=== PATIENT | female | born 1935 | race Caucasian/White ===

== ENCOUNTER 2017-04-26 08:03 | Inpatient (IN) | payer MEDICARE, SELFPAY ==
[2017-04-26] VITALS (16 sets, daily range): BP systolic 158–205; BP diastolic 65–107; PULSE 56–72; RESP 16–20; TEMP 36.3–37.1; O2SAT 92–97; BMI 31.1; BMI 30.7
--- NOTE | 2017-04-26 08:06 | NURSING ---
NO OLD EKGS
--- NOTE | 2017-04-26 08:18 | EKG12_ITS ---
Test Reason : NEURO Blood Pressure : / mmHG Vent. Rate : 061 BPM Atrial Rate : 061 BPM P-R Int : 238 ms QRS Dur : 092 ms QT Int : 466 ms P-R-T Axes : 043 070 057 degrees QTc Int : 469 ms Sinus rhythm with 1st degree A-V block Low voltage QRS (LIMB LEADS) Confirmed by LYDIA ODEN, RAYNE ([id number]), newspaper copy editor MORENITA BARNES ([id number]) on 04/30/2017 3:07:24 PM Referred By: ERIKA Confirmed By:RAYNE FREEMAN MD
--- NOTE | 2017-04-26 08:18 | RAD_ITS ---
STUDY: X-RAY CHEST REASON FOR EXAM: Female, 81 years old. Hypertension. TECHNIQUE: Single AP portable view of the chest. COMPARISON: None. FINDINGS: EKG electrodes are seen. There is elevation of the left hemidiaphragm. The right lung is clear. Blunting of the left costophrenic angle. Normal size heart. Normal mediastinum and celine. Normal visualized pulmonary arteries. Normal visualized aortic arch and descending thoracic aorta. There are diffuse degenerative changes of the visualized thoracic spine. Minimal levoscoliosis of the thoracic spine. Prior fusion in the lower cervical spine. There is no demonstrated abnormality of the visualized soft tissue structures of the upper abdomen. RAD/Chest 1 View IMPRESSION: Elevation of the left hemidiaphragm. No acute abnormality is seen. Electronically Signed: Setve Heart MD at 9:00 EST Tel [phone], Service support ,
--- NOTE | 2017-04-26 08:18 | CT_ITS ---
STUDY: CT BRAIN WITHOUT CONTRAST REASON FOR EXAM: Female, 81 years old. Slurred speech. RADIATION DOSAGE (If Supplied By Facility): CTDIvol = ( 44.99 ) mGy, DLP = ( 762.36 ) mGycm TECHNIQUE: Transaxial CT imaging of the brain was performed without administration of intravenous contrast material. Individualized dose optimization techniques were used for this CT. COMPARISON: None. FINDINGS: Normal soft tissue structures. Normal calvarium. There is mild cerebral atrophy with widening of the extra-axial spaces and ventricular dilatation. There are areas of decreased attenuation within the white matter tracts of the supratentorial brain, consistent with microvascular disease changes. Normal basal ganglia and thalami. Normal brainstem. There is mild cerebellar atrophy. There is no intracranial hemorrhage. There are no findings of an acute ischemic infarction. Atherosclerotic calcification of the vertebral arteries and cavernous portions of the internal carotid arteries bilaterally. Normal visualized paranasal sinuses. CT/Brain/Head without Contrast IMPRESSION: Chronic involutional changes of the brain. Electronically Signed: Steve Heart MD at 8:59 EST Tel [phone], Service support ,
[2017-04-26 08:31] LABS: Bedside Glucose 79 mg/dL (70-110)
[2017-04-26 08:42] LABS: Absolute Lymphocyte Count 1.98 X10^3/ul (0.83-4.51); Absolute Neutrophil Count 5.5 X10^3/uL (2.0-7.7); Basophil# 0.02 X10^3/uL; Basophil% 0.2 % (0-1); Eosinophil# 0.31 X10^3/uL; Eosinophils% 3.6 % (0-5); Hematocrit 41.2 % (37-47); Hemoglobin 13.8 g/dl (12.0-15.0); Lymphocyte # 1.98 X10^3/ul (4.0); Lymphocyte % 23.1 % (19-41); Mean Corp Hgb Conc 33.5 g/gl (32-36); Mean Corpuscular Hgb 30.8 pg (27.0-32.0); Mean Platelet Vol. 9.3 fl (6.2-12.0); Monocyte# 0.78 X10^3/uL; Monocyte% 9.1 % (0-10); Neutrophil # 5.47 X10^3/uL (2.7-7.7); Neutrophil % 63.9 % (47-70); Platelet Count 241 K/mm3 (150-450); RBC Distribution Width CV 13.2 % (11.6-14.6); Red Blood Count 4.48 M/mm3 (4.2-5.4); White Blood Count 8.6 K/mm3 (4.4-11.0)
[2017-04-26 08:44] LABS: POSITIVE COUNT NO; POSITIVE DIFFERENTIAL NO; POSITIVE MORPHOLOGY NO
[2017-04-26] MEDS: Labetalol 100 MG/20 ML Vial 10 MG IV (08:47)
[2017-04-26 08:50] LABS: International Normalized Ratio 1.1; Prothrombin Time (Protime)PT. 13.4 SECONDS (11.7-14.9)
[2017-04-26 08:51] LABS: Partial Thromboplast Time 28.8 Seconds (24.1-36.2)
[2017-04-26 08:57] LABS: Anion Gap 6 (5-15); BUN 19 mg/dL (7-18); BUN/Creat Ratio 32.8 RATIO (10-20); Calcium,Total 9.1 mg/dL (8.5-10.1); Chloride 107 mmol/L (98-107); Creatinine, Serum 0.58 mg/dL (0.55-1.02); EST Glomerular Filtration Rate 107 mL/min (>60); Est Glom Filt Rate - Afr Amer 129 mL/min (>60); Estimated Creatinine Clearance 36.08 ml/min; Glucose 83 mg/dL (70-110); Potassium 3.9 mmol/L (3.5-5.1); Sodium Level 141 mmol/L (136-145)
--- NOTE | 2017-04-26 09:14 | ED.DCSUM_ITS ---
- ER Visit Summary Date of Service: 04/26/17 Chief Complaint: [Difficulty speaking] History of Present Illness: The patient is a 81 F [presents to the emergency department with slurred speech that her daughter noticed this morning when she called to speak with her. Patient states that she felt like her speech was off yesterday afternoon when she had family over. Patient states that she just does not feel like her extremities are working like normal. She denies a headache. She has never had symptoms like this before. She denies any falls or head injuries. She denies recent illness.] Physical Examination: [HEENT-PERRLA, EOMI. Cranial nerves II through XII grossly intact. TMs clear. Mucous membranes moist. No adenopathy. Cardiovascular-regular rate and rhythm without murmur or ectopy Lungs-clear to auscultation, chest wall stable without crepitus or subcu emphysema Abdomen-normoactive bowel sounds, soft, nontender, no rebound or rigidity, no peritoneal signs. Neuro exam-NIH stroke scale was a 1 for dysarthria. Patient has no focal weakness on exam. Finger to nose and heel blair testing within normal limits, negative Romberg, negative pronator drift, Babinski is downgoing bilaterally. Extremities-intact ?4, normal range of motion, normal pulses, atraumatic] Test Results: [CT scan of the brain without contrast showed chronic involutional changes. CBC with it was normal. Chemistries were normal. INR was 1.1. Troponin was 0.03. EKG shows sinus rhythm with a ventricular rate of 61 bpm with a first-degree AV block. Chest x-ray showed nothing acute.] Emergency Department Course and Treatment: [Given symptom onset beginning yesterday patient is not a thrombolytic candidate. Patient also has an NIH of 1 which does not qualify her for thrombolysis.] Treatment Plan: [Patient will be admitted for further workup and evaluation of suspected stroke] Disposition: [Admit] Impression: [Cerebrovascular accident/dysarthria] This note was generated with [employer] dictation software. It may contain incorrect words, spelling, and punctuation that were not noted in review of the chart prior to signing ED Disposition - Plan for ED Patient: Chief Complaint: Neuro S/Sx Referrals: Luis M Lemons DO [Primary Care Provider] -
--- NOTE | 2017-04-26 09:26 | NURSING ---
DR MARIA DEL ROSARIO SCHWARTZ
--- NOTE | 2017-04-26 09:38 | HP.PCM_ITS ---
Problem List (1) Dysarthria Status: Acute (2) Elevated BP without diagnosis of hypertension Status: Acute (3) Osteoarthritis Status: Chronic (4) Ischemic cerebrovascular accident (CVA) Status: Suspected History of Present Illness Date of Admission: 04/26/17 Chief Complaint: slurred speech The patient is a 81 year old F with a history of osteoarthritis and former smoking history who presented to [facility] emergency room on complaining of slurred speech. She awoke with slurred speech that morning and the time of onset could not be determined. TPA was not indicated. 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 she has had surgery on the neck. This weakness is unchanged. Denies STROUD, drooling, difficulty swallowing. She was incontinent of stool today and that is very unusual. She denies chest pain, shortness of breath, cephalgia, palpitations or lightheadedness. She has not had a syncopal episode. Her only medications at home are ASA and Motrin. Vital signs at presentation to the emergency room are temperature 97.3, pulse rate 56, blood pressure 205/107, respiratory rate 17 and she is 94% saturated on room air. CT brain showed involutional changes only. EKG showed a first-degree AV block but was otherwise unremarkable. Significant lab included an increased BUN at 19 with a creatinine of 0.58. TSH is normal. She was admitted to the progressive care unit with a diagnosis of suspected ischemic CVA. Past Medical History Past Medical History (Chronic Problems): Chronic Problems Osteoarthritis (Chronic) Allergies meperidine [From Demerol] Adverse Reaction (Verified 04/26/17 08:04) Upset Stomach Home Medications: Ambulatory Orders Medication Instructions Recorded Aspirin [Aspirin, Baby] 81 mg PO DAILY@0800 04/26/17 Multivitamin [Daily Multiple 1 each PO DAILY 04/26/17 Vitamin] Surgical History: - - Decompressive surgery on her neck for radiculopathy/ myelopathy on her left side. Oophorectomy secondary to assist. Left total hip replacement. 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 Denies: Chills, Fever, Weight Change Eyes: Denies: Blurred vision, Double vision, Vision Change HEENT: Denies: Difficulty Hearing, Difficulty Swallowing, Head Aches, Sinus Congestion, Sinus Drainage, Sore Throat Cardiovascular: Denies: Chest Pain, Edema, Light Headedness, Orthopnea, Palpitations, Paroxysmal Noc. Dyspnea, Syncope Respiratory: Denies: Cough, Shortness of Breath, Sputum production Gastrointestinal: Reports: - - she had 1 episode of fecal incontinence today. Denies: Abdominal Pain, Diarrhea, Nausea, Vomiting Genitourinary: Denies: Dysuria Gynecological: Denies: Breast symptoms, Vaginal discharge Musculoskeletal: Reports: Joint Tenderness - has OA and takes Motrin. Denies: Joint Pain Skin: Denies: Jaundice, Rash, Wounds Neurological: Reports: Change in Speech, Slurred speech. Denies: Confusion, Difficulty swallowing, Focal weakness, Numbness, Tingling, Seizures Psychiatric: Denies: Anxiety, Depression, Homicidal Ideations, Suicidal Ideations Endocrine: Denies: Hx of Thyroiditis Hematologic/ Lymphatic: Denies: Hx of blood clot VTE Information - Inpt Only VTE Present on Admission: No VTE Mechan Device Prophylaxis: SCD's, Knee High PERLA Hose VTE Pharm Prophylaxis ordered?: Yes Patient Problems: Active and Suspected Problems Dysarthria (Acute) Elevated BP without diagnosis of hypertension (Acute) Ischemic cerebrovascular accident (CVA) (Suspected) - Physical Exam General: Alert, Oriented x3, Cooperative, No apparent distress, Well developed, Well nourished, - - having dysarthria.....no aphasia HEENT: Atraumatic, PERRLA, EOMI, Normocephalic Oral: Dry Mucosa Neck: Supple, No JVD, Negative Carotid Bruits, No Nuchal Rigidity, - - Carotids have brisk upstroke and good pulse volume Lungs: Clear to auscultation, No rhonchi, No wheeze, No rales Cardiovascular: Regular rate, Regular Rhythm, Normal S1, Normal S2, No murmurs, No Ectopic Activity, No rub noted, No Gallop Abdomen: Bowel Sounds Present, Soft, Non Tender, Non-Distended, No Hepato- splenomegaly, Obese Extremities: No clubbing, No cyanosis, No edema, Peripheral Pulses Normal Skin: No rashes, No breakdown Musculoskeletal: No Muscle Wasting Neurological: Facial Droop, Slurred Speech, Sensory exam intact to light touch and pain, Coordination normal, - - slurred speech. LUE and the LLE are 4/5 and this is chronic with no acute change. %/% in the RUE and the RLE. Intact sensation. Psych/Mental Status: Normal Affect, Appropriate Vital Signs Temp Pulse Resp BP Pulse Ox 97.3 F L 57 L 20 H 170/78 H 93 04/26/17 08:20 04/26/17 09:27 04/26/17 09:27 04/26/17 09:27 04/26/17 09:27 Oxygen Delivery Method Room Air Weight: 170 lb 10.205 oz Body Mass Index (BMI) 31.1 Finger Stick Blood Glucose 79 Laboratory Tests Past 24 Hrs 04/26/17 04/26/17 04/26/17 08:27 08:27 08:27 WBC 8.6 RBC 4.48 Hgb 13.8 Hct 41.2 MCV 92.0 MCH 30.8 MCHC 33.5 RDW 13.2 RDW Differential 44.0 H Plt Count 241 MPV 9.3 Immature Gran % (Auto) 0.100 Neut % (Auto) 63.9 Lymph % (Auto) 23.1 Baxter % (Auto) 9.1 Eos % (Auto) 3.6 Baso % (Auto) 0.2 Absolute Neuts (auto) 5.5 Absolute Lymphs (auto) 1.98 Total Counted Not Reportable PT 13.4 INR 1.1 APTT 28.8 Sodium 141 Potassium 3.9 Chloride 107 Carbon Dioxide 28.0 Anion Gap 6 BUN 19 H Creatinine 0.58 Estim Creat Clear Calc 36.08 Est GFR (MDRD) Af Amer 129 Est GFR (MDRD) Non-Af 107 BUN/Creatinine Ratio 32.8 H Glucose 83 Calcium 9.1 Troponin I 0.03 POC Glucose 04/26/17 08:19 POC Glucose 79 Assessment/Plan Active and Suspected Problems Dysarthria (Acute) Elevated BP without diagnosis of hypertension (Acute) Ischemic cerebrovascular accident (CVA) (Suspected) Impressions 1. Acute onset dysarthria sometime during the night. No TPA....unclear when the onset was. Has been taking ASA 81 mg daily 2. elevated BP with no hx of HTN 3. suspected ischemic CVA 4. Obesity 5. Former smoker-quit in 1999 Admitted to PCU Stroke protocol initiated. Add Plavix to the ASA ECHO MRI of the brain and CTA of the head and the neck. Lipid panel in the AM Consult Dr. Luo Code Visit Inpatient E&M: 54133 Init Hosp L3
--- NOTE | 2017-04-26 09:39 | NURSING ---
PCU DYSARTHRIA, SUSPECTED CVA SEMENTI
--- NOTE | 2017-04-26 10:24 | ECHOD_ITS ---
Reason For Study: TIA/CVA Procedure This was a 2D Doppler, Color Flow transthoracic echocardiogram. The exam was of fair technical quality due to diminished acoustic windows. The study was technically difficult. Exam performed portable in patient room. Left Ventricle Normal LV size. Left ventricular systolic function is normal. The estimated ejection fraction is 55 %. No regional wall motion abnormalities noted. Right Ventricle Normal RV size. Normal systolic function. Atria The left atrium is mildly enlarged. Normal right atrium. No doppler evidence for ASD. Bubble contrast study negative for right to left interatrial shunt. Mitral Valve There is moderate to severe mitral annular calcification. Extension of the mitral annular calcification onto the posterior mitral valve leaflet. Mild mitral valve stenosis. Trivial mitral valve insufficiency. Tricuspid Valve Normal tricuspid valve. Trivial tricuspid valve insufficiency. Right ventricular systolic pressure estimated to be 28 mmHg. Aortic Valve Trisinus/trileaflet aortic valve. Moderate focal aortic valve calcification. Pulmonic Valve The pulmonic valve is not well visualized. Great Vessels Normal sized aortic root. Pericardium/Pleural No pericardial effusion. Medication Performed a rapid injection of agitated mix of 9 cc saline and 1cc air to assess for atrial septal defect. MMode/2D Measurements & Calculations LVIDd: 3.4 cm IVSd: 1.2 cm Ao root diam: 2.6 cm LVIDs: 1.9 cm LVPWd: 0.84 cm RVDd: 4.0 cm FS: 46.0 % LAV(MOD-bp): 44.3 ml LA A4 area: 15.6 cm2 RA A4 area: 10.3 cm2 LAV(MOD-bp) Indexed: 25.5 ml/m2 LAV(MOD-sp2): 49.6 ml LAV(MOD-sp4): 38.0 ml Time Measurements MV dec time: 0.14 sec Doppler Measurements & Calculations MV E max dilip: 79.6 cm/sec Lat Peak E' Dilip: 4.4 cm/sec Med Peak E' Dilip: 3.7 cm/sec MV A max dilip: 132.9 cm/sec E/E' lat: 18.1 E/E' med: 21.3 MV E/A: 0.60 MV V2 max: 136.5 cm/sec MV P1/2t max dilip: 82.2 cm/sec Ao V2 max: 134.8 cm/sec MV max P.5 mmHg MV P1/2t: 122.5 msec Ao max P.3 mmHg MV V2 mean: 69.1 cm/sec MV dec slope: 196.4 cm/sec2 Ao V2 mean: 98.9 cm/sec MV mean P.2 mmHg MVA(P1/2t): 1.8 cm2 Ao mean P.2 mmHg MV V2 VTI: 41.3 cm Ao V2 VTI: 33.7 cm LV V1 max: 108.3 cm/sec PA V2 max: 82.3 cm/sec TR max dilip: 247.9 cm/sec LV V1 max P.7 mmHg TR max P.6 mmHg Interpretation Summary The study was technically difficult. Left ventricular systolic function is normal. The estimated ejection fraction is 55 %. The left atrium is mildly enlarged. There is moderate to severe mitral annular calcification. Extension of the mitral annular calcification onto the posterior mitral valve leaflet. Mild mitral valve stenosis. Trivial mitral valve insufficiency. Trivial tricuspid valve insufficiency. Moderate focal aortic valve calcification. Right ventricular systolic pressure estimated to be 28 mmHg. Bubble contrast study negative for right to left interatrial shunt. Ordering Physician: Poonam June Referring Physician: Luis M Lemons Performed By: Lisa Chapman RDCS, RVT
--- NOTE | 2017-04-26 10:24 | CT_ITS ---
STUDY: CTA NECK WITH CONTRAST REASON FOR EXAM: Female, 81 years old. Slurred speech. Lower extremity weakness. RADIATION DOSAGE (If Supplied By Facility): CTDIvol = ( 18.97 ) mGy, DLP = ( 624.21 ) mGycm TECHNIQUE: CT angiography with multi-detector data acquisition was performed from the aortic arch to the skull base following intravenous administration of 100CC ml of Isovue 370 contrast. MIP images were reconstructed from the axial data set. Post-processing of the angiographic images was performed, with multiplanar reformation and 3D reconstruction. Individualized dose optimization techniques were used for this CT. COMPARISON: None. FINDINGS: Prior anterior cervical fusion. AORTIC ARCH: There is atherosclerotic calcific plaque formation of the aortic arch and great vessels arising from the aortic arch, without a hemodynamically significant stenosis. There is a normal origin of the brachiocephalic, left common carotid, and left subclavian arteries. RIGHT CAROTID ARTERIES: Normal right common carotid artery (CCA). Normal right common carotid bulb. There is mild atherosclerotic plaque formation of the origin of the right internal carotid artery with less than 50% cross sectional diameter stenosis. Normal visualized cervical portion of the right internal carotid artery. Normal origin of the right external carotid artery (ECA). LEFT CAROTID ARTERIES: Normal left common carotid artery (CCA). Normal left common carotid bulb. There is mild atherosclerotic plaque formation of the origin of the left internal carotid artery with less than 50% cross sectional diameter stenosis. Normal visualized cervical portion of the left internal carotid artery. Normal origin of the left external carotid artery (ECA). VERTEBRAL ARTERIES: Normal bilateral vertebral arteries. CT/CTA Neck W/WO Contrast IMPRESSION: Calcific plaque at the origins of the right and left internal carotid arteries causing less than 50% luminal stenosis. Electronically Signed: Steve Heart MD at 11:25 EST Tel [phone], Service support ,
--- NOTE | 2017-04-26 10:24 | MRI_ITS ---
STUDY: MRI BRAIN WITHOUT CONTRAST REASON FOR EXAM: Female, 81 years old. CVA/dysarthria. TECHNIQUE: Standardized multiplanar fat and water weighted pulse sequences were obtained. COMPARISON: None. FINDINGS: Small restricted diffusion in the left periventricular white matter extending down to the left posterior putamen are consistent with acute ischemic infarcts. Normal size of the ventricles and extra-axial spaces for the patient's age. Periventricular white matter and scattered subcortical white matter T2 FLAIR hyperintensity foci are chronic white matter ischemic changes. Normal remaining basal ganglia. Normal thalami. There is no extra-axial fluid accumulation. Normal flow voids within the major intracranial circulation suggesting patency by spin echo criteria. Normal sella turcica, pituitary gland, infundibular stalk, optic chiasm and hypothalamus. Normal tectal plate and pineal gland. Normal midbrain, gabrielle and medulla. Normal cerebellum. Normal basal cisterns. Normal bilateral temporal bones. Normal bilateral internal auditory canals. No demonstrated orbital abnormality, within the constraints of a routine brain study. Normal visualized paranasal sinuses. Normal calvarium and skull base. Normal visualized soft tissue structures. 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 MRI/Brain without Contrast IMPRESSION: 1. Acute ischemic infarcts in the left periventricular white matter and left posterior putamen. 2. Multiple chronic white matter ischemic changes in both cerebral hemispheres. 3. 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 N.B. : The above information has been verbally conveyed by Enrique Quezada MD to Melvina Gleason, RN, Hospital- In-Patient RN, on 04/26/2017 16:24:19 (ET). Electronically Signed: Enrique Quezada MD at 16:18 EST , Service support , N.B. : The above information has been verbally conveyed by Enrique Quezada MD to Melvina Gleason, RN, Hospital- In-Patient RN, on 04/26/2017 16:24:19 (ET).
--- NOTE | 2017-04-26 10:24 | CT_ITS ---
STUDY: CTA OF THE BRAIN REASON FOR EXAM: Female, 81 years old. Slurred speech. Lower extremity weakness. RADIATION DOSAGE (If Supplied By Facility): CTDIvol = ( 18.97 ) mGy, DLP = ( 624.21 ) mGycm TECHNIQUE: CT angiography was performed with a multi-detector CT scanner. Data acquisition was obtained from the skull base through the vertex following intravenous administration of 100 ml of Isovue-370. MIP images were reconstructed from the axial data set. Post-processing of the angiographic images was performed, with multiplanar reformation and 3D reconstruction. Individualized dose optimization techniques were used for this CT. COMPARISON: None. FINDINGS: Normal bilateral petrous carotid arteries. There is calcified plaque formation of the right cavernous carotid artery, without a cross-sectional luminal stenosis. There is calcified plaque formation of the left cavernous carotid artery, without a cross-sectional luminal stenosis. Normal right A1 segments of the anterior cerebral artery. Normal left A1 segments of the anterior cerebral artery. Normal intact anterior communicating artery (ACOM). Normal bilateral A2 segments of the anterior cerebral arteries. Normal right M1 and M2 segments of the middle cerebral arteries, with a normal M1 bifurcation. Normal left M1 and M2 segments of the middle cerebral arteries, with a normal M1 bifurcation. There is a persistent origin of the right posterior cerebral artery with absence of the posterior communicating artery (PCOM). There is a persistent origin of the left posterior cerebral artery with absence of the posterior communicating artery (PCOM). Normal bilateral vertebral arteries. Normal basilar artery with a normal basilar bifurcation. The visualized bilateral superior cerebellar (SCA) arteries are normal. Normal bilateral P1, P2 and visualized P3 segments of the posterior cerebral arteries. There is no demonstrated aneurysm of the [place]. There is no demonstrated abnormality of the visualized brain. CT/CTA Head W/WO Contrast IMPRESSION: Normal [place] without a demonstrated aneurysm or hemodynamically significant stenosis. Electronically Signed: Steve Heart MD at 11:23 EST Tel [phone], Service support ,
[2017-04-26] MEDS: Aspirin 81 MG TAB.CHEW PO (11:01)
[2017-04-26] MEDS: Clopidogrel Bisulfate 75 MG Tablet PO (11:01)
[2017-04-26] MEDS: Enoxaparin 40 MG/0.4 ML Syringe SC (11:01)
[2017-04-26] MEDS: Multivitamins,Therapeutic Tablet 1 TABLET PO (11:01)
[2017-04-26] MEDS: 0.9% Normal Saline 1,000 ML 100 ML IV ×2 (11:02→21:34)
[2017-04-26 11:12] LABS: AST(SGOT) 18 U/L (15-37); Alanine Aminotransfer ALT/SGPT 20 U/L (12-78); Albumin, Serum 3.6 g/dL (3.4-5.0); Alkaline Phosphatase 80 U/L (45-117); Bilirubin, Direct 0.09 mg/dL (0.00-0.30); Globulin 3.9 g/dL (2.2-4.2); Protein, Total 7.5 g/dL (6.4-8.2); Thyroid Stim Hormone (TSH) 2.21 uIU/mL (0.358-3.74)
--- NOTE | 2017-04-26 14:31 | PCM.CONS.GEN ---
Problem List (1) Stroke Status: Acute Qualifiers: CVA mechanism: embolism Precerebral and cerebral artery: middle cerebral artery Laterality of affected vessel: left Qualified Code(s): I63.412 - Cerebral infarction due to embolism of left middle cerebral artery Reason for Consult Date of Consultation: 04/26/17 Reason for Consultation: stroke History of Present Illness: The patient is a 81 year old CF with PMH of cervical surgery with residual left UE proximal weakness admitted with slurred speech. Per daughter she called her up this morning (04/26/17) and she was not speaking correct on the phone, so she went to her house and drove her to the ED for possible stroke evaluation, denies any weakness of extremities, sensory loss, STROUD or visual disturbances. Per patient she lives alone, does drive, denies any frequent falls, does not need any assistance with ADLs. MRI brain on my review shows acute left MCA stroke (left schmid radiata and CHASSIS INSPECTOR), report awaited, CTA head/neck did not show any occlusion or hemodynamically significant stenosis. [] Past Medical History Past Medical History (Chronic Problems): Chronic Problems Osteoarthritis (Chronic) Allergies meperidine [From Demerol] Adverse Reaction (Verified 04/26/17 08:04) Upset Stomach Home Medications: Ambulatory Orders Medication Instructions Recorded Aspirin [Aspirin, Baby] 81 mg PO DAILY@0800 04/26/17 Multivitamin [Daily Multiple 1 each PO DAILY 04/26/17 Vitamin] Surgical History: - - Decompressive surgery on her neck for radiculopathy/myelopathy on her left side. Oophorectomy secondary to assist. Left total hip replacement. Psychiatric History: No pertinent psych hx DIRECTOR OF STUDENT AFFAIRS History: No pertinent DIRECTOR OF STUDENT AFFAIRS history Lives: Alone Smoking Status: Former smoker Tobacco Use: Non-smoker Alcohol: Rare Drugs: None - *Family History Sibling History Items: Heart Disease Review of Systems Constitutional: Reports: - - complete ROS negative except as documented in HPI Patient Problems: Active and Suspected Problems Dysarthria (Acute) Elevated BP without diagnosis of hypertension (Acute) Ischemic cerebrovascular accident (CVA) (Suspected) Stroke (Acute) - Physical Exam General: Alert, Oriented x3, Cooperative HEENT: Atraumatic, PERRLA, EOMI, Normocephalic Neck: Supple, No JVD, Negative Carotid Bruits Lungs: Clear to auscultation, Normal air movement Cardiovascular: Regular rate, No murmurs Abdomen: Bowel Sounds Present, Soft, Non Tender Extremities: No edema, Capillary Refill Less than 3 Seconds Skin: No rashes, No breakdown Musculoskeletal: No Tenderness to Palpation of Joints or Extremities Neurological: - - consious, alert, AoA x3, CN- ? mild right UMN facial palsy, rest normal, Power 5/5 right UE/LE, 4/5 left proximal UE (old), -5/5 left LE (old), no sensory loss, no cerebellar signs, dysarthric speech, no aphasia, Reflexes + B/L B/S/T/K/A, gait deferred, NIHSS 2 at present. Psych/Mental Status: Normal Affect, Appropriate Vital Signs Temp Pulse Resp BP Pulse Ox 98.0 F 72 16 204/79 H 96 04/26/17 14:15 04/26/17 14:15 04/26/17 14:15 04/26/17 14:15 04/26/17 14:15 Oxygen Delivery Method Room Air Weight: 76.2 kg Body Mass Index (BMI) 31.1 Laboratory Tests Past 24 Hrs 04/26/17 12:45 Troponin I 0.04 Assessment/Plan Active and Suspected Problems Dysarthria (Acute) Elevated BP without diagnosis of hypertension (Acute) Ischemic cerebrovascular accident (CVA) (Suspected) Stroke (Acute) The patient is a 81 year old CF with PMH of cervical surgery with residual left UE proximal weakness admitted with slurred speech. Per daughter she called her up this morning (04/26/17) and she was not speaking correct on the phone, per patient she probably woke up with the symptoms. Daughter went to her house and drove her to the ED for possible stroke evaluation, denies any weakness of extremities, sensory loss, STROUD or visual disturbances. Per patient she lives alone, does drive, denies any frequent falls, does not need any assistance with ADLs. MRI brain on my review shows acute left MCA stroke (left schmid radiata and CHASSIS INSPECTOR), report awaited, CTA head/neck did not show any occlusion or hemodynamically significant stenosis. Patient was on ASA at home. was not given Ivtpa since NIHSS was low on admission and was a wake up stroke. Impression Acute Left MCA stroke- possibly embolic Plan -Recommend dual AP with ASA and Plavix for 1 month, then switch to single AP -Recommend Lipitor 40 mg PO q hs -MRI brain and CTA head/neck images reviewed- acute left MCA stroke, B/L ICA < 50% stenosis -Recommend TTE, LDL, Hba1c -Permissive HTN for atleast first 24 hrs -Fall precautions -Recommend PT/OT and ST -GI/DVT prophylaxis -Follow up with Neurology as outpatient in 2-3 weeks -Please call with questions if any -Thank you for allowing us to participate in patient's care and management I spent 60 minutes taking history, doing physical examination, reviewing medical records, coordinating care and counseling the patient. Code Visit Inpatient E&M: 79932 Init Hosp L3
--- NOTE | 2017-04-26 14:42 | CON.PCM_ITS ---
Problem List (1) Stroke Status: Acute Qualifiers: CVA mechanism: embolism Precerebral and cerebral artery: middle cerebral artery Laterality of affected vessel: left Qualified Code(s): I63.412 - Cerebral infarction due to embolism of left middle cerebral artery Reason for Consult Date of Consultation: 04/26/17 Reason for Consultation: stroke History of Present Illness: The patient is a 81 year old CF with PMH of cervical surgery with residual left UE proximal weakness admitted with slurred speech. Per daughter she called her up this morning (04/26/17) and she was not speaking correct on the phone, so she went to her house and drove her to the ED for possible stroke evaluation, denies any weakness of extremities, sensory loss, STROUD or visual disturbances. Per patient she lives alone, does drive, denies any frequent falls, does not need any assistance with ADLs. MRI brain on my review shows acute left MCA stroke (left schmid radiata and CHANNELER), report awaited, CTA head/neck did not show any occlusion or hemodynamically significant stenosis. [] Past Medical History Past Medical History (Chronic Problems): Chronic Problems Osteoarthritis (Chronic) Allergies meperidine [From Demerol] Adverse Reaction (Verified 04/26/17 08:04) Upset Stomach Home Medications: Ambulatory Orders Medication Instructions Recorded Aspirin [Aspirin, Baby] 81 mg PO DAILY@0800 04/26/17 Multivitamin [Daily Multiple 1 each PO DAILY 04/26/17 Vitamin] Surgical History: - - Decompressive surgery on her neck for radiculopathy/ myelopathy on her left side. Oophorectomy secondary to assist. Left total hip replacement. Psychiatric History: No pertinent psych hx HEAD OF BIOLOGY History: No pertinent HEAD OF BIOLOGY history Lives: Alone Smoking Status: Former smoker Tobacco Use: Non-smoker Alcohol: Rare Drugs: None - *Family History Sibling History Items: Heart Disease Review of Systems Constitutional: Reports: - - complete ROS negative except as documented in HPI Patient Problems: Active and Suspected Problems Dysarthria (Acute) Elevated BP without diagnosis of hypertension (Acute) Ischemic cerebrovascular accident (CVA) (Suspected) Stroke (Acute) - Physical Exam General: Alert, Oriented x3, Cooperative HEENT: Atraumatic, PERRLA, EOMI, Normocephalic Neck: Supple, No JVD, Negative Carotid Bruits Lungs: Clear to auscultation, Normal air movement Cardiovascular: Regular rate, No murmurs Abdomen: Bowel Sounds Present, Soft, Non Tender Extremities: No edema, Capillary Refill Less than 3 Seconds Skin: No rashes, No breakdown Musculoskeletal: No Tenderness to Palpation of Joints or Extremities Neurological: - - consious, alert, AoA x3, CN- ? mild right UMN facial palsy, rest normal, Power 5/5 right UE/LE, 4/5 left proximal UE (old), -5/5 left LE ( old), no sensory loss, no cerebellar signs, dysarthric speech, no aphasia, Reflexes + B/L B/S/T/K/A, gait deferred, NIHSS 2 at present. Psych/Mental Status: Normal Affect, Appropriate Vital Signs Temp Pulse Resp BP Pulse Ox 98.0 F 72 16 204/79 H 96 04/26/17 14:15 04/26/17 14:15 04/26/17 14:15 04/26/17 14:15 04/26/17 14:15 Oxygen Delivery Method Room Air Weight: 76.2 kg Body Mass Index (BMI) 31.1 Laboratory Tests Past 24 Hrs 04/26/17 12:45 Troponin I 0.04 Assessment/Plan Active and Suspected Problems Dysarthria (Acute) Elevated BP without diagnosis of hypertension (Acute) Ischemic cerebrovascular accident (CVA) (Suspected) Stroke (Acute) The patient is a 81 year old CF with PMH of cervical surgery with residual left UE proximal weakness admitted with slurred speech. Per daughter she called her up this morning (04/26/17) and she was not speaking correct on the phone, per patient she probably woke up with the symptoms. Daughter went to her house and drove her to the ED for possible stroke evaluation, denies any weakness of extremities, sensory loss, STROUD or visual disturbances. Per patient she lives alone, does drive, denies any frequent falls, does not need any assistance with ADLs. MRI brain on my review shows acute left MCA stroke (left schmid radiata and CHANNELER), report awaited, CTA head/neck did not show any occlusion or hemodynamically significant stenosis. Patient was on ASA at home. was not given Ivtpa since NIHSS was low on admission and was a wake up stroke. Impression Acute Left MCA stroke- possibly embolic Plan -Recommend dual AP with ASA and Plavix for 1 month, then switch to single AP -Recommend Lipitor 40 mg PO q hs -MRI brain and CTA head/neck images reviewed- acute left MCA stroke, B/L ICA < 50% stenosis -Recommend TTE, LDL, Hba1c -Permissive HTN for atleast first 24 hrs -Fall precautions -Recommend PT/OT and ST -GI/DVT prophylaxis -Follow up with Neurology as outpatient in 2-3 weeks -Please call with questions if any -Thank you for allowing us to participate in patient's care and management I spent 60 minutes taking history, doing physical examination, reviewing medical records, coordinating care and counseling the patient. Code Visit Inpatient E&M: [id number] Init Hosp L3
[2017-04-26] MEDS: Atorvastatin Calcium 40 MG Tablet PO (21:34)
[2017-04-27] VITALS (8 sets, daily range): BP systolic 158–166; BP diastolic 72–94; PULSE 57–72; RESP 14–16; TEMP 36.4–36.7; O2SAT 93–97; BMI 31.1
[2017-04-27 05:39] LABS: Hematocrit 40.8 % (37-47); Hemoglobin 13.7 g/dl (12.0-15.0); Mean Corp Hgb Conc 33.6 g/gl (32-36); Mean Corpuscular Hgb 30.3 pg (27.0-32.0); Mean Corpuscular Volume 90.3 fL (81-99); Mean Platelet Vol. 9.3 fl (6.2-12.0); Platelet Count 270 K/mm3 (150-450); RBC Distribution Width SD 42.2 fl (35.1-43.9); Red Blood Count 4.52 M/mm3 (4.2-5.4); Scan Indicated on CBC? Y/N NO
[2017-04-27] MEDS: Enoxaparin 40 MG/0.4 ML Syringe SC (05:47)
[2017-04-27 05:58] LABS: BUN 10 mg/dL (7-18); Estimated Creatinine Clearance 36.08 ml/min; Glucose 89 mg/dL (70-110)
[2017-04-27 05:59] LABS: ALB/GLOB Ratio 0.8 RATIO (0.9-2.4); AST(SGOT) 19 U/L (15-37); Alanine Aminotransfer ALT/SGPT 20 U/L (12-78); Albumin, Serum 3.2 g/dL (3.4-5.0); Alkaline Phosphatase 71 U/L (45-117); Anion Gap 8 (5-15); BUN/Creat Ratio 19.8 RATIO (10-20); Calcium,Total 8.5 mg/dL (8.5-10.1); Chloride 104 mmol/L (98-107); Cholesterol 259 mg/dL (200); EST Glomerular Filtration Rate 125 mL/min (>60); Est Glom Filt Rate - Afr Amer 152 mL/min (>60); Globulin 3.8 g/dL (2.2-4.2); High Density Lipoprotein 44 mg/dL; Magnesium 1.7 mg/dL (1.6-2.6); Phosphorus 2.9 mg/dL (2.5-4.9); Potassium 3.7 mmol/L (3.5-5.1); Sodium Level 139 mmol/L (136-145); Triglycerides 146 mg/dL; Very Low Density Lipoprotein 29 mg/dL (5-40)
[2017-04-27] MEDS: 0.9% Normal Saline 1,000 ML 100 ML IV (06:49)
[2017-04-27] MEDS: Aspirin 81 MG TAB.CHEW PO (07:54)
[2017-04-27] MEDS: Multivitamins,Therapeutic Tablet 1 TABLET PO (07:54)
[2017-04-27] MEDS: Clopidogrel Bisulfate 75 MG Tablet PO (07:55)
--- NOTE | 2017-04-27 11:56 | CASEMGMT ---
Face to Face with patient for initial transition planning/care coordination assessment. TEGAN SANTIAGO introduced self and role at [facility], pt voices understanding and consents to assessment at this time. Pt sitting up in chair in no distress at this time. Pt A/O x4 at this time and answers all questions appropriately but with slurred speech and facial droop. Care providers, pharmacy, and demographics verified. See attached link. Pt voices no further concerns/needs at this time. Advised pt to ask for CM if any further questions/concerns/needs arise, voices understanding. This RN JACK to f/u with Dr. June regarding outpt speech therapy set up. Pt states would like to go to [facility]. PLAN: [place] TEGAN SANTIAGO
--- NOTE | 2017-04-27 15:06 | CASEMGMT ---
Per Dr. June, pt to be set up with outpt speech therapy. Order signed by Dr. June at this time and faxed to [facility]. Original to pt and copy to chart. Call to [facility] to verify fax received but per Aisha they have a 50pg fax coming through and she has not received it yet. Pt's daughter, Naye, aware to call [facility] if they do not call her, voices understanding. SStclaudia RN CM
--- NOTE | 2017-04-27 17:13 | PCM.DC ---
- Discharge Diagnoses Current Active Problems: Current Active and Chronic Problems Dysarthria (Acute) Elevated BP without diagnosis of hypertension (Acute) Osteoarthritis (Chronic) Stroke (Acute) You will use the following diet at home:: Cardiac - low fat, low salt Your food should be the consistency of: Regular Your liquids should be the consistency of: Regular/Thin Discharge Activity: Return to Normal Activity Call your doctor if you observe: Fever of 101 or Higher, Using more than one pad per hour, Dizziness, Fainting spells, Chest pain, - - unilateral numbness or weakness, trouble swallowing, sudden loss of vision or hearing, not being able to say what you mean...gibberish, any stomach pain nor nausea/vomiting Instructions: Low-Fat Cooking Tips, Reading?Food Labels, Eating Heart-Healthy Foods Additional Instructions: 1. your cholesterol is too high. The LFL, or bad cholesterol, is 186 and in people with strokes or heart attacks it should be < 70. You have been started on a medication called Atorvastin, also called Lipitor, to help bring the cholesterol down. You should have the cholesterol and a liver profile rechecked in 4-6 weeks. Lipitor can cause muscle pain in some people so if you are having a lot of muscle pain call your PCP. 2. Your BP is high and I have started you on a medication called Zestril, also called Lisinopril, and you will take this once a day. The biggest side effect is a dry cough. If you get a cough do not stop the medication until you have talked with Dr. Lemons. 3. You will need to get a heart monitor to see what the rhythm of the heart is when you are home doing your normal activities. 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 Pending Tests on Discharge: ECHO report Allergies/Adverse Reactions: Allergies meperidine [From Demerol] Adverse Reaction (Verified 04/26/17 08:04) Upset Stomach Medications to take at Discharge Aspirin [Aspirin, Baby] 81 mg PO DAILY@0800 04/26/17 Multivitamin [Daily Multiple Vitamin] 1 each PO DAILY 04/26/17 Atorvastatin Calcium [Lipitor] 40 mg PO QHS #30 tab 04/27/17 Clopidogrel Bisulfate [Plavix] 75 mg PO DAILY #30 tab 04/27/17 Lisinopril [Zestril] 5 mg PO DAILY #30 tab 04/27/17 The following prescriptions were given: Atorvastatin Calcium [Lipitor] 40 mg PO QHS #30 tab Clopidogrel Bisulfate [Plavix] 75 mg PO DAILY #30 tab Lisinopril [Zestril] 5 mg PO DAILY #30 tab Primary Care Physician: Luis M Lemons DO [Primary Care Provider] - Please follow up with your Primary Care Physician in: 1 week Please Follow Up With: Joaquín Luo MD When: 2-3 weeks Proposed Discharge Date: 04/27/17
--- NOTE | 2017-04-27 17:25 | PCM.DC.SUM ---
Discharge Date and Diagnosis - Problem List Patient Problems: Active and Suspected Problems Dysarthria (Acute) Elevated BP without diagnosis of hypertension (Acute) Ischemic cerebrovascular accident (CVA) (Acute) Date of Admission: 04/26/17 Date of Discharge: 04/27/17 - Primary Discharge Diagnosis Active and Suspected Problems Dysarthria (Acute) Ischemic cerebrovascular accident (CVA) (Acute) HTN - Secondary Discharge Diagnosis Chronic Problems Osteoarthritis (Chronic) HTN HLD obesity Hospital Course and Treatment Imaging Results: Clinical Impression(s) from Imaging Studies Brain CT 04/26/17 08:18 IMPRESSION: Chronic involutional changes of the brain. Electronically Signed: Steve Heart MD at 8:59 EST Tel [phone], Service support , Chest X-Ray 04/26/17 08:18 IMPRESSION: Elevation of the left hemidiaphragm. No acute abnormality is seen. Electronically Signed: Steve Heart MD at 9:00 EST Tel [phone], Service support , Brain MRI 04/26/17 10:24 IMPRESSION: 1. Acute ischemic infarcts in the left periventricular white matter and left posterior putamen. 2. Multiple chronic white matter ischemic changes in both cerebral hemispheres. 3. 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 N.B. : The above information has been verbally conveyed by Enrique Quezada MD to Melvina Gleason RN, Hospital- In-Patient RN, on 04/26/2017 16:24:19 (ET). Electronically Signed: Enrique Quezada MD at 16:18 EST , Service support , N.B. : The above information has been verbally conveyed by Enrique Quezada MD to Melvina Gleason RN, Hospital- In-Patient RN, on 04/26/2017 16:24:19 (ET). Head CTA 04/26/17 10:24 IMPRESSION: Normal [place] without a demonstrated aneurysm or hemodynamically significant stenosis. Electronically Signed: Steve Heart MD at 11:23 EST Tel [phone], Service support , Neck CTA 04/26/17 10:24 IMPRESSION: Calcific plaque at the origins of the right and left internal carotid arteries causing less than 50% luminal stenosis. Electronically Signed: Steve Heart MD at 11:25 EST Tel [phone], Service support , Laboratory Results - last 24 hr 04/26/17 04/27/17 04/27/17 22:32 05:00 05:00 WBC 9.0 RBC 4.52 Hgb 13.7 Hct 40.8 MCV 90.3 MCH 30.3 MCHC 33.6 RDW 13.0 RDW Differential 42.2 Plt Count 270 MPV 9.3 Sodium 139 Potassium 3.7 Chloride 104 Carbon Dioxide 27.0 Anion Gap 8 BUN 10 Creatinine 0.50 L Estim Creat Clear Calc 36.08 Est GFR (MDRD) Af Amer 152 Est GFR (MDRD) Non-Af 125 BUN/Creatinine Ratio 19.8 Glucose 89 Calcium 8.5 Phosphorus 2.9 Magnesium 1.7 Total Bilirubin 0.50 AST 19 ALT 20 Alkaline Phosphatase 71 Troponin I 0.05 Total Protein 7.0 Albumin 3.2 L Globulin 3.8 Albumin/Globulin Ratio 0.8 L Triglycerides 146 Cholesterol 259 H LDL Cholesterol 186 H VLDL Cholesterol [address] Luo - Neurology Operations: None Procedures: 2-D Echocardiogram - results not available at the time of DC Summary of Care Provided: The patient is a 81 year old F with a history of osteoarthritis and former smoking history who presented to [facility] emergency room on 04/26/2017 complaining of slurred speech. She awoke with slurred speech that morning and the time of onset could not be determined. TPA was not indicated. 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 She has had surgery on the neck. This weakness is unchanged. Denied STROUD, drooling, difficulty swallowing. She was incontinent of stool on the day of admission and that is very unusual. She denied chest pain, shortness of breath, cephalgia, palpitations or lightheadedness. She had not had a syncopal episode. Her only medications at home were ASA and Motrin. Vital signs at presentation to the emergency room were temperature 97.3, pulse rate 56, blood pressure 205/107, respiratory rate 17 and she was 94% saturated on room air. CT brain showed involutional changes only. EKG showed a first-degree AV block but was otherwise unremarkable. Significant lab included an increased BUN at 19 with a creatinine of 0.58. TSH was normal. She was admitted to the progressive care unit with a diagnosis of suspected ischemic CVA. Plavix was added to her drug regimen and she was hydrated. MRI of the brain showed acute ischemic infarcts in the left periventricular white matter and left posterior putamen. There were multiple chronic white matter ischemic changes in both cerebral hemispheres. CTA of the head showed no significant areas of stenosis. CTA of the neck showed calcific plaque at the origins of both internal carotid arteries but stenosis was less than 50% on each side. Serial cardiac enzymes were negative. Lipid panel showed a total cholesterol of 259, triglycerides of 146, LDL of 186 and an HDL of 44. TSH was within normal limits. She was started on Atorvastatin. ECHO was done but not resulted at the time of DC. Telemetry showed normal sinus rhythm with no significant ectopy and specifically no atrial fibrillation. She was seen in consult by Dr. Luo who recommended dual antiplatelet agents for the next month and then converting to a single antiplatelet drug. I would recommend Plavix since she was on aspirin at the time of admission and had a stroke. Her LDL should be 70 or less. He recommended a heart monitor after discharge. He also recommended follow-up with neurology in 2-3 weeks post discharge. On 04/27 she was stable and walking without assist. she passed her swallowing eval and ST recommended OP therapy at [facility] for . 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 At the time of DC she continued to have dysarthria but it was improved. She has 4/5 strength on the left side and 5/5 strength on the right side. The decrease in strength is chronic and secondary to old myelopathy requiring surgery on the C spine. She will follow up with Dr. Lemons in the office in 1 week for a BP check and with Dr. Luo in 2-3 weeks. She should have a lipid panel and a liver panel in 4-6 weeks and also a CPK if she is having any muscle pain. She was discharged on ASA, Plavix, Atorvastatin and Lisinopril. This note was generated with [employer] dictation software. It may contain incorrect words, spelling, and punctuation that were not noted in checking the note before signing. Discharge Activity: Return to Normal Activity Call your doctor if you observe: Fever of 101 or Higher, Using more than one pad per hour, Dizziness, Fainting spells, Chest pain, - - unilateral numbness or weakness, trouble swallowing, sudden loss of vision or hearing, not being able to say what you mean...gibberish, any stomach pain nor nausea/vomiting Home Medications: Medications to take at Discharge Aspirin [Aspirin, Baby] 81 mg PO DAILY@0800 04/26/17 Multivitamin [Daily Multiple Vitamin] 1 each PO DAILY 04/26/17 Atorvastatin Calcium [Lipitor] 40 mg PO QHS #30 tab 04/27/17 Clopidogrel Bisulfate [Plavix] 75 mg PO DAILY #30 tab 04/27/17 Lisinopril [Zestril] 5 mg PO DAILY #30 tab 04/27/17 Following Prescrptions Were Given to Patient: Atorvastatin Calcium [Lipitor] 40 mg PO QHS #30 tab Clopidogrel Bisulfate [Plavix] 75 mg PO DAILY #30 tab Lisinopril [Zestril] 5 mg PO DAILY #30 tab Primary Care Physician: Luis M Lemons DO [Primary Care Provider] - Please follow up with your Primary Care Physician in: 1 week Please Follow Up With: Joaquín Luo MD When: 2-3 weeks Patient Instructions: Low-Fat Cooking Tips, Reading?Food Labels, Eating Heart-Healthy Foods Disposition: Home Minutes spent on discharge:: 38 Patient Condition:: Good Meaningful Use Info Meaningful Use Diagnoses (Choose all that apply): Ischemic CVA - CVA Therapy Assessed for PT,OT and/or ST?: Yes - Ischemic Stroke Antithrombotic order at d/c?: Yes Dx of Atrial fib/flutter?: No Anticoagulant at discharge?: No Reason anticoagulant not ordered: Treatment not Indicated Statins at discharge?: Yes Primary Dx Acute Ischemic CVA?: Yes IV tPA ordered during stay?: No Reason IV t-PA not ordered: Treatment not Indicated
--- NOTE | 2017-04-27 17:44 | DS.PCM_ITS ---
Discharge Date and Diagnosis - Problem List Patient Problems: Active and Suspected Problems Dysarthria (Acute) Elevated BP without diagnosis of hypertension (Acute) Ischemic cerebrovascular accident (CVA) (Acute) Date of Admission: 04/26/17 Date of Discharge: 04/27/17 - Primary Discharge Diagnosis Active and Suspected Problems Dysarthria (Acute) Ischemic cerebrovascular accident (CVA) (Acute) HTN - Secondary Discharge Diagnosis Chronic Problems Osteoarthritis (Chronic) HTN HLD obesity Hospital Course and Treatment Imaging Results: Clinical Impression(s) from Imaging Studies Brain CT 04/26/17 08:18 IMPRESSION: Chronic involutional changes of the brain. Electronically Signed: Steve Heart MD at 8:59 EST Tel [phone], Service support , Chest X-Ray 04/26/17 08:18 IMPRESSION: Elevation of the left hemidiaphragm. No acute abnormality is seen. Electronically Signed: Steve Heart MD at 9:00 EST Tel [phone], Service support , Brain MRI 04/26/17 10:24 IMPRESSION: 1. Acute ischemic infarcts in the left periventricular white matter and left posterior putamen. 2. Multiple chronic white matter ischemic changes in both cerebral hemispheres. 3. 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 N.B. : The above information has been verbally conveyed by Enrique Quezada MD to Melvina Gleason RN, Hospital- In-Patient RN, on 04/26/2017 16:24:19 (ET). Electronically Signed: Enrique Quezada MD at 16:18 EST , Service support , N.B. : The above information has been verbally conveyed by Enrique Quezada MD to Melvina Gleason RN, Hospital- In-Patient RN, on 04/26/2017 16:24:19 (ET). Head CTA 04/26/17 10:24 IMPRESSION: Normal [place] without a demonstrated aneurysm or hemodynamically significant stenosis. Electronically Signed: Steve Heart MD at 11:23 EST Tel [phone], Service support , Neck CTA 04/26/17 10:24 IMPRESSION: Calcific plaque at the origins of the right and left internal carotid arteries causing less than 50% luminal stenosis. Electronically Signed: Steve Heart MD at 11:25 EST Tel [phone], Service support , Laboratory Results - last 24 hr 04/26/17 04/27/17 04/27/17 22:32 05:00 05:00 WBC 9.0 RBC 4.52 Hgb 13.7 Hct 40.8 MCV 90.3 MCH 30.3 MCHC 33.6 RDW 13.0 RDW Differential 42.2 Plt Count 270 MPV 9.3 Sodium 139 Potassium 3.7 Chloride 104 Carbon Dioxide 27.0 Anion Gap 8 BUN 10 Creatinine 0.50 L Estim Creat Clear Calc 36.08 Est GFR (MDRD) Af Amer 152 Est GFR (MDRD) Non-Af 125 BUN/Creatinine Ratio 19.8 Glucose 89 Calcium 8.5 Phosphorus 2.9 Magnesium 1.7 Total Bilirubin 0.50 AST 19 ALT 20 Alkaline Phosphatase 71 Troponin I 0.05 Total Protein 7.0 Albumin 3.2 L Globulin 3.8 Albumin/Globulin Ratio 0.8 L Triglycerides 146 Cholesterol 259 H LDL Cholesterol 186 H VLDL Cholesterol [address] Luo - Neurology Operations: None Procedures: 2-D Echocardiogram - results not available at the time of DC Summary of Care Provided: The patient is a 81 year old F with a history of osteoarthritis and former smoking history who presented to [facility] emergency room on complaining of slurred speech. She awoke with slurred speech that morning and the time of onset could not be determined. TPA was not indicated. 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 She has had surgery on the neck. This weakness is unchanged. Denied STROUD, drooling, difficulty swallowing. She was incontinent of stool on the day of admission and that is very unusual. She denied chest pain, shortness of breath, cephalgia, palpitations or lightheadedness. She had not had a syncopal episode. Her only medications at home were ASA and Motrin. Vital signs at presentation to the emergency room were temperature 97.3, pulse rate 56, blood pressure 205/107, respiratory rate 17 and she was 94% saturated on room air. CT brain showed involutional changes only. EKG showed a first-degree AV block but was otherwise unremarkable. Significant lab included an increased BUN at 19 with a creatinine of 0.58. TSH was normal. She was admitted to the progressive care unit with a diagnosis of suspected ischemic CVA. Plavix was added to her drug regimen and she was hydrated. MRI of the brain showed acute ischemic infarcts in the left periventricular white matter and left posterior putamen. There were multiple chronic white matter ischemic changes in both cerebral hemispheres. CTA of the head showed no significant areas of stenosis. CTA of the neck showed calcific plaque at the origins of both internal carotid arteries but stenosis was less than 50% on each side. Serial cardiac enzymes were negative. Lipid panel showed a total cholesterol of 259, triglycerides of 146, LDL of 186 and an HDL of 44. TSH was within normal limits. She was started on Atorvastatin. ECHO was done but not resulted at the time of DC. Telemetry showed normal sinus rhythm with no significant ectopy and specifically no atrial fibrillation. She was seen in consult by Dr. Luo who recommended dual antiplatelet agents for the next month and then converting to a single antiplatelet drug. I would recommend Plavix since she was on aspirin at the time of admission and had a stroke. Her LDL should be 70 or less. He recommended a heart monitor after discharge. He also recommended follow-up with neurology in 2-3 weeks post discharge. On 04/27 she was stable and walking without assist. she passed her swallowing eval and ST recommended OP therapy at [facility] for . She will call Sunday to arrange a time to pick up worker the heart monitor. At the time of DC she continued to have dysarthria but it was improved. She has 4/5 strength on the left side and 5/5 strength on the right side. The decrease in strength is chronic and secondary to old myelopathy requiring surgery on the C spine. She will follow up with Dr. Lemons in the office in 1 week for a BP check and with Dr. Luo in 2-3 weeks. She should have a lipid panel and a liver panel in 4-6 weeks and also a CPK if she is having any muscle pain. She was discharged on ASA, Plavix, Atorvastatin and Lisinopril. This note was generated with [employer] dictation software. It may contain incorrect words, spelling, and punctuation that were not noted in checking the note before signing. Discharge Activity: Return to Normal Activity Call your doctor if you observe: Fever of 101 or Higher, Using more than one pad per hour, Dizziness, Fainting spells, Chest pain, - - unilateral numbness or weakness, trouble swallowing, sudden loss of vision or hearing, not being able to say what you mean...gibberish, any stomach pain nor nausea/vomiting Home Medications: Medications to take at Discharge Aspirin [Aspirin, Baby] 81 mg PO DAILY@0800 04/26/17 Multivitamin [Daily Multiple Vitamin] 1 each PO DAILY 04/26/17 Atorvastatin Calcium [Lipitor] 40 mg PO QHS #30 tab 04/27/17 Clopidogrel Bisulfate [Plavix] 75 mg PO DAILY #30 tab 04/27/17 Lisinopril [Zestril] 5 mg PO DAILY #30 tab 04/27/17 Following Prescrptions Were Given to Patient: Atorvastatin Calcium [Lipitor] 40 mg PO QHS #30 tab Clopidogrel Bisulfate [Plavix] 75 mg PO DAILY #30 tab Lisinopril [Zestril] 5 mg PO DAILY #30 tab Primary Care Physician: Luis M Lemons DO [Primary Care Provider] - Please follow up with your Primary Care Physician in: 1 week Please Follow Up With: Joaquín Luo MD When: 2-3 weeks Patient Instructions: Low-Fat Cooking Tips, Reading?Food Labels, Eating Heart- Healthy Foods Disposition: Home Minutes spent on discharge:: 38 Patient Condition:: Good Meaningful Use Info Meaningful Use Diagnoses (Choose all that apply): Ischemic CVA - CVA Therapy Assessed for PT,OT and/or ST?: Yes - Ischemic Stroke Antithrombotic order at d/c?: Yes Dx of Atrial fib/flutter?: No Anticoagulant at discharge?: No Reason anticoagulant not ordered: Treatment not Indicated Statins at discharge?: Yes Primary Dx Acute Ischemic CVA?: Yes IV tPA ordered during stay?: No Reason IV t-PA not ordered: Treatment not Indicated
== END 2017-04-27 18:04 | disposition home or self-care (01) | DRG 66 ==
LOC: ED 09:25 → PCU 09:50
PROVIDERS: Psychiatry & Neurology Neurology; Admitting Provider Internal Medicine; Emergency Provider Emergency Medicine; Family Provider Student in an Organized Health Care Education/Training Program; PCP Student in an Organized Health Care Education/Training Program; Visit Provider Internal Medicine
DX: I63.9 Cerebral infarction, unspecified (principal); E66.9 Obesity, unspecified; I10 Essential (primary) hypertension; M19.90 Unspecified osteoarthritis, unspecified site; Z68.31 Body mass index [BMI] 31.0-31.9, adult; E78.5 Hyperlipidemia, unspecified; R47.1 Dysarthria and anarthria; R29.701 NIHSS score 1; Z87.891 Personal history of nicotine dependence; R53.1 Weakness
CPT/HCPCS: 36415; 70450; 70496; 70498; 70551; 71045; 80048; 80053; 80061; 80076; 82962; 83036; 83735; 84100; 84443; 84484; 85025; 85027; 85610; 85730; 92522; 93005; 93306; 97165; 99283; J7030; Q9967; A4216

== ENCOUNTER 2017-09-15 09:49 | Inpatient (IN) | payer MEDICARE, SELFPAY ==
--- NOTE | 2017-09-15 10:05 | RAD_ITS ---
STUDY: X-RAY CHEST REASON FOR EXAM: Female, 81 years old. Substernal chest pain TECHNIQUE: Single AP portable view of the chest. COMPARISON: None. FINDINGS: EKG leads overlie the chest. There is likely chronic elevation of the left hemidiaphragm. Surgical hardware in the lower cervical spine intact and free of complication. There are interstitial fibrotic changes of the lungs. There is no demonstrated pleural abnormality. Normal size heart. Normal mediastinum and celine. Normal visualized pulmonary arteries. Normal visualized aortic arch and descending thoracic aorta. There are diffuse degenerative changes of the visualized thoracic spine. Normal visualized ribs, clavicles, and shoulders. There is no demonstrated abnormality of the visualized soft tissue structures of the upper abdomen. RAD/Chest 1 View (Portable) IMPRESSION: Degenerative changes, as described above. No demonstrated acute cardiopulmonary process. Electronically Signed: Christopher Shah MD at 10:22 EDT , Service support ,
--- NOTE | 2017-09-15 11:38 | DT_ITS ---
This patient was seen during an EMR downtime September 10, 2017 - September 17, 2017. This patient may have a combination of paper and electronic documentation or all paper documentation. All documentation is viewable within the e-chart portion of [employer] for each patient visit.
--- NOTE | 2017-09-15 13:13 | EKG12_ITS ---
Test Reason : AM EKG Blood Pressure : / mmHG Vent. Rate : 033 BPM Atrial Rate : 067 BPM P-R Int : 266 ms QRS Dur : 094 ms QT Int : 578 ms P-R-T Axes : 018 064 050 degrees QTc Int : 427 ms Sinus rhythm with 2nd degree A-V block with Fusion complexes Abnormal ECG When compared with ECG of 26-APR-2017 08:27, Fusion complexes are now Present Sinus rhythm is now with 2nd degree A-V block Vent. rate has decreased BY 28 BPM Nonspecific T wave abnormality now evident in Anterior leads Confirmed by HARIS ODEN, SAMIR ([id number]), graphics editor MORENITA BARNES ([id number]) on 09/27/2017 9:38:22 AM Referred By: NASRIN Confirmed By:SAMIR CARBALLO MD
[2017-09-17] VITALS (13 sets, daily range): BP systolic 118–155; BP diastolic 65–96; PULSE 35–80; RESP 18–20; TEMP 36.4–36.9; O2SAT 91–98
[2017-09-17] MEDS: 0.9% Normal Saline 1,000 ML 75 ML IV ×2 (06:00→16:54)
[2017-09-17 06:50] LABS: AST(SGOT) 17 U/L (15-37); Alanine Aminotransfer ALT/SGPT 20 U/L (13-56); Albumin, Serum 3.3 g/dL (3.2-5.0); Alkaline Phosphatase 74 U/L (45-117); Anion Gap 9 (5-15); BUN 10 mg/dL (7-18); BUN/Creat Ratio 16.3 RATIO (10-20); Calcium,Total 8.8 mg/dL (8.5-10.1); Chloride 107 mmol/L (98-107); Creatinine, Serum 0.61 mg/dL (0.55-1.02); EST Glomerular Filtration Rate 100 mL/min (>60); Est Glom Filt Rate - Afr Amer 121 mL/min (>60); Globulin 3.4 g/dL (2.2-4.2); Glucose 91 mg/dL (74-106); Potassium 3.7 mmol/L (3.5-5.1); Protein, Total 6.7 g/dL (6.4-8.2); Sodium Level 142 mmol/L (136-145)
--- NOTE | 2017-09-17 07:46 | ECHOD_ITS ---
Reason For Study: AV disassociation Procedure This was a 2D Doppler, Color Flow transthoracic echocardiogram. Exam performed portable in patient room. Left Ventricle Normal LV size. Mild concentric left ventricular hypertrophy. Left ventricular systolic function is normal. The estimated ejection fraction is 63 %. Transmitral diastolic flow velocities suggest mild (stage 1) diastolic dysfunction (reversed pattern). No regional wall motion abnormalities noted. Right Ventricle Normal RV size. Normal systolic function. Atria The left atrium is mildly enlarged. Normal right atrium. Mitral Valve There is moderate to severe mitral annular calcification. Trivial eccentric mitral valve insufficiency. Tricuspid Valve Normal tricuspid valve. Unable to estimate RV systolic pressure due to inadequate jet, pulmonary artery pressure probably normal. Aortic Valve Normal aortic valve. Trisinus/trileaflet aortic valve. Pulmonic Valve Normal pulmonic valve. Great Vessels Normal aortic root. The pulmonary artery is normal size. Normal inferior vena cava. Pericardium/Pleural No pericardial effusion. MMode/2D Measurements & Calculations LVIDd: 4.4 cm IVSd: 1.2 cm Ao root diam: 2.9 cm LVIDs: 2.5 cm LVPWd: 1.3 cm LA dimension: 3.1 cm RVDd: 4.0 cm FS: 43.6 % LAV(MOD-bp): 95.7 ml LA A4 area: 25.0 cm2 RA A4 area: 18.2 cm2 LAV(MOD-bp) Indexed: 54.4 ml/m2 LAV(MOD-sp2): 99.5 ml LAV(MOD-sp4): 80.8 ml Doppler Measurements & Calculations MV E max dilip: 100.5 cm/sec Lat Peak E' Dilip: 4.8 cm/sec Med Peak E' Dilip: 4.0 cm/sec MV A max dilip: 140.6 cm/sec E/E' lat: 21.0 E/E' med: 25.1 MV E/A: 0.71 Ao V2 max: 175.0 cm/sec LV V1 max: 133.6 cm/sec PA V2 max: 102.1 cm/sec Ao max P.2 mmHg LV V1 max P.1 mmHg PI end-d dilip: 92.3 cm/sec Interpretation Summary Normal LV size. Mild concentric left ventricular hypertrophy. Left ventricular systolic function is normal. The estimated ejection fraction is 63 %. There is moderate to severe mitral annular calcification. Ordering Physician: Freedom Chou MD Referring Physician: Joaquín Luo Performed By: Roxanne Powell, KEV, RVT
[2017-09-17] MEDS: Lisinopril 20 MG Tablet PO (10:41)
--- NOTE | 2017-09-17 11:08 | CASEMGMT ---
Face to Face with patient for initial transition planning/care coordination assessment. TEGAN SANTIAGO introduced self and role at [facility], pt voices understanding and consents to assessment at this time. Pt is sitting up in bed in no distress at this time. Pt is A/O x4 at this time and answers all questions appropriately at this time. Care providers, pharmacy, and demographics verified. See attached link. Pt voices no further concerns/needs at this time. Advised pt to ask for CM if any further questions/concerns/needs arise, voice understanding. PLAN: [place] TEGAN SANTIAGO
--- NOTE | 2017-09-17 16:25 | CL.IE_ITS ---
Patient: SHANTANU CONDE Study Date: 09/17/2017 Performing: Freedom Chou MD : [id number] Age: 81 Gender: female PROCEDURES PERFORMED [id number] PACER INSERT+DUAL LEADS INDICATIONS complete heart block PROCEDURE DETAILS The patient was brought to the Catheterization Lab in the postabsorptive nonsedated state. Informed consent was obtained prior to the procedure. Local anesthetic was given subcutaneously to the left up per chest area with Lidocaine 2%. Access was achieved and a guidewire was advanced into the left subc lavian vein. Incision was made to the left upper chest. PPM ventricular lead was inserted / positione d to right ventricule. PPM ventricular lead testing performed. PPM ventricular lead testing performed . The Ventricular PM lead sutured in place with 3-0 Silk. PPM atrial lead was inserted / positioned t o the right atrium. PPM atrial lead testing performed. The Atrial lead sutured in place with 3-0 Silk . Device pocket was irrigated with antibiotic, ancef solution. PPM generator was attached to the lead (s) and inserted into the pocket. Skin closure was completed with 4-0 Vicryl. Instrument, sponge, and needle counts were noted to be normal. The patient tolerated the procedure well. Estimated Blood Loss: < 10 mls IMPLANTED / EX-PLANTED DEVICES IMPLANTED DEVICE(S): PPM Ventricular lead - Loss Prevention Supervisor: [employer], Model # Tendril [id number] , Serial # [id number] PPM Atrial lead - Loss Prevention Supervisor: [employer], Model # Tendril [id number] , Serial # [id number] PPM Generator - Loss Prevention Supervisor: [employer], Model # [id number] Assurity MRI , Serial # [id number] DEVICE PARAMETERS ATRIAL LEAD PARAMETERS: P wave- 2.1 (mV) Current- 1.1 (mA) threshold- 0.7 (V) impedence- 824 (OHMS) 10V test, no diaphragmatic capture VENTRICULAR LEAD PARAMETERS: R wave- 22 (mV) Current- 1.1 (mA) threshold- 0.7 (V) impedence- 762 (OHMS) 10V test, no diaphragmatic capture DEVICE PARAMETERS: Mode- DDD Lower rate- 60 Upper rate- 120 CONCLUSIONS / RECOMMENDATIONS Device Conclusions: Successful implantation of a dual chamber pacemaker Device Recommendations: Follow up with Primary Care Physician PROCEDURE MEDICATIONS Versed 0.5 mg IV Versed 0.5 mg IV Fentanyl 25 mcg IV Oxygen: 2 L/min via nasal cannula Oxygen: 4 L/min via nasal cannula Antibiotic given in appropriate timeframe. Ancef 2 Gm IV @ 09/17/2017 14:17:58 IV Fluids: .9 NaCl increased to WO ml/hr 09/17/2017 15:24:53 Signed By Freedom Chou MD On 09/17/2017 16:25:17 Freedom Chou MD
[2017-09-17] MEDS: Atorvastatin Calcium 40 MG Tablet PO (21:18)
[2017-09-18 01:00] VITALS: BP 126/75; PULSE 70; RESP 18; TEMP 36.9; O2SAT 92
[2017-09-18 03:00] VITALS: PULSE 66
[2017-09-18] MEDS: 0.9% Normal Saline 1,000 ML 75 ML IV (04:57)
[2017-09-18 04:58] VITALS: BP 145/77; PULSE 69; RESP 18; TEMP 36.9; O2SAT 94
--- NOTE | 2017-09-18 05:55 | RAD_ITS ---
STUDY: X-RAY CHEST REASON FOR EXAM: Female, 81 years old. Pacer placement. TECHNIQUE: PA and lateral chest. COMPARISON: April 26, 2017. FINDINGS: Heart is mildly enlarged unchanged. Moderately elevated left hemidiaphragm which has remained stable. Linear density adjacent to apex left hemidiaphragm suggestive of subsegmental atelectasis. Left-sided pacemaker in its expected location with leads overlying the right atrium and right ventricle. No pneumothorax. Postoperative changes of lower cervical fusion. There is no demonstrated abnormality of the visualized soft tissue structures of the upper abdomen. RAD/Chest 1 View IMPRESSION: Cardiac pacemaker in its expected location. No pneumothorax. Stable cardiomegaly. Left lower lobe subsegmental atelectasis. Electronically Signed: Jeffy Iraheta MD at 7:51 EDT , Service support ,
[2017-09-18 07:00] VITALS: PULSE 78
--- NOTE | 2017-09-18 07:09 | RAD_ITS ---
STUDY: X-RAY CHEST REASON FOR EXAM: Female, 81 years old. Pacer placement. TECHNIQUE: PA and lateral chest. COMPARISON: April 26, 2017. FINDINGS: Heart is mildly enlarged unchanged. Moderately elevated left hemidiaphragm which has remained stable. Linear density adjacent to apex left hemidiaphragm suggestive of subsegmental atelectasis. Left-sided pacemaker in its expected location with leads overlying the right atrium and right ventricle. No pneumothorax. Postoperative changes of lower cervical fusion. There is no demonstrated abnormality of the visualized soft tissue structures of the upper abdomen. RAD/Chest PA and Lateral IMPRESSION: Cardiac pacemaker in its expected location. No pneumothorax. Stable cardiomegaly. Left lower lobe subsegmental atelectasis. Electronically Signed: Jeffy Iraheta MD at 7:51 EDT , Service support ,
[2017-09-18 08:45] VITALS: BP 143/77; PULSE 75; RESP 12; TEMP 36.7; O2SAT 92
[2017-09-18] MEDS: Lisinopril 20 MG Tablet PO (08:45)
[2017-09-18 09:42] LABS: BUN 13 mg/dL (7-18); BUN/Creat Ratio 14.6 RATIO (10-20); Calcium,Total 9.1 mg/dL (8.5-10.1); Creatinine, Serum 0.89 mg/dL (0.55-1.02); EST Glomerular Filtration Rate 65 mL/min (>60); Est Glom Filt Rate - Afr Amer 79 mL/min (>60); Glucose 108 mg/dL (74-106)
[2017-09-18 09:43] LABS: Anion Gap 9 (5-15); Chloride 104 mmol/L (98-107); Potassium 3.9 mmol/L (3.5-5.1); Sodium Level 142 mmol/L (136-145)
--- NOTE | 2017-09-18 09:43 | DCINST_ITS ---
Discharge Diet: No Restrictions Discharge Activity: Return to Normal Activity - as you feel able. No excessive stretching. No lifting your arm over your head (keep elbow below shoulder level ) until seen for your pacemaker check. Do not lift your elbow away from your side until you are seen for your first visit. Keep the arm sling on if it helps remind you not to lift your arm. Additional Activity Instructions:: May shower or bathe on []. Do not scrub the incision or soak in the tub. Just wash with soap and let the water run over the incision. Gently pat dry with towel. Medications: Take your pain medication as directed. Refer to your discharge instruction sheet for a list of medications you are to take. Call your doctor if your incision/area has: Continuous Slow Oozing, Sudden Increased Bleeding, Increased Pain/ Swelling, Increased Redness, Foul Smelling Discharge, Swelling at the incision site Call your doctor if you observe: Fever of 101 or Higher, Shortness of breath, Dizziness, Fainting spells, Swelling in the ankles, Chest pain, Prolonged hiccoughing, Increased palpitations (irregular heartbeat) Additional Dressing/Incision Instructions:: When dressing is removed, wash and dry incision. Keep covered with a light bandage if it is rubbing against your clothing. Do not cover the incision with an airtight bandage. Change the bandage daily. Do not remove steri strips. The strips will fall off on their own. Additional Instructions: Signs and Symptoms to Report to Your Doctor at Once - call your doctor's office or Doctor's Registry ([phone]) Call 911 or go to the nearest Emergency Department if you feel you need urgent care. *Infection (fever, increased redness or swelling at the incision site, drainage from the incision increased pain at the pacemaker site) *Shortness of breath *Dizziness *Fainting spells *Swelling in the ankles *Chest pain *Prolonged hiccoughing *Increased palpitaitons (irregular heartbeat) Medications: Take your pain medication as directed. Refer to your discharge instruction sheet for a list of medications you are to take. Allergies/Adverse Reactions: Allergies meperidine [From Demerol] Adverse Reaction (Verified 04/26/17 08:04) Upset Stomach Medications to take at Discharge Aspirin [Aspirin, Baby] 81 mg PO DAILY@0800 04/26/17 Multivitamin [Daily Multiple Vitamin] 1 each PO DAILY 04/26/17 Atorvastatin Calcium [Lipitor] 40 mg PO QHS #30 tab 04/27/17 Lisinopril [Zestril] 5 mg PO DAILY #30 tab 04/27/17 Primary Care Physician: Luis M Lemons DO [Primary Care Provider] - Please Follow Up With: pacer clinic will call you
--- NOTE | 2017-09-18 09:43 | PCM.PN.CARD ---
Subjectve: Patient seen and evaluated. Appears to be doing well. Objective: Vital Signs Temp Pulse Resp BP Pulse Ox 98.0 F 75 12 143/77 H 92 09/18/17 08:45 09/18/17 08:45 09/18/17 08:45 09/18/17 08:45 09/18/17 08:45 Oxygen Delivery Method Room Air Intake and Output for Last 24 Hours 09/16/17 09/17/17 09/18/17 23:59 23:59 23:59 Intake Total 1410 / 1410 488 / 488 Balance 1410 / 1410 488 / 488 General: Awake, Alert, Oriented x 3 HEENT: PERRL, EOMI, Sclera Non Icteric Neck: Supple, Good ROM, No Lymph Node Enlargement Lungs: Clear to auscultation Cardiovascular: Regular Rhythm, Normal S1, Normal S2, No Murmurs, No Rubs, No Gallops Vascular: No Carotid Bruits, Normal Femoral Pulses, Normal Radial Pulses, Normal Dorsalis Pedal Pulse, Normal Posterior Tibial Pulses Abdomen: Bowel Sounds Present, Soft, Non Tender, No HSM, No Organomegaly Extremities: No Cyanosis, No Clubbing, No edema Neurological: No Focal Motor or Sensory Deficit 09/15/17 13:10: Troponin I 0.017 Rhythm: EKG: ECHO: Stress Test: Cardiac Cath: PCI: CT Surgery: Holter monitor: EPS: PPM: CXR: Chest CT Scan: Medical Necessity - Tobacco Use Smoking Status: Former smoker Assessment/Plan 1. Status post pacemaker placement for complete heart block. Dual-chamber pacemaker placed yesterday. Chest x-ray today does not demonstrate any evidence of pneumothorax and to the pacer check this morning demonstrated adequate atrial threshold and ventricular threshold. Patient is V paced 99% of the time. She will be discharged to be followed up as an outpatient.
[2017-09-18 11:00] VITALS: PULSE 72
--- NOTE | 2017-09-18 11:49 | DS.PCM_ITS ---
Discharge Date and Diagnosis Date of Admission: 04/26/17 Date of Discharge: 09/18/17 - Secondary Discharge Diagnosis Chronic Problems Osteoarthritis (Chronic) Hospital Course and Treatment Imaging Results: 09/18/17 05:55 Chest 1 View [RAD] Urgent 09/18/17 07:09 Chest PA and Lateral [RAD] AM (NON MEDS) Operations: None Summary of Care Provided: The patient is a 81 year old F past medical history of osteoarthritis , old CVA and former smoking who presented with symptomatic bradycardia and found to have complete heart block and cardiology was consulted. She underwent a dual- chamber pacemaker placement on 09/17/2017. No complications noted following this procedure. X-rays done today does not show any evidence of pneumothorax and the pacer check this morning demonstrated adequate function. The patient was discharged in a stable condition. She is recommended to follow-up with Dr. Chou as an outpatient. Physical exam at the time of discharge; vital signs were stable. He was alert and oriented to time place and person. He did not appear to be any form of distress. S1 and S2 heard no murmur or gallop Lung exam was clear to auscultation with no adventitious sounds. Abdomen was soft nontender with normal bowel sounds. extremity exam did not reveal any edema, palpable pulses bilaterally. Neurologic exam was grossly intact. MS: Pacemaker noted at the left upper chest wall. Discharge Diet: No Restrictions Discharge Activity: Return to Normal Activity - as you feel able. No excessive stretching. No lifting your arm over your head (keep elbow below shoulder level ) until seen for your pacemaker check. Do not lift your elbow away from your side until you are seen for your first visit. Keep the arm sling on if it helps remind you not to lift your arm. Additional Activity Instructions:: May shower or bathe on []. Do not scrub the incision or soak in the tub. Just wash with soap and let the water run over the incision. Gently pat dry with towel. Medications: Take your pain medication as directed. Refer to your discharge instruction sheet for a list of medications you are to take. Call your doctor if your incision/area has: Continuous Slow Oozing, Sudden Increased Bleeding, Increased Pain/ Swelling, Increased Redness, Foul Smelling Discharge, Swelling at the incision site Call your doctor if you observe: Fever of 101 or Higher, Shortness of breath, Dizziness, Fainting spells, Swelling in the ankles, Chest pain, Prolonged hiccoughing, Increased palpitations (irregular heartbeat) Additional Dressing/Incision Instructions:: When dressing is removed, wash and dry incision. Keep covered with a light bandage if it is rubbing against your clothing. Do not cover the incision with an airtight bandage. Change the bandage daily. Do not remove steri strips. The strips will fall off on their own. Home Medications: Medications to take at Discharge Aspirin [Aspirin, Baby] 81 mg PO DAILY@0800 04/26/17 Multivitamin [Daily Multiple Vitamin] 1 each PO DAILY 04/26/17 Atorvastatin Calcium [Lipitor] 40 mg PO QHS #30 tab 04/27/17 Lisinopril [Zestril] 5 mg PO DAILY #30 tab 04/27/17 Primary Care Physician: Luis M Lemons DO [Primary Care Provider] - Please Follow Up With: pacer clinic will call you Additional Instructions: Signs and Symptoms to Report to Your Doctor at Once - call your doctor's office or Doctor's Registry ([phone]) Call 911 or go to the nearest Emergency Department if you feel you need urgent care. *Infection (fever, increased redness or swelling at the incision site, drainage from the incision increased pain at the pacemaker site) *Shortness of breath *Dizziness *Fainting spells *Swelling in the ankles *Chest pain *Prolonged hiccoughing *Increased palpitaitons (irregular heartbeat) Medications: Take your pain medication as directed. Refer to your discharge instruction sheet for a list of medications you are to take. Medical Necessity - Tobacco Use Smoking Status: Former smoker Meaningful Use Info Meaningful Use Diagnoses (Choose all that apply): None applicable Code Visit Inpatient E&M: 04420 Disch Hosp
[2017-09-18 11:56] LABS: Mucous, Urine 0 SEEN /hpf (<or=2+); Red Blood Cells-Urine 0 SEEN /hpf (0-5)
[2017-09-18 12:32] LABS: Bacteria RARE /hpf (None Seen); Color, Urine Yellow (Yellow); Glucose, Dipstick NEGATIVE (Normal); Ketone-Dipstick Negative (Negative); Leukocyte Esterase-Dipstick 25 /ul (Negative); Nitrite-Dipstick Negative (Negative); Occult Blood-Urine Negative /ul (Negative); Protein-Dipstick Negative (Negative); Squamous Epithelial Cells - UA 0-5 SEEN /hpf (5-10); Urine Bilirubin Dipstick Negative (Negative); Urine Clarity Sl Cldy (Clear); Urine Urobilinogen Normal (Normal); White Blood Cells 0-5 SEEN /hpf (0-5)
--- NOTE | 2017-09-18 16:20 | PCM.PACRNU ---
Pacer Nurse Hospital Visit Notes: Dual Chamber Pacemaker Evaluation: 1st day post implant check completed at bedside PCU #[id number]. Interrogation shows no MS or VT/VF episodes since implant. Left pectoral pocket/incision DSD intact w/o drainage or hematoma noted. Presenting rhythm shows P synchronous paced @ 67 ppm. No alerts noted. VALIDATION ANALYST=>99%. Battery longevity approx 5.7 to 6.9 yrs. Lead impedances, atrial sensing and A/V pace/sense thresholds stable. No parameter changes made. Counters cleared. Left arm restrictions and wound care instructions cover with patient. Pt scheduled for wound check appt on Sunday10/02/17 @ [address] Chou notified of above. - Pacer Check Procedure Procedures: [id number] PM Eval Dual
[2017-09-18 21:28] LABS: Hemoglobin 15.2 g/dl (12.0-15.0); Mean Corp Hgb Conc 33.8 g/gl (32-36); Mean Corpuscular Hgb 31.9 pg (27.0-32.0); Mean Corpuscular Volume 94.3 fL (81-99); Red Blood Count 4.77 M/mm3 (4.2-5.4); White Blood Count 9.4 K/mm3 (4.4-11.0)
[2017-09-18 21:29] LABS: Absolute Lymphocyte Count 2.25 X10^3/ul (0.83-4.51); Basophil# 0.03 X10^3/uL; Basophil% 0.3 % (0-1); Eosinophil# 0.36 X10^3/uL; Eosinophils% 3.8 % (0-5); Lymphocyte # 2.25 X10^3/ul (4.0); Lymphocyte % 23.8 % (19-41); Mean Platelet Vol. 9.6 fl (6.2-12.0); Monocyte# 0.78 X10^3/uL; Monocyte% 8.3 % (0-10); Neutrophil # 6.01 X10^3/uL (2.7-7.7); Neutrophil % 63.7 % (47-70); POSITIVE COUNT NO; POSITIVE DIFFERENTIAL NO; POSITIVE MORPHOLOGY NO; Platelet Count 274 K/mm3 (150-450); RBC Distribution Width SD 43.7 fl (35.1-43.9)
[2017-09-18 21:30] LABS: International Normalized Ratio 1.1; Prothrombin Time (Protime)PT. 13.8 SECONDS (11.7-14.9)
== END 2017-09-18 12:05 | disposition home or self-care (01) | DRG 244 ==
LOC: ED 11:56 → PCU 09-16 07:08
PROVIDERS: Internal Medicine Cardiovascular Disease; Admitting Provider Internal Medicine; Emergency Provider Emergency Medicine; Family Provider Student in an Organized Health Care Education/Training Program; PCP Student in an Organized Health Care Education/Training Program; Visit Provider Internal Medicine
DX: I44.2 Atrioventricular block, complete (principal); R00.1 Bradycardia, unspecified; I10 Essential (primary) hypertension; E78.5 Hyperlipidemia, unspecified; Z86.73 Personal history of transient ischemic attack (TIA), and cerebral infarction without residual deficits; Z87.891 Personal history of nicotine dependence; Z79.899 Other long term (current) drug therapy
CPT/HCPCS: 33208; 36415; 71045; 71046; 80048; 80053; 81001; 84484; 85025; 85610; 93005; 93306; 99152; 99153; 99284; J7030; J7050; Q9967; A4216; C1894

== ENCOUNTER 2018-06-27 04:58 | Observation (INO) | payer MEDICARE, SELFPAY ==
[2018-06-27] VITALS (14 sets, daily range): BP systolic 156–190; BP diastolic 59–91; PULSE 60–80; RESP 14–18; TEMP 36.1–37.1; O2SAT 95–98; BMI 31.6; BMI 30.5; BMI 30.6
--- NOTE | 2018-06-27 05:18 | CT_ITS ---
HISTORY: LEFT ARM WEAKNESS SINCE SUNDAY, HX CVA, HTN, PACER, APPY TECHNIQUE: Multiple axial images were obtained of the brain without intravenous contrast. A radiation dose optimization technique was used for this scan. IV Contrast dosage and agent: None. COMPARISON: MR and CT brain 04/26/2017 FINDINGS: With comparison to previous MR exam, no significant change. Normal ventricles. Mild cerebral cortical atrophy and mild cerebellar atrophy. Left periventricular remote lacunar type infarct accompanied by a low density tract extending to the left basal ganglia as seen with chronic Wallerian degeneration. Bilateral white matter chronic ischemic changes. No intracranial mass, hemorrhage, or acute parenchymal abnormality. No suspicious extra-axial fluid collection. As visualized, and the mastoids appear clear. CT/Brain/Head without Contrast IMPRESSION: 1. No hemorrhage or acute disease identified. 2. Left periventricular remote lacunar infarct and white matter chronic ischemic changes. 3. Generalized atrophy. 4. If symptoms warrant, further correlation with MR exam may be of benefit Individualized dose optimization techniques were used for this CT. at 0618 Reported and signed by: All Perkins MD Electronically Signed: All Perkins, at 6:17 EDT Tel , Service support ,
--- NOTE | 2018-06-27 05:18 | EKG12_ITS ---
Test Reason : NUMBNESS/TINGLING Blood Pressure : / mmHG Vent. Rate : 062 BPM Atrial Rate : 062 BPM P-R Int : 204 ms QRS Dur : 142 ms QT Int : 468 ms P-R-T Axes : 041 -62 079 degrees QTc Int : 475 ms Atrial-sensed ventricular-paced rhythm Abnormal ECG Confirmed by HARIS ODEN, SAMIR ([id number]), book or script editor JUVENTINO ARDON ([id number]) on 07/01/2018 11:37:33 AM Referred By: MARTIN Confirmed By:SAMIR CARBALLO MD
--- NOTE | 2018-06-27 05:20 | ED.VIS.GEN ---
History of Present Illness Chief Complaint: Numb/Ting Informant: Patient Narrative: Patient stated that over the last couple days she has had some weakness in her left arm that she is noted. She has chronic weakness in her left arm secondary to her previous shoulder fracture and also a remote accident that left her with an neck fracture. She required surgery to repair her fracture and was initially paralyzed but slowly regained her motor strength. She does however have chronic weakness in her left arm. She stated over the last couple days her weakness is slightly increased. She went to bed last night at 10 PM. She woke up at 1 AM to use the restroom and had further increased weakness in her left arm. She also noticed some tingling in her left fingers diffusely. She states when she touches her arm however she feels normal sensation. She has had a remote stroke last year was evaluated and her MRI did show she had a stroke. She is on Plavix and baby aspirin. She did not have symptoms like this last year when she had her stroke. She denies any other neurologic symptoms. No new injury. Current severity is moderate. Her last known relatively normal time was before bed at 10 PM approximately 7 hours and 22 minutes ago. Did say however she was having some weakness over the last 2 days. She woke up with worsening symptoms at 1 AM approximately 4 hours and 22 minutes ago. Past Medical History - Allergies and Home Meds Allergies/Adverse Reactions: Allergies meperidine [From Demerol] Adverse Reaction (Verified 05/14/18 10:28) Upset Stomach Primary Care Physician: Luis M Lemons DO [Primary Care Provider] - Prior records reviewed: Yes Past Medical History: - - , Stroke, arthritis, neck fracture, bradycardia, hyperlipidemia, hypertension Surgical History: - - Decompressive surgery on her neck for radiculopathy/myelopathy on her left side. Oophorectomy secondary to assist. Left total hip replacement. Smoking Status: Never smoker - Family History Sibling Family History: Family History (Last Reviewed 05/14/18 @ 10:29 by Cecily Womack) Unknown No problems noted. Family History: Reports: Heart Disease Review of Systems General: Denies: Chills, Fever, Sweats Eyes: Denies: Visual changes - bilaterally, Diplopia ENT: Denies: Rhinorrhea, Sore throat Cardiovascular: Denies: Chest pain, Palpitations Respiratory: Denies: Dyspnea, Cough, Dyspnea on exertion Gastrointestinal: Denies: Abdominal pain, Nausea, Vomiting, Diarrhea, Melena, Hematochezia Genitourinary: Denies: Dysuria, Hematuria, Frequency Musculoskeletal: Denies: Neck pain, Back pain, Extremity Pain Skin: Denies: Rash, Wounds Neurological: Reports: Weakness, Parasthesia. Denies: Headache, Numbness Physical Exam Vital Signs/Narrative: Vital Signs Temp Pulse Resp BP Pulse Ox 06/27/18 04:58 96.9 F L 80 18 180/89 H 95 General: Well nourished, Well developed, No Acute Distress Head: Normocephalic, Atraumatic Eyes: Perrl, EOMI ENT: Moist mucous membranes, No rhinorrhea Neck: Supple, Nontender Cardiovascular: Regular rate, Regular rhythm, No murmurs Respiratory: No distress, CTA bilaterally, Chest nontender Abdomen: Soft, Nontender, Nondistended, Normal bowel sounds Back: Nontender, Normal Inspection Extremities: Nontender, No edema Skin: Normal color, No rash Neurological: Alert, Oriented x3, Cranial nerves II-XII grossly intact, Normal Sensation, Weakness - NIH stroke scale is a 2 secondary to weakness in her left upper extremity. Normal sensation.. Negative for: Confused, Disoriented, Lethargic, Stupor, Coma, Parasthesia Psychological: Normal affect, Normal Mood Diagnostic/Tx/Re-eval - EKG Initial EKG Interpretation: - - Atrial sensed and ventricular paced. No acute STEMI - Medical Decision Making At this time patient underwent a stroke workup. IV was established. Lab work and CT head obtained. Blood work came back with a indeterminate troponin at 0.08. CBC and electrolytes otherwise unremarkable. Patient is on Plavix and baby aspirin. I have concerns that she may be having a stroke causing her symptoms on this left side. Denies any chest pain or shortness of breath. CT head shows old lacunar infarct without acute abnormality. Patient remains with her symptoms. Repeat NIH remains 2. Not a candidate for acute TPA. Will be discussed with the hospitalist and admitted for stroke rule out. I think her indeterminate troponin is not secondary to an acute coronary syndrome PE or dissection. This will be further monitored as an inpatient ED Disposition - Plan for ED Patient: Diagnosis: Left arm weakness, Arm paresthesia, left Referrals: Luis M Lemons DO [Primary Care Provider] -
[2018-06-27 05:31] LABS: Bedside Glucose 89 mg/dL (70-110)
[2018-06-27 05:43] LABS: Absolute Lymphocyte Count 2.31 X10^3/ul (0.83-4.51); Basophil# 0.04 X10^3/uL; Basophil% 0.4 % (0-1); Eosinophil# 0.63 X10^3/uL; Eosinophils% 6.4 % (0-5); Hematocrit 42.2 % (37-47); Lymphocyte # 2.31 X10^3/ul (4.0); Lymphocyte % 23.5 % (19-41); Mean Corp Hgb Conc 33.2 g/gl (32-36); Mean Corpuscular Hgb 31.7 pg (27.0-32.0); Mean Corpuscular Volume 95.5 fL (81-99); Monocyte# 0.85 X10^3/uL; Monocyte% 8.7 % (0-10); Neutrophil # 5.98 X10^3/uL (2.7-7.7); Neutrophil % 60.9 % (47-70); Platelet Count 282 K/mm3 (150-450); RBC Distribution Width CV 13.1 % (11.6-14.6); RBC Distribution Width SD 44.1 fl (35.1-43.9); Red Blood Count 4.42 M/mm3 (4.2-5.4); White Blood Count 9.8 K/mm3 (4.4-11.0)
[2018-06-27 05:45] LABS: POSITIVE COUNT NO; POSITIVE DIFFERENTIAL NO; POSITIVE MORPHOLOGY NO
[2018-06-27 05:50] LABS: International Normalized Ratio 1.1; Prothrombin Time (Protime)PT. 13.5 SECONDS (11.7-14.9)
[2018-06-27 05:51] LABS: Partial Thromboplast Time 29.5 Seconds (24.1-36.2)
[2018-06-27 05:57] LABS: Anion Gap 7 (5-15); BUN 19 mg/dL (7-18); BUN/Creat Ratio 25.6 RATIO (10-20); Calcium,Total 9.4 mg/dL (8.5-10.1); Chloride 107 mmol/L (98-107); Creatinine, Serum 0.74 mg/dL (0.55-1.02); EST Glomerular Filtration Rate 80 mL/min (>60); Est Glom Filt Rate - Afr Amer 97 mL/min (>60); Estimated Creatinine Clearance 35.49 ml/min; Glucose 102 mg/dL (74-106); Potassium 3.9 mmol/L (3.5-5.1); Sodium Level 143 mmol/L (136-145)
--- NOTE | 2018-06-27 07:52 | PCM.HP.STD ---
Problem List (1) Left arm weakness Status: Acute History of Present Illness Date of Admission: 06/27/18 Chief Complaint: left arm weakness The patient is a 82 year old F presents with worsening left arm weakness. 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 Patient does have function in her left arm but this morning when she awoke around 430 noted is much weaker than normal. She denied any left leg weakness, left facial weakness. Presented to the emergency room and underwent a CAT scan that was unremarkable. Part of the emergency room order set has automatic labs were troponins and her troponin was slightly elevated 0.0 81. Patient was not having any chest pain. 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 Chou 09/17/17@ [facility]: Generator [employer] model# PM [id number] [employer] MRI, serial [id number] Bradycardia, severe sinus (Chronic) History of neck surgery (Chronic) Bone spurs removed 2006 History of total left hip replacement (Chronic) 2000 Hyperlipidemia (Chronic) Hypertension (Chronic) Osteoarthritis (Chronic) Ischemic cerebrovascular accident (CVA) (Chronic 04/2017) Medical History: Medical History (Last Reviewed 06/27/18 @ 07:54 by Alexandro Longoria DO) Bradycardia, severe sinus (Chronic) R00.1 Hyperlipidemia (Chronic) E78.5 Hypertension (Chronic) I10 Dysarthria (Acute) R47.1 Osteoarthritis (Chronic) M19.90 Ischemic cerebrovascular accident (CVA) (Chronic) Onset Date: 04/2017 I63.9 Allergies meperidine [From Demerol] Adverse Reaction (Verified 05/14/18 10:28) Upset Stomach Home Medications: Ambulatory Orders Medication Instructions Recorded multivitamin tablet 1 tab PO QDAY 10/02/17 atorvastatin 40 mg tablet 40 mg PO QHS #90 tab 05/14/18 clopidogrel 75 mg tablet 75 mg PO QDAY #90 tab 05/14/18 lisinopril 20 mg tablet 20 mg PO QDAY #90 tab 05/14/18 Aspirin [Aspirin, Baby] 81 mg PO DAILY@0800 06/27/18 Surgical History: Surgical History (Last Reviewed 06/27/18 @ 07:54 by Alexandro Longoria DO) Cardiac pacemaker in situ (Chronic) Onset Date: 09/[address] Chou 09/17/17@ [facility]: Generator [employer] model# PM 2272 [employer] MRI, serial [id number] History of neck surgery (Chronic) Z98.890 Bone spurs removed 2006 History of total left hip replacement (Chronic) Z96.642 2000 Surgical History: - - Decompressive surgery on her neck for radiculopathy/myelopathy on her left side. Oophorectomy secondary to assist. Left total hip replacement. Psychiatric History: No pertinent psych hx Smoking Status: Never smoker Tobacco Use: Non-smoker Alcohol: None - *Family History Sibling Family History: Family History (Last Updated 06/27/18 @ 07:55 by Alexandro Longoria DO) Unknown No problems noted. Other CVA (cerebral vascular accident) History Items: Heart Disease Maternal Family History: Family History (Last Updated 06/27/18 @ 07:55 by Alexandro Longoria DO) Unknown No problems noted. Other CVA (cerebral vascular accident) Review of Systems Constitutional: Denies: Anorexia, Chills, Fever Eyes: Denies: Blurred vision, Double vision HEENT: Denies: Head Aches, Sinus Congestion, Sinus Drainage Cardiovascular: Denies: Chest Pain, Palpitations Respiratory: Denies: Cough, Shortness of breath at rest, Sputum production Gastrointestinal: Denies: Abdominal Pain, Nausea, Vomiting Genitourinary: Denies: Dysuria, Incontinence Musculoskeletal: Denies: Joint Pain, Joint Tenderness Skin: Denies: Rash, Wounds Neurological: Reports: Focal weakness - Chronic in the left arm but acutely worse this morning., Tingling - Some increased paresthesias in her left lower extremity. Denies: Numbness Psychiatric: Denies: Anxiety, Depression Endocrine: Denies: Change in Body Habitus, Heat/ Cold Intolerance Hematologic/ Lymphatic: Denies: Easy Bruising, Easy Bleeding, Hx of blood clot Comment: A 10 point review of systems were negative except as mentioned in the history of present illness and the other review of systems. VTE Information - Inpt Only VTE Present on Admission: No VTE Pharm Prophylaxis ordered?: Yes Patient Problems: Active and Suspected Problems (Last Reviewed 10/02/17 @ 09:55 by Freedom Chou MD) Left arm weakness (Acute) Arm paresthesia, left (Acute) Left arm weakness (Acute) - Physical Exam General: Alert, No apparent distress HEENT: Atraumatic, PERRLA, EOMI, Normocephalic Oral: Moist Mucosa, No Gingival or Mucosal Lesions/ Ulcerations Neck: No Nodes, Thyroid Normal Size and Texture Lungs: Clear to auscultation, Normal air movement, No rhonchi, No wheeze Cardiovascular: Regular rate, Regular Rhythm, Normal S1, Normal S2 Abdomen: Bowel Sounds Present, Soft, Non Tender, Non-Distended, No Hepato-splenomegaly Extremities: No edema, No Calf Tenderness Skin: No rashes, No breakdown Musculoskeletal: No Tenderness to Palpation of Joints or Extremities, No Muscle Wasting Neurological: Cranial nerves II-XII grossly intact, Deep Tendon Reflexes 2+/4 and Symmetrical, Motor Exam 5/5 strength throughout - Septic left upper extremity was 3 out of 5. Psych/Mental Status: Normal Affect, Appropriate Vital Signs Temp Pulse Resp BP Pulse Ox 36.1 C L 61 14 163/86 H 96 06/27/18 04:58 06/27/18 06:30 06/27/18 06:30 06/27/18 06:30 06/27/18 06:30 Oxygen Delivery Method Room Air Weight: 78.5 kg Body Mass Index (BMI) 31.6 Finger Stick Blood Glucose 89 Laboratory Tests Past 24 Hrs 06/27/18 06/27/18 06/27/18 05:28 05:28 05:28 WBC 9.8 RBC 4.42 Hgb 14.0 Hct 42.2 MCV 95.5 MCH 31.7 MCHC 33.2 RDW 13.1 RDW Differential 44.1 H Plt Count 282 MPV 9.0 Immature Gran % (Auto) 0.100 Neut % (Auto) 60.9 Lymph % (Auto) 23.5 Arroyo % (Auto) 8.7 Eos % (Auto) 6.4 H Baso % (Auto) 0.4 Absolute Neuts (auto) 6.0 Absolute Lymphs (auto) 2.31 Total Counted Not Reportable PT 13.5 INR 1.1 APTT 29.5 Sodium 143 Potassium 3.9 Chloride 107 Carbon Dioxide 29.0 Anion Gap 7 BUN 19 H Creatinine 0.74 Estim Creat Clear Calc 35.49 Est GFR (MDRD) Af Amer 97 Est GFR (MDRD) Non-Af 80 BUN/Creatinine Ratio 25.6 H Glucose 102 Calcium 9.4 Troponin I 0.081 H POC Glucose 06/27/18 05:24 POC Glucose 89 Clinical Impression(s) from Imaging Studies Brain CT 06/27/18 05:18 IMPRESSION: 1. No hemorrhage or acute disease identified. 2. Left periventricular remote lacunar infarct and white matter chronic ischemic changes. 3. Generalized atrophy. 4. If symptoms warrant, further correlation with MR exam may be of benefit Individualized dose optimization techniques were used for this CT. at 0618 Reported and signed by: All Perkins MD Electronically Signed: All Perkins, at 6:17 EDT Tel , Service support , EKG reviewed and showed atrial paced rhythm without any changes. Assessment/Plan All Active Problems (Last Reviewed 10/02/17 @ 09:55 by Freedom Chou MD) Left arm weakness (Acute) Arm paresthesia, left (Acute) Left arm weakness (Acute) Dysarthria (Acute) 1. Left upper extremity weakness: Concern is for stroke versus peripheral Patient will undergo an MRI of the brain, MRA of the head and neck, echocardiogram, physical and occupational therapy, neurology consultation in line with the acute stroke workup For peripheral evaluation: Patient will have an MR of her cervical spine. Patient does have an MRI compatible pacemaker: It is a [employer], model number [id number]. MRI is aware I may not build to be performed until the because of the right foot having to come in to do the test. 2. Elevated troponin This is a pre-check labs from the ER order sets for stroke. Patient was not having any chest pain whatsoever. Not concerned about any acute myocardial ischemia but we will cycle troponins as it has been ordered already. Echocardiogram will be ordered because of the stroke evaluation. Did discuss with the patient's systems technician, Dr. Chou. We will hold off on consultation unless signs of evident, which they are not at this time. 3. Atrial flutter, paroxysmal: Noted on her recent pacer check from May. Hold off on anticoagulation at this time pending stroke workup. Stroke workup comes back negative or at a later point, patient can be started on Eliquis. 4. History of stroke: Continue with aspirin Plavix 5. DVT prophylaxis: Patient will be on Lovenox Code Visit Inpatient E&M: 83242 Init Hosp L3
--- NOTE | 2018-06-27 07:54 | ECHOD_ITS ---
Reason For Study: TIA/CVA Procedure This was a 2D Doppler, Color Flow transthoracic echocardiogram. Technically difficult parasternal window. Exam performed portable in patient room. Left Ventricle Normal LV size. Mild concentric left ventricular hypertrophy. Left ventricular systolic function is normal. The estimated ejection fraction is 65 %. Stage 1 diastolic dysfunction. No regional wall motion abnormalities noted. Right Ventricle Normal RV size. ICD or pacer leads identified within the right ventricle. Normal systolic function. Atria Normal left atrium. Normal right atrium. Mitral Valve There is moderate mitral annular calcification. Mild-Moderate (1-2+) mitral valve insufficiency. Tricuspid Valve Normal tricuspid valve. Mild (1+) tricuspid valve insufficiency. Pulmonary artery systolic pressure is 40 mmHg. Aortic Valve Trisinus/trileaflet aortic valve. Mild focal aortic valve calcification. Pulmonic Valve The pulmonic valve is not well visualized. Great Vessels Normal aortic root. The pulmonary artery is normal size. Normal inferior vena cava. Pericardium/Pleural No pericardial effusion. Medication Previously negative bubble study. MMode/2D Measurements & Calculations LVIDd: 3.6 cm IVSd: 1.2 cm Ao root diam: 2.9 cm LVIDs: 2.0 cm LVPWd: 1.4 cm RVDd: 3.8 cm FS: 44.2 % LAV(MOD-bp): 47.4 ml LA A4 area: 17.0 cm2 RA A4 area: 15.4 cm2 LAV(MOD-bp) Indexed: 26.7 ml/m2 LAV(MOD-sp2): 45.9 ml LAV(MOD-sp4): 44.5 ml Time Measurements MV dec time: 0.43 sec Doppler Measurements & Calculations MV E max dilip: 83.1 cm/sec Lat Peak E' Dilip: 3.7 cm/sec Med Peak E' Dilip: 5.4 cm/sec MV A max dilip: 147.9 cm/sec E/E' lat: 22.6 E/E' med: 15.3 MV E/A: 0.56 MV V2 max: 140.5 cm/sec Ao V2 max: 148.5 cm/sec LV V1 max: 135.4 cm/sec MV max P.9 mmHg Ao max P.8 mmHg LV V1 max P.3 mmHg MV V2 mean: 75.9 cm/sec Ao V2 mean: 112.8 cm/sec LV V1 mean P.5 mmHg MV mean P.7 mmHg Ao mean P.5 mmHg LV V1 mean: 103.1 cm/sec MV V2 VTI: 32.8 cm Ao V2 VTI: 35.3 cm LV V1 VTI: 29.6 cm TR max dilip: 296.1 cm/sec MV P1/2t-pr_phl: 85.1 msec TR max P.2 mmHg Interpretation Summary Normal LV size. Mild concentric left ventricular hypertrophy. Left ventricular systolic function is normal. The estimated ejection fraction is 65 %. Stage 1 diastolic dysfunction. Pulmonary artery systolic pressure is 40 mmHg. ICD or pacer leads identified within the right ventricle. Ordering Physician: Alexandro Longoria Referring Physician: DIANE HERBERT Performed By: Kam, Shante, RDCS, RVT
--- NOTE | 2018-06-27 07:54 | MRI_ITS ---
STUDY: MRA NECK WITH AND WITHOUT CONTRAST REASON FOR EXAM: Female, 82 years old. TECHNIQUE: 3-D [id number] (TOF) imaging was performed in an 1.5 T MRI scanner. Gadavist 15 IV was administered for the contrast enhanced images. COMPARISON: None. FINDINGS: RIGHT CAROTID ARTERIES: Antegrade flow within the right common carotid artery (CCA). There is mild atherosclerotic plaque formation with minimal narrowing of the right carotid bulb. There is mild atherosclerotic plaque formation of the origin of the right internal carotid artery with less than 50% cross sectional diameter stenosis. Antegrade flow within the visualized cervical portion of the right internal carotid artery. LEFT CAROTID ARTERIES: Antegrade flow within the left common carotid artery (CCA). There is moderate atherosclerotic plaque formation with moderate narrowing of the carotid bulb. There is moderate atherosclerotic plaque formation of the origin of the left internal carotid artery with an estimated stenosis of 50-69% stenosis. Antegrade flow within the visualized cervical portion of the left internal carotid artery. VERTEBRAL ARTERIES: There is antegrade flow within the bilateral vertebral arteries with a small right vertebral artery, and a dominant left vertebral artery. MRI/MRA Neck WITH and W/O Contrast IMPRESSION: 50-69% stenosis of the left ICA. Further evaluation with CT can be obtained Electronically Signed: Darling Moss MD at 15:58 EDT Tel , Service support ,
--- NOTE | 2018-06-27 07:54 | MRI_ITS ---
STUDY: MRA OF THE HEAD WITHOUT CONTRAST REASON FOR EXAM: Female, 82 years old. LEFT ARM WEAKNESS. TECHNIQUE: 3-D lsab-bz-bqojlc (TOF) imaging was performed with MIPs. The study was performed unenhanced. COMPARISON: None. FINDINGS: There is atheromatous plaque formation of the right cavernous carotid artery, with a mild stenosis (less than 50%). There is atheromatous plaque formation of the left cavernous carotid artery, with a mild stenosis (less than 50%). Normal right A1 segments of the anterior cerebral artery. Normal left A1 segments of the anterior cerebral artery. Normal intact anterior communicating artery (ACOM). Normal bilateral A2 segments of the anterior cerebral arteries. Normal right M1 and M2 segments of the middle cerebral arteries, with a normal M1 bifurcation. Normal left M1 and M2 segments of the middle cerebral arteries, with a normal M1 bifurcation. There is non-visualization of the right posterior communicating artery (PCOM). 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 There is moderate narrowing of the mid basilar artery. Normal bilateral posterior cerebral arteries. MRI/MRA Head ONLY without Contrast IMPRESSION: Moderate stenosis of the basilar artery. Further evaluation with CTA can be obtained. Electronically Signed: Darling Moss MD at 15:56 EDT Tel , Service support ,
--- NOTE | 2018-06-27 07:54 | MRI_ITS ---
STUDY: MRI CERVICAL SPINE WITH AND WITHOUT CONTRAST REASON FOR EXAM: Female, 82 years old. Left arm weakness TECHNIQUE: Standardized fat and water weighted pulse sequences were obtained in the sagittal and axial following administration of Dotarem 15 IV. COMPARISON: None FINDINGS: There is anterior discectomy and cervical fusion involving C4, C5 and C6. The procedure is secured by a plate and screws. There is overall normal alignment and curvature of the spine with no acute fractures. C2-3: Normal endplates. Normal disc height, signal and morphology. Normal central canal and intervertebral neural foramina. C3-4: Normal endplates. Normal disc height, signal and morphology. Normal central canal and intervertebral neural foramina. C4-5: There is a 1.2 x 0.4 cm spondylotic bar effacing the CSF anterior to the cord. There is a 4.4 x 2.4 mm focal area of myelomalacia in the left hemicord. A smaller 2.7 x 1.2 mm similar area of myelomalacia is seen in the right hemicord C5-6: A large 1.4 x 0.3 cm spondylitic bar effacing the CSF anterior to the cord. No changes within the cord substance. There C6-7: Minimal degenerative changes of the disc space. C7-T1: Minimal degenerative change of the disc space.. MRI/Spine Cervical W/WO Contrast IMPRESSION: Anterior discectomy and cervical fusion involving C4, C5 and C6 vertebral bodies. A 4.4 x 2.4 mm area of myelomalacia involving the left hemicord at the C4-C5 level. A smaller 2.7 x 1.2 mm area of myelomalacia involving the right hemicord Electronically Signed: Grzegorz Chun MD at 0:54 EDT Tel , Service support ,
--- NOTE | 2018-06-27 07:54 | MRI_ITS ---
STUDY: MRI BRAIN WITH AND WITHOUT CONTRAST REASON FOR EXAM: Female, 82 years old. LEFT ARM WEAKNESS. TECHNIQUE: Standardized multiplanar fat and water weighted pulse sequences were obtained. Dotarem 15 IV was administered for the contrast portion of the examination. COMPARISON: 06/27/2018 CT of the head FINDINGS: There is mild cerebral atrophy with widening of the extra-axial spaces and ventricular dilatation. There are multiple white matter hyperintensities, distributed throughout the deep white matter tracts of the cerebral hemispheres, consistent with moderate chronic white matter ischemic changes. Normal bilateral basal ganglia. Normal thalami. There is no extra-axial fluid accumulation. Normal flow voids within the major intracranial circulation suggesting patency by spin echo criteria. Normal venous enhancement. There is no enhancing intra-axial or extra-axial abnormality. Normal sella turcica, pituitary gland, infundibular stalk, optic chiasm and hypothalamus. Normal tectal plate and pineal gland. Normal midbrain, gabrielle and medulla. Normal cerebellum. MRI/Brain W/WO Contrast IMPRESSION: No acute intracranial abnormality. Electronically Signed: Darling Moss MD at 15:22 EDT Tel , Service support ,
--- NOTE | 2018-06-27 07:56 | HP.PCM_ITS ---
Problem List (1) Left arm weakness Status: Acute History of Present Illness Date of Admission: 06/27/18 Chief Complaint: left arm weakness The patient is a 82 year old F presents with worsening left arm weakness. 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 Patient does have function in her left arm but this morning when she awoke around 430 noted is much weaker than normal. She denied any left leg weakness, left facial weakness. Presented to the emergency room and underwent a CAT scan that was unremarkable. Part of the emergency room order set has automatic labs were troponins and her troponin was slightly elevated 0.0 81. Patient was not having any chest pain. 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 model# PM [id number] [employer] MRI, serial [id number] Bradycardia, severe sinus (Chronic) History of neck surgery (Chronic) Bone spurs removed 2006 History of total left hip replacement (Chronic) 2000 Hyperlipidemia (Chronic) Hypertension (Chronic) Osteoarthritis (Chronic) Ischemic cerebrovascular accident (CVA) (Chronic 04/2017) Medical History: Medical History (Last Reviewed 06/27/18 @ 07:54 by Alexandro Longoria DO) Bradycardia, severe sinus (Chronic) R00.1 Hyperlipidemia (Chronic) E78.5 Hypertension (Chronic) I10 Dysarthria (Acute) R47.1 Osteoarthritis (Chronic) M19.90 Ischemic cerebrovascular accident (CVA) (Chronic) Onset Date: 04/2017 I63.9 Allergies meperidine [From Demerol] Adverse Reaction (Verified 05/14/18 10:28) Upset Stomach Home Medications: Ambulatory Orders Medication Instructions Recorded multivitamin tablet 1 tab PO QDAY 10/02/17 atorvastatin 40 mg tablet 40 mg PO QHS #90 tab 05/14/18 clopidogrel 75 mg tablet 75 mg PO QDAY #90 tab 05/14/18 lisinopril 20 mg tablet 20 mg PO QDAY #90 tab 05/14/18 Aspirin [Aspirin, Baby] 81 mg PO DAILY@0800 06/27/18 Surgical History: Surgical History (Last Reviewed 06/27/18 @ 07:54 by Alexandro Longoria DO) Cardiac pacemaker in situ (Chronic) Onset Date: 09/[address] 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 model# PM 2272 [employer] MRI, serial [id number] History of neck surgery (Chronic) Z98.890 Bone spurs removed 2006 History of total left hip replacement (Chronic) Z96.642 2000 Surgical History: - - Decompressive surgery on her neck for radiculopathy/myelopathy on her left side. Oophorectomy secondary to assist. Left total hip replacement. Psychiatric History: No pertinent psych hx Smoking Status: Never smoker Tobacco Use: Non-smoker Alcohol: None - *Family History Sibling Family History: Family History (Last Updated 06/27/18 @ 07:55 by Alexandro Longoria DO) Unknown No problems noted. Other CVA (cerebral vascular accident) History Items: Heart Disease Maternal Family History: Family History (Last Updated 06/27/18 @ 07:55 by Alexandro Longoria DO) Unknown No problems noted. Other CVA (cerebral vascular accident) Review of Systems Constitutional: Denies: Anorexia, Chills, Fever Eyes: Denies: Blurred vision, Double vision HEENT: Denies: Head Aches, Sinus Congestion, Sinus Drainage Cardiovascular: Denies: Chest Pain, Palpitations Respiratory: Denies: Cough, Shortness of breath at rest, Sputum production Gastrointestinal: Denies: Abdominal Pain, Nausea, Vomiting Genitourinary: Denies: Dysuria, Incontinence Musculoskeletal: Denies: Joint Pain, Joint Tenderness Skin: Denies: Rash, Wounds Neurological: Reports: Focal weakness - Chronic in the left arm but acutely worse this morning., Tingling - Some increased paresthesias in her left lower extremity. Denies: Numbness Psychiatric: Denies: Anxiety, Depression Endocrine: Denies: Change in Body Habitus, Heat/ Cold Intolerance Hematologic/ Lymphatic: Denies: Easy Bruising, Easy Bleeding, Hx of blood clot Comment: A 10 point review of systems were negative except as mentioned in the history of present illness and the other review of systems. VTE Information - Inpt Only VTE Present on Admission: No VTE Pharm Prophylaxis ordered?: Yes Patient Problems: Active and Suspected Problems (Last Reviewed 10/02/17 @ 09:55 by Freedom Chou MD) Left arm weakness (Acute) Arm paresthesia, left (Acute) Left arm weakness (Acute) - Physical Exam General: Alert, No apparent distress HEENT: Atraumatic, PERRLA, EOMI, Normocephalic Oral: Moist Mucosa, No Gingival or Mucosal Lesions/ Ulcerations Neck: No Nodes, Thyroid Normal Size and Texture Lungs: Clear to auscultation, Normal air movement, No rhonchi, No wheeze Cardiovascular: Regular rate, Regular Rhythm, Normal S1, Normal S2 Abdomen: Bowel Sounds Present, Soft, Non Tender, Non-Distended, No Hepato- splenomegaly Extremities: No edema, No Calf Tenderness Skin: No rashes, No breakdown Musculoskeletal: No Tenderness to Palpation of Joints or Extremities, No Muscle Wasting Neurological: Cranial nerves II-XII grossly intact, Deep Tendon Reflexes 2+/4 and Symmetrical, Motor Exam 5/5 strength throughout - Septic left upper extremity was 3 out of 5. Psych/Mental Status: Normal Affect, Appropriate Vital Signs Temp Pulse Resp BP Pulse Ox 36.1 C L 61 14 163/86 H 96 06/27/18 04:58 06/27/18 06:30 06/27/18 06:30 06/27/18 06:30 06/27/18 06:30 Oxygen Delivery Method Room Air Weight: 78.5 kg Body Mass Index (BMI) 31.6 Finger Stick Blood Glucose 89 Laboratory Tests Past 24 Hrs 06/27/18 06/27/18 06/27/18 05:28 05:28 05:28 WBC 9.8 RBC 4.42 Hgb 14.0 Hct 42.2 MCV 95.5 MCH 31.7 MCHC 33.2 RDW 13.1 RDW Differential 44.1 H Plt Count 282 MPV 9.0 Immature Gran % (Auto) 0.100 Neut % (Auto) 60.9 Lymph % (Auto) 23.5 [place] % (Auto) 8.7 Eos % (Auto) 6.4 H Baso % (Auto) 0.4 Absolute Neuts (auto) 6.0 Absolute Lymphs (auto) 2.31 Total Counted Not Reportable PT 13.5 INR 1.1 APTT 29.5 Sodium 143 Potassium 3.9 Chloride 107 Carbon Dioxide 29.0 Anion Gap 7 BUN 19 H Creatinine 0.74 Estim Creat Clear Calc 35.49 Est GFR (MDRD) Af Amer 97 Est GFR (MDRD) Non-Af 80 BUN/Creatinine Ratio 25.6 H Glucose 102 Calcium 9.4 Troponin I 0.081 H POC Glucose 06/27/18 05:24 POC Glucose 89 Clinical Impression(s) from Imaging Studies Brain CT 06/27/18 05:18 IMPRESSION: 1. No hemorrhage or acute disease identified. 2. Left periventricular remote lacunar infarct and white matter chronic ischemic changes. 3. Generalized atrophy. 4. If symptoms warrant, further correlation with MR exam may be of benefit Individualized dose optimization techniques were used for this CT. at 0618 Reported and signed by: All Perkins MD Electronically Signed: All Perkins, at 6:17 EDT Tel , Service support , EKG reviewed and showed atrial paced rhythm without any changes. Assessment/Plan All Active Problems (Last Reviewed 10/02/17 @ 09:55 by Freedom Chou MD) Left arm weakness (Acute) Arm paresthesia, left (Acute) Left arm weakness (Acute) Dysarthria (Acute) 1. Left upper extremity weakness: * Concern is for stroke versus peripheral * Patient will undergo an MRI of the brain, MRA of the head and neck, echocardiogram, physical and occupational therapy, neurology consultation in line with the acute stroke workup * For peripheral evaluation: Patient will have an MR of her cervical spine. * Patient does have an MRI compatible pacemaker: It is a [employer], model number [id number]. MRI is aware I may not build to be performed until the because of the right foot having to come in to do the test. 2. Elevated troponin * This is a pre-check labs from the ER order sets for stroke. Patient was not having any chest pain whatsoever. Not concerned about any acute myocardial ischemia but we will cycle troponins as it has been ordered already. Echocardiogram will be ordered because of the stroke evaluation. 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 Chou. We will hold off on consultation unless signs of evident, which they are not at this time. 3. Atrial flutter, paroxysmal: * Noted on her recent pacer check from May. * Hold off on anticoagulation at this time pending stroke workup. Stroke workup comes back negative or at a later point, patient can be started on Eliquis. 4. History of stroke: Continue with aspirin Plavix 5. DVT prophylaxis: Patient will be on Lovenox Code Visit Inpatient E&M: 27323 Init Hosp L3
[2018-06-27] MEDS: Clopidogrel Bisulfate 75 MG Tablet PO (09:56)
[2018-06-27] MEDS: Lisinopril 20 MG Tablet PO (09:56)
[2018-06-27] MEDS: Aspirin 81 MG TAB.CHEW PO (09:56)
[2018-06-27] MEDS: Enoxaparin 40 MG/0.4 ML Syringe SC (09:57)
--- NOTE | 2018-06-27 11:50 | PCM.CONS.GEN ---
Reason for Consult Date of Consultation: 06/27/18 Reason for Consultation: left arm weakness History of Present Illness: The patient is a 82 year old F presents with left arm weakness since yesterday afternoon. initially she reported this upon awakening however she now tells me the arm was more weak than usual begining yesterday afternoon. also stress lately but no other recent illness or med changes. reports mild stroke last year but not aware of any deficits. has preexisting left arm weakness since neck surgery 10 yrs ago. denies other focal weakness. 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 was on neither prior to cva. remote tobacco use. per admit note:The patient is a 82 year old F presents with worsening left arm weakness. 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 Patient does have function in her left arm but this morning when she awoke around 430 noted is much weaker than normal. She denied any left leg weakness, left facial weakness. Presented to the emergency room and underwent a CAT scan that was unremarkable. Part of the emergency room order set has automatic labs were troponins and her troponin was slightly elevated 0.0 81. Patient was not having any chest pain. 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 Chou 09/17/17@ [facility]: Generator [employer] model# PM 2272 [employer] MRI, serial [id number] Bradycardia, severe sinus (Chronic) History of neck surgery (Chronic) Bone spurs removed 2006 History of total left hip replacement (Chronic) 2000 Hyperlipidemia (Chronic) Hypertension (Chronic) Osteoarthritis (Chronic) Ischemic cerebrovascular accident (CVA) (Chronic 04/2017) Medical History: Medical History (Last Reviewed 06/27/18 @ 11:54 by Bi Joy MD) Bradycardia, severe sinus (Chronic) R00.1 Hyperlipidemia (Chronic) E78.5 Hypertension (Chronic) I10 Dysarthria (Acute) R47.1 Osteoarthritis (Chronic) M19.90 Ischemic cerebrovascular accident (CVA) (Chronic) Onset Date: 04/2017 I63.9 Allergies meperidine [From Demerol] Adverse Reaction (Verified 05/14/18 10:28) Upset Stomach Home Medications: Ambulatory Orders Medication Instructions Recorded multivitamin tablet 1 tab PO QDAY 10/02/17 atorvastatin 40 mg tablet 40 mg PO QHS #90 tab 05/14/18 Aspirin [Aspirin, Baby] 81 mg PO DAILY@0800 06/27/18 Clopidogrel Bisulfate [Clopidogrel] 75 mg PO DAILY 06/27/18 Lisinopril 20 mg PO DAILY 06/27/18 Surgical History: Surgical History (Last Reviewed 06/27/18 @ 11:54 by Bi Joy MD) Cardiac pacemaker in situ (Chronic) Onset Date: 09/[address] Chou 09/17/17@ [facility]: Generator [employer] model# PM 2272 [employer] MRI, serial [id number] History of neck surgery (Chronic) Z98.890 Bone spurs removed 2006 History of total left hip replacement (Chronic) Z96.642 2000 Surgical History: - - Decompressive surgery on her neck for radiculopathy/myelopathy on her left side. Oophorectomy secondary to assist. Left total hip replacement. Psychiatric History: No pertinent psych hx Smoking Status: Never smoker Tobacco Use: Non-smoker Alcohol: None - *Family History Sibling Family History: Family History (Last Reviewed 06/27/18 @ 11:54 by Bi Joy MD) Unknown No problems noted. Other CVA (cerebral vascular accident) History Items: Heart Disease Maternal Family History: Family History (Last Reviewed 06/27/18 @ 11:54 by Bi Joy MD) Unknown No problems noted. Other CVA (cerebral vascular accident) Review of Systems Constitutional: Denies: Chills, Fever, Weight Change HEENT: Denies: Head Aches, Sinus Congestion, Sinus Drainage Cardiovascular: Denies: Chest Pain, Palpitations Respiratory: Denies: Cough, Shortness of breath at rest, Sputum production Gastrointestinal: Denies: Abdominal Pain, Nausea, Vomiting Genitourinary: Denies: Dysuria Musculoskeletal: Denies: Joint Pain, Joint Tenderness Skin: Denies: Rash, Wounds Neurological: Reports: Focal weakness. Denies: Numbness, Tingling Psychiatric: Denies: Anxiety, Depression, Homicidal Ideations, Suicidal Ideations Hematologic/ Lymphatic: Denies: Easy Bruising, Easy Bleeding Patient Problems: Active and Suspected Problems (Last Reviewed 06/27/18 @ 11:54 by Bi Joy MD) Left arm weakness (Acute) Arm paresthesia, left (Acute) Left arm weakness (Acute) - Physical Exam General: Alert, Oriented x3, Cooperative, No apparent distress HEENT: Atraumatic, PERRLA, EOMI Neurological: Cranial nerves II-XII grossly intact, - - left biceps, deltoid, and serratus anterior 1/5. 5/5 elsewhere Psych/Mental Status: Normal Affect, Alert and oriented to time, place, person, mood and affect Vital Signs Temp Pulse Resp BP Pulse Ox 36.6 C 70 16 156/74 H 98 06/27/18 08:02 06/27/18 11:05 06/27/18 08:02 06/27/18 08:02 06/27/18 08:02 Oxygen Delivery Method Room Air Weight: 77 kg Body Mass Index (BMI) 30.5 Finger Stick Blood Glucose 89 Laboratory Tests Past 24 Hrs 06/27/18 06/27/18 06/27/18 05:28 05:28 05:28 WBC 9.8 RBC 4.42 Hgb 14.0 Hct 42.2 MCV 95.5 MCH 31.7 MCHC 33.2 RDW 13.1 RDW Differential 44.1 H Plt Count 282 MPV 9.0 Immature Gran % (Auto) 0.100 Neut % (Auto) 60.9 Lymph % (Auto) 23.5 [place] % (Auto) 8.7 Eos % (Auto) 6.4 H Baso % (Auto) 0.4 Absolute Neuts (auto) 6.0 Absolute Lymphs (auto) 2.31 Total Counted Not Reportable PT 13.5 INR 1.1 APTT 29.5 Sodium 143 Potassium 3.9 Chloride 107 Carbon Dioxide 29.0 Anion Gap 7 BUN 19 H Creatinine 0.74 Estim Creat Clear Calc 35.49 Est GFR (MDRD) Af Amer 97 Est GFR (MDRD) Non-Af 80 BUN/Creatinine Ratio 25.6 H Glucose 102 Calcium 9.4 Troponin I 0.081 H 06/27/18 08:16 WBC RBC Hgb Hct MCV MCH MCHC RDW RDW Differential Plt Count MPV Immature Gran % (Auto) Neut % (Auto) Lymph % (Auto) [place] % (Auto) Eos % (Auto) Baso % (Auto) Absolute Neuts (auto) Absolute Lymphs (auto) Total Counted PT INR APTT Sodium Potassium Chloride Carbon Dioxide Anion Gap BUN Creatinine Estim Creat Clear Calc Est GFR (MDRD) Af Amer Est GFR (MDRD) Non-Af BUN/Creatinine Ratio Glucose Calcium Troponin I 0.078 H POC Glucose 06/27/18 05:24 POC Glucose 89 Assessment/Plan All Active Problems (Last Reviewed 06/27/18 @ 11:54 by Bi Joy MD) Left arm weakness (Acute) Arm paresthesia, left (Acute) Left arm weakness (Acute) Dysarthria (Acute) new left arm weakness, c5-6 distribution. denies new pain await mri: brain and c-spine asa only pt/ot may need neurosurgical evaluation. previous surgery [place] 10 yrs ago
--- NOTE | 2018-06-27 11:55 | CON.PCM_ITS ---
Reason for Consult Date of Consultation: 06/27/18 Reason for Consultation: left arm weakness History of Present Illness: The patient is a 82 year old F presents with left arm weakness since yesterday afternoon. initially she reported this upon awakening however she now tells me the arm was more weak than usual begining yesterday afternoon. also stress lately but no other recent illness or med changes. reports mild stroke last year but not aware of any deficits. has preexisting left arm weakness since neck surgery 10 yrs ago. denies other focal weakness. 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 was on neither prior to cva. remote tobacco use. per admit note:The patient is a 82 year old F presents with worsening left arm weakness. 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 Patient does have function in her left arm but this morning when she awoke around 430 noted is much weaker than normal. She denied any left leg weakness, left facial weakness. Presented to the emergency room and underwent a CAT scan that was unremarkable. Part of the emergency room order set has automatic labs were troponins and her troponin was slightly elevated 0.0 81. Patient was not having any chest pain. 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 Chou 09/17/17@ [facility]: Generator [employer] model# PM [id number] [employer]urity MRI, serial [id number] Bradycardia, severe sinus (Chronic) History of neck surgery (Chronic) Bone spurs removed 2006 History of total left hip replacement (Chronic) 2000 Hyperlipidemia (Chronic) Hypertension (Chronic) Osteoarthritis (Chronic) Ischemic cerebrovascular accident (CVA) (Chronic 04/2017) Medical History: Medical History (Last Reviewed 06/27/18 @ 11:54 by Bi Joy MD) Bradycardia, severe sinus (Chronic) R00.1 Hyperlipidemia (Chronic) E78.5 Hypertension (Chronic) I10 Dysarthria (Acute) R47.1 Osteoarthritis (Chronic) M19.90 Ischemic cerebrovascular accident (CVA) (Chronic) Onset Date: 04/2017 I63.9 Allergies meperidine [From Demerol] Adverse Reaction (Verified 05/14/18 10:28) Upset Stomach Home Medications: Ambulatory Orders Medication Instructions Recorded multivitamin tablet 1 tab PO QDAY 10/02/17 atorvastatin 40 mg tablet 40 mg PO QHS #90 tab 05/14/18 Aspirin [Aspirin, Baby] 81 mg PO DAILY@0800 06/27/18 Clopidogrel Bisulfate [Clopidogrel] 75 mg PO DAILY 06/27/18 Lisinopril 20 mg PO DAILY 06/27/18 Surgical History: Surgical History (Last Reviewed 06/27/18 @ 11:54 by Bi Joy MD) Cardiac pacemaker in situ (Chronic) Onset Date: 09/[address] Chou 09/17/17@ [facility]: Generator [employer] model# PM [id number] [employer]urity MRI, serial [id number] History of neck surgery (Chronic) Z98.890 Bone spurs removed 2006 History of total left hip replacement (Chronic) Z96.642 2000 Surgical History: - - Decompressive surgery on her neck for radiculopathy/myelopathy on her left side. Oophorectomy secondary to assist. Left total hip replacement. Psychiatric History: No pertinent psych hx Smoking Status: Never smoker Tobacco Use: Non-smoker Alcohol: None - *Family History Sibling Family History: Family History (Last Reviewed 06/27/18 @ 11:54 by Bi oJy MD) Unknown No problems noted. Other CVA (cerebral vascular accident) History Items: Heart Disease Maternal Family History: Family History (Last Reviewed 06/27/18 @ 11:54 by Bi Joy MD) Unknown No problems noted. Other CVA (cerebral vascular accident) Review of Systems Constitutional: Denies: Chills, Fever, Weight Change HEENT: Denies: Head Aches, Sinus Congestion, Sinus Drainage Cardiovascular: Denies: Chest Pain, Palpitations Respiratory: Denies: Cough, Shortness of breath at rest, Sputum production Gastrointestinal: Denies: Abdominal Pain, Nausea, Vomiting Genitourinary: Denies: Dysuria Musculoskeletal: Denies: Joint Pain, Joint Tenderness Skin: Denies: Rash, Wounds Neurological: Reports: Focal weakness. Denies: Numbness, Tingling Psychiatric: Denies: Anxiety, Depression, Homicidal Ideations, Suicidal Ideations Hematologic/ Lymphatic: Denies: Easy Bruising, Easy Bleeding Patient Problems: Active and Suspected Problems (Last Reviewed 06/27/18 @ 11:54 by Bi Joy MD) Left arm weakness (Acute) Arm paresthesia, left (Acute) Left arm weakness (Acute) - Physical Exam General: Alert, Oriented x3, Cooperative, No apparent distress HEENT: Atraumatic, PERRLA, EOMI Neurological: Cranial nerves II-XII grossly intact, - - left biceps, deltoid, and serratus anterior 1/5. 5/5 elsewhere Psych/Mental Status: Normal Affect, Alert and oriented to time, place, person, mood and affect Vital Signs Temp Pulse Resp BP Pulse Ox 36.6 C 70 16 156/74 H 98 06/27/18 08:02 06/27/18 11:05 06/27/18 08:02 06/27/18 08:02 06/27/18 08:02 Oxygen Delivery Method Room Air Weight: 77 kg Body Mass Index (BMI) 30.5 Finger Stick Blood Glucose 89 Laboratory Tests Past 24 Hrs 06/27/18 06/27/18 06/27/18 05:28 05:28 05:28 WBC 9.8 RBC 4.42 Hgb 14.0 Hct 42.2 MCV 95.5 MCH 31.7 MCHC 33.2 RDW 13.1 RDW Differential 44.1 H Plt Count 282 MPV 9.0 Immature Gran % (Auto) 0.100 Neut % (Auto) 60.9 Lymph % (Auto) 23.5 Grimes % (Auto) 8.7 Eos % (Auto) 6.4 H Baso % (Auto) 0.4 Absolute Neuts (auto) 6.0 Absolute Lymphs (auto) 2.31 Total Counted Not Reportable PT 13.5 INR 1.1 APTT 29.5 Sodium 143 Potassium 3.9 Chloride 107 Carbon Dioxide 29.0 Anion Gap 7 BUN 19 H Creatinine 0.74 Estim Creat Clear Calc 35.49 Est GFR (MDRD) Af Amer 97 Est GFR (MDRD) Non-Af 80 BUN/Creatinine Ratio 25.6 H Glucose 102 Calcium 9.4 Troponin I 0.081 H 06/27/18 08:16 WBC RBC Hgb Hct MCV MCH MCHC RDW RDW Differential Plt Count MPV Immature Gran % (Auto) Neut % (Auto) Lymph % (Auto) Grimes % (Auto) Eos % (Auto) Baso % (Auto) Absolute Neuts (auto) Absolute Lymphs (auto) Total Counted PT INR APTT Sodium Potassium Chloride Carbon Dioxide Anion Gap BUN Creatinine Estim Creat Clear Calc Est GFR (MDRD) Af Amer Est GFR (MDRD) Non-Af BUN/Creatinine Ratio Glucose Calcium Troponin I 0.078 H POC Glucose 06/27/18 05:24 POC Glucose 89 Assessment/Plan All Active Problems (Last Reviewed 06/27/18 @ 11:54 by Bi Joy MD) Left arm weakness (Acute) Arm paresthesia, left (Acute) Left arm weakness (Acute) Dysarthria (Acute) new left arm weakness, c5-6 distribution. denies new pain await mri: brain and c-spine asa only pt/ot may need neurosurgical evaluation. previous surgery [place] 10 yrs ago
--- NOTE | 2018-06-27 13:14 | CASEMGMT ---
According to the [facility], the following are in-network tertiary facilities: [facility], Jose Alberto, [facility], [place], [facility], [facility], [place], [facility], and . Chris JAVED CM
[2018-06-27] MEDS: Acetaminophen 325 MG Tablet 650 MG PO (18:33)
[2018-06-27] MEDS: Atorvastatin Calcium 40 MG Tablet PO (21:48)
[2018-06-28 03:03] VITALS: PULSE 60
[2018-06-28 03:56] VITALS: BP 157/60; PULSE 65; RESP 19; TEMP 36.9; O2SAT 95
[2018-06-28 07:23] LABS: Cholesterol 154 mg/dL (200); High Density Lipoprotein 49 mg/dL; Triglycerides 118 mg/dL; Very Low Density Lipoprotein 24 mg/dL (5-40)
[2018-06-28 07:28] VITALS: PULSE 67
[2018-06-28] MEDS: Aspirin 81 MG TAB.CHEW PO (08:31)
--- NOTE | 2018-06-28 09:34 | CASEMGMT ---
TEGAN SANTIAGO assessment: Face to Face with patient for initial transition planning/care coordination assessment. TEGAN SANTIAGO introduced self and role at [facility], pt voices understanding and consents to assessment at this time. Pt is sitting up in chair in no distress at this time. Pt is A/Ox4 at this time and answers all questions appropriately at this time. Care providers, pharmacy, and demographics verified at this time. PCP: [facility] Specialists: brittany Chou Pharmacy: [facility] Insurance: [facility] Living Will/HPOA: Pt states does not have LW/HPOA and declines info at this time. Pt states that she is 'working on it with her daughter.' LNOK: Naye Reeder, daughter Living Arrangements: Pt states lives alone in 1 story apt with no stairs and states no concerns at home at this time. Pt states is independent with ADL's. Transportation: Pt states drives self but states does not currently have car but plans on getting a new one soon. Pt states that daughter helps with transportation but is interested in [facility] transport info. DME/HHC: Pt states has the following DME: grab bars, shower chair, raised toilet seat, walker and w/c. Pt states does not use the walker or w/c but has them, if needed. Pt states no hx of HHC or SNF. Pt states is interested in OP therapy but is concerned about transportation getting there and advised pt that [facility] van could be set up, voices understanding. OP therapy script to be sent for PT/OT to [facility]. Pt provided with original and [facility] van info. Advised pt to notify [facility] when they call her that she needs transportation, voices understanding. Pt voices no concerns with going home at time of discharge. Pt is retired. Pt states does not smoke or drink ETOH. Pt states no further concerns/needs at this time. CM to follow for any further discharge planning/needs. Advised pt to ask for CM if any further questions/concerns/needs arise, voices understanding. Plan: Home w/ OP therapy. [place] TEGAN SANTIAGO
[2018-06-28 09:41] VITALS: BP 152/77; PULSE 84; RESP 14; TEMP 36.6; O2SAT 94
[2018-06-28] MEDS: Enoxaparin 40 MG/0.4 ML Syringe SC (09:45)
[2018-06-28] MEDS: Lisinopril 20 MG Tablet PO (09:45)
[2018-06-28] MEDS: Clopidogrel Bisulfate 75 MG Tablet PO (09:45)
--- NOTE | 2018-06-28 11:37 | DCINST_ITS ---
- Discharge Diagnoses Current Active Problems: Current Active and Chronic Problems (Last Reviewed 06/27/18 @ 11:54 by Bi Joy MD) Left arm weakness (Acute) Arm paresthesia, left (Acute) Left arm weakness (Acute) You will use the following diet at home:: Cardiac Your food should be the consistency of: Regular Your liquids should be the consistency of: Regular/Thin Discharge Activity: Return to Normal Activity Additional Instructions: Wear soft collar while driving. Allergies/Adverse Reactions: Allergies meperidine [From Demerol] Adverse Reaction (Verified 05/14/18 10:28) Upset Stomach Medications to take at Discharge multivitamin tablet 1 tab PO QDAY 10/02/17 atorvastatin 40 mg tablet 40 mg PO QHS #90 tab 05/14/18 Aspirin [Aspirin, Baby] 81 mg PO DAILY@0800 06/27/18 Clopidogrel Bisulfate [Clopidogrel] 75 mg PO DAILY 06/27/18 Lisinopril 20 mg PO DAILY 06/27/18 Primary Care Physician: Luis M Lemons DO [Primary Care Provider] - Please follow up with your Primary Care Physician in: 1-2 weeks Test Results: Test results from this visit will be discussed in further detail at your follow- up appointment, if applicable. Proposed Discharge Date: 06/28/18
[2018-06-28 12:11] VITALS: BMI 30.5
--- NOTE | 2018-06-28 12:16 | PN.NEURO_ITS ---
Patient Problems: Active and Suspected Problems (Last Reviewed 06/27/18 @ 11:54 by Bi Joy MD) Left arm weakness (Acute) Arm paresthesia, left (Acute) Left arm weakness (Acute) Subjective: No new complaints. Reports that her left upper extremity is still weak not back to normal but somewhat improved. She now states that she may have slept on it wrong and this has occurred to her in the past although to a lesser extent. - Physical Exam General: Alert, Oriented x3, Cooperative, No apparent distress HEENT: SHI, EOMI Neurological: Cranial nerves II-XII grossly intact, - - Right biceps deltoid and serratus strength still 1/5 unchanged. Sensation intact. Vital Signs Temp Pulse Resp BP Pulse Ox 36.6 C 84 14 152/77 H 94 06/28/18 09:41 06/28/18 09:41 06/28/18 09:41 06/28/18 09:41 06/28/18 09:41 Oxygen Delivery Method Room Air Weight: 77 kg Body Mass Index (BMI) 30.5 Finger Stick Blood Glucose 89 Intake and Output for Last 24 Hours 06/26/18 06/27/18 06/28/18 23:59 23:59 23:59 Intake Total 1480 / 1480 0 / 0 Balance 1480 / 1480 0 / 0 Laboratory Tests Past 24 Hrs 06/28/18 06:15 Triglycerides 118 Cholesterol 154 LDL Cholesterol 81 VLDL Cholesterol 24 HDL Cholesterol 49 MRI of the brain reviewed, no acute. MRI of the C-spine reviewed, she does have significant malacia at C5/C6 as well as chronic changes in her spine and postsurgical changes. These do not look acute Medical Necessity - Tobacco Use Smoking Status: Never smoker Tobacco Use: Non-smoker Assessment/Plan All Active Problems (Last Reviewed 06/27/18 @ 11:54 by Bi Joy MD) Left arm weakness (Acute) Arm paresthesia, left (Acute) Left arm weakness (Acute) Dysarthria (Acute) new left arm weakness, c5-6 distribution. denies new pain. We discussed treatment options. She does not want to see a neurosurgeon or spine surgeon at this point. She wants to pursue physical therapy only and she is aware of the risks and benefits of this. I think it is okay to discharge her to home. I r ecommended a soft collar while she is in a car and may be at bedtime. She can follow-up as an outpatient on an as-needed basis.
--- NOTE | 2018-06-28 13:25 | PCM.DC.SUM ---
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 Chou 09/17/17@ [facility]: Generator [employer] model# PM 2272 [employer]urity MRI, serial [id number] Bradycardia, severe sinus (Chronic) History of neck surgery (Chronic) Bone spurs removed 2006 History of total left hip replacement (Chronic) 2000 Hyperlipidemia (Chronic) Hypertension (Chronic) Osteoarthritis (Chronic) Ischemic cerebrovascular accident (CVA) (Chronic 04/2017) Hospital Course and Treatment Imaging Results: CT/Brain/Head without Contrast IMPRESSION: 1. No hemorrhage or acute disease identified. 2. Left periventricular remote lacunar infarct and white matter chronic ischemic changes. 3. Generalized atrophy. 4. If symptoms warrant, further correlation with MR exam may be of benefit Individualized dose optimization techniques were used for this CT. MRI/Brain W/WO Contrast IMPRESSION: No acute intracranial abnormality. MRI/Spine Cervical W/WO Contrast IMPRESSION: Anterior discectomy and cervical fusion involving C4, C5 and C6 vertebral bodies. A 4.4 x 2.4 mm area of myelomalacia involving the left hemicord at the C4-C5 level. A smaller 2.7 x 1.2 mm area of myelomalacia involving the right hemicord Echo: Interpretation Summary Normal LV size. Mild concentric left ventricular hypertrophy. Left ventricular systolic function is normal. The estimated ejection fraction is 65 %. Stage 1 diastolic dysfunction. Pulmonary artery systolic pressure is 40 mmHg. ICD or pacer leads identified within the right ventricle. MRI/MRA Head ONLY without Contrast IMPRESSION: Moderate stenosis of the basilar artery. Further evaluation with CTA can be obtained. MRI/MRA Neck WITH and W/O Contrast IMPRESSION: 50-69% stenosis of the left ICA. Further evaluation with CT can be obtained Consultations: Neurology-Rufino Operations: None Procedures: 2-D Echocardiogram Summary of Care Provided: Hospital Course: The patient is a 82 year old F with past medical history as above, significant for prior cervical discectomy and prior CVA who presented to the emergency room with left upper extremity and left shoulder weakness. She had chronic weakness in this arm following surgery in the past however had become significantly worse. She was unable to flex her bicep or tricep, extend or abduct her left arm at her shoulder. She had no paresthesias, she retained good wrist strength and ROM, and good finger strength and ROM. CT of the brain was negative. She was admitted for stroke workup. She underwent an MRI of the brain and C-spine, MRA of the head and neck, and an echocardiogram. Her MRI of the C-spine revealed myelomalacia C4-C5, right hemicord. Neurology was consulted. They felt that there is no stroke, and that she could be discharged home. The patient was not interested in pursuing surgical options. Neurology recommended she use a soft collar while driving and at bedtime if her symptoms worsen while sleeping. She was discharged home in stable condition and will need follow-up with her PCP in 1-2 weeks. This patient was seen by Carson Eduardo PA-C under the supervision of Doctor Longoria. [] - Physical Exam General: Alert, Oriented x3, Cooperative HEENT: Atraumatic, PERRLA, EOMI, Normocephalic Neck: Supple, No JVD, Negative Carotid Bruits Lungs: Clear to auscultation, Normal air movement Cardiovascular: Regular rate, No murmurs Abdomen: Bowel Sounds Present, Soft, Non Tender Extremities: No edema, Capillary Refill Less than 3 Seconds Skin: No rashes, No breakdown Musculoskeletal: - - 1 out of 5 strength in the left shoulder and proximal upper extremity. Strength intact in the distal upper extremity, wrist, hand, fingers. Sensation intact. Warm to the touch, good pulses. Neurological: Cranial nerves II-XII grossly intact Psych/Mental Status: Normal Affect, Appropriate, Alert and oriented to time, place, person, mood and affect Vital Signs Temp Pulse Resp BP Pulse Ox 97.9 F 84 14 152/77 H 94 06/28/18 09:41 06/28/18 09:41 06/28/18 09:41 06/28/18 09:41 06/28/18 09:41 Oxygen Delivery Method Room Air Weight: 169 lb 12.095 oz Body Mass Index (BMI) 30.5 Finger Stick Blood Glucose 89 Intake and Output for Last 24 Hours 06/26/18 06/27/18 06/28/18 23:59 23:59 23:59 Intake Total 1480 / 1480 0 / 0 Balance 1480 / 1480 0 / 0 Laboratory Tests Past 24 Hrs 06/28/18 06:15 Triglycerides 118 Cholesterol 154 LDL Cholesterol 81 VLDL Cholesterol 24 HDL Cholesterol 49 Discharge Diet: Low fat/ Low Cholesterol, 2000 mg Sodium Diet Discharge Activity: Return to Normal Activity Home Medications: Medications to take at Discharge multivitamin tablet 1 tab PO QDAY 10/02/17 atorvastatin 40 mg tablet 40 mg PO QHS #90 tab 05/14/18 Aspirin [Aspirin, Baby] 81 mg PO DAILY@0800 06/27/18 Clopidogrel Bisulfate [Clopidogrel] 75 mg PO DAILY 06/27/18 Lisinopril 20 mg PO DAILY 06/27/18 Primary Care Physician: Luis M Lemons DO [Primary Care Provider] - Please follow up with your Primary Care Physician in: 1-2 weeks Disposition: Home Minutes spent on discharge:: 35 Patient Condition:: Stable Medical Necessity - Tobacco Use Smoking Status: Never smoker Tobacco Use: Non-smoker Meaningful Use Info Meaningful Use Diagnoses (Choose all that apply): None applicable Code Visit Inpatient E&M: 62352 Disch Hosp
--- NOTE | 2018-06-28 13:32 | DS.PCM_ITS ---
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 Chou 09/17/17@ [facility]: Generator [employer] model# PM 2272 [employer]urity MRI, serial [id number] Bradycardia, severe sinus (Chronic) History of neck surgery (Chronic) Bone spurs removed 2006 History of total left hip replacement (Chronic) 2000 Hyperlipidemia (Chronic) Hypertension (Chronic) Osteoarthritis (Chronic) Ischemic cerebrovascular accident (CVA) (Chronic 04/2017) Hospital Course and Treatment Imaging Results: CT/Brain/Head without Contrast IMPRESSION: 1. No hemorrhage or acute disease identified. 2. Left periventricular remote lacunar infarct and white matter chronic ischemic changes. 3. Generalized atrophy. 4. If symptoms warrant, further correlation with MR exam may be of benefit Individualized dose optimization techniques were used for this CT. MRI/Brain W/WO Contrast IMPRESSION: No acute intracranial abnormality. MRI/Spine Cervical W/WO Contrast IMPRESSION: Anterior discectomy and cervical fusion involving C4, C5 and C6 vertebral bodies. A 4.4 x 2.4 mm area of myelomalacia involving the left hemicord at the C4-C5 level. A smaller 2.7 x 1.2 mm area of myelomalacia involving the right hemicord Echo: Interpretation Summary Normal LV size. Mild concentric left ventricular hypertrophy. Left ventricular systolic function is normal. The estimated ejection fraction is 65 %. Stage 1 diastolic dysfunction. Pulmonary artery systolic pressure is 40 mmHg. ICD or pacer leads identified within the right ventricle. MRI/MRA Head ONLY without Contrast IMPRESSION: Moderate stenosis of the basilar artery. Further evaluation with CTA can be obtained. MRI/MRA Neck WITH and W/O Contrast IMPRESSION: 50-69% stenosis of the left ICA. Further evaluation with CT can be obtained Consultations: Neurology-Rufino Operations: None Procedures: 2-D Echocardiogram Summary of Care Provided: Hospital Course: The patient is a 82 year old F with past medical history as above, significant for prior cervical discectomy and prior CVA who presented to the emergency room with left upper extremity and left shoulder weakness. She had chronic weakness in this arm following surgery in the past however had become significantly worse. She was unable to flex her bicep or tricep, extend or abduct her left arm at her shoulder. She had no paresthesias, she retained good wrist strength and ROM, and good finger strength and ROM. CT of the brain was negative. She was admitted for stroke workup. She underwent an MRI of the brain and C-spine, MRA of the head and neck, and an echocardiogram. Her MRI of the C-spine revealed myelomalacia C4-C5, right hemicord. Neurology was consulted. They felt that there is no stroke, and that she could be discharged home. The patient was not interested in pursuing surgical options. Neurology recommended she use a soft collar while driving and at bedtime if her symptoms worsen while sleeping. She was discharged home in stable condition and will need follow-up with her PCP in 1-2 weeks. This patient was seen by Carson Eduardo PA-C under the supervision of Doctor Longoria. [] - Physical Exam General: Alert, Oriented x3, Cooperative HEENT: Atraumatic, PERRLA, EOMI, Normocephalic Neck: Supple, No JVD, Negative Carotid Bruits Lungs: Clear to auscultation, Normal air movement Cardiovascular: Regular rate, No murmurs Abdomen: Bowel Sounds Present, Soft, Non Tender Extremities: No edema, Capillary Refill Less than 3 Seconds Skin: No rashes, No breakdown Musculoskeletal: - - 1 out of 5 strength in the left shoulder and proximal upper extremity. Strength intact in the distal upper extremity, wrist, hand, fingers. Sensation intact. Warm to the touch, good pulses. Neurological: Cranial nerves II-XII grossly intact Psych/Mental Status: Normal Affect, Appropriate, Alert and oriented to time, place, person, mood and affect Vital Signs Temp Pulse Resp BP Pulse Ox 97.9 F 84 14 152/77 H 94 06/28/18 09:41 06/28/18 09:41 06/28/18 09:41 06/28/18 09:41 06/28/18 09:41 Oxygen Delivery Method Room Air Weight: 169 lb 12.095 oz Body Mass Index (BMI) 30.5 Finger Stick Blood Glucose 89 Intake and Output for Last 24 Hours 06/26/18 06/27/18 06/28/18 23:59 23:59 23:59 Intake Total 1480 / 1480 0 / 0 Balance 1480 / 1480 0 / 0 Laboratory Tests Past 24 Hrs 06/28/18 06:15 Triglycerides 118 Cholesterol 154 LDL Cholesterol 81 VLDL Cholesterol 24 HDL Cholesterol 49 Discharge Diet: Low fat/ Low Cholesterol, 2000 mg Sodium Diet Discharge Activity: Return to Normal Activity Home Medications: Medications to take at Discharge multivitamin tablet 1 tab PO QDAY 10/02/17 atorvastatin 40 mg tablet 40 mg PO QHS #90 tab 05/14/18 Aspirin [Aspirin, Baby] 81 mg PO DAILY@0800 06/27/18 Clopidogrel Bisulfate [Clopidogrel] 75 mg PO DAILY 06/27/18 Lisinopril 20 mg PO DAILY 06/27/18 Primary Care Physician: Luis M Lemons DO [Primary Care Provider] - Please follow up with your Primary Care Physician in: 1-2 weeks Disposition: Home Minutes spent on discharge:: 35 Patient Condition:: Stable Medical Necessity - Tobacco Use Smoking Status: Never smoker Tobacco Use: Non-smoker Meaningful Use Info Meaningful Use Diagnoses (Choose all that apply): None applicable Code Visit Inpatient E&M: 30586 Disch Hosp
== END 2018-06-28 11:37 | disposition home or self-care (01) ==
LOC: ED 06:28 → PCU 06-28 06:57
PROVIDERS: Emergency Provider Emergency Medicine; Family Provider Student in an Organized Health Care Education/Training Program; PCP Student in an Organized Health Care Education/Training Program
DX: G58.8 Other specified mononeuropathies (principal); M19.90 Unspecified osteoarthritis, unspecified site; E78.5 Hyperlipidemia, unspecified; I10 Essential (primary) hypertension; Z86.73 Personal history of transient ischemic attack (TIA), and cerebral infarction without residual deficits; Z79.899 Other long term (current) drug therapy; Z79.02 Long term (current) use of antithrombotics/antiplatelets; Z79.82 Long term (current) use of aspirin; I48.92 Unspecified atrial flutter; Z95.0 Presence of cardiac pacemaker; I08.3 Combined rheumatic disorders of mitral, aortic and tricuspid valves; R94.31 Abnormal electrocardiogram [ECG] [EKG]; G95.89 Other specified diseases of spinal cord
CPT/HCPCS: 36415; 70450; 70544; 70549; 70553; 72156; 80048; 80061; 82962; 84484; 85025; 85610; 85730; 93005; 93306; 96372; 97162; 97166; 97530; 99218; 99283; A9575; G0378

== ENCOUNTER 2018-07-11 07:47 | Outpatient (RCR) | payer MEDICARE, SELFPAY ==
--- NOTE | 2018-08-06 17:06 | HP.OTEVAL_ITS ---
Patient's Visit Information SHANTANU CONDE is a 82 year old F, referred to Occupational Therapy by Luis M Lemons DO, with a diagnosis of L arm weakness, paresthesias. Date of Evaluation: 07/11/18 Occupational Therapist: Roseline Davis - Subjective Subjective: Pt seen for initial occupational therapy evaluation for L arm weakness, paresthesias. 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 About 3 wks ago started to have decreased function of L elbow with decreased AROM L elbow flexion. R hand dominent. 11 yrs ago had neck sx. Lives alone, still completing all BADLs/IADLs independently with decreased functional use of L UE and extra time needed to complete tasks. Pt reports no pain. - Objective Objective/Observation: decreased AROM L elbow - ROM ROM Comments: R UE AROM WFL. L UE AROM elbow 0/0 PROM 0/130. L UE shoulder flexion AROM 5 PROM WFL. L wrist/hand AROM WFL. Limited bicep/tricep/shoulder AROM L UE. - Strength Lateral Pinch: R 12, L 8 Tripod Pinch: R 8 L 6 Strength Comments: R hand dominent. R bicep/tricep strength 4+/5. L bicep/tricep strength 1/5 - Edema Other: No edema - Sensation Sensation Comments: No numbness or tingling. - Quick DASH-Disab of Arm,Shoulder& Hand Quick DASH Score: 32.5000 - Goals Goal:: Pt will demo increased L UE generalied strength 4/5 to assist with functional BADL/IADL tasks independently. Goal:: Pt will demo increased AROM L elbow flexion by 90' to assist with UB dressing tasks independently Goal:: Pt will be educated on adaptive techniques and compensatory strategies to assist with BADL/IADL tasks with limited ROM L UE with good understanding and demo 100%x Goal:: Pt will be educated on L UE HEP with good understanding and demo 100%x - Rehabilitation General Assessment: Pt demo decreased functional use of L UE for BADLs/IADLs, decreased AROM L UE. Pt would benefit from direct occupational therapy services to increase AROM L UE and increase strength L UE to assist with increased independence for BADLs/IADLs and return to [facility]. Rehabilitation Potential: Good - Anticipated Interventions Anticipated Interventions: A/AAROM/PROM, Strengthening, Modalities, Orthoses, Joint Protection/Energy Conservation, Neuro Reeducation, ADL Training, Education re assistive Equipment, Education re Diagnosis, Home Program - Visit Plan Frequency: 1-2x /Week Duration: 4-6 Weeks General Plan: increase ROM L UE elbow flexion, increase generalized strength L UE, increase independence and education of adaptive technqiues and compensatory strategies to assist with BADLs/IADLs, educate on L UE HEP. TEXT: Thank you for the opportunity to evaluate your patient. For Medicare and Medicare HMO plans, please review the plan of care and approve it. It will need to be FAXED BACK to us at [phone] for Medicare purposes. Please let me know if there are questions or concerns regarding this plan of care. Physician Signat ure: Date:
== END 2018-07-11 19:00 ==
LOC: PT 07:47
PROVIDERS: Family Provider Student in an Organized Health Care Education/Training Program; PCP Student in an Organized Health Care Education/Training Program; Referring Provider Student in an Organized Health Care Education/Training Program; Visit Provider Student in an Organized Health Care Education/Training Program
DX: R53.1 Weakness (principal); R20.2 Paresthesia of skin
CPT/HCPCS: 97165; 97166

== ENCOUNTER 2019-11-07 08:52 | Emergency (ER) | payer MEDICARE, MEDICAID, SELFPAY ==
[2018-11-28 11:56] VITALS: BMI 30.5
[2019-11-07 08:53] VITALS: BP 146/102; PULSE 60; RESP 18; TEMP 36.6; O2SAT 98; BMI 26.5
[2019-11-07 09:09] VITALS: BP 146/102; PULSE 60; RESP 16; TEMP 36.6; O2SAT 98
--- NOTE | 2019-11-07 09:35 | EKG12_ITS ---
Test Reason : ABNORMAL LABS Blood Pressure : / mmHG Vent. Rate : 060 BPM Atrial Rate : 060 BPM P-R Int : 190 ms QRS Dur : 130 ms QT Int : 478 ms P-R-T Axes : 079 -75 092 degrees QTc Int : 478 ms AV dual-paced rhythm Abnormal ECG Confirmed by HARIS ODEN, SAMIR ([id number]), greeting card editor JUVENTINO ARDON ([id number]) on 11/11/2019 9:27:12 AM Referred By: ALBIN Confirmed By:SAMIR CARBALLO MD
--- NOTE | 2019-11-07 09:36 | ED.VIS.GEN ---
History of Present Illness Chief Complaint: Abn Labs Informant: Patient Narrative: Patient is an 83-year-old female who presents to the emergency department for abnormal outpatient lab testing. She was told that she had decreased kidney function with elevated BUN and creatinine. Patient states that this was just routine lab work. She otherwise has been feeling completely fine. She is been eating drinking well. Has been urinating fine. She has never had kidney issues before in the past. She denies any recent illnesses including any fever/chills. No chest pain/shortness of breath. No abdominal pain. No nausea/vomiting or diarrhea. She denies any back pain. She denies any palpitations. Past Medical History - Allergies and Home Meds Allergies/Adverse Reactions: Allergies meperidine [From Demerol] Adverse Reaction (Verified 11/07/19 08:55) Upset Stomach Primary Care Physician: Luis M Lemons DO [Primary Care Provider] - As soon as possible Past Medical History: - - Diabetes, hypertension, pacemaker placement Surgical History: - - Decompressive surgery on her neck for radiculopathy/myelopathy on her left side. Oophorectomy secondary to assist. Left total hip replacement. Smoking Status: Former smoker Drugs: None - Family History Sibling Family History: Family History (Last Reviewed 11/28/18 @ 12:[address] Freedom Chou MD) Unknown No problems noted. Other CVA (cerebral vascular accident) Family History: Reports: Heart Disease Review of Systems All systems negative except as indicated General: Denies: Chills, Fever, Sweats Eyes: Denies: Visual changes - bilaterally, Diplopia ENT: Denies: Rhinorrhea, Sore throat Cardiovascular: Denies: Chest pain, Palpitations Respiratory: Denies: Dyspnea, Cough, Dyspnea on exertion Gastrointestinal: Denies: Abdominal pain, Nausea, Vomiting, Diarrhea Genitourinary: Denies: Dysuria, Hematuria, Frequency Musculoskeletal: Denies: Back pain, Extremity Pain Skin: Denies: Rash, Wounds Neurological: Denies: Headache, Weakness, Numbness Physical Exam Vital Signs/Narrative: Vital Signs Temp Pulse Resp BP Pulse Ox 11/07/19 09:09 97.9 F 60 16 146/102 H 98 11/07/19 08:53 97.9 F 60 18 146/102 H 98 Inital Vital Signs reviewed: Yes General: Well nourished, Well developed, No Acute Distress Head: Normocephalic, Atraumatic Eyes: Perrl, EOMI ENT: Moist mucous membranes, No rhinorrhea Neck: Supple, Nontender Cardiovascular: Regular rate, Regular rhythm, No murmurs Respiratory: No distress, CTA bilaterally, Chest nontender Abdomen: Soft, Nontender, Nondistended, Normal bowel sounds Back: Nontender, Normal Inspection. Negative for: CVA tenderness Extremities: Nontender, No edema. Negative for: Edema, Calf Tenderness Skin: Normal color, No rash Neurological: Alert, Oriented x3, Cranial nerves II-XII grossly intact, Normal Strength, Normal Sensation Psychological: Normal affect, Normal Mood Diagnostic/Tx/Re-eval - EKG Initial EKG Interpretation: - - Rate of 60 bpm with a AV dual paced rhythm. Wide QRS given the pacer. Otherwise no significant ST elevations or depressions. No T wave abnormalities. - Medical Decision Making Patient presents the [facility] for abnormal outpatient lab testing. She has absolutely no complaints at time of arrival. Vital signs within normal limits. Physical exam is benign. Will repeat lab work here today to recheck. On repeat lab work patient's creatinine and BUN are elevated. She is able to make urine and has absolutely no complaints. Her troponin is minimally elevated which I believe is to the poor renal clearance. I did call and talk to a doctor in her PCPs office as her PCP is currently on vacation. We both discussed that the patient does not really require inpatient evaluation of this as she has no symptoms and this was only found on routine lab work. EKG did not show any signs of ischemia or arrhythmia. No electrolyte disturbances. I did discuss all this with the patient. She was very adamant on not wanting to stay in the hospital and she is grateful that this can be done as an outpatient. She does need to have very close monitoring. And she is to schedule an appointment with her PCP this coming Sunday for further evaluation. She understands and is agreeable this plan. Will discharge home in stable condition. She understands she can return to the [facility] department anytime if she develops any concerning symptoms. Again I do not feel that her elevated troponin was from coronary artery disease as she has not had any chest pain, shortness of breath, fatigue. Urinalysis did not show evidence of urinary tract infection although she is asymptomatic. Will treat with Keflex at this time. ED Disposition - Plan for ED Patient: Disposition: Home or Assisted Living Diagnosis: Acute kidney injury, Urinary tract infection Instructions: Kidney Problems, ED CYSTITIS Female Adult Prescriptions: Cephalexin [Keflex] 500 mg PO Q12 #14 cap Transmission Status: Received by [id number] Referrals: Luis M Lemons DO [Primary Care Provider] - As soon as possible
[2019-11-07 10:12] LABS: Absolute Lymphocyte Count 1.47 X10^3/uL (0.83-4.51); Absolute Neutrophil Count 5.8 X10^3/uL (2.0-7.7); Basophil# 0.04 X10^3/uL; Basophil% 0.5 % (0-1); Eosinophil# 0.52 X10^3/uL; Eosinophils% 6.2 % (0-5); Hematocrit 35.2 % (37-47); Hemoglobin 11.2 g/dL (12.0-15.0); Lymphocyte # 1.47 X10^3/ul (4.0); Lymphocyte % 17.4 % (19-41); Mean Corp Hgb Conc 31.8 g/dL (32-36); Mean Corpuscular Hgb 31.2 pg (27.0-32.0); Mean Corpuscular Volume 98.1 fL (81-99); Mean Platelet Vol. 9.3 fl (6.2-12.0); Monocyte# 0.61 X10^3/uL; Monocyte% 7.2 % (0-10); NRBC Flagged by Analyzer 0 % (0-5); Neutrophil # 5.77 X10^3/uL (2.7-7.7); Neutrophil % 68.5 % (47-70); Platelet Count 268 K/mm3 (150-450); RBC Distribution Width CV 12.7 % (11.6-14.6); RBC Distribution Width SD 46.2 fl (35.1-43.9); Red Blood Count 3.59 M/mm3 (4.2-5.4); White Blood Count 8.4 K/mm3 (4.4-11.0)
[2019-11-07 10:26] LABS: ALB/GLOB Ratio 0.9 RATIO (0.9-2.4); AST(SGOT) 12 U/L (15-37); Alanine Aminotransfer ALT/SGPT 16 U/L (13-56); Albumin, Serum 3.4 g/dL (3.2-5.0); Alkaline Phosphatase 59 U/L (45-117); Anion Gap 5 (5-15); BUN 29 mg/dL (7-18); BUN/Creat Ratio 15.4 RATIO (10-20); Calcium,Total 8.9 mg/dL (8.5-10.1); Chloride 112 mmol/L (98-107); Creatinine, Serum 1.88 mg/dL (0.55-1.02); EST Glomerular Filtration Rate 27 mL/min (>60); Est Glom Filt Rate - Afr Amer 33 mL/min (>60); Estimated Creatinine Clearance 18.56 ml/min; Globulin 3.6 g/dL (2.2-4.2); Glucose 94 mg/dL (74-106); Magnesium 1.9 mg/dL (1.6-2.6); Potassium 3.6 mmol/L (3.5-5.1); Sodium Level 142 mmol/L (136-145)
[2019-11-07 10:34] LABS: Mucous, Urine 0 SEEN /hpf (<or=2+); Red Blood Cells-Urine 0 SEEN /hpf (0-5)
[2019-11-07 10:36] LABS: Color, Urine Yellow (Yellow); Glucose, Dipstick Normal (Normal); Ketone-Dipstick Negative (Negative); Leukocyte Esterase-Dipstick 500 /ul (Negative); Nitrite-Dipstick Positive (Negative); Occult Blood-Urine Negative /ul (Negative); Protein-Dipstick 15 mg/dl (Negative); Urine Bilirubin Dipstick Negative (Negative); Urine Clarity Sl. Cloudy (Clear); Urine Urobilinogen Normal (Normal)
[2019-11-07 10:43] LABS: Squamous Epithelial Cells - UA 0-5 SEEN /hpf (5-10)
[2019-11-07 10:46] LABS: Bacteria 2+ /hpf (None Seen); White Blood Cells 25-50 SEEN /hpf (0-5)
[2019-11-07 11:50] VITALS: BP 134/70; PULSE 59; RESP 16
== END 2019-11-07 11:51 | disposition home or self-care (01) ==
PROVIDERS: Emergency Provider Emergency Medicine; PCP Student in an Organized Health Care Education/Training Program
DX: N17.9 Acute kidney failure, unspecified (principal); N39.0 Urinary tract infection, site not specified; I10 Essential (primary) hypertension; Z87.891 Personal history of nicotine dependence; Z95.0 Presence of cardiac pacemaker; Z79.82 Long term (current) use of aspirin
CPT/HCPCS: 80053; 81001; 83735; 84484; 85025; 93005; 99284; A4216

== ENCOUNTER → 2020-02-09 09:08 | Outpatient (CLI) | payer MEDICARE, MEDICAID, SELFPAY ==
[2019-11-27 09:26] VITALS: BMI 26.2
[2020-02-09 10:09] LABS: Erythrocyte Sedimentation Rate 9 mm/hr (0-30)
[2020-02-09 10:10] LABS: Absolute Lymphocyte Count 2.18 X10^3/uL (0.83-4.51); Absolute Neutrophil Count 8.3 X10^3/uL (2.0-7.7); Basophil# 0.04 X10^3/uL; Basophil% 0.3 % (0-1); Eosinophil# 0.69 X10^3/uL; Eosinophils% 5.6 % (0-5); Hematocrit 38.3 % (37-47); Lymphocyte # 2.18 X10^3/ul (4.0); Lymphocyte % 17.8 % (19-41); Mean Corp Hgb Conc 31.3 g/dL (32-36); Mean Corpuscular Hgb 30.4 pg (27.0-32.0); Mean Platelet Vol. 9.2 fl (6.2-12.0); Monocyte# 1.02 X10^3/uL; Monocyte% 8.3 % (0-10); NRBC Flagged by Analyzer 0 % (0-5); Neutrophil # 8.31 X10^3/uL (2.7-7.7); Neutrophil % 67.7 % (47-70); Platelet Count 304 K/mm3 (150-450); RBC Distribution Width CV 12.7 % (11.6-14.6); RBC Distribution Width SD 45.4 fl (35.1-43.9); Red Blood Count 3.95 M/mm3 (4.2-5.4); White Blood Count 12.3 K/mm3 (4.4-11.0)
[2020-02-09 11:39] LABS: CRP 5.86 mg/L (0.0-3.0)
== END ==
PROVIDERS: PCP Student in an Organized Health Care Education/Training Program; Referring Provider Specialist; Visit Provider Specialist
DX: T84.84XA Pain due to internal orthopedic prosthetic devices, implants and grafts, initial encounter (principal)
CPT/HCPCS: 36415; 85025; 85652; 86140

== ENCOUNTER 2020-04-12 07:54 | Day surgery (SDC) | payer MEDICARE, MEDICAID, SELFPAY ==
[2019-11-27 09:26] VITALS: BMI 26.2
[2020-04-12 08:20] VITALS: BP 145/63; PULSE 70; RESP 16; TEMP 36.2; O2SAT 99; BMI 26.0
[2020-04-12] MEDS: Lactated Ringers 1,000 ML 75 ML IV (08:42)
[2020-04-12] MEDS: MethylPREDNISolone Acetate 40 MG/ML Vial IM (09:17)
[2020-04-12] MEDS: Bupivacaine 0.25% 30 ML Vial (09:18)
[2020-04-12] MEDS: Lidocaine 1% (5 ml sdv) 5 ML Vial (09:18)
[2020-04-12 09:26] VITALS: BP 119/85; BP 145/63; PULSE 68; RESP 16; TEMP 35.9; O2SAT 96
[2020-04-12 09:30] VITALS: BP 123/63; BP 145/63; PULSE 67; RESP 16; O2SAT 94
[2020-04-12 09:36] VITALS: BP 129/59; BP 145/63; PULSE 66; RESP 16; O2SAT 94
[2020-04-12 09:41] VITALS: BP 130/63; BP 145/63; PULSE 63; RESP 16; TEMP 36.1; O2SAT 95
[2020-04-12 09:57] VITALS: BP 145/63
--- NOTE | 2020-04-12 10:50 | OP.PCM_ITS ---
Report of Operation Date of Procedure: 04/12/20 Description of Surgical Findings:: PREOPERATIVE DIAGNOSIS: Iliopsoas bursitis. POSTOPERATIVE DIAGNOSIS: Iliopsoas bursitis. PROCEDURE PERFORMED: Left-sided iliopsoas bursa steroid injection under ultrasound guidance. ANESTHESIA: MAC BLOOD LOSS: Minimal. COMPLICATIONS: None. DESCRIPTION OF PROCEDURE: History and physical of today was reviewed. Risks and benefits of the procedure were explained. The patient understood and agreed to proceed. Informed consent was obtained. IV inserted per routine protocol. The patient was taken to the operating room and placed in the supine position. The left groin area was prepped and draped in a sterile fashion using iodine x3. Under direct visualization with ultrasound guidance, the left iliopsoas tendon and bursa were visualized. The skin and subcutaneous tissue was anesthetized with approximately 3 mL of 1% lidocaine using a 25-gauge regular needle on an in-plane technique. Under direct visualization with ultrasound guidance, using a 22-gauge 2-inch nerve block needle, the needle was passed through the skin. The tip of the needle was maneuvered and directed towards the left iliopsoas bursa under direct visualization with ultrasound. Once the tip of the needle was at the vicinity of the bursa, after negative aspiration for blood and confirmation with ultrasound, a total of 10 mL of preservative-free 0.25% Ma rcaine with 40 mg of Depo-Medrol was injected in and around the left iliopsoas bursa. The needle was then removed intact. The patient experienced no sign or symptoms of intravascular injection. The patient experienced no paresthesia. The procedure was completed without any apparent difficulty or any complications. The patient appeared to tolerate it well. Assessment and plan: This is an 84-year-old female with iliopsoas bursitis status post left-sided iliopsoas bursa steroid injection under ultrasound guidance, patient will continue her current medications, patient will follow in approximately 2 weeks for reevaluation.
== END 2020-04-12 10:07 | disposition home or self-care (01) ==
LOC: SDC 07:58 → AC 07:58
PROVIDERS: PCP Student in an Organized Health Care Education/Training Program; Referring Provider Anesthesiology Pain Medicine; Visit Provider Anesthesiology Pain Medicine
PROC: 3E0U3GC Introduction of Other Therapeutic Substance into Joints, Percutaneous Approach (ICD-10-PCS; CPT 20610; principal; 2020-04-12 09:10)
DX: M70.70 Other bursitis of hip, unspecified hip (principal); M62.459 Contracture of muscle, unspecified thigh; M54.5 Low back pain; I10 Essential (primary) hypertension; M19.90 Unspecified osteoarthritis, unspecified site; E78.00 Pure hypercholesterolemia, unspecified; K21.9 Gastro-esophageal reflux disease without esophagitis; Z95.0 Presence of cardiac pacemaker; Z96.642 Presence of left artificial hip joint; Z79.899 Other long term (current) drug therapy; Z86.73 Personal history of transient ischemic attack (TIA), and cerebral infarction without residual deficits; Z87.891 Personal history of nicotine dependence; Z79.82 Long term (current) use of aspirin; Z79.02 Long term (current) use of antithrombotics/antiplatelets
CPT/HCPCS: 20611; J7120; J2405

== ENCOUNTER → 2021-08-09 | Outpatient (CLI) | payer MEDICARE, MEDICAID, SELFPAY ==
--- NOTE | 2021-08-09 09:48 | ECHOD_ITS ---
Reason For Study: MV INSUFFICIENCY Procedure This was a 2D Doppler, Color Flow transthoracic echocardiogram. Exam performed in department. Left Ventricle Normal LV size. Left ventricular systolic function is normal. The estimated ejection fraction is 60 %. Stage 1 diastolic dysfunction. No regional wall motion abnormalities noted. Right Ventricle Normal RV size. ICD or pacer leads identified within the right ventricle. Normal systolic function. Atria Normal left atrium. Normal right atrium. Mitral Valve Moderate mitral annular calcification extending into the posterior leaflet. There is mild to moderate mitral annular calcification. Mild (1+) eccentric mitral valve insufficiency. Tricuspid Valve Normal tricuspid valve. Mild tricuspid valve insufficiency. Pulmonary artery systolic pressure is 24 mmHg. Aortic Valve Trisinus/trileaflet aortic valve. Pulmonic Valve Normal pulmonic valve. Great Vessels Normal aortic root. The pulmonary artery is normal size. Normal inferior vena cava. Pericardium/Pleural No pericardial effusion. MMode/2D Measurements & Calculations LVIDd: 3.5 cm IVSd: 0.96 cm LAV(MOD-bp): 39.8 ml LVIDs: 1.6 cm LVPWd: 0.96 cm LAV(MOD-bp) Indexed: 24.6 ml/m2 RVDd: 3.5 cm FS: 54.9 % LAV(MOD-sp2): 48.0 ml LAV(MOD-sp4): 31.5 ml SV(MOD-sp4): 41.1 ml LVAd ap4: 21.8 cm2 LVAd ap2: 20.7 cm2 LVLd ap4: 7.1 cm LVLd ap2: 6.8 cm EDV(MOD-sp4): 59.3 ml EDV(MOD-sp2): 54.0 ml EDV(sp4-el): 57.1 ml EDV(sp2-el): 53.3 ml LVAs ap4: 11.5 cm2 LVAs ap2: 10.2 cm2 LVLs ap4: 6.6 cm LVLs ap2: 5.0 cm ESV(MOD-sp4): 18.2 ml ESV(MOD-sp2): 18.6 ml ESV(sp4-el): 16.9 ml ESV(sp2-el): 17.4 ml EF(MOD-sp4): 69.3 % EF(MOD-sp2): 65.6 % EF(sp4-el): 70.4 % SV(MOD-sp2): 35.4 ml SV(sp4-el): 40.2 ml LA A4 area: 13.8 cm2 RA A4 area: 12.8 cm2 Doppler Measurements & Calculations MV E max dilip: 69.7 cm/sec Lat Peak E' Dilip: 3.8 cm/sec Med Peak E' Dilip: 3.9 cm/sec MV A max dilip: 129.0 cm/sec E/E' lat: 18.3 E/E' med: 17.7 MV E/A: 0.54 Ao V2 max: 131.0 cm/sec LV V1 max: 118.8 cm/sec TR max dilip: 231.9 cm/sec Ao max P.9 mmHg LV V1 max P.7 mmHg TR max P.5 mmHg Ao V2 mean: 92.5 cm/sec LV V1 mean P.0 mmHg Ao mean P.8 mmHg LV V1 mean: 83.6 cm/sec Ao V2 VTI: 31.3 cm LV V1 VTI: 28.5 cm ECHO/Echo Complete Interpretation Summary Normal LV size. Left ventricular systolic function is normal. The estimated ejection fraction is 60 %. Stage 1 diastolic dysfunction. Pulmonary artery systolic pressure is 24 mmHg. ICD or pacer leads identified within the right ventricle. Ordering Physician: Ivone Dumont Performed By: Queenie Hart RCS
== END | disposition home or self-care (01) ==
LOC: CVS 09:43
PROVIDERS: PCP Student in an Organized Health Care Education/Training Program; Visit Provider Nurse Practitioner Gerontology
DX: I34.0 Nonrheumatic mitral (valve) insufficiency (principal)
CPT/HCPCS: 93306

== ENCOUNTER → 2022-08-08 | Outpatient (CLI) | payer MEDICARE, MEDICAID, SELFPAY ==
[2022-08-08 11:04] LABS: AST(SGOT) 20 U/L (15-37); Alanine Aminotransfer ALT/SGPT 20 U/L (13-56); Albumin, Serum 3.4 g/dL (3.2-5.0); Alkaline Phosphatase 81 U/L (45-117); Bilirubin, Direct 0.18 mg/dL (0.00-0.30); Cholesterol 148 mg/dL (200); Globulin 3.4 g/dL (2.2-4.2); High Density Lipoprotein 54 mg/dL; Protein, Total 6.8 g/dL (6.4-8.2); Triglycerides 105 mg/dL; Very Low Density Lipoprotein 21 mg/dL (5-40)
== END | disposition home or self-care (01) ==
LOC: LAB 09:19
PROVIDERS: PCP Student in an Organized Health Care Education/Training Program; Referring Provider Internal Medicine Cardiovascular Disease; Visit Provider Internal Medicine Cardiovascular Disease
DX: E78.2 Mixed hyperlipidemia (principal)
CPT/HCPCS: 36415; 80061; 80076

== ENCOUNTER → 2024-09-22 | Outpatient (CLI) | payer MEDICARE, MEDICAID, SELFPAY ==
--- NOTE | 2024-09-22 07:43 | ECHOD_ITS ---
Reason For Study : PHTN, PACER Procedure This was a 2D Doppler, Color Flow transthoracic echocardiogram. The study was technically difficult. Limited views were obtained. Exam performed in department. Left Ventricle Normal LV size. Mild concentric left ventricular hypertrophy. The left ventricular ejection fraction is 60 %. Stage 1 diastolic dysfunction. No regional wall motion abnormalities noted. Right Ventricle Normal RV size. ICD or pacer leads identified within the right ventricle. Normal systolic function. Atria Normal left atrium. Normal right atrium. Mitral Valve There is moderate mitral annular calcification. Mild (1+) eccentric mitral valve insufficiency. Tricuspid Valve Normal tricuspid valve. Mild (1+) tricuspid valve insufficiency. Pulmonary artery systolic pressure is 38 mmHg. Aortic Valve Trisinus/trileaflet aortic valve. Pulmonic Valve Normal pulmonic valve. Great Vessels Normal aortic root. The pulmonary artery is normal size. Inferior vena cava collapse with respiration. Pericardium/Pleural No pericardial effusion. MMode/2D Measurements & Calculations LVIDd: 3.5 cm IVSd: 1.4 cm LVOT diam: 2.0 cm LVIDs: 2.2 cm LVPWd: 1.2 cm LVOT area: 3.1 cm2 RVDd: 4.2 cm FS: 37.7 % asc Aorta Diam: 3.1 cm LAV(MOD-bp): 52.6 ml LVAd ap4: 16.8 cm2 LAV(MOD-bp) Indexed: 33.6 ml/m2 LVLd ap4: 6.6 cm LAV(MOD-sp2): 63.3 ml EDV(MOD-sp4): 35.8 ml LAV(MOD-sp4): 38.9 ml EDV(sp4-el): 36.4 ml LVAs ap4: 8.9 cm2 LVLs ap4: 5.6 cm ESV(MOD-sp4): 11.7 ml ESV(sp4-el): 12.0 ml EF(MOD-sp4): 67.5 % EF(sp4-el): 67.0 % LVAd ap2: 18.0 cm2 SV(MOD-sp4): 24.2 ml SV(MOD-sp2): 23.2 ml LVLd ap2: 7.2 cm SI(MOD-sp4): 15.4 ml/m2 SI(MOD-sp2): 14.8 ml/m2 EDV(MOD-sp2): 36.9 ml EDV(sp2-el): 38.1 ml LVAs ap2: 9.7 cm2 LVLs ap2: 6.0 cm ESV(MOD-sp2): 13.7 ml ESV(sp2-el): 13.4 ml EF(MOD-sp2): 62.9 % SV(sp4-el): 24.4 ml Ao sinus diam: 3.5 cm LA A4 area: 15.6 cm2 RA A4 area: 12.1 cm2 TAPSE: 1.7 cm Time Measurements MV dec time: 0.24 sec Doppler Measurements & Calculations MV E max dilip: 62.3 cm/sec Lat Peak E' Dilip: 5.4 cm/sec Med Peak E' Dilip: 6.5 cm/sec MV A max dilip: 130.4 cm/sec E/E' lat: 11.5 E/E' med: 9.6 MV E/A: 0.48 Ao V2 max: 133.2 cm/sec LV V1 max: 120.9 cm/sec MV dec slope: 256.9 cm/sec2 Ao max P.1 mmHg LV V1 max P.8 mmHg Ao V2 mean: 95.5 cm/sec LV V1 mean P.4 mmHg Ao mean P.1 mmHg LV V1 mean: 87.0 cm/sec Ao V2 VTI: 31.9 cm LV V1 VTI: 28.8 cm AV (velocity ratio): 0.90 NEDA(I,D): 2.8 cm2 NEDA(V,D): 2.8 cm2 SV(LVOT): 89.8 ml PA V2 max: 83.8 cm/sec TR max dilip: 288.3 cm/sec TR max P.2 mmHg ECHO/Echo Complete Interpretation Summary Normal LV size. The left ventricular ejection fraction is 60 %. Stage 1 diastolic dysfunction. Pulmonary artery systolic pressure is 38 mmHg. Mild concentric left ventricular hypertrophy. Ordering Physician: Beau Yepez Referring Physician: Beau Yepez Performed By: Anisha Barriga RDCS
--- OUTSIDE RECORDS SUMMARY | 2024-09-22 08:04 | XMS RPT_ITS | CCD ---
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 Luis M Herbert Primary Care Provider Dr. Luis M Herbert Referring Provider Tim SNYDER, GABRIELA Wiseman Attending Provider Dr. Freedom Chou Attending Provider Luis M Herbert DO Primary Care Provider Luis M Herbert DO Primary Care Provider Dr. Luis M Herbert Primary Care Provider Dr. Luis M Herbert Referring Provider Zahraa Bae Attending Provider Unavailable Dr. Freedom Chou Attending Provider Luis M Herbert DO Primary Care Provider Vipin CAKE PRESS OPERATOR HELPER.Kathy BAIRES Unavailable Bernie CAKE PRESS OPERATOR HELPER.Estefany BAIRES Unavailable LUIS M HERBERT Referring Unavailable LUIS M HERBERT Primary Care Unavailable LUIS M HERBERT Attending Unavailable LUIS M HERBERT Primary Care Unavailable LUIS M HERBERT Attending Unavailable LUIS M HERBERT Primary Care Unavailable LUIS M HERBERT Referring Unavailable LUIS M HERBERT Primary Care Unavailable Freedom Chou Attending Unavailable Luis M Herbert Primary Care Unavailable Freedom Chou Attending Unavailable Freedom Chou Referring Unavailable Luis M Herbert Primary Care Unavailable Beau Yepez Referring Unavailable Luis M Herbert Primary Care Unavailable Beau Yepez Attending Unavailable Freedom Chou Attending Unavailable Luis M Herbert Primary Care Unavailable Freedom Chou Attending Unavailable Freedom Chou Referring Unavailable Luis M Herbert Primary Care Unavailable Beau Yepez Attending Unavailable Luis M Herbert Primary Care Unavailable Luis M Herbert Referring Unavailable Allergies Allergy Classification Reported Allergen(s) Allergy Type Date of Onset Reaction(s) Facility (19 sources) Meperidine; Translations: [MEPERIDINE (PF)] Drug Allergy 07-06-2014 GI Upset [facility] Work Phone: (2 sources) Meperidine Drug Allergy 06-30-2021 Upset Stomach [facility] (1 source) Meperidine Drug Allergy 08-11-2024 [facility] Repository Medications Current Medications Medication Drug Class(es) Dates Sig (Normalized) Sig (Original) acetaminophen 325 mg / HYDROcodone bitartrate 5 mg oral tablet (2 sources) Opioid Agonist Start: 08-13-2024 End: 08-20-2024 take 0.5-1 tablets by mouth every eight hours as needed for pain HYDROcodone-acetami nophen (NORCO) 5-325 mg per tablet Indications: Chronic neck pain , Osteoarthritis of spine with radiculopathy, cervical region , Bilateral shoulder pain, unspecified chronicity Take 0.5-1 tablets by mouth every 8 hours as needed for pain for up to 7 days. 21 tablet 08/13/2024 08/20/2024 Active ascorbic acid 500 mg oral tablet (18 sources) Vitamin C Start: 07-06-2014 take 1 tablet by mouth once daily ascorbic acid (VITAMIN C) 500 mg tablet Take 1 tablet by mouth once daily. 0 07/06/2014 Active Comment on above: Take 1 tablet by trish once daily. aspirin 81 mg chewable tablet (4 sources) Platelet Aggregation Inhibitor, Nonsteroidal Anti-inflammatory Drug Start: 06-27-2018 take 81 mg by mouth once daily Aspirin Active 81 MG PO DAILY@00 June 27, 2018 5:05am Start: 04-26-2017 End: 10-01-2017 take 81 mg by mouth once daily Aspirin Discontinued 81 MG PO DAILY@0800 April 26, 2017 9:08am October 01, 2017 6:49pm atorvastatin 40 mg oral tablet (20 sources) HMG-CoA Reductase Inhibitor Start: 04-27-2017 End: 06-23-2024 take 1 tablet by mouth once daily atorvastatin (LIPITOR) 40 mg tablet Indications: Stroke with cerebral ischemia (HCC) Take 1 tablet by mouth once daily. 90 tablet 3 06/23/2024 Active Comment on above: Take 1 tablet by trish th once daily. TAKE ONE TABLET BY M OUTH EVERY DAY clopidogrel 75 mg oral tablet (20 sources) P2Y12 Platelet Inhibitor Start: 06-27-2018 End: 06-23-2024 take 1 tablet by mouth once daily clopidogrel (PLAVIX) 75 mg tablet Indications: Stroke with cerebral ischemia (HCC) Take 1 tablet by mouth once daily. 90 tablet 2 06/23/2024 Active Start: 10-01-2017 End: 05-14-2018 take 1 tablet by mouth once daily Clopidogrel (Plavix) 75 mg tablet Discontinued 75 MG PO daily October 01, 2017 6:44pm May 14, 2018 12:07pm Start: 04-27-2017 End: 09-18-2017 take 75 mg by mouth once daily Clopidogrel Discontinue d 75 MG PO DAILY April 27, 2017 6:10pm September 18, 2017 9:42am Comment on above: Take 1 tablet by trish th once daily. TAKE ONE TABLET BY M OUTH EVERY DAY dicyclomine hydrochloride 10 mg oral capsule (12 sources) Anticholinergic Start: 02-13-20 take 1 capsule by mouth at bedtime as needed dicyclomine (BENTYL) 10 mg capsule Indications: Irritable bowel syndrome with diarrhea Take 1 capsule by mouth before meals and at bedtime. For irritable bowel symptoms as needed 60 capsule 1 02/12/2023 Active Comment on above: Take 1 capsule by mo uth before meals and at bedtime. For irritable bowel symptoms as needed ibuprofen 800 mg oral tablet (18 sources) Nonsteroidal Anti-inflammatory Drug Start: 12-22-19 take 1 tablet by mouth every eight hours as needed for pain ibuprofen (MOTRIN) 800 mg tablet Indications: Arthritis, multiple joint involvement Take 1 tablet by mouth every 8 hours as needed for Pain (with food.). 90 tablet 3 12/22/2019 Active Comment on above: Take 1 tablet by trish th every 8 hours as needed for Pain (with food.). lisinopril 40 mg oral tablet (20 sources) Angiotensin Converting Enzyme Inhibitor Start: 12-24-19 End: 12-21-19 25 take 1 tablet by mouth once daily lisinopril (ZESTRIL) 40 mg tablet Indications: Stroke with cerebral ischemia (HCC) , Hypertension, essential Take 1 tablet by mouth once daily. 90 tablet 1 06/23/2024 12/20/2024 Active Start: 01-11-2022 End: 12-24-2023 take 2 tablets by mouth once daily lisinopril (ZESTRIL) 20 mg tablet Indications: Stroke with cerebral ischemia (HCC) , Hypertension, essential Take 2 tablets by mouth once daily. 90 tablet 1 07/30/2023 12/24/2023 Discontinued Start: 01-07-2021 End: 01-09-2022 take 40 mg by mouth once daily Lisinopril Active 40 MG PO DAILY January 09, 2022 9:03am Start: 06-27-2018 End: 01-11-2022 take 1 tablet by mouth once daily lisinopril (ZESTRIL, PRINIVIL) 20 mg tablet Indications: Stroke with cerebral ischemia (HCC) , Hypertension, essential Take 1 tablet by mouth once daily. 90 tablet 1 08/12/2020 01/11/2022 Discontinued Start: 10-01-2017 End: 05-14-2018 take 20 mg by mouth once daily Lisinopril Discontinued 20 MG PO daily October 01, 2017 6:44pm May 14, 2018 12:07pm Start: 04-27-2017 End: 10-01-2017 take 5 mg by mouth once daily Lisinopril Discontinued 5 MG PO DAILY April 27, 2017 6:11pm October 01, 2017 6:44pm Comment on above: Take 1 tablet by trish once daily. Take 2 tablets by mo [facility] once daily. Magnesium (18 sources) Magnesium 250 mg tab Take 250 mg by mouth. Active Magnesium 250 mg tab Take 250 mg by mouth. 0 Active Comment on above: Take 250 mg by mouth . Multivitamin preparation (4 sources) Start: 10-02-2017 take 1 tablet by mouth once daily Multivitamin Active 1 TABLET PO daily October 02, 2017 9:41am Start: 10-02-2017 take 1 tablet by trish th once daily Multivitamin Active 1 TABLET PO daily October 02, 2017 12:00am Start: 04-26-2017 End: 10-01-2017 Multivitamin Discontinued 1 EACH PO DAILY April 26, 2017 9:08am October 01, 2017 6:49pm Start: 04-26-2017 End: 10-01-2017 Multivitamin Discontinued 1 EACH PO DAILY April 26, 2017 1:00am October 01, 2017 6:49pm vitamin b12 2.5 mg sublingual tablet (20 sources) Vitamin B12 Start: 01-12-2022 Cyanocobalamin 2,500 mcg subl Indications: Vitamin B12 deficiency Dissolve 1 tablet under the tongue once daily. 90 tablet 3 01/12/2022 Active Start: 04-07-2020 take 1000 ug by mout h once daily Cyanocobalamin (Vitamin B-12) Active 1000 MCG PO DAILY@0800 April 07, 2020 2:45pm Start: 07-06-2014 End: 01-12-2022 cyanocobalamin, vitamin B-12 , (VITAMIN B-12) 5,000 mcg subl Dissolve under the tongue. 0 07/06/2014 01/12/2022 Discontinued Comment on above: Dissolve under the t ongue. Dissolve 1 tablet un ogmez the tongue once daily. Completed/Discontinued Medications Medication Drug Class(es) Dates Sig (Normalized) Sig (Original) apixaban 2.5 mg oral tablet (8 sources) Factor Xa Inhibitor Start: 06-23-2024 End: 09-21-2024 take 1 tablet by mouth once daily apixaban (ELIQUIS) 2.5 mg tab(s) Take 1 tablet by mouth once daily. 90 tablet 06/23/2024 07/08/2024 Discontinued (Erroneous entry) take 1 tablet by mouth twice mame ly apixaban (ELIQUIS) 2.5 mg tab(s) Take 2.5 mg by mouth two times a day. Active calcium carb 333 mg-vit D3 133 unit-mag ox 133 mg-zinc oxide 5 mg tab (2 sources) Vitamin D Start: 10-01-2017 End: 10-02-2017 take 1 tablet by mouth once daily calcium carb 333 mg-vit D3 133 unit-mag ox 133 mg-zinc oxide 5 mg tab Discontinued 1 TABLET PO .q day October 01, 2017 6:49pm October 02, 2017 9:39am Start: 10-01-2017 End: 10-02-2017 take 1 tablet by mouth once daily calcium carb 333 mg-vit D3 133 unit-mag ox 133 mg-zinc oxide 5 mg tab Discontinued 1 TABLET PO .q day October 01, 2017 12:00am October 02, 2017 9:39am cephalexin 500 mg oral capsule (2 sources) Cephalosporin Antibacterial Start: 11-07-2019 End: 11-27-2019 take 500 mg by mouth every twelve hours Cephalexin Discontinued 500 MG PO EVERY 12 HOURS 14 November 07, 2019 11:43am November 27, 2019 9:28am cholecalciferol 0.025 mg oral tablet (20 sources) Vitamin D Start: 10-01-2017 End: 05-14-2018 take 1000 [IU] by mouth once daily Cholecalciferol (Vitamin D3) Discontinued 1000 UNIT PO daily October 01, 2017 6:43pm May 14, 2018 11:31am take 1 capsule by mouth once mame ly Cholecalciferol, Vitamin D3, (VITAMIN D) 1,000 unit cap Take 1,000 Units by mouth once daily. Active Comment on above: Take 1,000 Units by mouth once daily. diclofenac sodium 0.01 mg/mg topical gel (2 sources) Nonsteroidal Anti-inflammatory Drug Start : 10-01 End: 10-02 apply 0.5 g topically four times daily as needed Diclofenac Sodium (Voltaren) 1 % gel Discontinued 0.5 GM TOPICAL .COMPLEX October 01, 2017 6:45pm October 02, 2017 9:40am 0.5 g TOPICAL apply to affected area four times daily as needed hydroCHLOROthiazide 25 mg oral tablet (2 sources) Thiazide Diuretic Start : 11-28 End: 11-30 take 25 mg by mouth once daily Hydrochlorothiazide Discontinued 25 MG PO DAILY 90 November 28, 2018 12:04pm December 01, 2019 2:55pm mecobalamin 5 mg disintegrating oral tablet (2 sources) Start : 10-01 End: 10-02 take 1 tablet by mouth once daily mecobalamin (vitamin B12) 5,000 mcg disintegrating tablet Discontinued 5000 MCG PO .COMPLEX October 01, 2017 6:48pm October 02, 2017 9:40am 5,000 mcg PO sublingual daily ubidecarenone 100 mg oral capsule (2 sources) Start : 10-02 End: 05-14 Coenzyme Q10 (Co Q-10) 100 mg capsule Discontinued 100 MG PO daily October 02, 2017 9:41am May 14, 2018 11:30am vitamin e 180 mg oral capsule (5 sources) Start : 10-01 End: 10-02 take 400 [IU] by mouth once daily Vitamin E (Dl, Acetate) Discontinued 400 UNIT PO daily October 01, 2017 6:47pm October 02, 2017 9:40am Start: 07-06-2014 End: 01-11-2022 take 1 capsule by mouth twice daily alpha tocopheryl acetate (VITAMIN E) 400 unit capsule Take 1 capsule by mouth twice daily. 0 07/06/2014 01/11/2022 Discontinued Start: 07-06-2014 take 1 capsule by mo uth twice daily alpha tocopheryl acetate (VITAMIN E) 400 unit capsule Take 1 capsule by mouth twice daily. 0 07/06/2014 Active Comment on above: Take 1 capsule by mo uth twice daily. Problems Active Problems Problem Classification Problem Date Documented Da te Episodic/Chronic Acute and unspecified renal failure (2 sources) Injury of kidney; Translations: [Acute kidney failure, unspecified] 11-08-2019 Episodic Acute cerebrovascular disease (20 sources) Cerebrovascular accident; Translations: [Cerebral infarction, unspecified] Onset: 8 05-11-2017 Chronic Cardiac dysrhythmias (9 sources) Typical atrial flutter; Translations: [Typical atrial flutter] Onset: 4 02-13-2024 Chronic Chronic kidney disease (15 sources) Chronic kidney disease stage 3B ; Translations: [Chronic kidney disease, stage 3b (HCC)] Onset: 3 02-12-2023 Chronic Chronic kidney disease (1 source) Chronic kidney disease; Translations: [Chronic kidney disease, stage 3b (HCC)] Onset: 3 Conduction disorders (20 sources) Complete atrioventricular block; Translations: [Atrioventricular block, complete] Onset: 8 Chronic Disorders of lipid metabolism (20 sources) Dyslipidemia; Translations: [Hyperlipidemia, unspecified] Onset: 6 Chronic Essential hypertension (20 sources) Essential hypertension; Translations: [Essential (primary) hypertension] Onset: 8 Chronic Heart valve disorders (3 sources) Mitral valve regurgitation; Translations: [Nonrheumatic mitral (valve) insufficiency] Chronic Immunizations and screening for infectious disease (3 sources) Needs influenza immunization; Translations: [Encounter for immunization] Episodic Late effects of cerebrovascular disease (19 sources) Sequela of cerebrovascular accident; Translations: [Unspecified sequelae of cerebral infarction] Onset: 2 Chronic Nutritional deficiencies (20 sources) Vitamin D deficiency; Translations: [Vitamin D deficiency, unspecified] Onset: 1 Chronic Occlusion or stenosis of precerebral arteries (2 sources) Left carotid artery stenosis; Translations: [Occlusion and stenosis of left carotid artery] 11-26-2019 Chronic Osteoarthritis (18 sources) Arthritis; Translations: [Unspecified osteoarthritis, unspecified site] 11-04-2018 Chronic Other ear and sense organ disorders (1 source) Impacted cerumen in right ear; Translations: [Impacted cerumen, right ear] 02-12-2023 Episodic Other gastrointestinal disorders (13 sources) Irritable bowel syndrome with diarrhea; Translations: [Irritable bowel syndrome with diarrhea] Onset: 3 02-12-2023 Chronic Other gastrointestinal disorders (1 source) Diarrhea; Translations: [Diarrhea, unspecified] 08-13-2024 Episodic Other gastrointestinal disorders (1 source) Abdominal bloating; Translations: [Abdominal distension (gaseous)] 08-13-2024 Episodic Other gastrointestinal disorders (1 source) Diarrhea, unspecified; Translations: [Diarrhea, unspecified type] Onset: 5 Episodic Other gastrointestinal disorders (1 source) Abdominal distension (gaseous); Translations: [Abdominal bloating] Onset: 5 Episodic Other nervous system disorders (1 source) Chronic pain syndrome; Translations: [Chronic pain syndrome] 08-13-2024 Chronic Other nervous system disorders (1 source) Other chronic pain; Translations: [Chronic neck pain] Onset: 5 Chronic Other non-traumatic joint disorders (20 sources) Arthropathy of multiple joints; Translations: [Arthropathy, unspecified] Onset: 9 Chronic Other non-traumatic joint disorders (1 source) Pain in right shoulder; Translations: [Pain in joint, shoulder region] 08-13-2024 Episodic Other nutritional; endocrine; and metabolic disorders (18 sources) Obese class I; Translations: [Obesity, unspecified] Onset: 8 05-11-2017 Chronic Paralysis (9 sources) Paralytic syndrome; 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, unspecified] Onset: 4 08-13-2023 Chronic Pulmonary heart disease (18 sources) Pulmonary arterial hypertension; Translations: [Secondary pulmonary arterial hypertension] Onset: 3 11-07-2019 Chronic Spondylosis; intervertebral disc disorders; other back problems (2 sources) Cervical spondylosis; Translations: [Other spondylosis with radiculopathy, cervical region] Onset: 5 08-13-2024 Chronic Spondylosis; intervertebral disc disorders; other back problems (2 sources) Chronic neck pain; Translations: [Cervicalgia] Onset: 5 08-13-2024 Episodic Urinary tract infections (2 sources) Urinary tract infectious disease; Translations: [Urinary tract infection, site not specified] 11-08-2019 Episodic Past or Other Problems Problem Classification Problem Date Documented Date Episodic/Chronic Cardiac dysrhythmias (18 sources) Bradycardia; Translations: [Bradycardia, unspecified] Onset: 09-17-2017 09-17-2017 Episodic Diabetes mellitus without complication (20 sources) Hyperglycemia; Translations: [Hyperglycemia, unspecified] Onset: 01-11-2022 Episodic Malaise and fatigue (18 sources) Left hemiparesis; Translations: [Weakness] Onset: 11-04-2018 11-04-2018 Episodic Nutritional deficiencies (20 sources) Cobalamin deficiency; Translations: [Deficiency of other specified B group vitamins] Onset: 02-15-2021 Episodic Other circulatory disease (9 sources) History of cerebrovascular accident; Translations: [Personal history of transient ischemic attack (TIA), and cerebral infarction without residual deficits] Onset: 05-11-2017 Resolved: 01-09-2022 01-09-2022 Episodic Other nutritional; endocrine; and metabolic disorders (18 sources) Decrease in appetite; Translations: [Anorexia] Onset: 11-15-2020 11-15-2020 Episodic Other nutritional; endocrine; and metabolic disorders (18 sources) Unintentional weight loss; Translations: [Abnormal weight loss] Onset: 11-15-2020 11-15-2020 Episodic Results Test Name Value Interpretation Reference Range Facility [facility] 08-27-2024 [facility] Telephone (FAMPWS) -------- JENNIFER GLEASON ([id number]) 1935 F Date Time Provider Department 08/27/24 LUIS M HERBERT During your visit today, we recorded the following information about you: Luis M Herbert DO 08/27/2024 9:22 PM Signed Please inform patient /daughter that I was waiting on all her testing to be resulted to give a treatment plan Her stool studies show that she has an H pylori infection. Need for her to take medications as prescribed below- 2 separate antibiotics as well as PPI omeprazole twice a day. This treatment lasts 14 days. Need for retesting of stool in about 6-8 weeks after treatment is completed Also found to have stool studies that show she doesn't make the proper amount of pancreatic enzymes. Would recommend starting pancreatic enzymes called Creon as a supplement that she would take prior to eating to help prevent the diarrhea. This would start after she is done with medication for the H pylori Luis M Herbert DO The following approved medication requests have been transmitted electronically. Requested Prescriptions Signed Prescriptions Disp Refills clarithromycin (BIAXIN) 500 mg 28 tablet 0 Sig: Take 1 tablet by mouth two times a day for 14 days. Authorizing Provider: LUIS M HERBERT Amoxicillin 500 mg tablet 28 tablet 0 Sig: Take 1 tablet by mouth two times a day for 14 days. Authorizing Provider: LUIS M HERBERT omeprazole (PRILOSEC) 20 mg capsule 28 capsule 0 Sig: Take 1 capsule by mouth two times a day. Authorizing Provider: LUIS M HERBERT nqtyxh-ujndwiur-muxuzid (CREON) 3,000-9,500- 15,000 unit delayed release capsule 270 capsule 1 Sig: Take 1 capsule by mouth three times a day with meals. Authorizing Provider: LUIS M HERBERT DO Quattrocchi, Beth, LPN 08/28/2024 10:18 AM Signed Phoned patient daughter Naye to return call and ask to speak to a triage nurse for Jennifer results. Shalonda Alberto LPN 08/29/2024 8:54 AM Signed Patient daughter Naye returned call and went over results, notes from Dr Herbert, she put phone on speaker so mother could hear nurse repeat all the information again with understanding. Aware rx's x 4 sent to pharmacy. Allergies As of Date: 08/27/2024 Noted Allergy Reaction DEMEROL (MEPERIDINE (PF)) 07/06/2014 8 - GI Upset Date Reviewed: 08/13/2024 Reviewed by: Aparna Tafoya LPN - Fully Assessed Reason for Visit: Results [95] Primary Visit Diagnosis:H. pylori infection [A04.8] Other Visit Diagnosis:Pancreatic insufficiency (HCC) [K86.89] Order(s):clarithromycin (BIAXIN) 500 mgTake 1 tablet by mouth two times a day for 14 days.Disp: 28 tabletRfl: 0 Amoxicillin 500 mg tabletTake 1 tablet by mouth two times a day for 14 days.Disp: 28 tabletRfl: 0 omeprazole (PRILOSEC) 20 mg capsuleTake 1 capsule by mouth two times a day.Disp: 28 capsuleRfl: 0 amehjn-uygztgai-atiuevq (CREON) 3,000-9,500- 15,000 unit delayed release capsuleTake 1 capsule by mouth three times a day with meals.Disp: 270 capsuleRfl: 1 HELICOBACTER PYLORI ANTIGEN BY EIA, STOOL [SQHPYLAG] Order #: [id number]. #:[id number] Prescriptions as of 08/29/2024 - clarithromycin (BIAXIN) 500 mg Take 1 tablet by mouth two times a day for 14 days. - Amoxicillin 500 mg tablet Take 1 tablet by mouth two times a day for 14 days. - omeprazole (PRILOSEC) 20 mg capsule Take 1 capsule by mouth two times a day. - kcphkr-kjpripzk-dijbtmd (CREON) 3,000-9,500- 15,000 unit delayed release capsule Take 1 capsule by mouth three times a day with meals. - HYDROcodone-acetaminophe n (NORCO) 5-325 mg per tablet Take 0.5-1 tablets by mouth every 8 hours as needed for pain for up to 30 days. - apixaban (ELIQUIS) 2.5 mg tab(s) Take 2.5 mg by mouth two times a day. - lisinopril (ZESTRIL) 40 mg tablet Take 1 tablet by mouth once daily. - atorvastatin (LIPITOR) 40 mg tablet Take 1 tablet by mouth once daily. - clopidogrel (PLAVIX) 75 mg tablet Take 1 tablet by mouth once daily. - dicyclomine (BENTYL) 10 mg capsule Take 1 capsule by mouth before meals and at bedtime. For irritable bowel symptoms as needed - Cyanocobalamin 2,500 mcg subl Dissolve 1 tablet under the tongue once daily. - ibuprofen (MOTRIN) 800 mg tablet Take 1 tablet by mouth every 8 hours as needed for Pain (with food.). - Cholecalciferol, Vitamin D3, (VITAMIN D) 1,000 unit cap Take 1,000 Units by mouth once daily. - Magnesium 250 mg tab Take 250 mg by mouth. - ascorbic acid (VITAMIN C) 500 mg tablet Take 1 tablet by mouth once daily. Meds Comments as of 07/14/2015: Aspirin 81 mg a day Problem List As Of Date 08/27/2024 Noted Resolved Pure hypercholesterolemia [E78.00] 07/19/2015 Obesity, Class I, BMI 30-34.9 [E66.811] 05/11/2017 Hypertension, essential [I10] 05/11/2017 Hyperlipidemia, mixed [E78.2] 05/11/2017 History of str (more content not included)... Normal [facility] Gastrointestinal pathogens i dentified LESLIE+probe Nom (Stl)Ordered By: Romel Ward on 08-14-2024 Campylobacter sp DNA LESLIE+probe Nom (Unsp spec) Not detected Not Detected [facility] Interpretation and review of laboratory results Normal [facility] Salmonella sp DNA LESLIE+probe Ql (Unsp spec) Not detected Not Detected [facility] Shiga toxin stx gene LESLIE+probe Nom (Unsp spec) Not detected Not Detected [facility] Shigella sp DNA LESLIE+probe Ql (Unsp spec) Not detected Not Detected [facility] No Panel Informationon 08-14 Interpretation and review of laboratory results Normal [facility] T4 FREE/FREE THYROXINEon Free T4 [Mass/Vol] 1.2 ng/dL 0.9 - 1.7 ng/dL [facility] THYROID STIMULATING HORMONEo n 08-14-2024 TSH Qn 1.48 m[IU]/L [facility] 25(OH)D3 SerPl-mCncon 2024 25-hydroxyvitamin D3 [Mass/Vol] 70.2 ng/mL Normal 31.0-80.0 [facility] Comment on above: Order Comment: Speci men Type: BLOOD SPECIMEN Ordering Facility: [facility] Address: [address] [place] [address] Result Comment: Clas sification of 25 [place] Vitamin D status: Deficiency/Insufficiency: < or = 30 ng/ml. Sufficiency/Optimal Levels: 31-80 ng/mL Toxicity: > 100 ng/mL. Test performed by chemiluminescent immunoassay. Performed By: #### 1 989-3 #### [facility] CLIA [id number] [address] [place] [address] [place] [employer] [place] IgE Qn (S) <0.35 Normal <0.35 [facility] Comment on above: Order Comment: Speci men Type: BLOOD SPECIMEN Ordering Facility: [facility] Address: [address] [place] [address] Performed By: #### 1 988-5, , 2131-12, 0-3 #### [facility] CLIA [id number] [address] [place] [address] [place] IgE RAST class (S) Class 0 Normal Class 0 [facility] Comment on above: Order Comment: Speci men Type: BLOOD SPECIMEN Ordering Facility: [facility] Address: [address] [place] [address] Performed By: #### 1 988-5, , 2131-12, 0-3 #### [facility] CLIA [id number] [address] [place], [place] [id number] [place] Cow milk IgE Qn (S) <0.35 Normal <0.35 [facility] Comment on above: Order Comment: Speci men Type: BLOOD SPECIMEN [facility] Address: [address] [place] [address] Performed By: #### 1 988-5, , 2131-12, 3040-3 #### [facility] CLIA [id number] [address] [place] [address] [place] Cow milk IgE RAST class (S) Class 0 Normal Class 0 [facility] Comment on above: Order Comment: Speci men Type: BLOOD SPECIMEN Ordering Facility[facility] Address: [address] [place] [address] Performed By: #### 1 988-5, , 2131-12, 3039-3 #### [facility] CLIA [id number] [address] [place] [address] [place] Crab IgE Qn (S) <0.35 Normal <0.35 [facility] Comment on above: Order Comment: Speci men Type: BLOOD SPECIMEN Ordering [facility] Address: [address] [place] [address] Performed By: #### 1 988-5, , 2131-12, 3039-3 #### [facility] CLIA [id number] [address] [place] [address] [place] Crab IgE RAST class (S) Class 0 Normal Class 0 [facility] Comment on above: Order Comment: Speci men Type: BLOOD SPECIMEN [facility]ing [facility] Address: [address] [place] [address] Performed By: #### 1 988-5, , 2131-12, 3039-3 #### [facility] CLIA [id number] [address] [place] [address] [place] Egg white IgE Qn (S) <0.35 Normal <0.35 [facility] Comment on above: Order Comment: Speci men Type: BLOOD SPECIMEN [facility]ing [facility] Address: [address] [place] [address] Performed By: #### 1 988-5, , 2131-12, 0-3 #### [facility] CLIA [id number] [address] [place], [place] [address] [place] Egg white IgE RAST class (S) Class 0 Normal Class 0 [facility] Comment on above: Order Comment: Speci men Type: BLOOD SPECIMEN Ordering [facility] Address: [address] [place] [address] Performed By: #### 1 988-5, 67480-6, 2131-12, 0-3 #### [facility] CLIA [id number] [address] [place], [place] [address] [place] Saratoga IgE Qn (S) <0.35 Normal <0.35 [facility] Comment on above: Order Comment: Speci men Type: BLOOD SPECIMEN [facility]ing [facility] Address: [address] [place] [address] Performed By: #### 1 988-5, , 2131-12, 0-3 #### [facility] CLIA [id number] [address] [place] [address] [place] Sar[place] IgE RAST class (S) Class 0 Normal Class 0 [facility] Comment on above: Order Comment: Speci men Type: BLOOD SPECIMEN Ordering [facility] Address: [address] [place] [address] Performed By: #### 1 988-5, , 2131-12, 0-3 #### [facility] CLIA [id number] [address] [place], [place] [address] [place] Peanut IgE Qn (S) <0.10 Normal <0.10 [facility] Comment on above: Order Comment: Speci men Type: BLOOD SPECIMEN Ordering [facility] Address: [address] [place] [address] Performed By: #### 1 988-5, , 2131-12, 0-3 #### [facility] CLIA [id number] [address] [place], [place] [address] [place] Peanut IgE RAST class (S) Class 0 Normal Class 0 [facility] Comment on above: Order Comment: Speci men Type: BLOOD SPECIMEN Ordering [facility] Address: [address] [place] [address] Performed By: #### 1 988-5, 55529-6, 9, 0-3 #### [facility] CLIA [id number] [address] [place] [address] [place] Shrimp IgE Qn (S) <0.35 Normal <0.35 [facility] Comment on above: Order Comment: Speci men Type: BLOOD SPECIMEN Ordering [facility] Address: [address] [place] [address] Performed By: #### 1 988-5, , 2131-12, 0-3 #### [facility] CLIA [id number] [address] [place] [address] [place] Shrimp IgE RAST class (S) Class 0 Normal Class 0 [facility] Comment on above: Order Comment: Speci men Type: BLOOD SPECIMEN Ordering [facility] Address: [address] [place] [address] Performed By: #### 1 988-5, , 2131-12, 0-3 #### [facility] CLIA [id number] [address] [place] [address] [place] Soybean IgE Qn (S) <0.35 Normal <0.35 [facility] Comment on above: Order Comment: Speci men Type: BLOOD SPECIMEN Ordering [facility] Address: [address] [place] [address] Performed By: #### 1 988-5, 45191-2, 9, 3040-3 #### [facility] CLIA [id number] [address] [place], [place] [address] [place] Soybean IgE RAST class (S) Class 0 Normal Class 0 [facility] Comment on above: Order Comment: Speci men Type: BLOOD SPECIMEN Ordering [facility] Address: [address] [place] [address] Performed By: #### 1 988-5, 80806-9, 9, 3040-3 #### [facility] CLIA [id number] [address] [place] [address] [place] Tuna IgE Qn (S) <0.35 Normal <0.35 [facility] Comment on above: Order Comment: Speci men Type: BLOOD SPECIMEN Ordering [facility] Address: [address] [place] [address] Performed By: #### 1 988-5, 57195-1, 2131-12, 3040-3 #### [facility] CLIA [id number] [address] [place] [address] [place] Tuna IgE RAST class (S) Class 0 Normal Class 0 [facility] Comment on above: Order Comment: Speci men Type: BLOOD SPECIMEN Ordering [facility] Address: [address] [place] [address] Performed By: #### 1 988-5, , 2131-12, 3040-3 #### [facility] CLIA [id number] [address] [place] [address] [place] Wheat IgE Qn (S) <0.35 Normal <0.35 [facility] Comment on above: Order Comment: Speci men Type: BLOOD SPECIMEN Ordering [facility] Address: [address] [place] [address] Performed By: #### 1 988-5, 99289-6, 9, 3040-3 #### [facility] CLIA [id number] [address] [id number] [address] [place] Wheat IgE RAST class (S) Class 0 Normal Class 0 [facility] Comment on above: Order Comment: Speci men Type: BLOOD SPECIMEN Ordering [facility] Address: [address] [place] [address] Performed By: #### 1 988-5, 94594-3, 2131-9, 0-3 #### [facility] CLIA [id number] [address] [place] [address] [place] C diff Tox gens Stl Ql LESLIE+p robeon 08-13-2024 C. difficile toxin genes LESLIE+probe Ql (Stl) Negative Normal Negative for C. difficile toxin by PCR [facility] Comment on above: Order Comment: Speci men Type: BLOOD SPECIMEN Ordering [facility] Address: [address] [place] [address] Performed By: #### 1 988-5, 87142-4, , 3040-3 #### [facility] CLIA [id number] [address] [place] [address] [place] C-REACTIVE PROTEINon 025 CRP [Mass/Vol] mg/dL [facility] - 0.9 mg/dL [facility] C. difficile toxin genes LESLIE +probe Ql (Stl)on 08-13-2024 Interpretation and review of laboratory results Normal [facility] CBC W Auto Differential pane l (Bld)on 08-13-2024 Basophils (Bld) [#/Vol] 0.06 10*3/uL [facility] Basophils/100 WBC (Bld) 0.6 % [facility] Differential cell count method Nom (Bld) Auto [facility] Eosinophils (Bld) [#/Vol] 0.41 10*3/uL [facility] Eosinophils/100 WBC (Bld) 3.9 % [facility] Erythrocyte distribution width (RBC) [Ratio] 13.2 % 11.5 - 15.0 % [facility] Hematocrit (Bld) [Volume fraction] 41.9 % 36.0 - 46.0 % [facility] Hemoglobin (Bld) [Mass/Vol] 13.7 g/dL 11.5 - 15.5 g/dL [facility] Immature granulocytes (Bld) [#/Vol] 0.03 10*3/uL [facility] Immature granulocytes/100 WBC (Bld) 0.3 % [facility] Interpretation and review of laboratory results Abnormal [facility] Lymphocytes (Bld) [#/Vol] 2.23 10*3/uL [facility] Lymphocytes/100 WBC (Bld) 21 % [facility] MCH (RBC) [Entitic mass] 31.9 pg 26.0 - 34.0 pg [facility] MCHC (RBC) [Mass/Vol] 32.7 g/dL 30.5 - 36.0 g/dL [facility] MCV (RBC) [Entitic vol] 97.7 fL 80.0 - 100.0 fL [facility] Monocytes (Bld) [#/Vol] 0.74 10*3/uL [facility] Monocytes/100 WBC (Bld) 7 % [facility] Neutrophils (Bld) [#/Vol] 7.14 10*3/uL [facility] Neutrophils/100 WBC (Bld) 67.2 % [facility] Nucleated RBC (Bld) [#/Vol] [facility] Nucleated RBC/100 WBC (Bld) [Ratio] 0 % /100 WBC [facility] Platelet mean volume (Bld) [Entitic vol] 8.9 fL Low 9.0 - 12.7 fL [facility] Platelets (Bld) [#/Vol] 337 10*3/uL [facility] RBC (Bld) [#/Vol] 4.29 10*6/uL 3.90 - 5.2 0 m/uL [facility] WBC (Bld) [#/Vol] 10.61 10*3/uL [facility] Basophils (Bld) [#/Vol] 0.06 10*3/uL Normal <0.11 [facility] Comment on above: Order Comment: Speci men Type: BLOOD SPECIMEN Ordering [facility] Address: [address] [place] [address] Performed By: #### 1 988-5, 58961-4, 2132-9, 3040-3 #### [facility] CLIA [id number] [address] [place] [address] [place] Basophils/100 WBC (Bld) 0.6 % Normal [facility] Comment on above: Order Comment: Speci men Type: BLOOD SPECIMEN Ordering [facility] Address: [address] [place] [address] Performed By: #### 1 988-5, 96189-6, 2131-12, 0-3 #### [facility] CLIA [id number] [address] [place] [address] [place] Differential cell count method Nom (Bld) Auto Normal [facility] Comment on above: Order Comment: Speci men Type: BLOOD SPECIMEN Ordering [facility] Address: [address] [place] [address] Performed By: #### 1 988-5, , 2131-12, 0-3 #### [facility] CLIA [id number] [address] [place] [address] [place] Eosinophils (Bld) [#/Vol] 0.41 10*3/uL Normal <0.46 [facility] Comment on above: Order Comment: Speci men Type: BLOOD SPECIMEN Ordering [facility] Address: [address] [place] [address] Performed By: #### 1 988-5, , 2131-12, 0-3 #### [facility] CLIA [id number] [address] [place] [address] [place] Eosinophils/100 WBC (Bld) 3.9 % Normal [facility] Comment on above: Order Comment: Speci men Type: BLOOD SPECIMEN Ordering [facility] Address: [address] [place] [address] Performed By: #### 1 988-5, 09743-2, 2131-12, 3040-3 #### [facility] CLIA [id number] [address] [place] [address] [place] Erythrocyte distribution width (RBC) [Ratio] 13.2 % Normal 11.5-15.0 [facility] Comment on above: Order Comment: Speci men Type: BLOOD SPECIMEN Ordering [facility] Address: [address] [place] [address] Performed By: #### 1 988-5, , 2131-12, 0-3 #### [facility] CLIA [id number] [address] [place] [address] [place] Hematocrit (Bld) [Volume fraction] 41.9 % Normal 36.0-46.0 [facility] Comment on above: Order Comment: Speci men Type: BLOOD SPECIMEN Order[facility] Address: [address] [place] [address] Performed By: #### 1 988-5, , 2131-12, 3039-3 #### [facility] CLIA [id number] [address] [place] [address] [place] Hemoglobin (Bld) [Mass/Vol] 13.7 g/dL Normal 11.5-15.5 [facility] Comment on above: Order Comment: Speci men Type: BLOOD SPECIMEN Order[facility] Address: [address] [place] [address] Performed By: #### 1 988-5, , 2131-12, 0-3 #### [facility] CLIA [id number] [address] [place] [address] [place] Immature granulocytes (Bld) [#/Vol] 0.03 10*3/uL Normal <0.10 [facility] Comment on above: Order Comment: Speci men Type: BLOOD SPECIMEN Ordering [facility] Address: [address] [place] [address] Performed By: #### 1 988-5, 19893-8, 2131-12, 0-3 #### [facility] CLIA [id number] [address] [place], [place] [address] [place] Immature granulocytes/100 WBC (Bld) 0.3 % Normal [facility] Comment on above: Order Comment: Speci men Type: BLOOD SPECIMEN Order[facility] Address: [address] [place] [address] Performed By: #### 1 988-5, , 2131-12, 0-3 #### [facility] CLIA [id number] [address] [place] [address] [place] Lymphocytes (Bld) [#/Vol] 2.23 10*3/uL Normal 1.00-4.00 [facility] Comment on above: Order Comment: Speci men Type: BLOOD SPECIMEN [facility] Address: [address] [place] [address] Performed By: #### 1 988-5, , 2131-12, 0-3 #### [facility] CLIA [id number] [address] [place] [address] [place] Lymphocytes/100 WBC (Bld) 21.0 % Normal [facility] Comment on above: Order Comment: Speci men Type: BLOOD SPECIMEN [facility] Address: [address] [place] [address] Performed By: #### 1 988-5, , 2131-12, 0-3 #### [facility] CLIA [id number] [address] [place], [place] [address] [place] MCH (RBC) [Entitic mass] 31.9 pg Normal 26.0-34.0 [facility] Comment on above: Order Comment: Speci men Type: BLOOD SPECIMEN [facility] Address: [address] [place] [address] Performed By: #### 1 988-5, , 2131-12, 0-3 #### [facility] CLIA [id number] [address] [place], [place] [address] [place] MCHC (RBC) [Mass/Vol] 32.7 g/dL Normal 30.5-36.0 [facility] Comment on above: Order Comment: Speci men Type: BLOOD SPECIMEN [facility] Address: [address] [place] [address] Performed By: #### 1 988-5, , 2131-12, 0-3 #### [facility] CLIA [id number] [address] [place], [place] [address] [place] MCV (RBC) [Entitic vol] 97.7 fL Normal 80.0-100.0 [facility] Comment on above: Order Comment: Speci men Type: BLOOD SPECIMEN [facility] Address: [address] [place] [address] Performed By: #### 1 988-5, , 2131-12, 0-3 #### [facility] CLIA [id number] [address] [place] [address] [place] Monocytes (Bld) [#/Vol] 0.74 10*3/uL Normal <0.87 [facility] Comment on above: Order Comment: Speci men Type: BLOOD SPECIMEN [facility] Address: [address] [place] [address] Performed By: #### 1 988-5, , 2131-12, 0-3 #### [facility] CLIA [id number] [address] [place], [place] [address] [place] Monocytes/100 WBC (Bld) 7.0 % Normal [facility] Comment on above: Order Comment: Speci men Type: BLOOD SPECIMEN [facility] Address: [address] [place] [address] Performed By: #### 1 988-5, , 2131-12, 0-3 #### [facility] CLIA [id number] [address] [place] [address] [place] Neutrophils (Bld) [#/Vol] 7.14 10*3/uL Normal 1.45-7.50 [facility] Comment on above: Order Comment: Speci men Type: BLOOD SPECIMEN [facility] Address: [address] [place] [address] Performed By: #### 1 988-5, , 2131-12, 3039-3 #### [facility] CLIA [id number] [address] [place], [place] [address] [place] Neutrophils/100 WBC (Bld) 67.2 % Normal [facility] Comment on above: Order Comment: Speci men Type: BLOOD SPECIMEN [facility] Address: [address] [place] [address] Performed By: #### 1 988-5, , 2131-12, 3039-3 #### [facility] CLIA [id number] [address] [place] [address] [place] Nucleated RBC (Bld) [#/Vol] 10*3/uL Normal <0.01 [facility] Comment on above: Order Comment: Speci men Type: BLOOD SPECIMEN [facility] Address: [address] [place], [place] [address] Performed By: #### 1 988-5, , 2131-12, 0-3 #### [facility] CLIA [id number] [address] [place], [place] [address] [place] Nucleated RBC/100 WBC (Bld) [Ratio] 0.0 /100 WBC Normal [facility] Comment on above: Order Comment: Speci men Type: BLOOD SPECIMEN [facility] Address: [address] [place] [address] Performed By: #### 1 988-5, , 2131-12, 0-3 #### [facility] CLIA [id number] [address] [place], [place] [address] [place] Platelet mean volume (Bld) [Entitic vol] 8.9 fL Low 9.0-12.7 [facility] Comment on above: Order Comment: Speci men Type: BLOOD SPECIMEN [facility] Address: [address] [place] [address] Performed By: #### 1 988-5, , 2131-12, 0-3 #### [facility] CLIA [id number] [address] [place] [address] [place] Platelets (Bld) [#/Vol] 337 10*3/uL Normal 150-400 [facility] Comment on above: Order Comment: Speci men Type: BLOOD SPECIMEN [facility] Address: [address] [place] [address] Performed By: #### 1 988-5, , 2131-12, 0-3 #### [facility] CLIA [id number] [address] [place] [address] [place] RBC (Bld) [#/Vol] 4.29 10*6/uL Normal 3.90-5.20 [facility] Comment on above: Order Comment: Speci men Type: BLOOD SPECIMEN [facility] Address: [address] [place] [address] Performed By: #### 1 988-5, , 2131-12, 0-3 #### [facility] CLIA [id number] [address] [place], [place] [address] [place] WBC (Bld) [#/Vol] 10.61 10*3/uL Normal 3.70-11.00 [facility] Comment on above: Order Comment: Speci men Type: BLOOD SPECIMEN [facility] Address: [address] [place] [address] Performed By: #### 1 988-5, 80845-6, 2132-9, 3040-3 #### [facility] CLIA [id number] [address] [address] [place] CLOSTRIDIUM DIFFICILE TOXIN BY PCRon 08-13-2024 C. difficile toxin genes LESLIE+probe Ql (Stl) Negative Negative for C. difficile toxin by PCR [facility] CNOVon 08-13-2024 CNOV Office Visit (FAMPWS ) -------- JENNIFER GLEASON ([id number]) 1935 F Date Time Provider Department 08/13/24 9:20 [facility] today, we recorded the following information about you: Temperature Pulse Respiration Blood pressure 97.3 degrees 60/minute 20/minute 130/80 Weight 59 kg Luis M Herbert DO 08/13/2024 8:34 PM Signed CC: Jennifer Gleason is a 88 year old female who presents to the office for follow up HPI: She is present with her daughter Naye, whom she lives with motion and time study teacher, in the office today Loose stools, without form, liquid, fecal urgency. States has been present the last few months. No known provoking foods or factors. No recent medication changes. No recent travel. ' Dyslipidemia, taking lipitor as prescribed 40 mg a day, no SE from medication HTN, No CP or dyspnea or dizziness/LH or edema. Has recently seen Steward/Stewardess Night Dr. Chou and her lisinopril was increased to 40 mg a day about 1-2 years ago- this has been working well for her. No longer taking diuretics due to her weight loss. Tolerating well. No SE from medication. She was stopped off her aspirin and started on Eliquis due to episode of atrial flutter for 5 min and 26 sec on the interrogation of the pacemaker Arthritis, b/l knees and shoulders and neck pain, has been taking tylenol and advil regularly but is struggling with the severity of her pain, no longer stable, no recent falls but does feel her pain is limiting her movement and pain control to be able to go to mosque etc. Also causes her impairment of her sleep and ADLS such as showering and cooking. Hx of stroke in 2018, no recent symptoms Appetite is stable. No edema, no chest pain or dyspnea or dizziness/palpitations Elevated serum creatinine, has been present since she had her stroke, has been increasing her water intake and eating healthy diet Hyperglycemia, no hx of diabetes Vitamin D and B12 deficiency, taking supplements PAST MEDICAL HISTORY Diagnosis Date Advance care planning 07/11/2021 DPBENNIE Yancey Varinder., her daughter Arthritis Dyslipidemia Stroke (HCC) 04/2017 PAST SURGICAL HISTORY Procedure Laterality Date ARTHRP ACETBLR/PROX FEM PROSTC AGRFT/ALGRFT 2000 left PACEMAKER 09/17/2017 Dr. Chou PAST SURGICAL HISTORY OF 2006 bone spurs removed in neck Current Outpatient Medications Medication Sig HYDROcodone-acetaminophe n (NORCO) 5-325 mg per tablet Take 0.5-1 tablets by mouth every 8 hours as needed for pain for up to 7 days. apixaban (ELIQUIS) 2.5 mg tab(s) Take 2.5 mg by mouth two times a day. lisinopril (ZESTRIL) 40 mg tablet Take 1 tablet by mouth once daily. atorvastatin (LIPITOR) 40 mg tablet Take 1 tablet by mouth once daily. clopidogrel (PLAVIX) 75 mg tablet Take 1 tablet by mouth once daily. dicyclomine (BENTYL) 10 mg capsule Take 1 capsule by mouth before meals and at bedtime. For irritable bowel symptoms as needed Cyanocobalamin 2,500 mcg subl Dissolve 1 tablet under the tongue once daily. ibuprofen (MOTRIN) 800 mg tablet Take 1 tablet by mouth every 8 hours as needed for Pain (with food.). Cholecalciferol, Vitamin D3, (VITAMIN D) 1,000 unit cap Take 1,000 Units by mouth once daily. Magnesium 250 mg tab Take 250 mg by mouth. ascorbic acid (VITAMIN C) 500 mg tablet Take 1 tablet by mouth once daily. No current facility-administered medications for this visit. ALLERGIES Allergen Reactions Demerol [Meperidine* GI Upset Social History Tobacco Use Smoking status: Former Current packs/day: 0.00 Types: Cigarettes Quit date: 04/23/1999 Years since quittin.3 Smokeless tobacco: Never Substance Use Topics Alcohol use: No Drug use: No ROS: See HPI PE: BP 130/80 Pulse 60 Temp (Src) 97.3 (Right Tympanic) Resp 20 Wt 130 lb (59.0kg) Gen: AANDOX3, NAD, non-toxic appearing HEENT: PERRLA, EOMs intact b/l, nares without drainage, pharynx without erythema, exudate, lesions, or drainage. Uvula midline. MMM Neck: No LAD, no thyromegaly, no meningismus. CV: RRR, 2/6 HSM RUSB murmur, normal s1s2 Lungs: CTA b/l, no wheezing Skin: No rashes, lesions, or wounds on exposed skin. + varicose veins, no edema, normal peripheral pulses Abd: soft, NT, ND, normal BS Arthritis multiple joints- cervical and lumbar spine, b/l hands, b/l feet, b/l shoulders and knees Gait is slowed but stable PDMP website checked and validated. All prescriptions have been APPROPRIATELY filled. No suspicious activity was identified. 08/13/2024 by Luis M Herbert DO ASSESSMENT/PLAN: 1. Diarrhea, unspecified type - ICD9: 787.91, ICD10: R19.7 (primary diagnosis) Labs and stool studies as ordered May need to start on probiotics and have CT abd/pelvis and colonoscopy if symptoms don't improve Unsure the cause of symptoms - COMPLETE BLOOD COUNT AND DIFFERENTIAL - COMPREHENSIVE ME (more content not included)... [facility] Telephone (FAMPWS) -------- JENNIFER GLEASON ([id number]) 1935 F Date Time Provider Department 08/13/24 LUIS M HERBERT During your visit today, we recorded the following information about you: Virgil Mims, RN 08/13/2024 6:11 PM Signed Pt saw Dr. Herbert today in office and she was going to call a prescription pain med in for pt's arthritic pain in neck and shoulder. Pt and her daughter Naye calling in checking on it as [facility] says they have not received the prescription yet. Message to Dr. Herbert's nurse Humaira to follow up with Dr. Herbert. Family hoping to get this evening or first thing in the morning. Virgil Mims, TGEAN 08/14/2024 12:[address] Herbert sent at 828 pm last evening. Allergies As of Date: 08/13/2024 Noted Allergy Reaction DEMEROL (MEPERIDINE (PF)) 07/06/2014 8 - GI Upset Date Reviewed: 08/13/2024 Reviewed by: Aparna Tafoya LPN - Fully Assessed Reason for Visit: Patient Question [7798] Cmt: regarding pain med Prescriptions as of 08/14/2024 - HYDROcodone-acetaminophe n (NORCO) 5-325 mg per tablet Take 0.5-1 tablets by mouth every 8 hours as needed for pain for up to 7 days. - apixaban (ELIQUIS) 2.5 mg tab(s) Take 2.5 mg by mouth two times a day. - lisinopril (ZESTRIL) 40 mg tablet Take 1 tablet by mouth once daily. - atorvastatin (LIPITOR) 40 mg tablet Take 1 tablet by mouth once daily. - clopidogrel (PLAVIX) 75 mg tablet Take 1 tablet by mouth once daily. - dicyclomine (BENTYL) 10 mg capsule Take 1 capsule by mouth before meals and at bedtime. For irritable bowel symptoms as needed - Cyanocobalamin 2,500 mcg subl Dissolve 1 tablet under the tongue once daily. - ibuprofen (MOTRIN) 800 mg tablet Take 1 tablet by mouth every 8 hours as needed for Pain (with food.). - Cholecalciferol, Vitamin D3, (VITAMIN D) 1,000 unit cap Take 1,000 Units by mouth once daily. - Magnesium 250 mg tab Take 250 mg by mouth. - ascorbic acid (VITAMIN C) 500 mg tablet Take 1 tablet by mouth once daily. Meds Comments as of 07/14/2015: Aspirin 81 mg a day Problem List As Of Date 08/13/2024 Noted Resolved Pure hypercholesterolemia [E78.00] 07/19/2015 Obesity, Class I, BMI 30-34.9 [E66.811] 05/11/2017 Hypertension, essential [I10] 05/11/2017 Hyperlipidemia, mixed [E78.2] 05/11/2017 History of stroke [Z86.73] 05/11/2017 01/09/2022 Bradycardia [R00.1] 09/17/2017 Dyslipidemia [E78.5] Stroke with cerebral ischemia (HCC) [I63.9] Arthritis [M19.90] Left-sided weakness [R53.1] 11/04/2018 Arthritis, multiple joint involvement [M12.9] 11/04/2018 Decreased appetite [R63.0] 11/15/2020 Weight loss, unintentional [R63.4] 11/15/2020 Vitamin D deficiency [E55.9] 11/15/2020 Vitamin B12 deficiency [E53.8] 02/15/2021 History of stroke with residual effects [I69.30]07/11/2021 Hyperglycemia [R73.9] 01/11/2022 Pulmonary arterial hypertension (HCC) [I27.21] 02/12/2023 Chronic kidney disease, stage 3b (HCC) [N18.32] 02/12/2023 Irritable bowel syndrome with diarrhea [K58.0] 02/12/2023 Paralytic syndrome, unspecified (HCC) [G83.9] 08/13/2023 Complete atrioventricular block (HCC) [I44.2] 08/13/2023 Cardiac pacemaker [Z95.0] 02/13/2024 Typical atrial flutter (HCC) [I48.3] 02/13/2024 Encounter Status:Closed by VIRGIL MIMS on 08/14/24 Normal [facility] CRP SerPl-mCncon 08-13-2024 CRP [Mass/Vol] mg/L Normal <0.9 [facility] Comment on above: Order Comment: Speci men Type: BLOOD SPECIMEN [facility]ing Facility[facility] Address: [address], [place] [address] Performed By: #### 1 988-5, 82756-9, 2131-12, 3040-3 #### [facility] CLIA [id number] [address] [place] [address] [place] CRP [Mass/Vol]on 08-13-2024 Interpretation and review of laboratory results Normal [facility] Calprotectin (Stl) [Mass/Mas s]on 08-13-2024 CALPROTECTIN, FECAL INTERP Normal Normal Normal [facility] Comment on above: Order Comment: Speci men Type: BLOOD SPECIMEN Ordering Facility: [facility] Address: [address] [place] [address] Result Comment: Inte rpretation: <50.0 ug/g: Normal 50.0 ug/g - 120.0 ug/g: Borderline elevated. Re-evaluation in 4-6 weeks is recommended if clinically indicated. >120.0 ug/g: Elevated Performed By: #### 1 988-5, , 2131-12, 3040-3 #### [facility] CLIA [id number] [address] [place] [address] [place] CALPROTECTIN, FECAL QUANTITATIVE 38.9 ug/g Normal <50 [facility] Comment on above: Order Comment: Speci men Type: BLOOD SPECIMEN Ordering [facility] Address: [address] [place] [address] Performed By: #### 1 988-5, , 2131-12, 3040-3 #### [facility] CLIA [id number] [address] [place] [address] [place] Comprehensive metabolic 2000 panelon 08-13-2024 Albumin [Mass/Vol] 4.1 g/dL Normal 3.9-4.9 [facility] Comment on above: Order Comment: Speci men Type: BLOOD SPECIMEN [facility]ing [facility] Address: [address] [place] [address] Performed By: #### 1 988-5, , 2131-12, 3039-3 #### [facility] CLIA [id number] [address] [place] [address] [place] ALP [Catalytic activity/Vol] 69 U/L Normal 34-123 [facility] Comment on above: Order Comment: Speci men Type: BLOOD SPECIMEN Ordering Facility[facility] Address: [address] [place] [address] Performed By: #### 1 988-5, , 2131-12, 3039-3 #### [facility] CLIA [id number] [address] [place] [address] [place] ALT [Catalytic activity/Vol] 12 U/L Normal 7-38 [facility] Comment on above: Order Comment: Speci men Type: BLOOD SPECIMEN Ordering [facility] Address: [address] [place] [address] Performed By: #### 1 988-5, , 2131-12, 3039-3 #### [facility] CLIA [id number] [address] [place] [address] [place] Anion gap [Moles/Vol] 13 mmol/L Normal 8-15 [facility] Comment on above: Order Comment: Speci men Type: BLOOD SPECIMEN Ordering [facility] Address: [address] [place] [address] Performed By: #### 1 988-5, , 2131-12, 0-3 #### [facility] CLIA [id number] [address] [place] [address] [place] AST [Catalytic activity/Vol] 20 U/L Normal 13-35 [facility] Comment on above: Order Comment: Speci men Type: BLOOD SPECIMEN Ordering [facility] Address: [address] [place] [address] Performed By: #### 1 988-5, , 2131-12, 3040-3 #### [facility] CLIA [id number] [address] [place] [address] [place] Bilirubin [Mass/Vol] 0.5 mg/dL Normal 0.2-1.3 [facility] Comment on above: Order Comment: Speci men Type: BLOOD SPECIMEN Ordering [facility] Address: [address] [place] [address] Performed By: #### 1 988-5, , 2131-12, 0-3 #### [facility] CLIA [id number] [address] [place], [place] [address] [place] Calcium [Mass/Vol] 10.0 mg/dL Normal 8.5-10.2 [facility] Comment on above: Order Comment: Speci men Type: BLOOD SPECIMEN Ordering Facility[facility] Address: [address] [place] [address] Performed By: #### 1 988-5, , 2131-12, 3039-3 #### [facility] CLIA [id number] [address] [place], [place] [address] [place] Chloride [Moles/Vol] 102 mmol/L Normal 98-107 [facility] Comment on above: Order Comment: Speci men Type: BLOOD SPECIMEN Ordering Facility[facility] Address: [address] [place] [address] Performed By: #### 1 988-5, , 2131-12, 0-3 #### [facility] CLIA [id number] [address] [place], [place] [address] [place] CO2 [Moles/Vol] 24 mmol/L Normal 22-30 [facility] Comment on above: Order Comment: Speci men Type: BLOOD SPECIMEN Ordering Facility[facility] Address: [address] [place], [place] [address] Performed By: #### 1 988-5, , 2131-12, 3040-3 #### [facility] CLIA [id number] [address] [place], [place] [address] [place] Creatinine [Mass/Vol] 1.03 mg/dL High 0.58-0.96 [facility] Comment on above: Order Comment: Francois agosto Type: BLOOD SPECIMEN Ordering Facility[facility] Address: [address] [place] [address] Performed By: #### 1 988-5, , 2131-12, 3 #### [facility] CLIA [id number] [address] [place] [address] [place] Creatinine and Glomerular filtration rate.predicted panel (S/P/Bld) 53 mL/min/1.73m??? Low >=60 [facility] Comment on above: Order Comment: Francois agosto Type: BLOOD SPECIMEN Ordering [facility] Address: [address] [place] [address] Result Comment: Beatrice mated Glomerular Filtration Rate (eGFR) is calculated using the 2020 CKD-EPI creatinine equation. This equation utilizes serum creatinine, sex, and age as parameters. The creatinine assay has traceable calibration to isotope dilution-mass spectrometry. Refer to KDIGO guidelines for clinical interpretation. In patients with unstable renal function, e.g. those with acute kidney injury, the eGFR may not accurately reflect actual GFR. Performed By: #### 1 988-5, , 2131-12, 3 #### [facility] CLIA [id number] [address] [place], [place] [address] [place] Glucose [Mass/Vol] 79 mg/dL Normal 74-99 [facility] Comment on above: Order Comment: Francois agosto Type: BLOOD SPECIMEN Ordering [facility] Address: [address] [place] [address] Result Comment: The [place] Diabetes Association (ADA) provides guidance for cutoff values for fasting glucose and random glucose. The ADA defines fasting as no caloric intake for at least 8 hours. Fasting plasma glucose results between 100 to 125 mg/dL indicate increased risk for diabetes (prediabetes). Fasting plasma glucose results greater than or equal to 126 mg/dL meet the criteria for diagnosis of diabetes. In the absence of unequivocal hyperglycemia, results should be confirmed by repeat testing. In a patient with classic symptoms of hyperglycemia or hyperglycemic crisis, random plasma glucose results greater than or equal to 200 mg/dL meet the criteria for diagnosis of diabetes. Reference: Standards of Medical Care in Diabetes 2016, [place] Diabetes Association. Diabetes Care. 2016.39(Suppl 1). Performed By: #### 1 988-5, , 2131-12, 0-3 #### [facility] CLIA [id number] [address] [place] [address] [place] Potassium [Moles/Vol] 4.4 mmol/L Normal 3.7-5.1 [facility] Comment on above: Order Comment: Speci men Type: BLOOD SPECIMEN Ordering [facility] Address: [address] [place] [address] Performed By: #### 1 988-5, , 2131-12, 0-3 #### [facility] CLIA [id number] [address] [place] [address] [place] Protein [Mass/Vol] 6.9 g/dL Normal 6.3-8.0 [facility] Comment on above: Order Comment: Francois agosto Type: BLOOD SPECIMEN Ordering [facility] Address: [address] [place], [place] [address] Performed By: #### 1 988-5, , 2131-12, 0-3 #### [facility] CLIA [id number] [address] [place] [address] [place] Sodium [Moles/Vol] 139 mmol/L Normal 136-144 [facility] Comment on above: Order Comment: Marleni men Type: BLOOD SPECIMEN Ordering [facility] Address: [address] [place], [place] [address] Performed By: #### 1 988-5, , 2131-12, 0-3 #### [facility] CLIA [id number] [address] [place] [address] [place] Urea nitrogen [Mass/Vol] 17 mg/dL Normal 7-21 [facility] Comment on above: Order Comment: Speci men Type: BLOOD SPECIMEN Ordering [facility] Address: [address] [place] [address] Performed By: #### 1 988-5, , 2131-12, 0-3 #### [facility] CLIA [id number] [address] [place] [address] [place] Gastrointestinal pathogens i dentified LESLIE+probe Nom (Stl)on 08-13-2024 Campylobacter sp DNA LESLIE+probe Nom (Unsp spec) Not detected Normal Not Detected [facility] Comment on above: Order Comment: Speci men Type: BLOOD SPECIMEN Ordering [facility] Address: [address] [place] [address] Performed By: #### 1 988-5, , 2131-12, 0-3 #### [facility] CLIA [id number] [address] [place] [address] [place] Salmonella sp DNA LESLIE+probe Ql (Unsp spec) Not detected Normal Not Detected [facility] Comment on above: Order Comment: Speci men Type: BLOOD SPECIMEN Ordering [facility] Address: [address] [place] [address] Performed By: #### 1 988-5, , 2131-12, 0-3 #### [facility] CLIA [id number] [address] [place] [address] [place] Shiga toxin stx gene LESLIE+probe Nom (Unsp spec) Not detected Normal Not Detected [facility] Comment on above: Order Comment: Speci men Type: BLOOD SPECIMEN Ordering [facility] Address: [address] [place] [address] Performed By: #### 1 988-5, , 2131-12, 0-3 #### [facility] CLIA [id number] [address] [place] [address] [place] Shigella sp DNA LESLIE+probe Ql (Unsp spec) Not detected Normal Not Detected [facility] Comment on above: Order Comment: Speci men Type: BLOOD SPECIMEN Ordering [facility] Address: [address] [place] [address] Performed By: #### 1 988-5, , 2131-12, 0-3 #### [facility] CLIA [id number] [address] [place] [address] [place] H pylori Ag Stl Ql IAon 05-0 H. pylori Ag IA Ql (Stl) H.PYLORI EIA RESULT: Positive for Helicobacter pylori antigen by EIA Abnormal [facility] Comment on above: Performed By: #### 1 988-5, , 2131-12, 0-3 #### [facility] CLIA [id number] [address] [place] [address] [place] HbA1c (Bld)on 08-13-2024 Average glucose Estimated from glycated hemoglobin (Bld) [Mass/Vol] 108 mg/dL Normal [facility] Comment on above: Order Comment: Speci men Type: BLOOD SPECIMEN Ordering [facility] Address: [address] [place] [address] Result Comment: eAG: (Estimated average glucose) is a calculated value from HgbA1c and is leasing representative of the average blood glucose level in the last 2-3 month period. Performed By: #### 1 988-5, , 2131-12, 0-3 #### [facility] CLIA [id number] [address] [place] [address] [place] HbA1c (Bld) [Mass fraction] 5.4 % Normal 4.3-5.6 [facility] Comment on above: Order Comment: Francois agosto Type: BLOOD SPECIMEN Ordering [facility] Address: [address] [place] [address] Result Comment: [place] Diabetes Association guidelines indicate that patients with HgbA1c in the range 5.7-6.4% are at increased risk for development of diabetes, and intervention by lifestyle modification may be beneficial. HgbA1c greater or equal to 6.5% is considered diagnostic of diabetes. Performed By: #### 1 988-5, 45637-8, 2131-12, 0-3 #### [facility] CLIA [id number] [address] [place], [place] [address] [place] LIPASEon 08-13-2024 Lipase [Catalytic activity/Vol] 72 U/L High 16 - 61 U/L [facility] Lipase SerPl-cCncon 08-14-19 25 Lipase [Catalytic activity/Vol] 72 U/L High 16-61 [facility] Comment on above: Order Comment: Francois agosot Type: BLOOD SPECIMEN Order[facility] Address: [address] [place] [address] Performed By: #### 1 988-5, , 2131-12, 0-3 #### [facility] CLIA [id number] [address] [place], [place] [address] [place] Lipase [Catalytic activity/V ol]on 08-13-2024 Interpretation and review of laboratory results Abnormal [facility] Lipid 1996 panelon 5 Cholesterol [Mass/Vol] 176 mg/dL Normal <200 [facility] Comment on above: Order Comment: Francois agosto Type: BLOOD SPECIMEN Ordering [facility] Address: [address] [place], [place] [address] Result Comment: <200 mg/dL, Desirable 200-239 mg/dL, Borderline high >239 mg/dL, High Performed By: #### 1 988-5, 35768-1, 2131-12, 0-3 #### [facility] CLIA [id number] [address] [place] Cholesterol in HDL [Mass/Vol] 54 mg/dL Normal >39 [facility] Comment on above: Order Comment: Francois agosto Type: BLOOD SPECIMEN Order[facility] Address: [address] [place] [address] Result Comment: 40-5 9 mg/dL, Acceptable >59 mg/dL, High: Negative risk factor for coronary heart disease <40 mg/dL, Low: Positive risk factor for coronary heart disease Performed By: #### 1 988-5, , 2131-12, 0-3 #### [facility] CLIA [id number] [address] [place] [address] [place] Cholesterol in LDL [Mass/Vol] 101 mg/dL High <100 [facility] Comment on above: Order Comment: Francois agosto Type: BLOOD SPECIMEN Order[facility] Address: [address] [place] [address] Result Comment: <100 mg/dL, Optimal 100-129 mg/dL, Near optimal/above optimal 130-159 mg/dL, Borderline high 160-189 mg/dL, High >189 mg/dL, Very high Secondary prevention optimal LDL Cholesterol levels are recommended to be <70 mg/dL LDL cholesterol is calculated using the Yee-NIH equation. Performed By: #### 1 988-5, , 2131-12, 0-3 #### [facility] CLIA [id number] [address] [place] [address] [place] Cholesterol in LDL/Cholesterol in HDL [Mass ratio] 1.87 {ratio} Normal <2.54 [facility] Comment on above: Order Comment: Francois agosto Type: BLOOD SPECIMEN [facility] Address: [address] [place] [address] Result Comment: Stacey sheridan: 1. National Cholesterol Education Program ATP III Guideline At-A-Glance Quick Desk Reference: National Heart, Lung, and Blood [place]. National Institutes of Health. 2001: NIH Publication No. 01-3305. 2. An International Atherosclerosis Society position paper: global recommendations for the management of dyslipidemia: executive summary, Atherosclerosis. 2014: 232(2):410-413. Performed By: #### 1 988-5, , 2131-12, 0-3 #### [facility] CLIA [id number] [address] [place] [address] [place] Cholesterol in VLDL [Mass/Vol] 19 mg/dL Normal <30 [facility] Comment on above: Order Comment: Speci men Type: BLOOD SPECIMEN [facility] Address: [address] [place] [address] Performed By: #### 1 988-5, , 2131-12, 3039-3 #### [facility] CLIA [id number] [address] [place] [address] [place] Cholesterol non HDL [Mass/Vol] 122 mg/dL Normal <130 [facility] Comment on above: Order Comment: Speci men Type: BLOOD SPECIMEN Ordering [facility] Address: [address] [place] [address] Result Comment: <130 mg/dL, Optimal 130-159 mg/dL, Near optimal/above optimal 160-189 mg/dL, Borderline high 190-219 mg/dL, High >219 mg/dL, Very high Secondary prevention optimal non HDL Cholesterol levels are recommended to be <100 mg/dL Performed By: #### 1 988-5, , 2131-12, 0-3 #### [facility] CLIA [id number] [address] [place], [place] [address] [place] Cholesterol.total/Cho lesterol in HDL [Mass ratio] 3.26 {ratio} Normal <5.10 [facility] Comment on above: Order Comment: Francois men Type: BLOOD SPECIMEN [facility] Address: [address] [place], [place] [address] Performed By: #### 1 988-5, , 2131-12, 0-3 #### [facility] CLIA [id number] [address] [place], [place] [address] [place] FASTING TIME 12 hrs Normal [facility] Comment on above: Order Comment: Speci men Type: BLOOD SPECIMEN [facility] Address: [address] [place] [address] Performed By: #### 1 988-5, 42877-1, 9, 3040-3 #### [facility] CLIA [id number] [address] [place], [place] [address] [place] Triglyceride [Mass/Vol] 117 mg/dL Normal <150 [facility] Comment on above: Order Comment: Speci men Type: BLOOD SPECIMEN [facility] Address: [address] [place] [address] Result Comment: <150 mg/dL, Normal 150-199 mg/dL, Borderline high 200-499 mg/dL, High >499 mg/dL, Very high Performed By: #### 1 988-5, , 9, 3040-3 #### [facility] CLIA [id number] [address] [place], [place] [address] [place] Magnesium SerPl-mCncon 08-13 Magnesium [Mass/Vol] 1.8 mg/dL Normal 1.7-2.3 [facility] Comment on above: Order Comment: Speci men Type: BLOOD SPECIMEN [facility] Address: [address] [place] [address] Performed By: #### 1 988-5, , 9, 0-3 #### [facility] CLIA [id number] [address] [place], [place] [address] [place] No Panel Informationon 08-13 [facility] PANC ELASTASE, FECALon 08-13 ELASTASE INTERPRETATION 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 Retesting on formed stool is recommended. Performed By: #### 1 988-5, , 2131-12, 3039-3 #### [facility] CLIA [id number] [address] [place] [address] [place] ELASTASE-1 CONCENTRATION 103 ug/g Abnormal >=200 [facility] Comment on above: Order Comment: Speci men Type: BLOOD SPECIMEN [facility] Address: [address] [place] [address] Result Comment: Inte rpretation: <100 ug/g: Severe Exocrine Pancreatic Insufficiency 100-199 ug/g: Mild to Moderate Exocrine Pancreatic Insufficiency >=200 ug/g: Normal Performed By: #### 1 988-5, , 2131-12, 3039-3 #### [facility] CLIA [id number] [address] [place] [address] [place] T4 Free SerPl-mCncon 025 Free T4 [Mass/Vol] 1.2 ng/dL Normal 0.9-1.7 [facility] Comment on above: Order Comment: Speci men Type: BLOOD SPECIMEN [facility] Address: [address] [place] [address] Performed By: #### 1 988-5, , 2131-12, 3039-3 #### [facility] CLIA [id number] [address] [place] [address] [place] TSH SerPl-aCncon 08-13-2024 TSH Qn 1.480 m[IU]/L Normal 0.270-4.200 [facility] Comment on above: Order Comment: Speci men Type: BLOOD SPECIMEN [facility] Address: [address] [place] [address] Performed By: #### 1 988-5, , 2131-12, 3040-3 #### [facility] [facility] CLIA [id number] [address] [place] [address] [place] [facility] Cobalamin (Vitamin B12) [Mass/Vol] 1397 pg/mL High 232-1245 [facility] Comment on above: Order Comment: Speci men Type: BLOOD SPECIMEN [facility] Address: [address] [place] [address] Performed By: #### 1 988-5, 36043-2, 2132-9, 3040-3 #### [facility] CLIA [id number] [address] [place], [place] [address] [place] Cardiology Visit Reporton Cardiology Visit Report [facility]. [address] [place] [address] OFFICE VISIT Date of Service: 08/11/24 MR#: [id number] Acct: [id number] Name: JENNIFER GLEASON Rep #: [id number] : 1935 Provider: JORGE Alcantara Age/Sex: 88/F Location[facility] Status: Signed HPI HPI History of Present Illness Details: Jennifer Gleason is an 88-year-old female who presents to office today for follow-up for monitoring of her cardiovascular health. Patient has a history of complete heart block and underwent pacemaker implantation 09/17/2017. Patient has a history of hypertension, hyperlipidemia, and CVA. Since last seen, approximately 1 year ago, patient reports doing fairly well. Patient's main concern today is arthritis pain described as achiness in the R shoulder, neck and lower back. This has been going on for years now; however, patient feels kigh-bnb-nvahrhg medications are no longer effective for her. Patient is following up with PCP in 2 days to discuss this. This pain does not seem to be associated with activity. Patient does not routinely aerobically exercise. Further ROS below. 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: No Is patient in pain?: No Allergies meperidine (From Demerol) Adverse Reaction (Verified 08/11/24 10:10) Upset Stomach Medications ???Medication ???Instructions ???Recorded ???Confirmed ???Type multivitamin 1 tab PO QDAY vitamin 10/02/1708/31 History atorvastatin 40 mg tablet 40 mg PO QHS #90 tabs 05/14/1808/31 Rx clopidogrel 75 mg tablet 75 mg PO DAILY anti platelet 06/2708/11/24 History cyanocobalamin (vitamin B-12) 500 1,000 mcg PO DAILY@0800 04/07/20 08/11/24 History mcg tablet lisinopril 40 mg tablet 40 mg PO DAILY blood pressure #90 01/09/22 08/11/24 Rx tabs apixaban 2.5 mg tablet (Eliquis) 2.5 mg PO BID #60 tabs 07/08/24 Rx Ejection fraction %: 60 Have you fallen in the past year?: No [facility] Medical History (Updated 08/11/24 @ 11:08 by JORGE Alcantara) Myelomalacia of cervical cord Left carotid artery stenosis Secondary pulmonary arterial hypertension Complete heart block Obesity Essential (primary) hypertension Left arm weakness Arm paresthesia, left Bradycardia, severe sinus Hyperlipidemia Ischemic cerebrovascular accident (CVA) (04/2017) Osteoarthritis Dysarthria Surgical History History of permanent cardiac pacemaker placement (09/17/17) History of neck surgery History of total left hip replacement Family History Unknown No problems noted. Other CVA (cerebral vascular accident) Social History Smoking Status: Former smoker how long ago did patient quit smokin years ago alcohol intake: current alcohol intake frequency: holidays/special occasions only substance use type: does not use caffeine: Yes Type: coffee Number of servings: 1 ROS Const Const: Negative for fatigue, weakness, headache(s) or frequent falls Eyes Eyes: Negative for blurry vision ENT ENT: Negative for headache(s), dizziness or Nosebleed/epistaxis Cardio Chest Pain: No Palpitations: No Edema: None Muscle aches with walking: None Resp Respiratory: Negative for SOB with activity, SOB at rest or SOB orthopnea SOB lying down GI GI: Negative nausea, vomiting, heartburn, bright, red blood in stools or black,tarry stools : Negative for hematuria Neuro Neuro: Negative for dizziness, lightheadedness, near syncope, syncope, frequent falls, headache(s), weakness or blurry vision Endo Endo: Negative for fatigue Cardiology Exam Const Appearance: cooperative, comfortable, no acute distress and well developed; Negative diaphoretic or ill appearing Nutritional Appearance: average body habitus Orientation: alert and oriented x3 Ambulating without assistive device Head Head: normal to inspection, normocephalic and atraumatic Ears: hearing grossly normal bilaterally Nose: external nose normal and Negative epistaxis Face and Sinus: face symmetric Eyes General: appearance normal, both eyes and all related structures Eyelids: eyelids normal Conjunctivae: conjunctivae normal; Negative scleral icterus EOM: EOM intact bilaterally Neck Neck: no JVD Carotids: normal carotid upstroke; Negative bruit Neck Mass: Negative Neck mass Chest Chest inspection: normal respiratory e (more content not included)... Normal [facility] Pacemaker Checkon 08-11-2024 Pacemaker Check [facility] [address] [place] [address]. [address] [place], [place] [address] Pacemaker Check Date of Service: 08/11/24 1503 MR#: [id number] Acct: [id number] Name: JENNIFER GLEASON Rep #: [id number] : 1935 From: Zahraa Bae Age/Sex: 88/F Location: [facility] Status: Signed Billing Codes PM Device Codes: 81209 PM Dev Prog Eval, Dual Assessment and Plan Assessment and Plan (1) Atrial flutter: Status: Acute Qualifiers: Atrial flutter type: unspecified Qualified Code(s): I48.92 - Unspecified atrial flutter (2) Complete heart block: Status: Chronic (3) History of permanent cardiac pacemaker placement: Status: Chronic Comment: St. Melecio model# PM 2272 Assurity MRI 08/11/24 1504 Date Zahraa Floyd Signature: Date (if applicable) CC: Normal [facility] 07-08-2024 [facility] -------- JENNIFER GLEASON ([id number]) 1935 F Date Time Provider Department 07/08/24 [facility] During your visit today, we recorded the following information about you: Virgil Mims, RN 07/08/2024 12:30 PM Signed Alejandra pharmacist from [facility] calling in regarding a prescription for pt sent to them on 06/23/24 from Kathy Lew. Script is for Apixaban (Eliquis) 2.5 mg tab. Sig is written for take 1 tablet by mouth once daily. Alejandra states usually Apixaban 2.5 mg is a twice daily med. And Alejandra states previous prescriber Ivone Dumont had ordered it twice daily. In reviewing chart, Apixaban was not ordered by primary care but by Ivone Dumont who works with [facility]. It appears on 06/23 that pt called in requesting 4 meds: Lisinopril 40 mg tablets, Atorvastatin 40 mg tablets, Clopidogrel 75 mg tablets and the Apixaban 2.[address]. [address] Herbert note from 02/13/24, Pt is taking Lipitor as prescribed 40 mg a day and then states pt had recently seen center maker hand Dr. Chou who had increased her Lisinopril to 40 mg a day about a year ago. Note states pt is no longer taking diuretics due to her weight loss and that she was stopped off her aspirin and started on Eliquis. Phone call to [facility] to confirm their med list with ours. Had to leave a msg on nurse Xenia phone line. Do they have patient taking both the Clopidogrel (Plavix) 75 mg once daily and the Apixaban (Eliquis) 2.5 mg once daily or twice daily? Since Ivone Dumont prescribed the Apixaban (Eliquis) 2.5 mg, can the nurse put in a refill request to Ivone Dumont for pt's med since PCP did not prescribe this? Pt uses [facility]. Also who is ordering the Plavix, Atorvastatin and Lisinopril and do we have the same doses? No need to call Alejandra back at [facility] if [facility] is going to prescribe the medication and handle sending in the refill. Can close encounter if [facility] is going to prescribe but will need to correct med list. Patt Joyner LPN 07/08/2024 1:15 PM Signed Spoke to Xenia with [facility]. Xenia reports pt takes Eliquis 2.5 mg bid. Other meds are as documented below. Pt is on both Plavix 75 daily and Eliquis. Xenia reports she will send request to Ivone Dumont who prescribes the meds. Xenia updated pt's pharmacy to [facility] because they had a different pharmacy on file for pt. CARRIE Rosas Tayler, RN 07/08/2024 3:56 PM Signed Addended by: LYDIA DE LA PAZ on: 07/08/2024 03:56 PM Modules accepted: Orders Allergies As of Date: 07/08/2024 Noted Allergy Reaction DEMEROL (MEPERIDINE (PF)) 07/06/2014 8 - GI Upset Date Reviewed: 02/13/2024 Reviewed by: Aparna Tafoya LPN - Fully Assessed Reason for Visit: Medication Question [1478] Prescriptions as of 07/08/2024 - apixaban (ELIQUIS) 2.5 mg tab(s) Take 2.5 mg by mouth two times a day. - lisinopril (ZESTRIL) 40 mg tablet Take 1 tablet by mouth once daily. - atorvastatin (LIPITOR) 40 mg tablet Take 1 tablet by mouth once daily. - clopidogrel (PLAVIX) 75 mg tablet Take 1 tablet by mouth once daily. - dicyclomine (BENTYL) 10 mg capsule Take 1 capsule by mouth before meals and at bedtime. For irritable bowel symptoms as needed - Cyanocobalamin 2,500 mcg subl Dissolve 1 tablet under the tongue once daily. - ibuprofen (MOTRIN) 800 mg tablet Take 1 tablet by mouth every 8 hours as needed for Pain (with food.). - Cholecalciferol, Vitamin D3, (VITAMIN D) 1,000 unit cap Take 1,000 Units by mouth once daily. - Magnesium 250 mg tab Take 250 mg by mouth. - ascorbic acid (VITAMIN C) 500 mg tablet Take 1 tablet by mouth once daily. Meds Comments as of 07/14/2015: Aspirin 81 mg a day Medication notes this encounter APIXABAN 2.5 MG TABLET >> Lydia De La Paz RN 07/08/2024 3:56 PM >> LYDIA DE LA PAZ vivek Jul 08, 2024 3:56 PM Ordered by Ivone Dumont at [facility] Problem List As Of Date 07/08/2024 Noted Resolved Pure hypercholesterolemia [E78.00] 07/19/2015 Obesity, Class I, BMI 30-34.9 [E66.811] 05/11/2017 Hypertension, essential [I10] 05/11/2017 Hyperlipidemia, mixed [E78.2] 05/11/2017 History of stroke [Z86.73] 05/11/2017 01/09/2022 Bradycardia [R00.1] 09/17/2017 Dyslipidemia [E78.5] Stroke with cerebral ischemia (HCC) [I63.9] Arthritis [M19.90] Left-sided weakness [R53.1] 11/04/2018 Arthritis, multiple joint involvement [M12.9] 11/04/2018 Decreased appetite [R63.0] 11/15/2020 Weight loss, unintentional [R63.4] 11/15/2020 Vitamin D deficiency [E55.9] 11/15/2020 Vitamin B12 deficiency [E53.8] 02/15/2021 History of stroke with residual effects [I69.30]07/11/2021 Hyperglycemia [R73.9] 01/11/2022 Pulmonary arterial hypertension (HCC) [I27.21] 02/12/2023 Chronic kidney disease, stage 3b (HCC) [N18.32] 02/12/2023 Irritable bowel syndrome with diarrhea [ (more content not included)... Normal [facility] Pacemaker Checkon 02-14-2024 Pacemaker Check [facility] [address] [place] [address] Pacemaker Check Date of Service: 02/14/24 1026 MR#: [id number] Acct: [id number] Name: JENNIFER GLEASON Rep #: [id number] : 1935 From: Zahraa Bae Age/Sex: 88/F Location: [facility] Status: Signed Billing Codes PM Device Codes: 78034 PM Dev Prog Eval, Dual Assessment and Plan Assessment and Plan (1) Atrial flutter: Status: Acute (2) Complete heart block: Status: Chronic (3) History of permanent cardiac pacemaker placement: Status: Chronic Comment: St. Melecio model# PM 2272 Assurity MRI 02/14/24 1027 Date Zahraa Osheaign Signature: Date (if applicable) CC: Normal [facility] CNOVon 02-13-2024 CNOV Office Visit ([facility] ) -------- JENNIFER GLEASON ([id number]) 1935 F Date Time Provider Department 02/13/24 8:20 AM [facility] During your visit today, we recorded the following information about you: Temperature Pulse Respiration Blood pressure 96.7 degrees 64/minute 16/minute 128/80 Weight 61.6 kg Luis M Herbert, DO 02/13/2024 9:04 AM Signed Vitamin C at least 500 mg a day Vitamin D3 2000 international unit(s) a day Vitamin B12 500-1000 mcg a day Herbert, Luis M Foreman, DO 02/13/2024 9:38 AM Signed CC: Jennifer Gleason is a 88 year old female who presents to the office for follow up HPI: Dyslipidemia, taking lipitor as prescribed 40 mg a day, no SE from medication HTN, No CP or dyspnea or dizziness/LH or edema. Has recently seen Steward/Stewardess Night Dr. Chou and her lisinopril was increased to 40 mg a day about 1 year ago- this has been working well for her. No longer taking diuretics due to her weight loss. Tolerating well. No SE from medication. She was stopped off her aspirin and started on Eliquis due to episode of atrial flutter for 5 min and 26 sec on the interrogation of the pacemaker Arthritis, stable, no concerns, no recent falls or instability Hx of stroke in 2018, no recent symptoms Appetite is stable. Bowel function is normal No edema, no chest pain or dyspnea or dizziness/palpitations Elevated serum creatinine, has been present since she had her stroke, has been increasing her water intake and eating healthy diet Hyperglycemia, no hx of diabetes Vitamin D and B12 deficiency, taking supplements Last labs obtained Jan 2023 and were stable PAST MEDICAL HISTORY Diagnosis Date Advance care planning 07/11/2021 DPBENNIE Naye Reeder., her daughter Arthritis Dyslipidemia Stroke (HCC) 04/2017 PAST SURGICAL HISTORY Procedure Laterality Date ARTHRP ACETBLR/PROX FEM PROSTC AGRFT/ALGRFT 2000 left PACEMAKER 09/17/2017 Dr. Chou PAST SURGICAL HISTORY OF 2007 bone spurs removed in neck Current Outpatient Medications Medication Sig apixaban (ELIQUIS) 2.5 mg tab(s) Take 2.5 mg by mouth once daily. lisinopril (ZESTRIL) 40 mg tablet Take 1 tablet by mouth once daily. clopidogrel (PLAVIX) 75 mg tablet Take 1 tablet by mouth once daily. atorvastatin (LIPITOR) 40 mg tablet Take 1 tablet by mouth once daily. dicyclomine (BENTYL) 10 mg capsule Take 1 capsule by mouth before meals and at bedtime. For irritable bowel symptoms as needed Cyanocobalamin 2,500 mcg subl Dissolve 1 tablet under the tongue once daily. ibuprofen (MOTRIN) 800 mg tablet Take 1 tablet by mouth every 8 hours as needed for Pain (with food.). Cholecalciferol, Vitamin D3, (VITAMIN D) 1,000 unit cap Take 1,000 Units by mouth once daily. Magnesium 250 mg tab Take 250 mg by mouth. ascorbic acid (VITAMIN C) 500 mg tablet Take 1 tablet by mouth once daily. No current facility-administered medications for this visit. ALLERGIES Allergen Reactions Demerol [Meperidine* GI Upset Social History Tobacco Use Smoking status: Former Current packs/day: 0.00 Types: Cigarettes Quit date: 04/23/1999 Years since quittin.8 Smokeless tobacco: Never Substance Use Topics Alcohol use: No Drug use: No ROS: See HPI. PE: BP 128/80 Pulse 64 Temp (Src) 96.7 (Left Tympanic) Resp 16 Wt 135 lb 12.9 oz (61.6kg) Gen: AANDOX3, NAD, non-toxic appearing HEENT: PERRLA, EOMs intact b/l, nares without drainage, pharynx without erythema, exudate, lesions, or drainage. Uvula midline. MMM Neck: No LAD, no thyromegaly, no meningismus. CV: RRR, 2/6 HSM RUSB murmur, normal s1s2 Lungs: CTA b/l, no wheezing Skin: No rashes, lesions, or wounds on exposed skin. + varicose veins, no edema, normal peripheral pulses Abd: soft, NT, ND, normal BS Arthritis multiple joints Gait is slowed but stable ASSESSMENT/PLAN: 1. Hypertension, essential - ICD9: 401.9, ICD10: I10 (primary diagnosis) - Controlled - Continue current medications - Recommend home blood pressure monitoring, to bring results to next visit - Encouraged sodium restriction, DASH or Mediterranean diet - Recommend regular aerobic exercise 2. Need for influenza vaccination - ICD9: V04.81, ICD10: Z23 - INFLUENZA VACCINE, PRSV FREE, AGE 65+ YR, HIGH DOSE, TRIVALENT (FLUZONE HIGH-DOSE) 3. Vitamin B12 deficiency - ICD9: 266.2, ICD10: E53.8 Continue supplement 4. Arthritis, multiple joint involvement - ICD9: 716.99, ICD10: M12.9 Stable, no falls. 5. Chronic kidney disease, stage 3b (HCC) - ICD9: 585.3, ICD10: N18.32 - eGFR: 47 Stable - Counseled on avoiding NSAIDs, adequate hydration - Counseled on low sodium diet 6. Dyslipidemia - ICD9: 272.4, ICD10: E78.5 - Control undetermined, due for labs - Continue current medications - Counseled on healthy diet and regular exercise 7. Vitamin D deficiency - ICD9: 268.9, ICD10: E55.9 Stable, (more content not included)... Normal [facility] 25(OH)D3 [facility] 25-hydroxyvitamin D3 [Mass/Vol] 66.2 ng/mL Normal 31.0-80.0 [facility] Comment on above: Order Comment: Francois agosto Type: BLOOD SPECIMEN [facility] Address: [address] [place] [address] Result Comment: Clas sification of 25 [place] Vitamin D status: Deficiency/Insufficiency: < or = 30 ng/ml. Sufficiency/Optimal Levels: 31-80 ng/mL Toxicity: > 100 ng/mL. Test performed by chemiluminescent immunoassay. Performed By: #### 1 989-3 #### [facility] CLIA [id number] [address] [place] [address] [place] CBC panel Auto (Bld)on 02-05 Erythrocyte distribution width (RBC) [Ratio] 13.2 % Normal 11.5-15.0 [facility] Comment on above: Order Comment: Francois agosto Type: BLOOD SPECIMEN [facility] Address: [address] [place] [address] Performed By: #### 5 8410-2 #### [facility] CLIA [id number] [address] [place] [address] [place] Hematocrit (Bld) [Volume fraction] 39.1 % Normal 36.0-46.0 [facility] Comment on above: Order Comment: Speci men Type: BLOOD SPECIMEN [facility] Address: [address] [place] [address] Performed By: #### 5 8410-2 #### [facility] CLIA [id number] [address] [place] [address] [place] Hemoglobin (Bld) [Mass/Vol] 12.4 g/dL Normal 11.5-15.5 [facility] Comment on above: Order Comment: Speci men Type: BLOOD SPECIMEN [facility] Address: [address] [place] [address] Performed By: #### 5 8410-2 #### [facility] CLIA [id number] [address] [place] [address] [place] MCH (RBC) [Entitic mass] 31.9 pg Normal 26.0-34.0 [facility] Comment on above: Order Comment: Speci men Type: BLOOD SPECIMEN [facility] Address: [address] [place] [address] Performed By: #### 5 8410-2 #### [facility] CLIA [id number] [address] [place] [address] [place] MCHC (RBC) [Mass/Vol] 31.7 g/dL Normal 30.5-36.0 [facility] Comment on above: Order Comment: Speci men Type: BLOOD SPECIMEN [facility] Address: [address] [place] [address] Performed By: #### 5 8410-2 #### [facility] CLIA [id number] [address] [place] [address] [place] MCV (RBC) [Entitic vol] 100.5 fL High 80.0-100.0 [facility] Comment on above: Order Comment: Speci men Type: BLOOD SPECIMEN [facility] Address: [address] [place] [address] Performed By: #### 5 8410-2 #### [facility] CLIA [id number] [address] [place] [address] [place] Nucleated RBC (Bld) [#/Vol] 10*3/uL Normal <0.01 [facility] Comment on above: Order Comment: Speci men Type: BLOOD SPECIMEN [facility] Address: [address] [place] [address] Performed By: #### 5 8410-2 #### [facility] CLIA [id number] [address] [place] [address] [place] Platelet mean volume (Bld) [Entitic vol] 9.6 fL Normal 9.0-12.7 [facility] Comment on above: Order Comment: Speci men Type: BLOOD SPECIMEN [facility] Address: [address] [place] [address] Performed By: #### 5 8410-2 #### [facility] CLIA [id number] [address] [place] [address] [place] Platelets (Bld) [#/Vol] 324 10*3/uL Normal 150-400 [facility] Comment on above: Order Comment: Speci men Type: BLOOD SPECIMEN [facility] Address: [address] [place] [address] Performed By: #### 5 8410-2 #### [facility] CLIA [id number] [address] [place] [address] [place] RBC (Bld) [#/Vol] 3.89 10*6/uL Low 3.90-5.20 [facility] Comment on above: Order Comment: Speci men Type: BLOOD SPECIMEN [facility] Address: [address] [place] [address] Performed By: #### 5 8410-2 #### [facility] CLIA [id number] [address] [place], [place] [id number] [place] WBC (Bld) [#/Vol] 9.53 10*3/uL Normal 3.70-11.00 [facility] Comment on above: Order Comment: Speci men Type: BLOOD SPECIMEN [facility] Address: [address] [place] [address] Performed By: #### 5 8410-2 #### [facility] CLIA [id number] [address] [place], [place] [address] [place] Comprehensive metabolic 2000 panelon 02-06-2024 Albumin [Mass/Vol] 4.0 g/dL Normal 3.9-4.9 [facility] Comment on above: Order Comment: Speci men Type: BLOOD SPECIMEN [facility] Address: [address] [place] [address] Performed By: #### 1 988-5, , 2131-12, 3040-3 #### [facility] CLIA [id number] [address] [place] [address] [place] ALP [Catalytic activity/Vol] 76 U/L Normal 34-123 [facility] Comment on above: Order Comment: Speci men Type: BLOOD SPECIMEN [facility] Address: [address] [place] [address] Performed By: #### 1 988-5, , 2131-12, 3040-3 #### [facility] CLIA [id number] [address] [place] [address] [place] ALT [Catalytic activity/Vol] 11 U/L Normal 7-38 [facility] Comment on above: Order Comment: Speci men Type: BLOOD SPECIMEN [facility] Address: [address] [place] [address] Performed By: #### 1 988-5, , 2131-12, 0-3 #### [facility] CLIA [id number] [address] [place], [place] [address] [place] Anion gap [Moles/Vol] 12 mmol/L Normal 8-15 [facility] Comment on above: Order Comment: Speci men Type: BLOOD SPECIMEN Order[facility] Address: [address] [place] [address] Performed By: #### 1 988-5, , 2131-12, 0-3 #### [facility] CLIA [id number] [address] [place] [address] [place] AST [Catalytic activity/Vol] 18 U/L Normal 13-35 [facility] Comment on above: Order Comment: Speci men Type: BLOOD SPECIMEN [facility] Address: [address] [place] [address] Performed By: #### 1 988-5, , 2131-12, 0-3 #### [facility] CLIA [id number] [address] [place], [place] [address] [place] Bilirubin [Mass/Vol] 0.4 mg/dL Normal 0.2-1.3 [facility] Comment on above: Order Comment: Speci men Type: BLOOD SPECIMEN Ordering [facility] Address: [address] [place], [place] [address] Performed By: #### 1 988-5, , 2131-12, 0-3 #### [facility] CLIA [id number] [address] [place], [place] [address] [place] Calcium [Mass/Vol] 9.6 mg/dL Normal 8.5-10.2 [facility] Comment on above: Order Comment: Speci men Type: BLOOD SPECIMEN Ordering Facility: [facility] Address: [address] [place], [place] [address] Performed By: #### 1 988-5, , 2131-12, 0-3 #### [facility] CLIA [id number] [address] [place] [address] [place] Chloride [Moles/Vol] 104 mmol/L Normal 98-107 [facility] Comment on above: Order Comment: Speci men Type: BLOOD SPECIMEN Ordering Facility: [facility] Address: [address] [place] [address] Performed By: #### 1 988-5, 79649-2, 2131-12, 0-3 #### [facility] CLIA [id number] [address] [place] [address] [place] CO2 [Moles/Vol] 24 mmol/L Normal 22-30 [facility] Comment on above: Order Comment: Speci men Type: BLOOD SPECIMEN Ordering Facility[facility] Address: [address] [place] [address] Performed By: #### 1 988-5, , 2131-12, 0-3 #### [facility] CLIA [id number] [address] [place] [address] [place] Creatinine [Mass/Vol] 1.14 mg/dL High 0.58-0.96 [facility] Comment on above: Order Comment: Speci men Type: BLOOD SPECIMEN Ordering Facility[facility] Address: [address] [place] [address] Performed By: #### 1 988-5, , 2131-12, 3040-3 #### [facility] CLIA [id number] [address] [place] [address] [place] Creatinine and Glomerular filtration rate.predicted panel (S/P/Bld) 47 mL/min/1.73m??? Low >=60 [facility] Comment on above: Order Comment: Speci men Type: BLOOD SPECIMEN Ordering Facility[facility] Address: [address] [place] [address] Result Comment: Beatrice mated Glomerular Filtration Rate (eGFR) is calculated using the 2020 CKD-EPI creatinine equation. This equation utilizes serum creatinine, sex, and age as parameters. The creatinine assay has traceable calibration to isotope dilution-mass spectrometry. Refer to KDIGO guidelines for clinical interpretation. In patients with unstable renal function, e.g. those with acute kidney injury, the eGFR may not accurately reflect actual GFR. Performed By: #### 1 988-5, , 2131-12, 3039-3 #### [facility] CLIA [id number] [address] [place] [address] [place] Glucose [Mass/Vol] 65 mg/dL Low 74-99 [facility] Comment on above: Order Comment: Francois agosto Type: BLOOD SPECIMEN Ordering Facility: [facility] Address: [address] [place] [address] Result Comment: The [place] Diabetes Association (ADA) provides guidance for cutoff values for fasting glucose and random glucose. The ADA defines fasting as no caloric intake for at least 8 hours. Fasting plasma glucose results between 100 to 125 mg/dL indicate increased risk for diabetes (prediabetes). Fasting plasma glucose results greater than or equal to 126 mg/dL meet the criteria for diagnosis of diabetes. In the absence of unequivocal hyperglycemia, results should be confirmed by repeat testing. In a patient with classic symptoms of hyperglycemia or hyperglycemic crisis, random plasma glucose results greater than or equal to 200 mg/dL meet the criteria for diagnosis of diabetes. Reference: Standards of Medical Care in Diabetes 2016, [place] Diabetes Association. Diabetes Care. 2016.39(Suppl 1). Performed By: #### 1 988-5, , 2131-12, 3039-3 #### [facility] CLIA [id number] [address] [place], [place] [address] [place] Potassium [Moles/Vol] 4.1 mmol/L Normal 3.7-5.1 [facility] Comment on above: Order Comment: Francois agosto Type: BLOOD SPECIMEN Ordering Facility[facility] Address: [address] [place] [address] Performed By: #### 1 988-5, 12474-5, 9, 0-3 #### [facility] CLIA [id number] [address] [place], [place] [address] [place] Protein [Mass/Vol] 6.8 g/dL Normal 6.3-8.0 [facility] Comment on above: Order Comment: Speci men Type: BLOOD SPECIMEN Ordering Facility[facility] Address: [address] [place] [address] Performed By: #### 1 988-5, , 2131-12, 3040-3 #### [facility] CLIA [id number] [address] [place], [place] [address] [place] Sodium [Moles/Vol] 140 mmol/L Normal 136-144 [facility] Comment on above: Order Comment: Speci men Type: BLOOD SPECIMEN Ordering Facility[facility] Address: [address] [place] [address] Performed By: #### 1 988-5, , 2131-12, 3040-3 #### [facility] CLIA [id number] [address] [place] [address] [place] Urea nitrogen [Mass/Vol] 16 mg/dL Normal 7-21 [facility] Comment on above: Order Comment: Speci men Type: BLOOD SPECIMEN Ordering Facility: [facility] Address: [address] [place] [address] Performed By: #### 1 988-5, , 2131-12, 3040-3 #### [facility] CLIA [id number] [address] [place] [address] [place] HbA1c (Bld)on 02-06-2024 Average glucose Estimated from glycated hemoglobin (Bld) [Mass/Vol] 111 mg/dL Normal [facility] Comment on above: Order Comment: Speci men Type: BLOOD SPECIMEN Ordering Facility: [facility] Address: [address] [place], [place] [address] Result Comment: eAG: (Estimated average glucose) is a calculated value from HgbA1c and is leasing representative of the average blood glucose level in the last 2-3 month period. Performed By: #### 5 5454-3 #### [facility] CLIA [id number] [address] [place] [address] [place] HbA1c (Bld) [Mass fraction] 5.5 % Normal 4.3-5.6 [facility] Comment on above: Order Comment: Francois agosto Type: BLOOD SPECIMEN Ordering Facility: [facility] Address: [address] [place] [address] Result Comment: [place] Diabetes Association guidelines indicate that patients with HgbA1c in the range 5.7-6.4% are at increased risk for development of diabetes, and intervention by lifestyle modification may be beneficial. HgbA1c greater or equal to 6.5% is considered diagnostic of diabetes. Performed By: #### 5 5454-3 #### [facility] CLIA [id number] [address] [place] [address] [place] Lipid 1996 panelon 4 Cholesterol [Mass/Vol] 151 mg/dL Normal <200 [facility] Comment on above: Order Comment: Francois agosto Type: BLOOD SPECIMEN Ordering Facility: [facility] Address: [address] [place] [address] Result Comment: <200 mg/dL, Desirable 200-239 mg/dL, Borderline high >239 mg/dL, High Performed By: #### 1 988-5, 09421-6, 2132-9, 3040-3 #### [facility] CLIA [id number] [address] [place] [address] [place] Cholesterol in HDL [Mass/Vol] 47 mg/dL Normal >39 [facility] Comment on above: Order Comment: Francois agosto Type: BLOOD SPECIMEN Ordering Facility[facility] Address: [address] [place] [address] Result Comment: 40-5 9 mg/dL, Acceptable >59 mg/dL, High: Negative risk factor for coronary heart disease <40 mg/dL, Low: Positive risk factor for coronary heart disease Performed By: #### 1 988-5, , 2131-12, 3039-3 #### [facility] CLIA [id number] [address] [place], [place] [address] [place] [address] [place] Cholesterol in LDL [Mass/Vol] 84 mg/dL Normal <100 [facility] Comment on above: Order Comment: Speci men Type: BLOOD SPECIMEN Ordering Facility[facility] Address: [address] [place] [address] Result Comment: <100 mg/dL, Optimal 100-129 mg/dL, Near optimal/above optimal 130-159 mg/dL, Borderline high 160-189 mg/dL, High >189 mg/dL, Very high Secondary prevention optimal LDL Cholesterol levels are recommended to be < 70 mg/dL Performed By: #### 1 988-5, , 2131-12, 3 #### [facility] CLIA [id number] [address] [place] [address] [place] Cholesterol in LDL/Cholesterol in HDL [Mass ratio] 1.79 {ratio} Normal <2.54 [facility] Comment on above: Order Comment: Marleni men Type: BLOOD SPECIMEN Ordering Facility[facility] Address: [address] [place] [address] Result Comment: Refe rence: 1. National Cholesterol Education Program ATP III Guideline At-A-Glance Quick Desk Reference: National Heart, Lung, and Blood [place]. National Institutes of Health. 2001: NIH Publication No. 01-3305. 2. An International Atherosclerosis Society position paper: global recommendations for the management of dyslipidemia: executive summary, Atherosclerosis. 2014: 232(2):410-413. Performed By: #### 1 988-5, , 2131-12, 3039-3 #### [facility] CLIA [id number] [address] [place], [place] [address] [place] Cholesterol in VLDL [Mass/Vol] 20 mg/dL Normal <30 [facility] Comment on above: Order Comment: Speci men Type: BLOOD SPECIMEN Ordering Facility: [facility] Address: [address] [place] [address] Performed By: #### 1 988-5, , 2131-12, 0-3 #### [facility] CLIA [id number] [address] [place] [address] [place] Cholesterol non HDL [Mass/Vol] 104 mg/dL Normal <130 [facility] Comment on above: Order Comment: Speci men Type: BLOOD SPECIMEN Ordering Facility[facility] Address: [address] [place] [address] Result Comment: <130 mg/dL, Optimal 130-159 mg/dL, Near optimal/above optimal 160-189 mg/dL, Borderline high 190-219 mg/dL, High >219 mg/dL, Very high Secondary prevention optimal non HDL Cholesterol levels are recommended to be <100 mg/dL Performed By: #### 1 988-5, , 2131-12, 0-3 #### [facility] CLIA [id number] [address] [place] [address] [place] Cholesterol.total/Cho lesterol in HDL [Mass ratio] 3.21 {ratio} Normal <5.10 [facility] Comment on above: Order Comment: Speci men Type: BLOOD SPECIMEN Ordering Facility: [facility] Address: [address] [place] [address] Performed By: #### 1 988-5, , 2131-12, 0-3 #### [facility] CLIA [id number] [address] [place] [address] [place] FASTING TIME 12 hrs Normal [facility] Comment on above: Order Comment: Speci men Type: BLOOD SPECIMEN Ordering Facility[facility] Address: [address] [place], [place] [address] Performed By: #### 1 988-5, , 2131-12, 0-3 #### [facility] CLIA [id number] [address] [place], [place] [address] [place] Triglyceride [Mass/Vol] 99 mg/dL Normal <150 [facility] Comment on above: Order Comment: Speci men Type: BLOOD SPECIMEN Ordering Facility[facility] Address: [address] [place] [address] Result Comment: <150 mg/dL, Normal 150-199 mg/dL, Borderline high 200-499 mg/dL, High >499 mg/dL, Very high Performed By: #### 1 988-5, 44231-7, 9, 0-3 #### [facility] CLIA [id number] [address] [place] [address] [place] TSH SerPl-aCncon 02-06-2024 TSH Qn 2.780 m[IU]/L Normal 0.270-4.200 [facility] Comment on above: Order Comment: Speci men Type: BLOOD SPECIMEN Ordering Facility[facility] Address: [address] [place] [address] Performed By: #### 1 988-5, 89770-9, 2131-12, 0-3 #### [facility] CLIA [id number] [address] [place] [address] [place] Vit B12 SerPl-mCncon 024 Cobalamin (Vitamin B12) [Mass/Vol] 1118 pg/mL Normal 232-1245 [facility] Comment on above: Order Comment: Speci men Type: BLOOD SPECIMEN Ordering Facility[facility] Address: [address] [place] [address] Performed By: #### 1 988-5, , 2131-12, 0-3 #### [facility] CLIA [id number] [address] [place] [address] [place] Basophil percentageOrdered B y: Dr. Chou on 08-08-2022 Bilirubin [Mass/Vol] 0.50 mg/dL 0.20-1.00 [facility] Comment on above: For patients on eltr ombopag therapy, use of Dimension [place] TBIL is not recommended. Cholesterol [Mass/Vol] 148 mg/dL <200 [facility] Comment on above: <200 mg/dL Desirable 200-240 mg/dL Borderline >240 mg/dL High Risk Protein [Mass/Vol] 6.8 g/dL 6.4-8.2 [facility] Triglyceride [Mass/Vol] 105 mg/dL <199 [facility] Comment on above: The drugs N-Acetylcy steine and Metamizole may falsely depress this assay.Serum Triglycerides Reference Interval Normal <150 mg/dL Borderline high 150 - 199 mg/dL High 200 - 499 mg/dL Very High > or = 500 mg/dL Direct bilirubinOrdered By: Dr. Chou on 08-08-2022 Bilirubin.direct [Mass/Vol] 0.18 mg/dL 0.00-0.30 [facility] Laboratory - Chemistry and C hemistry - challengeOrdered By: Dr. Chou on 08-08-2022 ALP [Catalytic activity/Vol] 81 U/L 45-117 [facility] ALT [Catalytic activity/Vol] 20 U/L 13-56 [facility] Globulin (S) [Mass/Vol] 3.4 g/dL 2.2-4.2 [facility] Serum or plasma albumin edna urement (mass/volume)Ordered By: Dr. Chou on 08-08-2022 Albumin [Mass/Vol] 3.4 g/dL 3.2-5.0 [facility] Serum or plasma cholesterol in HDL measurement (mass/volume)Ordered By: Dr. Chou on 08-08-2022 Cholesterol in HDL [Mass/Vol] 54 mg/dL >40 [facility] Comment on above: The drugs N-Acetylcy steine and Metamizole may falsely depress this assay. Reference Range HDL <40 mg/dL Low HDL Cholesterol HDL >or= 60 mg/dL High HDL Cholesterol Serum or plasma cholesterol in VLDL measurement (mass/volume)Ordered By: Dr. Chou on 08-08-2022 Cholesterol in VLDL [Mass/Vol] 21 mg/dL 5-40 [facility] Serum or plasma low density lipoprotein (LDL) cholesterol measurement (mass/volume)Ordered By: Dr. Chou on 08-08-2022 Cholesterol in LDL [Mass/Vol] 73 mg/dL 0-130 [facility] Thin prep Papanicolaou smear with manual screeningOrdered By: Dr. Chou on 08-08-2022 Thin prep Papanicolaou smear with manual screening 20 U/L 15-37 [facility] CBC W Auto Differential pane l (Bld)on 01-11-2022 Abs Immature Gran <0.10 k/uL [facility] Basophils (Bld) [#/Vol] 0.06 10*3/uL <0.11 k/uL [facility] Basophils/100 WBC (Bld) 0.6 % [facility] Differential cell count method Nom (Bld) Auto [facility] Eosinophils (Bld) [#/Vol] 0.67 10*3/uL High <0.46 k/uL [facility] Eosinophils/100 WBC (Bld) 6.7 % [facility] Erythrocyte distribution width (RBC) [Ratio] 12.9 % 11.5 - 15.0 % [facility] Hematocrit (Bld) [Volume fraction] 39.9 % 36.0 - 46.0 % [facility] Hemoglobin (Bld) [Mass/Vol] 12.6 g/dL 11.5 - 15.5 g/dL [facility] Immature Gran % 0.2 % [facility] Lymphocytes (Bld) [#/Vol] 1.82 10*3/uL 1.00 - 4.00 k/uL [facility] Lymphocytes/100 WBC (Bld) 18.1 % [facility] MCH (RBC) [Entitic mass] 31.4 pg 26.0 - 34.0 pg [facility] MCHC (RBC) [Mass/Vol] 31.6 g/dL 30.5 - 36.0 g/dL [facility] MCV (RBC) [Entitic vol] 99.5 fL 80.0 - 100.0 fL [facility] Monocytes (Bld) [#/Vol] 0.74 10*3/uL <0.87 k/uL [facility] Monocytes/100 WBC (Bld) 7.4 % [facility] Neutrophils (Bld) [#/Vol] 6.74 10*3/uL 1.45 - 7.50 k/uL [facility] Neutrophils/100 WBC (Bld) 67.0 % [facility] Nucleated RBC (Bld) [#/Vol] <0.01 k/uL [facility] Nucleated RBC/100 WBC (Bld) [Ratio] 0.0 /100 WBC [facility] Platelet mean volume (Bld) [Entitic vol] 9.3 fL 9.0 - 12.7 fL [facility] Platelets (Bld) [#/Vol] 303 10*3/uL 150 - 400 k/uL [facility] RBC (Bld) [#/Vol] 4.01 10*6/uL 3.90 - 5.2 0 m/uL [facility] WBC (Bld) [#/Vol] 10.05 10*3/uL 3.70 - 11 .00 k/uL [facility] Vital Signs Date Time Vital Sign Value Performing Clinician Facility 08-13-2024 09:34-0400 Body mass index (BMI) [Ratio] 23.4 kg/m2 Luis M Herbert DO Work Phone: [facility] 08-13-2024 09:34-0400 Body temperature 97.3 [degF] Luis M Herbert DO Work Phone: [facility] 08-13-2024 09:34-0400 Body weight 58.97 kg Luis M Herbert DO Work Phone: [facility] 08-13-2024 09:34-0400 Diastolic blood pressure 80 mm[Hg] Luis M Herbert DO Work Phone: [facility] 08-13-2024 09:34-0400 Heart rate 60 /min Luis M Herbert DO Work Phone: [facility] 08-13-2024 09:34-0400 Respiratory rate 20 /min Lusi M Herbert DO Work Phone: [facility] 08-13-2024 09:34-0400 Systolic blood pressure 130 mm[Hg] Luis M Herbert DO Work Phone: [facility] 02-13-2024 07:57-0500 Body mass index (BMI) [Ratio] 24.44 kg/m2 Luis M Herbert DO Work Phone: [facility] 02-13-2024 07:57-0500 Body temperature 96.69 [degF] Luis M Herbert DO Work Phone: [facility] 02-13-2024 07:57-0500 Body weight 61.6 kg Luis M Herbert DO Work Phone: [facility] 02-13-2024 07:57-0500 Diastolic blood pressure 80 mm[Hg] Luis M Herbert DO Work Phone: [facility] 02-13-2024 07:57-0500 Heart rate 64 /min Luis M Herbert DO Work Phone: [facility] 02-13-2024 07:57-0500 Respiratory rate 16 /min Luis M Herbert DO Work Phone: [facility] 02-13-2024 07:57-0500 Systolic blood pressure 128 mm[Hg] Luis M Herbert DO Work Phone: [facility] 08-13-2023 08:02-0400 Body mass index (BMI) [Ratio] 24.48 kg/m2 Luis M Herbert DO Work Phone: [facility] 08-13-2023 08:02-0400 Body temperature 97 [degF] Luis M Herbert DO Work Phone: [facility] 08-13-2023 08:02-0400 Body weight 61.69 kg Luis M Herbert DO Work Phone: [facility] 08-13-2023 08:02-0400 Diastolic blood pressure 70 mm[Hg] Luis M Herbert DO Work Phone: [facility] 08-13-2023 08:02-0400 Heart rate 64 /min Luis M Herbert DO Work Phone: [facility] 08-13-2023 08:02-0400 Respiratory rate 24 /min Luis M Herbert DO Work Phone: [facility] 08-13-2023 08:02-0400 Systolic blood pressure 120 mm[Hg] Luis M Herbert DO Work Phone: [facility] 02-12-2023 08:02-0500 Body temperature 96.4 [degF] Luis M Herbert DO Work Phone: [facility] 02-12-2023 08:02-0500 Body weight 60.78 kg Luis M Enamoradorison DO Work Phone: [facility] 02-12-2023 08:02-0500 Diastolic blood pressure 80 mm[Hg] Luis M Herbert DO Work Phone: [facility] 02-12-2023 08:02-0500 Heart rate 64 /min Luis M Enamoradorison DO Work Phone: [facility] 02-12-2023 08:02-0500 Respiratory rate 16 /min Luis M Herbert DO Work Phone: [facility] 02-12-2023 08:02-0500 Systolic blood pressure 130 mm[Hg] Luis M Herbert DO Work Phone: [facility] 08-08-2022 08:55-0400 Diastolic blood pressure 88 mm[Hg] Dr. Luis M Herbert Work Phone: [facility] 08-08-2022 08:55-0400 Systolic blood pressure 184 mm[Hg] Dr. Luis M Herbert Work Phone: [facility] 08-08-2022 08:42-0400 Body height 157.[address] Luis M Herbert Work Phone: [facility] 08-08-2022 08:42-0400 Body mass index (BMI) [Ratio] 24.8 kg/m2 Dr. Luis M Herbert Work Phone: [facility] 08-08-2022 08:42-0400 Body weight 61.[address] Luis M Herbert Work Phone: [facility] 08-08-2022 08:42-0400 Heart rate 62 /min Dr. Luis M Herbert Work Phone: [facility] 08-08-2022 08:42-0400 Respiratory rate 18 /min Dr. Luis M Herbert Work Phone: [facility] 07-19-2022 08:02-0400 Body temperature 97 [degF] Luis M Herbert DO Work Phone: [facility] 07-19-2022 08:02-0400 Body weight 61.24 kg Luis M Herbert DO Work Phone: [facility] 07-19-2022 08:02-0400 Diastolic blood pressure 60 mm[Hg] Luis M Herbert DO Work Phone: [facility] 07-19-2022 08:02-0400 Heart rate 64 /min Luis M Herbert DO Work Phone: [facility] 07-19-2022 08:02-0400 Respiratory rate 20 /min Luis M Herbert DO Work Phone: [facility] 07-19-2022 08:02-0400 Systolic blood pressure 122 mm[Hg] Luis M Herbert DO Work Phone: [facility] 01-11-2022 07:59-0400 Body temperature 97 [degF] Luis M Herbert DO Work Phone: [facility] 01-11-2022 07:59-0400 Body weight 63.5 kg Luis M Herbert DO Work Phone: [facility] 01-11-2022 07:59-0400 Diastolic blood pressure 60 mm[Hg] Luis M Herbert DO Work Phone: [facility] 01-11-2022 07:59-0400 Heart rate 64 /min Luis M Herbert DO Work Phone: [facility] 01-11-2022 07:59-0400 Respiratory rate 16 /min Luis M Herbert DO Work Phone: [facility] 01-11-2022 07:59-0400 Systolic blood pressure 120 mm[Hg] Luis M Herbert DO Work Phone: [facility] 07-11-2021 09:10-0400 Diastolic blood pressure 72 mm[Hg] Luis M Herbert DO Work Phone: [facility] 07-11-2021 09:10-0400 Systolic blood pressure 124 mm[Hg] Luis M Herbert DO Work Phone: [facility] 07-11-2021 08:47-0400 Body temperature 96.3 [degF] Luis M Mclaughlinon DO Work Phone: [facility] 07-11-2021 08:47-0400 Body weight 63.5 kg Luis M Enamoradorison DO Work Phone: [facility] 07-11-2021 08:47-0400 Heart rate 64 /min Luis M Herbert DO Work Phone: [facility] 07-11-2021 08:47-0400 Respiratory rate 16 /min Luis M Herbert DO Work Phone: [facility] 06-30-2021 08:34-0400 Body height 157.[address] Luis M Herbert Work Phone: [facility] Work Phone: 06-30-2021 08:34-0400 Body mass index (BMI) [Ratio] 25.2 kg/m2 Dr. Luis M Herbert Work Phone: [facility] Work Phone: 06-30-2021 08:34-0400 Body weight 62.[address] Luis M Herbert Work Phone: [facility] Work Phone: 06-30-2021 08:34-0400 Diastolic blood pressure 83 mm[Hg] Dr. Luis M Herbert Work Phone: [facility] Work Phone: 06-30-2021 08:34-0400 Heart rate 70 /min Dr. Luis M Herbert Work Phone: [facility] Work Phone: 06-30-2021 08:34-0400 Respiratory rate 18 /min Dr. Luis M Herbert Work Phone: [facility] Work Phone: 06-30-2021 08:34-0400 SaO2% (BldA) [Mass fraction] 94 % Dr. Luis M Herbert Work Phone: [facility] Work Phone: 06-30-2021 08:34-0400 Systolic blood pressure 129 mm[Hg] Dr. Luis M Herbert Work Phone: [facility] Work Phone: Encounters Encounter Date Encounter Type Care Provider Facility Start: 09-22-2024 ambulatory Beau Yepez Facility :[facility] Start: 08-15-2024 End: 08-15-2024 Follow-up encounter Luis M Herbert DO Work Phone: [facility] [place] Start: 08-13-2024 End: 08-14-2024 Telephone encounter Luis M Herbert DO Work Phone: [facility] Comment on above: Patient Question (re garding pain med) Start: 08-13-2024 End: 08-13-2024 ambulatory LUIS M HERBERT Facility:[facility] Start: 08-13-2024 End: 08-13-2024 Patient encounter procedure Luis M Herbert DO Work Phone: [facility] [place] Comment on above: Diarrhea, unspecifie d type (Primary Dx); Abdominal bloating; Vitamin D deficiency; Vitamin B12 deficiency; Hypertension, essential; Dyslipidemia; Pure hypercholesterolemia; Hyperglycemia; Chronic neck pain; Osteoarthritis of spine with radiculopathy, cervical region; Bilateral shoulder pain, unspecified chronicity; Chronic pain syndrome Start: 08-13-2024 End: 08-13-2024 ambulatory LUIS M HERBERT Facility:[facility] Start: 08-11-2024 End: 08-11-2024 ambulatory Freedom Chou Facility:[facility] Start: 07-08-2024 End: 07-08-2024 Telephone encounter Lius M Herbert DO Work Phone: [facility] Comment on above: Medication Question Start: 06-23-2024 End: 06-23-2024 Refill Luis M Herbert DO Work Phone: [address] [place] [address] Comment on above: Refill Request Start: 02-14-2024 End: 02-14-2024 ambulatory Freedom Chou Facility:[facility] Start: 02-13-2024 End: 02-13-2024 ambulatory LUIS M HERBERT Facility:[facility] Start: 02-13-2024 End: 02-13-2024 Patient encounter procedure Luis M Herbert DO Work Phone: [facility] [place] Comment on above: Hypertension, essent ial (Primary Dx); Need for influenza vaccination; Vitamin B12 deficiency; Arthritis, multiple joint involvement; Chronic kidney disease, stage 3b (HCC); Dyslipidemia; Vitamin D deficiency; Pure hypercholesterolemia; Typical atrial flutter (HCC); Cardiac pacemaker Start: 02-06-2024 End: 02-06-2024 ambulatory LUIS M HERBERT Facility:[facility] Start: 12-24-2023 End: 12-24-2023 Refill Luis M Herbert DO Work Phone: [facility] [place] Comment on above: Refill Request Start: 08-13-2023 End: 08-13-2023 Patient encounter procedure Luis M Herbert DO Work Phone: [facility] [place] Comment on above: Hypertension, essent ial (Primary Dx); Chronic kidney disease, stage 3b (HCC); Dyslipidemia; Vitamin D deficiency; Vitamin B12 deficiency; Hyperglycemia; Paralytic syndrome, unspecified (HCC); Complete atrioventricular block (HCC); Pulmonary arterial hypertension (HCC); Arthritis, multiple joint involvement Start: 07-30-2023 Refill Luis M alba DO Work Phone: [facility] [place] Comment on above: Refill Request Start: 06-25-2023 Refill Luis M alba DO Work Phone: [facility] [place] Comment on above: Refill Request; Refi ll Request Start: 03-26-2023 Refill Luis M alba DO Work Phone: [facility] [place] Comment on above: Refill Request Start: 02-12-2023 End: 02-12-2023 Patient encounter procedure Luis M Herbert DO Work Phone: [facility] [place] Comment on above: Hypertension, essent ial (Primary Dx); Stroke with cerebral ischemia (HCC); Need for influenza vaccination; Irritable bowel syndrome with diarrhea; Impacted cerumen of right ear; Pulmonary arterial hypertension (HCC); Chronic kidney disease, stage 3b (HCC); Dyslipidemia; Vitamin D deficiency; Vitamin B12 deficiency; Arthritis, multiple joint involvement Start: 08-08-2022 End: 08-08-[address] Luis M Herbert Work Phone: [facility] Work Phone: Start: 08-08-2022 End: 08-08-[address] Luis M Herbert Work Phone: [facility] Start: 07-19-2022 End: 07-19-2022 Patient encounter procedure Luis M Herbert DO Work Phone: [facility] Comment on above: Stroke with cerebral ischemia (HCC) (Primary Dx); Vitamin B12 deficiency; Hypertension, essential; Vitamin D deficiency; Dyslipidemia; Hyperglycemia; Arthritis, multiple joint involvement Start: 06-10-2022 Refill Kathy Lew APRN.SPANISH PROFESSOR Work Phone: [facility] Comment on above: Refill Request Start: 01-12-[address] julita GROVESSPANISH PROFESSOR Work Phone: [facility] Comment on above: Results Start: 01-11-2022 End: 01-11-2022 Patient encounter procedure Luis M Herbert DO Work Phone: [facility] Comment on above: Stroke with cerebral ischemia (HCC) (Primary Dx); Hypertension, essential; Need for influenza vaccination; Vitamin D deficiency; Vitamin B12 deficiency; Dyslipidemia; Hyperglycemia; Arthritis, multiple joint involvement Start: 09-09-2021 Refill Luis M alba DO Work Phone: [facility] Comment on above: Refill Request Start: 08-09-2021 Non-patient / Non-visit Dr. Tessie Herbert Work Phone: [facility] Start: 08-09-2021 End: 08-09-[address] Luis M Herbert Work Phone: [facility] Start: 07-11-2021 End: 07-11-2021 Patient encounter procedure Luis M Herbert DO Work Phone: [facility] Comment on above: Hypertension, essent ial (Primary Dx); Arthritis, multiple joint involvement; Vitamin D deficiency; Vitamin B12 deficiency; Dyslipidemia; History of stroke with residual effects Start: 06-30-2021 End: 06-30-[address] Luis M Herbert Work Phone: [facility] Procedures Date Procedure Procedure Detail Performing Clinician Start: 08-13-2024 Inf agent det nuclei c acid clostridium amp probe Luis M Herbert DO Work Phone: Start: 08-13-2024 Nfct agent dna/rna gastrointestinal pathogen Luis M Herbert DO Work Phone: Start: 08-13-2023 Adult depression scr eening assessment Luis M Herbert DO Work Phone: Start: 02-12-2023 INFLUENZA VACCINE, P RSV FREE, AGE 65+ YR, HIGH DOSE, QUADRIVALENT (FLUZONE HIGH-DOSE) Luis M Herbert DO Work Phone: Start: 01-11-2022 INFLUENZA SEASONAL QUADRIVALENT HIGH DOSE AGE 65+ Luis M Herbert DO Work Phone: Plan of Treatment Date Care Activity Detail Author Start: 08-14-2027 Diabetes Screening Diabetes Screenin g [facility] Start: 02-05-2027 Diabetes Screening Diabetes Screenin g [facility] Start: 01-18-2026 Diabetes Screening Diabetes Screenin g [facility] Start: 02-17-2025 End: 02-17-2025 Patient encounter procedure 02/17/2025 10:40 AM EST Office Visit [facility] [address] [place], [place] [id number] Luis M Herbert DO [address] [place], [place] [id number] 3 month follow up Family [facility] Comment on above: 3 month follow up Start: 01-11-2025 DIABETES SCREEN DIABETES SCREEN [facility] Start: 11-12-2024 End: 11-12-2024 Patient encounter procedure 11/12/2024 1:00 PM EDT Office Visit [facility] [address] [place] [address] Luis M Herbert DO [address] [place] [address] 3 month follow up Family [facility] Comment on above: 3 month follow up Start: 08-13-2024 End: 11-12-2024 [employer] [facility] Work Phone: Comment on above: Expected: 08/13/2024 , Expires: 11/12/2024 Start: 08-13-2024 End: 11-12-2024 Hemoglobin A1c in Blood [facility] Comment on above: Expected: 08/13/2024 , Expires: 11/12/2024 Start: 08-13-2024 End: 08-13-2024 Patient encounter procedure 08/13/2024 9:20 AM EDT Office Visit [facility] [address] [place] [address] Luis M Herbert DO [address] [place] [address] 6 month follow up [facility] Comment on above: 6 month follow up Start: 08-12-2024 End: 11-11-2024 25-hydroxyvitamin D3 [Mass/volume] in Serum or Plasma VITAMIN D 25 HYDROXY Lab Routine Vitamin D deficiency Expected: 08/12/2024, Expires: 11/11/2024 [facility] Comment on above: Expected: 08/12/2024 , Expires: 11/11/2024 Start: 08-12-2024 Anxiety Screening Anxiety Screening [facility] Start: 08-12-2024 End: 11-11-2024 CBC panel - Blood by Automated count COMPLETE BLOOD COUNT Lab Routine Dyslipidemia Expected: 08/12/2024, Expires: 11/11/2024 [facility] Comment on above: Expected: 08/12/2024 , Expires: 11/11/2024 Start: 08-12-2024 End: 11-11-2024 Cobalamin (Vitamin B12) [Mass/volume] in Serum or Plasma VITAMIN B12 Lab Routine Vitamin B12 deficiency Expected: 08/12/2024, Expires: 11/11/2024 [facility] Comment on above: Expected: 08/12/2024 , Expires: 11/11/2024 Start: 08-12-2024 End: 11-11-2024 Comprehensive metabolic 2000 panel - Serum or Plasma COMPREHENSIVE METABOLIC PANEL Lab Routine Dyslipidemia Expected: 08/12/2024, Expires: 11/11/2024 [facility] Comment on above: Expected: 08/12/2024 , Expires: 11/11/2024 Start: 08-12-2024 Depression Screening Depression Scre ening [facility] Start: 08-12-2024 End: 11-11-2024 Lipid 1996 panel - Serum or Plasma LIPID PANEL BASIC Lab Routine Dyslipidemia Expected: 08/12/2024, Expires: 11/11/2024 [facility] Work Phone: Comment on above: Expected: 08/12/2024 , Expires: 11/11/2024 Start: 08-12-2024 End: 11-11-2024 Magnesium [Mass/volume] in Serum or Plasma MAGNESIUM Lab Routine Vitamin B12 deficiency Chronic kidney disease, stage 3b (HCC) Dyslipidemia Typical atrial flutter (HCC) Cardiac pacemaker Expected: 08/12/2024, Expires: 11/11/2024 [facility] Comment on above: Expected: 08/12/2024 , Expires: 11/11/2024 Start: 02-13-2024 End: 05-14-2024 25-hydroxyvitamin D3 [Mass/volume] in Serum or Plasma VITAMIN D 25 HYDROXY Lab Routine Vitamin D deficiency Expected: 02/13/2024, Expires: 05/14/2024 [facility] Comment on above: Expected: 02/13/2024 , Expires: 05/14/2024 Start: 02-13-2024 End: 05-14-2024 CBC panel - Blood by Automated count COMPLETE BLOOD COUNT Lab Routine Chronic kidney disease, stage 3b (HCC) Dyslipidemia Expected: 02/13/2024, Expires: 05/14/2024 [facility] Comment on above: Expected: 02/13/2024 , Expires: 05/14/2024 Start: 02-13-2024 End: 05-14-2024 Cobalamin (Vitamin B12) [Mass/volume] in Serum or Plasma VITAMIN B12 Lab Routine Vitamin B12 deficiency Expected: 02/13/2024, Expires: 05/14/2024 [facility] Comment on above: Expected: 02/13/2024 , Expires: 05/14/2024 Start: 02-13-2024 End: 05-14-2024 Comprehensive metabolic 2000 panel - Serum or Plasma COMPREHENSIVE METABOLIC PANEL Lab Routine Chronic kidney disease, stage 3b (HCC) Dyslipidemia Expected: 02/13/2024, Expires: 05/14/2024 [facility] Work Phone: Comment on above: Expected: 02/13/2024 , Expires: 05/14/2024 Start: 02-13-2024 End: 05-14-2024 Hemoglobin A1c in Blood HEMOGLOBIN A1C Lab Routine Hyperglycemia Expected: 02/13/2024, Expires: 05/14/2024 [facility] Comment on above: Expected: 02/13/2024 , Expires: 05/14/2024 Start: 02-13-2024 End: 05-14-2024 Lipid 1996 panel - Serum or Plasma LIPID PANEL BASIC Lab Routine Dyslipidemia Expected: 02/13/2024, Expires: 05/14/2024 [facility] Comment on above: Expected: 02/13/2024 , Expires: 05/14/2024 Start: 02-13-2024 End: 05-14-2024 Thyrotropin [Units/volume] in Serum or Plasma THYROID STIMULATING HORMONE Lab Routine Hypertension, essential Chronic kidney disease, stage 3b (HCC) Expected: 02/13/2024, Expires: 05/14/2024 [facility] Comment on above: Expected: 02/13/2024 , Expires: 05/14/2024 Start: 02-13-2024 End: 02-13-2024 Patient encounter procedure 02/13/2024 8:20 AM EST Office Visit [facility] [address] [place] [address] Luis M Herbert DO [address] [facility] [place] [address] 6 month follow up [facility] Comment on above: 6 month follow up Start: 02-05-2024 DIABETES SCREEN DIABETES SCREEN [facility] Start: 12-09-2023 Covid-19 Vaccine () Covid-19 Vaccine () [facility] Start: 12-09-2023 Covid-19 Vaccine () Covid-19 Vaccine () [facility] Start: 12-09-2023 Influenza vaccination Influenza Vacc ine (#1) [facility] Start: 08-13-2023 End: 08-13-2023 Patient encounter procedure 08/13/2023 8:20 AM EDT Office Visit [facility] [address], [place] [phone] Luis M Herbert DO [address] [place] [address] 6 month follow up [facility] Comment on above: 6 month follow up Start: 04-09-2023 Behavioral Health Screening Behavioral Health Screening [facility] Start: 04-09-2023 Depression Assessment Depression Ass essment [facility] Start: 01-18-2023 End: 03-20-2023 25-hydroxyvitamin D3 [Mass/volume] in Serum or Plasma VITAMIN D 25 HYDROXY Lab Routine Vitamin D deficiency Expected: 01/18/2023, Expires: 03/20/2023 [facility] Work Phone: Comment on above: Expected: 01/18/2023 , Expires: 03/20/2023 Start: 01-18-2023 End: 03-20-2023 CBC panel - Blood by Automated count CBC Lab Routine Stroke with cerebral ischemia (HCC) Expected: 01/18/2023, Expires: 03/20/2023 [facility] Work Phone: Comment on above: Expected: 01/18/2023 , Expires: 03/20/2023 Start: 01-18-2023 End: 03-20-2023 Cobalamin (Vitamin B12) [Mass/volume] in Serum or Plasma VITAMIN B12 BLOOD Lab Routine Vitamin B12 deficiency Expected: 01/18/2023, Expires: 03/20/2023 [facility] Work Phone: Comment on above: Expected: 01/18/2023 , Expires: 03/20/2023 Start: 01-18-2023 End: 03-20-2023 Comprehensive metabolic 2000 panel - Serum or Plasma COMP METABOLIC PANEL Lab Routine Stroke with cerebral ischemia (HCC) Expected: 01/18/2023, Expires: 03/20/2023 [facility] Work Phone: Comment on above: Expected: 01/18/2023 , Expires: 03/20/2023 Start: 01-18-2023 End: 03-20-2023 Hemoglobin A1c in Blood HGB A1C Lab Routine Hyperglycemia Expected: 01/18/2023, Expires: 03/20/2023 [facility] Work Phone: Comment on above: Expected: 01/18/2023 , Expires: 03/20/2023 Start: 01-18-2023 End: 03-20-2023 Lipid 1996 panel - Serum or Plasma LIPID PANEL BASIC Lab Routine Stroke with cerebral ischemia (HCC) Expected: 01/18/2023, Expires: 03/20/2023 [facility] Work Phone: Comment on above: Expected: 01/18/2023 , Expires: 03/20/2023 Start: 01-18-2023 End: 03-20-2023 Thyrotropin [Units/volume] in Serum or Plasma TSH BLD Lab Routine Stroke with cerebral ischemia (HCC) Expected: 01/18/2023, Expires: 03/20/2023 [facility] Work Phone: Comment on above: Expected: 01/18/2023 , Expires: 03/20/2023 Start: 12-08-2022 Covid-19 Vaccine () Covid-19 Vaccine () [facility] Start: 04-09-2022 DEPRESSION ASSESSMENT DEPRESSION ASS ESSMENT [facility] Start: 01-11-2022 End: 03-13-2022 25-hydroxyvitamin D3 [Mass/volume] in Serum or Plasma [facility] Work Phone: Comment on above: Expected: 01/11/2022 , Expires: 03/13/2022 Start: 01-11-2022 End: 03-13-2022 Cobalamin (Vitamin B12) [Mass/volume] in Serum or Plasma [facility] Work Phone: Comment on above: Expected: 01/11/2022 , Expires: 03/13/2022 Start: 01-11-2022 End: 03-13-2022 Comprehensive metabolic 2000 panel - Serum or Plasma [facility] Work Phone: Comment on above: Expected: 01/11/2022 , Expires: 03/13/2022 Start: 01-11-2022 End: 03-13-2022 Hemoglobin A1c in Blood [facility] Work Phone: Comment on above: Expected: 01/11/2022 (Approximate), Expires: 03/13/2022 Start: 01-11-2022 End: 03-13-2022 Lipid 1996 panel - Serum or Plasma [facility] Work Phone: Comment on above: Expected: 01/11/2022 , Expires: 03/13/2022 Start: 01-11-2022 End: 03-13-2022 Thyrotropin [Units/volume] in Serum or Plasma [facility] Work Phone: Comment on above: Expected: 01/11/2022 , Expires: 03/13/2022 Start: 07-11-2021 End: 09-10-2021 CBC W Auto Differential panel - Blood CBC + DIFF Lab Routine Hypertension, essential Expected: 07/11/2021, Expires: 09/10/2021 [facility] Work Phone: Comment on above: Expected: 07/11/2021 , Expires: 09/10/2021 Start: 07-11-2021 End: 09-10-2021 Comprehensive metabolic 2000 panel - Serum or Plasma COMP METABOLIC PANEL Lab Routine Hypertension, essential Expected: 07/11/2021, Expires: 09/10/2021 [facility] Work Phone: Comment on above: Expected: 07/11/2021 , Expires: 09/10/2021 Start: 07-11-2021 End: 09-10-2021 LIPID PANEL BASIC LIPID PANEL BASIC Lab Routine Dyslipidemia Expected: 07/11/2021, Expires: 09/10/2021 [facility] Work Phone: Comment on above: Expected: 07/11/2021 , Expires: 09/10/2021 Start: 07-11-2021 End: 09-10-2021 VITAMIN B12 BLOOD VITAMIN B12 BLOOD Lab Routine Vitamin B12 deficiency Expected: 07/11/2021, Expires: 09/10/2021 [facility] Work Phone: Comment on above: Expected: 07/11/2021 , Expires: 09/10/2021 Start: 07-11-2021 End: 09-10-2021 VITAMIN D 25 HYDROXY VITAMIN D 25 HYDROXY Lab Routine Vitamin D deficiency Expected: 07/11/2021, Expires: 09/10/2021 [facility] Work Phone: Comment on above: Expected: 07/11/2021 , Expires: 09/10/2021 Start: 06-17-2021 COVID-19 VACCINE (4 - Booster for Moderna series) COVID-19 VACCINE (4 - Booster for Moderna series) [facility] Start: 04-14-2021 COVID-19 VACCINE (4 - Booster for Moderna series) COVID-19 VACCINE (4 - Booster for Moderna series) [facility] Start: 2012 RSV Vaccine (1 - 1-d ose 75+ series) RSV Vaccine (1 - 1-dose 75+ series) [facility] Start: 1997 RSV Vaccine (1 - 1-d ose 60+ series) RSV Vaccine (1 - 1-dose 60+ series) [facility] Start: 1956 Urine microalbumin profile [facility] Calprotectin [Mass/m ass] in Stool CALPROTECTIN,FECAL Lab Routine Diarrhea, unspecified type Abdominal bloating 08/13/2024 11:46 AM EDT [facility] EXTRA ECOFIX CONTAIN ER PERFORMABLE EXTRA ECOFIX CONTAINER PERFORMABLE Lab Routine Diarrhea, unspecified type 08/13/2024 [facility] Helicobacter pylori Ag [Presence] in Stool by Immunoassay HELICOBACTER PYLORI ANTIGEN BY EIA, STOOL Microbiology Routine Diarrhea, unspecified type Abdominal bloating 08/13/2024 11:46 AM EDT [facility] LAB EXTRA TUBES LAB EXTRA TUBES Lab Routine Diarrhea, unspecified type 08/13/2024 [facility] PANC ELASTASE, FECAL PANC ELASTA SE, FECAL Lab Routine Diarrhea, unspecified type Abdominal bloating 08/13/2024 11:46 AM EDT [facility] Removal impacted cer umen irrigation/lvg unilat AMBULATORY EAR LAVAGE/IRRIGATION Procedures Routine Impacted cerumen of right ear Ordered: 02/12/2023 [facility] Work Phone: Comment on above: Ordered: 02/12/2023 [facility] Immunizations Immunization Date Immunization Notes Care Provider Michael orellana 02-13-2024 influenza, high dose seasonal, preservative-free Luis M Herbert DO Work Phone: [facility] 02-12-2023 influenza (HD-IIV4) vaccine, age 65+ yr, high dose, quadrivalent, PF (FLUZONE HIGH-DOSE) Luis M Herbert DO Work Phone: [facility] Work Phone: 02-12-2023 influenza virus vacc ine, unspecified formulation Luis M Herbert DO Work Phone: [facility] 01-11-2022 influenza, high-dose , quadrivalent vaccine (FLUZONE HIGH DOSE QUADRIVALENT) Luis M Herbert DO Work Phone: [facility] Work Phone: 02-15-2021 influenza, high-dose , quadrivalent vaccine (FLUZONE HIGH DOSE QUADRIVALENT) Luis M Herbert DO Work Phone: [facility] Work Phone: 02-15-2021 pneumococcal polysaccharide vaccine, 23 valent Luis M Herbert DO Work Phone: [facility] Work Phone: 12-17-2019 influenza, high dose seasonal, preservative-free Luis M Herbert DO Work Phone: [facility] Work Phone: 08-11-2019 zoster vaccine recombinant Luis M Herbert DO Work Phone: [facility] Work Phone: 05-09-2019 zoster vaccine recombinant Luis M Herbert DO Work Phone: [facility] 01-13-2019 influenza, high dose seasonal, preservative-free Luis M Herbert DO Work Phone: [facility] Work Phone: 02-04-2018 influenza, high dose seasonal, preservative-free Luis M Herbert DO Work Phone: [facility] Work Phone: 01-22-[address] Luis M Herbert Work Phone: [facility] 01-22-2018 influenza, seasonal, injectable, preservative free Luis M Herbert DO Work Phone: [facility] 01-21-2018 Seasonal trivalent influenza vaccine, adjuvanted, preservative free Luis M Herbert DO Work Phone: [facility] 02-07-2017 influenza, seasonal, injectable Dr. Luis M Herbert Work Phone: [facility] 02-07-2017 influenza, seasonal, injectable, preservative free Luis M Herbert DO Work Phone: [facility] 01-25-2017 influenza, seasonal, injectable Luis M Herbetr DO Work Phone: [facility] 01-25-2017 Seasonal trivalent influenza vaccine, adjuvanted, preservative free Luis M Herbert DO Work Phone: [facility] 02-21-2016 influenza, high dose seasonal, preservative-free Luis M Herbert DO Work Phone: [facility] Work Phone: 07-14-2015 pneumococcal conjuga te vaccine, 13 valent Luis M Herbert DO Work Phone: [facility] Work Phone: 02-06-2015 influenza, seasonal, injectable, preservative free Luis M Herbert DO Work Phone: [facility] 03-03-2014 influenza, high dose seasonal, preservative-free Luis M Herbert DO Work Phone: [facility] 02-04-2007 influenza virus vacc ine, whole virus Luis M Herbert DO Work Phone: [facility] 07-06-2004 pneumococcal polysaccharide vaccine, 23 valent Luis M Herbert DO Work Phone: [facility] Work Phone: Payers Date Payer Category Payer Self-pay [id number] 2023 [facility] [id number] 2019 Medicaid [id number] 2019 Medicare [id number] 2019 Medicare UHC MEDICARE [facility] MEDICARE [id number] 2019-Present [phone] [address] [place] [address] Medicare [id number] 2019 Medicare (Managed Care) [facility] [id number] 2019 Unknown [id number] Medicare [id number] Unknown [id number] Unknown [id number] Unknown [id number] Unknown [id number] Unknown [id number] Social History Date Type Detail Facility Start: 07-06-2014 End: 02-13-2024 Tobacco smoking status NHIS Ex-smoker [facility] Work Phone: End: 04-23-1999 History of tobacco use Current smoker [facility] Work Phone: End: 04-23-1999 History of tobacco use Cigarette Smoker [facility] Work Phone: Start: 07-11-2021 End: 02-13-2024 Alcohol intake Current non-drinker of alcohol (finding) [facility] Start: 1935 Sex Assigned At Not on file [facility] Start: 07-01-2021 End: 01-11-2022 Exposure to SARS-CoV-2 (event) Not sure [facility] Work Phone: Start: 06-30-2021 End: 08-08-2022 Tobacco smoking status IDIS Unknown if ever smoked [facility] Start: 06-27-2018 None [facility] Start: 04-26-2017 Alone [facility] Start: 04-07-2020 Non-smoker [facility] Start: 1935 Sex Assigned At Female [facility] Start: 07-06-2014 End: 02-13-2024 Tobacco use and exposure Smokeless tobacco non-user [facility] Work Phone: Start: 02-12-2023 End: 08-13-2023 History of Social function [facility] Work Phone: Start: 02-12-2023 End: 08-13-2023 Tobacco use panel [facility] Work Phone: Adult Depression Screening Assessment 0 [facility] Work Phone: Functional Status Date Assessment Result Facility 07-06-2014 Are you deaf, or do you have serious difficulty hearing No 07/06/2014 7:54 AM BECKAT Aparna Tafoya LPN No [facility] 07-06-2014 Are you blind, or do you have serious difficulty seeing, even when wearing glasses No 07/06/2014 7:54 AM Aparna Schreiber LPN No [facility] 07-06-2014 Do you have serious difficulty walking or climbing stairs No 07/06/2014 7:54 AM Aparna Schreiber LPN No [facility] 07-06-2014 Do you have difficul ty dressing or bathing No 07/06/2014 7:54 AM Aparna Schreiber LPN No [facility] 07-06-2014 Because of a physica l, mental, or emotional condition, do you have difficulty doing errands alone such as visiting a physician's office or shopping No 07/06/2014 7:54 AM BECKAT Aparna Tafoya LPN No [facility] Mental Status Date Assessment Result Facility 07-06-2014 Because of a physica l, mental, or emotional condition, do you have serious difficulty concentrating, remembering, or making decisions No 07/06/2014 7:54 AM Aparna Schreiber LPN No [facility] Clinical Notes 05-11-2017 to 08-15-2024 Telephone Encounter - Ria Nesbitt MA - 08/15/2024 1:31 PM EDTTelephone Encounter - Ria Nesbitt MA - 08/15/2024 1:31 PM EDTTelephone Encounter - Virgil Mims RN - 08/13/2024 6:06 PM EDT Note Date & Type Note Facility 08-15-2024 Telephone encounter Note Pt informed [facility] 08-15-2024 Miscellaneous Notes Pt informed Please let her know that overall her labs are stable/normal. Waiting on stool studies to be resulted Luis M Herbert DO documented in this encounter [facility] 08-15-2024 Telephone encounter Note Please let her know that overall her labs are stable/normal. Waiting on stool studies to be resulted LuisM Herbert DO [facility] 08-14-[address] Herbert sent at 828 pm last evening. [facility] 08-14-[address] Herbert sent at 828 pm last evening. Pt saw Dr. Herbert today in office and she was going to call a prescription pain med in for pt's arthritic pain in neck and shoulder. Pt and her daughter Naye calling in checking on it as [facility] says they have not received the prescription yet. Message to Dr. Herbert's nurse Humaira to follow up with Dr. Herbert. Family hoping to get this evening or first thing in the morning. documented in this encounter [facility] 08-13-2024 Telephone encounter Note Pt saw Dr. Herbert today in office and she was going to call a prescription pain med in for pt's arthritic pain in neck and shoulder. Pt and her daughter Naye calling in checking on it as [facility] says they have not received the prescription yet. Message to Dr. Herbert's nurse Humaira to follow up with Dr. Herbert. Family hoping to get this evening or first thing in the morning. [facility] 08-13-2024 Note HNO ID: [id number] Author: LUIS M HERBERT, DO Service: ? Author Type: Physician Type: Progress Notes Filed: 08/13/2024 20:34 Note Text: CC: Jennifer Gleason is a 88 year old female who presents to the office for follow up HPI: She is present with her daughter Naye, whom she lives with motion and time study teacher, in the office today Loose stools, without form, liquid, fecal urgency. States has been present the last few months. No known provoking foods or factors. No recent medication changes. No recent travel. ' Dyslipidemia, taking lipitor as prescribed 40 mg a day, no SE from medication HTN, No CP or dyspnea or dizziness/LH or edema. Has recently seen Steward/Stewardess Night Dr. Chou and her lisinopril was increased to 40 mg a day about 1-2 years ago- this has been working well for her. No longer taking diuretics due to her weight loss. Tolerating well. No SE from medication. She was stopped off her aspirin and started on Eliquis due to episode of atrial flutter for 5 min and 26 sec on the interrogation of the pacemaker Arthritis, b/l knees and shoulders and neck pain, has been taking tylenol and advil regularly but is struggling with the severity of her pain, no longer stable, no recent falls but does feel her pain is limiting her movement and pain control to be able to go to mosque etc. Also causes her impairment of her sleep and ADLS such as showering and cooking. Hx of stroke in 2018, no recent symptoms Appetite is stable. No edema, no chest pain or dyspnea or dizziness/palpitations Elevated serum creatinine, has been present since she had her stroke, has been increasing her water intake and eating healthy diet Hyperglycemia, no hx of diabetes Vitamin D and B12 deficiency, taking supplements PAST MEDICAL HISTORY Diagnosis Date Advance care planning 07/11/2021 KAMALA Reeder., her daughter Arthritis Dyslipidemia Stroke (HCC) 04/2017 PAST SURGICAL HISTORY Procedure Laterality Date ARTHRP ACETBLR/PROX FEM PROSTC AGRFT/ALGRFT 2000 left PACEMAKER 09/17/2017 Dr. Chou PAST SURGICAL HISTORY OF 2006 bone spurs removed in neck Current Outpatient Medications Medication Sig HYDROcodone-acetaminophen (NORCO) 5-325 mg per tablet Take 0.5-1 tablets by mouth every 8 hours as needed for pain for up to 7 days. apixaban (ELIQUIS) 2.5 mg tab(s) Take 2.5 mg by mouth two times a day. lisinopril (ZESTRIL) 40 mg tablet Take 1 tablet by mouth once daily. atorvastatin (LIPITOR) 40 mg tablet Take 1 tablet by mouth once daily. clopidogrel (PLAVIX) 75 mg tablet Take 1 tablet by mouth once daily. dicyclomine (BENTYL) 10 mg capsule Take 1 capsule by mouth before meals and at bedtime. For irritable bowel symptoms as needed Cyanocobalamin 2,500 mcg subl Dissolve 1 tablet under the tongue once daily. ibuprofen (MOTRIN) 800 mg tablet Take 1 tablet by mouth every 8 hours as needed for Pain (with food.). Cholecalciferol, Vitamin D3, (VITAMIN D) 1,000 unit cap Take 1,000 Units by mouth once daily. Magnesium 250 mg tab Take 250 mg by mouth. ascorbic acid (VITAMIN C) 500 mg tablet Take 1 tablet by mouth once daily. No current facility-administered medications for this visit. ALLERGIES Allergen Reactions Demerol [Meperidine* GI Upset Social History Tobacco Use Smoking status: Former Current packs/day: 0.00 Types: Cigarettes Quit date: 04/23/1999 Years since quittin.3 Smokeless tobacco: Never Substance Use Topics Alcohol use: No Drug use: No ROS: See HPI PE: BP 130/80 Pulse 60 Temp (Src) 97.3 (Right Tympanic) Resp 20 Wt 130 lb (59.0kg) Gen: AANDOX3, NAD, non-toxic appearing HEENT: PERRLA, EOMs intact b/l, nares without drainage, pharynx without erythema, exudate, lesions, or drainage. Uvula midline. MMM Neck: No LAD, no thyromegaly, no meningismus. CV: RRR, 2/6 HSM RUSB murmur, normal s1s2 Lungs: CTA b/l, no wheezing Skin: No rashes, lesions, or wounds on exposed skin. + varicose veins, no edema, normal peripheral pulses Abd: soft, NT, ND, normal BS Arthritis multiple joints- cervical and lumbar spine, b/l hands, b/l feet, b/l shoulders and knees Gait is slowed but stable PDMP website checked and validated. All prescriptions have been APPROPRIATELY filled. No suspicious activity was identified. 08/13/2024 by Luis M Herbert DO ASSESSMENT/PLAN: 1. Diarrhea, unspecified type - ICD9: 787.91, ICD10: R19.7 (primary diagnosis) Labs and stool studies as ordered May need to start on probiotics and have CT abd/pelvis and colonoscopy if symptoms don't improve Unsure the cause of symptoms - COMPLETE BLOOD COUNT AND DIFFERENTIAL - COMPREHENSIVE METABOLIC PANEL - [employer] - LIPASE - HELICOBACTER PYLORI ANTIGEN BY EIA, STOOL - ENTERIC BACTERIAL PANEL BY PCR - PANC ELASTASE, FECAL - CLOSTRIDIUM DIFFICILE TOXIN BY PCR - THYROID STIMULATING HORMONE - T4 FREE/FREE THYROXINE - C-REACTIVE PROTEIN - CALPROTECTIN,FECAL - LAB (more content not included)... [facility] 08-13-2024 History of Present illness Narrative CC: Jennifer Gleason is a 88 year old female who presents to the office for follow up HPI: She is present with her daughter Naye, whom she lives with motion and time study teacher, in the office today Loose stools, without form, liquid, fecal urgency. States has been present the last few months. No known provoking foods or factors. No recent medication changes. No recent travel. ' Dyslipidemia, taking lipitor as prescribed 40 mg a day, no SE from medication HTN, No CP or dyspnea or dizziness/LH or edema. Has recently seen Steward/Stewardess Night Dr. Chou and her lisinopril was increased to 40 mg a day about 1-2 years ago- this has been working well for her. No longer taking diuretics due to her weight loss. Tolerating well. No SE from medication. She was stopped off her aspirin and started on Eliquis due to episode of atrial flutter for 5 min and 26 sec on the interrogation of the pacemaker Arthritis, b/l knees and shoulders and neck pain, has been taking tylenol and advil regularly but is struggling with the severity of her pain, no longer stable, no recent falls but does feel her pain is limiting her movement and pain control to be able to go to mosque etc. Also causes her impairment of her sleep and ADLS such as showering and cooking. Hx of stroke in 2018, no recent symptoms Appetite is stable. No edema, no chest pain or dyspnea or dizziness/palpitations Elevated serum creatinine, has been present since she had her stroke, has been increasing her water intake and eating healthy diet Hyperglycemia, no hx of diabetes Vitamin D and B12 deficiency, taking supplements PAST MEDICAL HISTORY Diagnosis Date Advance care planning 07/11/2021 KAMALA Reeder., her daughter Arthritis Dyslipidemia Stroke (HCC) 04/2017 PAST SURGICAL HISTORY Procedure Laterality Date ARTHRP ACETBLR/PROX FEM PROSTC AGRFT/ALGRFT 2000 left PACEMAKER 09/17/2017 Dr. Chou PAST SURGICAL HISTORY OF 2007 bone spurs removed in neck Current Outpatient Medications Medication Sig HYDROcodone-acetaminophen (NORCO) 5-325 mg per tablet Take 0.5-1 tablets by mouth every 8 hours as needed for pain for up to 7 days. apixaban (ELIQUIS) 2.5 mg tab(s) Take 2.5 mg by mouth two times a day. lisinopril (ZESTRIL) 40 mg tablet Take 1 tablet by mouth once daily. atorvastatin (LIPITOR) 40 mg tablet Take 1 tablet by mouth once daily. clopidogrel (PLAVIX) 75 mg tablet Take 1 tablet by mouth once daily. dicyclomine (BENTYL) 10 mg capsule Take 1 capsule by mouth before meals and at bedtime. For irritable bowel symptoms as needed Cyanocobalamin 2,500 mcg subl Dissolve 1 tablet under the tongue once daily. ibuprofen (MOTRIN) 800 mg tablet Take 1 tablet by mouth every 8 hours as needed for Pain (with food.). Cholecalciferol, Vitamin D3, (VITAMIN D) 1,000 unit cap Take 1,000 Units by mouth once daily. Magnesium 250 mg tab Take 250 mg by mouth. ascorbic acid (VITAMIN C) 500 mg tablet Take 1 tablet by mouth once daily. No current facility-administered medications for this visit. ALLERGIES Allergen Reactions Demerol [Meperidine* GI Upset Social History Tobacco Use Smoking status: Former Current packs/day: 0.00 Types: Cigarettes Quit date: 04/23/1999 Years since quittin.3 Smokeless tobacco: Never Substance Use Topics Alcohol use: No Drug use: No ROS: See HPI PE: BP 130/80 Pulse 60 Temp (Src) 97.3 (Right Tympanic) Resp 20 Wt 130 lb (59.0kg) Gen: A&OX3, NAD, non-toxic appearing HEENT: PERRLA, EOMs intact b/l, nares without drainage, pharynx without erythema, exudate, lesions, or drainage. Uvula midline. MMM Neck: No LAD, no thyromegaly, no meningismus. CV: RRR, 2/6 HSM RUSB murmur, normal s1s2 Lungs: CTA b/l, no wheezing Skin: No rashes, lesions, or wounds on exposed skin. + varicose veins, no edema, normal peripheral pulses Abd: soft, NT, ND, normal BS Arthritis multiple joints- cervical and lumbar spine, b/l hands, b/l feet, b/l shoulders and knees Gait is slowed but stable PDMP website checked and validated. All prescriptions have been APPROPRIATELY filled. No suspicious activity was identified. 08/13/2024 by Luis M Herbert DO ASSESSMENT/PLAN: 1. Diarrhea, unspecified type - ICD9: 787.91, ICD10: R19.7 (primary diagnosis) Labs and stool studies as ordered May need to start on probiotics and have CT abd/pelvis and colonoscopy if symptoms don't improve Unsure the cause of symptoms - COMPLETE BLOOD COUNT AND DIFFERENTIAL - COMPREHENSIVE METABOLIC PANEL - [employer] - LIPASE - HELICOBACTER PYLORI ANTIGEN BY EIA, STOOL - ENTERIC BACTERIAL PANEL BY PCR - PANC ELASTASE, FECAL - CLOSTRIDIUM DIFFICILE TOXIN BY PCR - THYROID STIMULATING HORMONE - T4 FREE/FREE THYROXINE - C-REACTIVE PROTEIN - CALPROTECTIN,FECAL - LAB EXTRA TUBES - EXTRA ECOFIX CONTAINER PERFORMABLE 2. Abdominal bloating - ICD9: 787.3, ICD10: R14.0 Labs and stool studies as ordered May need to start on probiotics and have CT abd/pelvis and colonoscopy if symptoms don't improve Unsure the cause of symptoms - COMPLETE BLOOD COUNT AND DIFFERENTIAL - COMPREHENSIVE METABOLIC PANEL - [employer] - LIPASE - HELICOBACTER PYLORI ANTIGEN BY EIA, STOOL - ENTERIC BACTERIAL PANEL BY PCR - PANC ELASTASE, FECAL - CLOSTRIDIUM DIFFICILE TOXIN BY PCR - THYROID STIMULATING HORMONE - T4 FREE/FREE THYROXINE - C-REACTIVE PROTEIN - CALPROTECTIN,FECAL 3. Vitamin D deficiency - ICD9: 268.9, ICD10: E55.9 Continue supplement - VITAMIN D 25 HYDROXY 4. Vitamin B12 deficiency - ICD9: 266.2, ICD10: E53.8 Continue supplement - VITAMIN B12 5. Hypertension, essential - ICD9: 401.9, ICD10: I10 - Controlled - Continue current medications - Recommend home blood pressure monitoring, to bring results to next visit - Encouraged sodium restriction, DASH or Mediterranean diet - Recommend regular aerobic exercise 6. Dyslipidemia - ICD9: 272.4, ICD10: E78.5 - Control undetermined, due for labs - Continue current medications - Counseled on healthy diet and regular exercise - LIPID PANEL, NONFASTING 7. Pure hypercholesterolemia - ICD9: 272.0, ICD10: E78.00 Check labs 8. Hyperglycemia - ICD9: 790.29, ICD10: R73.9 Check labs Has been diet controlled. - HEMOGLOBIN A1C 9. Chronic neck pain - ICD9: 723.1, 338.29, ICD10: M54.2, G89.29 Trial of [place] for the next 1 week, if this is benefitting her, ok to continue medication fdc and would need a follow up in 2-3 months and prn Check labs as ordered PDMP is concordant Pain isn't being managed with tylenol and advil at this time - HYDROCODONE 5 MG-ACETAMINOPHEN 325 MG TABLET 10. Osteoarthritis of spine with radiculopathy, cervical region - ICD9: 721.0, ICD10: M47.22 See above - HYDROCODONE 5 MG-ACETAMINOPHEN 325 MG TABLET 11. Bilateral shoulder pain, unspecified chronicity - ICD9: 719.41, ICD10: M25.511, M25.512 See above - HYDROCODONE 5 MG-ACETAMINOPHEN 325 MG TABLET 12. Chronic pain syndrome - ICD9: 338.4, ICD10: G89.4 See above Luis M Herbert DO I spent 45 minutes in the visit, with more than 50% of the total [id number] time of the visit in counseling / coordination of care. Return if no improvement. Follow up with Luis M Herbert DO. To ER if develops chest pain, shortness of breath. Discussed risks, benefits, alternatives, and potential side effects of medications. Patient/Guardian expressed understanding and agreed with the plan. See patient instructions. Luis M Herbert DO [address] [place] [address] documented in this encounter [facility] 07-08-2024 Note Addended by: Ray DE LA PAZ on: 07/08/2024 03:56 PM Modules accepted: Orders [facility] 07-08-2024 Miscellaneous Notes Addended by: LYDIA DE LA PAZ on: 07/08/2024 03:56 PM Modules accepted: Orders Spoke to Xenia with [facility]. Xenia reports pt takes Eliquis 2.5 mg bid. Other meds are as documented below. Pt is on both Plavix 75 daily and Eliquis. Xenia reports she will send request to Ivone Dumont who prescribes the meds. Xenia updated pt's pharmacy to [facility] because they had a different pharmacy on file for pt. Patt Glass LPN Alejandra pharmacist from [facility] calling in regarding a prescription for pt sent to them on 06/23/24 from [facility]. Script is for Apixaban (Eliquis) 2.5 mg tab. Sig is written for take 1 tablet by mouth once daily. Alejandra states usually Apixaban 2.5 mg is a twice daily med. And Alejandra states previous prescriber Ivone Dumont had ordered it twice daily. In reviewing chart, Apixaban was not ordered by primary care but by Ivone Dumont who works with [facility]. It appears on 06/23 that pt called in requesting 4 meds: Lisinopril 40 mg tablets, Atorvastatin 40 mg tablets, Clopidogrel 75 mg tablets and the Apixaban 2.[address]. [address] Herbert note from 02/13/24, Pt is taking Lipitor as prescribed 40 mg a day and then states pt had recently seen center maker hand Dr. Chou who had increased her Lisinopril to 40 mg a day about a year ago. Note states pt is no longer taking diuretics due to her weight loss and that she was stopped off her aspirin and started on Eliquis. Phone call to [facility] to confirm their med list with ours. Had to leave a msg on nurse Xenia phone line. Do they have patient taking both the Clopidogrel (Plavix) 75 mg once daily and the Apixaban (Eliquis) 2.5 mg once daily or twice daily? Since Ivone Dumont prescribed the Apixaban (Eliquis) 2.5 mg, can the nurse put in a refill request to Ivone Dumont for pt's med since PCP did not prescribe this? Pt uses [facility]. Also who is ordering the Plavix, Atorvastatin and Lisinopril and do we have the same doses? No need to call Alejandra back at [facility] if [facility] is going to prescribe the medication and handle sending in the refill. Can close encounter if [facility] is going to prescribe but will need to correct med list. $ documented in this encounter [facility] 07-08-2024 Telephone encounter Note Spoke to Xenia with [facility]. Xenia reports pt takes Eliquis 2.5 mg bid. Other meds are as documented below. Pt is on both Plavix 75 daily and Eliquis. Xenia reports she will send request to Ivone Dumont who prescribes the meds. Xenia updated pt's pharmacy to [facility] because they had a different pharmacy on file for pt. Ptat Glass LPN [facility] 07-08-2024 Telephone encounter Note Alejandra pharmacist from [facility] calling in regarding a prescription for pt sent to them on 06/23/24 from [facility]. Script is for Apixaban (Eliquis) 2.5 mg tab. Sig is written for take 1 tablet by mouth once daily. Alejandra states usually Apixaban 2.5 mg is a twice daily med. And Alejandra states previous prescriber Ivone Dumont had ordered it twice daily. In reviewing chart, Apixaban was not ordered by primary care but by Ivone Dumont who works with [facility]. It appears on 06/23 that pt called in requesting 4 meds: Lisinopril 40 mg tablets, Atorvastatin 40 mg tablets, Clopidogrel 75 mg tablets and the Apixaban 2.[address] Herbert note from 02/13/24, Pt is taking Lipitor as prescribed 40 mg a day and then states pt had recently seen center maker hand Dr. Chou who had increased her Lisinopril to 40 mg a day about a year ago. Note states pt is no longer taking diuretics due to her weight loss and that she was stopped off her aspirin and started on Eliquis. Phone call to [facility] to confirm their med list with ours. Had to leave a msg on nurse Xenia phone line. Do they have patient taking both the Clopidogrel (Plavix) 75 mg once daily and the Apixaban (Eliquis) 2.5 mg once daily or twice daily? Since Ivone Dumont prescribed the Apixaban (Eliquis) 2.5 mg, can the nurse put in a refill request to Ivone Dumont for pt's med since PCP did not prescribe this? Pt uses [facility]. Also who is ordering the Plavix, Atorvastatin and Lisinopril and do we have the same doses? No need to call Alejandra back at [facility] if [facility] is going to prescribe the medication and handle sending in the refill. Can close encounter if [facility] is going to prescribe but will need to correct med list. $ T [facility] 06-23-2024 Telephone encounter Note Prescription Refill Information The patient has been identified by name and date of : Yes Caregiver verified no other encounters exist for this prescription request: Yes Caregiver confirmed with patient/requestor that no other refills are due, in the near future, with this provider at this time: Yes The last office visit in the department: Does the patient have a future office visit with this provider/department: Yes Requested Prescriptions Pending Prescriptions Disp Refills lisinopril (ZESTRIL) 40 mg tablet 90 tablet 1 Sig: Take 1 tablet by mouth once daily. atorvastatin (LIPITOR) 40 mg tablet 90 tablet 3 Sig: Take 1 tablet by mouth once daily. clopidogrel (PLAVIX) 75 mg tablet 90 tablet 2 Sig: Take 1 tablet by mouth once daily. apixaban (ELIQUIS) 2.5 mg tab(s) Sig: Take 1 tablet by mouth once daily. Elvi Espitia June 23, 2024 8:17 AM [facility] 06-23-2024 Miscellaneous Notes Prescription Refill Information The patient has been identified by name and date of : Yes Caregiver verified no other encounters exist for this prescription request: Yes Caregiver confirmed with patient/requestor that no other refills are due, in the near future, with this provider at this time: Yes The last office visit in the department: Does the patient have a future office visit with this provider/department: Yes Requested Prescriptions Pending Prescriptions Disp Refills lisinopril (ZESTRIL) 40 mg tablet 90 tablet 1 Sig: Take 1 tablet by mouth once daily. atorvastatin (LIPITOR) 40 mg tablet 90 tablet 3 Sig: Take 1 tablet by mouth once daily. clopidogrel (PLAVIX) 75 mg tablet 90 tablet 2 Sig: Take 1 tablet by mouth once daily. apixaban (ELIQUIS) 2.5 mg tab(s) Sig: Take 1 tablet by mouth once daily. Elvi Espitia June 23, 2024 8:17 AM documented in this encounter [facility] 02-13-2024 Note HNO ID: [id number] Author: LUIS M HERBERT, DO Service: ? Author Type: Physician Type: Progress Notes Filed: 02/13/2024 09:38 Note Text: CC: Jennifer Gleason is a 88 year old female who presents to the office for follow up HPI: Dyslipidemia, taking lipitor as prescribed 40 mg a day, no SE from medication HTN, No CP or dyspnea or dizziness/LH or edema. Has recently seen Steward/Stewardess Night Dr. Chou and her lisinopril was increased to 40 mg a day about 1 year ago- this has been working well for her. No longer taking diuretics due to her weight loss. Tolerating well. No SE from medication. She was stopped off her aspirin and started on Eliquis due to episode of atrial flutter for 5 min and 26 sec on the interrogation of the pacemaker Arthritis, stable, no concerns, no recent falls or instability Hx of stroke in 2018, no recent symptoms Appetite is stable. Bowel function is normal No edema, no chest pain or dyspnea or dizziness/palpitations Elevated serum creatinine, has been present since she had her stroke, has been increasing her water intake and eating healthy diet Hyperglycemia, no hx of diabetes Vitamin D and B12 deficiency, taking supplements Last labs obtained Jan 2023 and were stable PAST MEDICAL HISTORY Diagnosis Date Advance care planning 07/11/2021 KAMALA Naye Reeder., her daughter Arthritis Dyslipidemia Stroke (HCC) 04/2017 PAST SURGICAL HISTORY Procedure Laterality Date ARTHRP ACETBLR/PROX FEM PROSTC AGRFT/ALGRFT 2000 left PACEMAKER 09/17/2017 Dr. Chou PAST SURGICAL HISTORY OF 2007 bone spurs removed in neck Current Outpatient Medications Medication Sig apixaban (ELIQUIS) 2.5 mg tab(s) Take 2.5 mg by mouth once daily. lisinopril (ZESTRIL) 40 mg tablet Take 1 tablet by mouth once daily. clopidogrel (PLAVIX) 75 mg tablet Take 1 tablet by mouth once daily. atorvastatin (LIPITOR) 40 mg tablet Take 1 tablet by mouth once daily. dicyclomine (BENTYL) 10 mg capsule Take 1 capsule by mouth before meals and at bedtime. For irritable bowel symptoms as needed Cyanocobalamin 2,500 mcg subl Dissolve 1 tablet under the tongue once daily. ibuprofen (MOTRIN) 800 mg tablet Take 1 tablet by mouth every 8 hours as needed for Pain (with food.). Cholecalciferol, Vitamin D3, (VITAMIN D) 1,000 unit cap Take 1,000 Units by mouth once daily. Magnesium 250 mg tab Take 250 mg by mouth. ascorbic acid (VITAMIN C) 500 mg tablet Take 1 tablet by mouth once daily. No current facility-administered medications for this visit. ALLERGIES Allergen Reactions Demerol [Meperidine* GI Upset Social History Tobacco Use Smoking status: Former Current packs/day: 0.00 Types: Cigarettes Quit date: 04/23/1999 Years since quittin.8 Smokeless tobacco: Never Substance Use Topics Alcohol use: No Drug use: No ROS: See HPI. PE: BP 128/80 Pulse 64 Temp (Src) 96.7 (Left Tympanic) Resp 16 Wt 135 lb 12.9 oz (61.6kg) Gen: AANDOX3, NAD, non-toxic appearing HEENT: PERRLA, EOMs intact b/l, nares without drainage, pharynx without erythema, exudate, lesions, or drainage. Uvula midline. MMM Neck: No LAD, no thyromegaly, no meningismus. CV: RRR, 2/6 HSM RUSB murmur, normal s1s2 Lungs: CTA b/l, no wheezing Skin: No rashes, lesions, or wounds on exposed skin. + varicose veins, no edema, normal peripheral pulses Abd: soft, NT, ND, normal BS Arthritis multiple joints Gait is slowed but stable ASSESSMENT/PLAN: 1. Hypertension, essential - ICD9: 401.9, ICD10: I10 (primary diagnosis) - Controlled - Continue current medications - Recommend home blood pressure monitoring, to bring results to next visit - Encouraged sodium restriction, DASH or Mediterranean diet - Recommend regular aerobic exercise 2. Need for influenza vaccination - ICD9: V04.81, ICD10: Z23 - INFLUENZA VACCINE, PRSV FREE, AGE 65+ YR, HIGH DOSE, TRIVALENT (FLUZONE HIGH-DOSE) 3. Vitamin B12 deficiency - ICD9: 266.2, ICD10: E53.8 Continue supplement 4. Arthritis, multiple joint involvement - ICD9: 716.99, ICD10: M12.9 Stable, no falls. 5. Chronic kidney disease, stage 3b (HCC) - ICD9: 585.3, ICD10: N18.32 - eGFR: 47 Stable - Counseled on avoiding NSAIDs, adequate hydration - Counseled on low sodium diet 6. Dyslipidemia - ICD9: 272.4, ICD10: E78.5 - Control undetermined, due for labs - Continue current medications - Counseled on healthy diet and regular exercise 7. Vitamin D deficiency - ICD9: 268.9, ICD10: E55.9 Stable, continue supplement 8. Pure hypercholesterolemia - ICD9: 272.0, ICD10: E78.00 Stable, continue statin therapy 9. Typical atrial flutter (HCC) - ICD9: 427.32, ICD10: I48.3 Just had medication changes- off ASA, onto Eliquis 10. Cardiac pacemaker - ICD9: V45.01, ICD10: Z95.0 See above,f/u with Steward/[facility]wardess Night Luis M Herbert, Return if no improvement. Follow up with Luis M Herbert DO. To ER if develops chest pain, shortness of breath. Discusse (more content not included)... [facility] 02-13-2024 History of Present illness Narrative CC: Jennifer Gleason is a 88 year old female who presents to the office for follow up HPI: Dyslipidemia, taking lipitor as prescribed 40 mg a day, no SE from medication HTN, No CP or dyspnea or dizziness/LH or edema. Has recently seen Steward/Stewardess Night Dr. Chou and her lisinopril was increased to 40 mg a day about 1 year ago- this has been working well for her. No longer taking diuretics due to her weight loss. Tolerating well. No SE from medication. She was stopped off her aspirin and started on Eliquis due to episode of atrial flutter for 5 min and 26 sec on the interrogation of the pacemaker Arthritis, stable, no concerns, no recent falls or instability Hx of stroke in 2018, no recent symptoms Appetite is stable. Bowel function is normal No edema, no chest pain or dyspnea or dizziness/palpitations Elevated serum creatinine, has been present since she had her stroke, has been increasing her water intake and eating healthy diet Hyperglycemia, no hx of diabetes Vitamin D and B12 deficiency, taking supplements Last labs obtained Jan 2023 and were stable PAST MEDICAL HISTORY Diagnosis Date Advance care planning 07/11/2021 DPBENNIE Reeder., her daughter Arthritis Dyslipidemia Stroke (HCC) 04/2017 PAST SURGICAL HISTORY Procedure Laterality Date ARTHRP ACETBLR/PROX FEM PROSTC AGRFT/ALGRFT 2000 left PACEMAKER 09/17/2017 Dr. Chou PAST SURGICAL HISTORY OF 2006 bone spurs removed in neck Current Outpatient Medications Medication Sig apixaban (ELIQUIS) 2.5 mg tab(s) Take 2.5 mg by mouth once daily. lisinopril (ZESTRIL) 40 mg tablet Take 1 tablet by mouth once daily. clopidogrel (PLAVIX) 75 mg tablet Take 1 tablet by mouth once daily. atorvastatin (LIPITOR) 40 mg tablet Take 1 tablet by mouth once daily. dicyclomine (BENTYL) 10 mg capsule Take 1 capsule by mouth before meals and at bedtime. For irritable bowel symptoms as needed Cyanocobalamin 2,500 mcg subl Dissolve 1 tablet under the tongue once daily. ibuprofen (MOTRIN) 800 mg tablet Take 1 tablet by mouth every 8 hours as needed for Pain (with food.). Cholecalciferol, Vitamin D3, (VITAMIN D) 1,000 unit cap Take 1,000 Units by mouth once daily. Magnesium 250 mg tab Take 250 mg by mouth. ascorbic acid (VITAMIN C) 500 mg tablet Take 1 tablet by mouth once daily. No current facility-administered medications for this visit. ALLERGIES Allergen Reactions Demerol [Meperidine* GI Upset Social History Tobacco Use Smoking status: Former Current packs/day: 0.00 Types: Cigarettes Quit date: 04/23/1999 Years since quittin.8 Smokeless tobacco: Never Substance Use Topics Alcohol use: No Drug use: No ROS: See HPI. PE: BP 128/80 Pulse 64 Temp (Src) 96.7 (Left Tympanic) Resp 16 Wt 135 lb 12.9 oz (61.6kg) Gen: A&OX3, NAD, non-toxic appearing HEENT: PERRLA, EOMs intact b/l, nares without drainage, pharynx without erythema, exudate, lesions, or drainage. Uvula midline. MMM Neck: No LAD, no thyromegaly, no meningismus. CV: RRR, 2/6 HSM RUSB murmur, normal s1s2 Lungs: CTA b/l, no wheezing Skin: No rashes, lesions, or wounds on exposed skin. + varicose veins, no edema, normal peripheral pulses Abd: soft, NT, ND, normal BS Arthritis multiple joints Gait is slowed but stable ASSESSMENT/PLAN: 1. Hypertension, essential - ICD9: 401.9, ICD10: I10 (primary diagnosis) - Controlled - Continue current medications - Recommend home blood pressure monitoring, to bring results to next visit - Encouraged sodium restriction, DASH or Mediterranean diet - Recommend regular aerobic exercise 2. Need for influenza vaccination - ICD9: V04.81, ICD10: Z23 - INFLUENZA VACCINE, PRSV FREE, AGE 65+ YR, HIGH DOSE, TRIVALENT (FLUZONE HIGH-DOSE) 3. Vitamin B12 deficiency - ICD9: 266.2, ICD10: E53.8 Continue supplement 4. Arthritis, multiple joint involvement - ICD9: 716.99, ICD10: M12.9 Stable, no falls. 5. Chronic kidney disease, stage 3b (HCC) - ICD9: 585.3, ICD10: N18.32 - eGFR: 47 Stable - Counseled on avoiding NSAIDs, adequate hydration - Counseled on low sodium diet 6. Dyslipidemia - ICD9: 272.4, ICD10: E78.5 - Control undetermined, due for labs - Continue current medications - Counseled on healthy diet and regular exercise 7. Vitamin D deficiency - ICD9: 268.9, ICD10: E55.9 Stable, continue supplement 8. Pure hypercholesterolemia - ICD9: 272.0, ICD10: E78.00 Stable, continue statin therapy 9. Typical atrial flutter (HCC) - ICD9: 427.32, ICD10: I48.3 Just had medication changes- off ASA, onto Eliquis 10. Cardiac pacemaker - ICD9: V45.01, ICD10: Z95.0 See above,f/u with Steward/Stewardess Night Luis M Herbert DO Return if no improvement. Follow up with Luis M Herbert DO. To ER if develops chest pain, shortness of breath. Discussed risks, benefits, alternatives, and potential side effects of medications. Patient/Guardian expressed understanding and agreed with the plan. See patient instructions. Luis M Herbert DO [address] [place] [address] documented in this encounter [facility] 02-13-2024 Instructions Luis M Herbert DO - 02/13/2024 9:04 AM EST Vitamin C at least 500 mg a day Vitamin D3 2000 international unit(s) a day Vitamin B12 500-1000 mcg a day documented in this encounter [facility] 12-24-2023 Telephone encounter Note Patient is asking if her lisinopril can be changed to a 40 mg tablet once daily. She would then need a 90 day supply to the [facility] in [place] and has a follow up with Dr. Herbert in February. [facility] 12-24-2023 Miscellaneous Notes Patient is asking if her lisinopril can be changed to a 40 mg tablet once daily. She would then need a 90 day supply to the [facility] in [place] and has a follow up with Dr. Herbert in February. Prescription Refill Information The patient has been identified by name and date of : Yes Caregiver verified no other encounters exist for this prescription request: Yes Caregiver confirmed with patient/requestor that no other refills are due, in the near future, with this provider at this time: Yes The last office visit in the department: 08-13-23 Does the patient have a future office visit with this provider/department: Yes Requested Prescriptions Pending Prescriptions Disp Refills lisinopril (ZESTRIL) 20 mg tablet Sig: Take 2 tablets by mouth once daily. clopidogrel (PLAVIX) 75 mg tablet 90 tablet 2 Sig: Take 1 tablet by mouth once daily. Desiree Luevano [facility] December 24, 2023 9:03 AM documented in this encounter [facility] 12-24-2023 Telephone encounter Note Prescription Refill Information The patient has been identified by name and date of : Yes Caregiver verified no other encounters exist for this prescription request: Yes Caregiver confirmed with patient/requestor that no other refills are due, in the near future, with this provider at this time: Yes The last office visit in the department: 08-13-23 Does the patient have a future office visit with this provider/department: Yes Requested Prescriptions Pending Prescriptions Disp Refills lisinopril (ZESTRIL) 20 mg tablet Sig: Take 2 tablets by mouth once daily. clopidogrel (PLAVIX) 75 mg tablet 90 tablet 2 Sig: Take 1 tablet by mouth once daily. Desiree Espitia December 24, 2023 9:03 AM [facility] 08-13-2023 History of Present illness Narrative CC: Jennifer lGeason is a 87 year old female who presents to the office for follow up HPI: Dyslipidemia, taking lipitor as prescribed 40 mg a day, no SE from medication HTN, No CP or dyspnea or dizziness/LH or edema. Has recently seen Steward/Stewardess Night Dr. Chou and her lisinopril was increased to 40 mg a day about 1 year ago- this has been working well for her. No longer taking diuretics due to her weight loss. Tolerating well. No SE from medication Arthritis, stable, no concerns, no recent falls or instability Hx of stroke in 2018, no recent symptoms Appetite is stable. Bowel function is normal No edema, no chest pain or dyspnea or dizziness/palpitations Elevated serum creatinine, has been present since she had her stroke, has been increasing her water intake and eating healthy diet Hyperglycemia, no hx of diabetes Vitamin D and B12 deficiency, taking supplements Last labs obtained Jan 2023 and were stable PAST MEDICAL HISTORY Diagnosis Date Advance care planning 07/11/2021 KAMALA Reeder., her daughter Arthritis Dyslipidemia Stroke (HCC) 04/2017 PAST SURGICAL HISTORY Procedure Laterality Date ARTHRP ACETBLR/PROX FEM PROSTC AGRFT/ALGRFT 2000 left PACEMAKER 09/17/2017 Dr. Chou PAST SURGICAL HISTORY OF 2007 bone spurs removed in neck Current Outpatient Medications Medication Sig lisinopril (ZESTRIL) 20 mg tablet Take 2 tablets by mouth once daily. atorvastatin (LIPITOR) 40 mg tablet Take 1 tablet by mouth once daily. clopidogrel (PLAVIX) 75 mg tablet Take 1 tablet by mouth once daily. dicyclomine (BENTYL) 10 mg capsule Take 1 capsule by mouth before meals and at bedtime. For irritable bowel symptoms as needed Cyanocobalamin 2,500 mcg subl Dissolve 1 tablet under the tongue once daily. ibuprofen (MOTRIN) 800 mg tablet Take 1 tablet by mouth every 8 hours as needed for Pain (with food.). Cholecalciferol, Vitamin D3, (VITAMIN D) 1,000 unit cap Take 1,000 Units by mouth once daily. Magnesium 250 mg tab Take 250 mg by mouth. ascorbic acid (VITAMIN C) 500 mg tablet Take 1 tablet by mouth once daily. No current facility-administered medications for this visit. ALLERGIES Allergen Reactions Demerol [Meperidine* GI Upset Social History Tobacco Use Smoking status: Former Types: Cigarettes Quit date: 04/23/1999 Years since quittin.3 Smokeless tobacco: Never Substance Use Topics Alcohol use: No Drug use: No ROS: See HPI PE: BP 120/70 Pulse 64 Temp (Src) 97 (Left Tympanic) Resp 24 Wt 136 lb (61.7kg) Gen: A&OX3, NAD, non-toxic appearing HEENT: PERRLA, EOMs intact b/l, nares without drainage, pharynx without erythema, exudate, lesions, or drainage. Uvula midline. MMM, right EAC with cerumen impacted, left EAC wnl, left TM wnl Neck: No LAD, no thyromegaly, no meningismus. CV: RRR, 2/6 HSM RUSB murmur, normal s1s2 Lungs: CTA b/l, no wheezing Skin: No rashes, lesions, or wounds on exposed skin. + varicose veins, no edema, normal peripheral pulses Abd: soft, NT, ND, normal BS Arthritis multiple joints Gait is slowed but stable ASSESSMENT/PLAN: 1. Hypertension, essential - ICD9: 401.9, ICD10: I10 (primary diagnosis) - Controlled - Continue current medications - Recommend home blood pressure monitoring, to bring results to next visit - Encouraged sodium restriction, DASH or Mediterranean diet - Recommend regular aerobic exercise - THYROID STIMULATING HORMONE 2. Chronic kidney disease, stage 3b (HCC) - ICD9: 585.3, ICD10: N18.32 - eGFR: 49 Stable - Counseled on avoiding NSAIDs, adequate hydration - Counseled on low sodium diet - COMPREHENSIVE METABOLIC PANEL - COMPLETE BLOOD COUNT - THYROID STIMULATING HORMONE 3. Dyslipidemia - ICD9: 272.4, ICD10: E78.5 - Control undetermined, due for labs - Continue current medications - Counseled on healthy diet and regular exercise - Follow up in 6 months, sooner should any other issues arise. - COMPREHENSIVE METABOLIC PANEL - COMPLETE BLOOD COUNT - LIPID PANEL BASIC 4. Vitamin D deficiency - ICD9: 268.9, ICD10: E55.9 Continue supplememnt - VITAMIN D 25 HYDROXY 5. Vitamin B12 deficiency - ICD9: 266.2, ICD10: E53.8 Continue supplement - VITAMIN B12 6. Hyperglycemia - ICD9: 790.29, ICD10: R73.9 Recheck labs Diet controlled. - HEMOGLOBIN A1C 7. Paralytic syndrome, unspecified (HCC) - ICD9: 344.9, ICD10: G83.9 Hx of 8. Complete atrioventricular block (HCC) - ICD9: 426.0, ICD10: I44.2 Hx of 9. Pulmonary arterial hypertension (HCC) - ICD9: 416.8, ICD10: I27.21 Hx of 10. Arthritis, multiple joint involvement - ICD9: 716.99, ICD10: M12.9 Stable, no recent falls, daughter helps her with her ADLs and IADLs Luis M Herbert DO Return if no improvement. Follow up with Luis M Herbert DO. To ER if develops chest pain, shortness of breath. Discussed risks, benefits, alternatives, and potential side effects of medications. Patient/Guardian expressed understanding and agreed with the plan. See patient instructions. Luis M Herbert DO [address] [place] [address] documented in this encounter [facility] 07-30-2023 Telephone encounter Note Patient has been identified by name and date of : Yes, Provider Cristo Daughter phones for refill(s): Requested Prescriptions Pending Prescriptions Disp Refills lisinopril (ZESTRIL) 20 mg tablet 90 tablet 1 Sig: Take 2 tablets by mouth once daily. Date of last office visit in primary care: 02/12/2023 Date of next office visit in primary care: 08/13/2023 Please advise. Thank you. Aparna Espitia. [facility] 07-30-2023 Miscellaneous Notes Patient has been identified by name and date of : Yes, Provider Cristo Daughter phones for refill(s): Requested Prescriptions Pending Prescriptions Disp Refills lisinopril (ZESTRIL) 20 mg tablet 90 tablet 1 Sig: Take 2 tablets by mouth once daily. Date of last office visit in primary care: 02/12/2023 Date of next office visit in primary care: 08/13/2023 Please advise. Thank you. Aparna Espitia. documented in this encounter [facility] 06-28-2023 Miscellaneous Notes Pt notified. Martha Chacko MA Please call and let her know rx sent in See below Luis M Herbert DO The following approved medication requests have been transmitted electronically. Requested Prescriptions Signed Prescriptions Disp Refills atorvastatin (LIPITOR) 40 mg tablet 90 tablet 3 Sig: Take 1 tablet by mouth once daily. Authorizing Provider: LUIS M HERBERT Refused Prescriptions Disp Refills atorvastatin (LIPITOR) 40 mg tablet 90 tablet 3 Sig: Take 1 tablet by mouth once daily. Refused By: RINA TAYLOR Reason for Refusal: Records indicate that there is a valid prescription at the pharmacy Luis M Herbert DO Patient's daughter is calling again about this rx not being sent to the pharmacy yet. The rx was denied stating there is an active rx at the pharmacy. If you look in Meds in [facility], it says the last rx for atorvastatin was sent in June of 2022, not June of 2023. Please call the patient at [phone] when resolved so she know it was sent. Pt's daughter Naye calling and asking about refill as she states pt is now out of the medication. Patient has been identified by name and date of : Yes, Provider Dr. Herbert Date 06/25/23 Time 12:20 Patient phones for refill(s): Requested Prescriptions Refused Prescriptions Disp Refills atorvastatin (LIPITOR) 40 mg tablet 90 tablet 3 Sig: Take 1 tablet by mouth once daily. Date of last office visit in primary care: 02/12/2023 Date of next office visit in primary care: 08/13/2023 Please advise. Thank you. Rina Taylor LPN. Patient has been identified by name and date of : Patient's daughterJennifer phones for refill(s): Requested Prescriptions Pending Prescriptions Disp Refills atorvastatin (LIPITOR) 40 mg tablet 90 tablet 3 Sig: Take 1 tablet by mouth once daily. Date of last office visit in primary care: 02/12/2023 Date of next office visit in primary care: 08/13/2023 Please advise. Thank you. Irlanda Price. documented in this encounter [facility] 03-26-2023 Miscellaneous Notes Patient has been identified by name and date of : Yes, Provider Date 03/26/2023 Time 03/26/2023 Patient phones for refill(s): Requested Prescriptions Pending Prescriptions Disp Refills clopidogrel (PLAVIX) 75 mg tablet 90 tablet 2 Sig: Take 1 tablet by mouth once daily. Date of last office visit in primary care: 02/12/2023 Date of next office visit in primary care: 08/13/2023 *Patient is completely out* Last 2 Encounter Wt Readings: Date: Wt: 02/12/2023 60.8 kg (134 lb) 07/19/2022 61.2 kg (135 lb) Previous labs/tests for medication: Not applicable Please advise. Thank you. Saundra Alvarado. documented in this encounter [facility] 02-12-2023 Nurse Note Ambulatory Ear Lavage Pre-treatment: Warm water Treatment: Right ear Equipment and Irrigation solution and Volume used: Single use syringe with single use irrigation tip Return flow appearance: Brown Patient tolerated procedure: yes Tympanic membrane assessment: Tympanic membrane assessed by LIP pre-procedure documented in this encounter [facility] 02-12-2023 History of Present illness Narrative CC: Jennifer Gleason is a 87 year old female who presents to the office for follow up HPI: Dyslipidemia, taking lipitor as prescribed 40 mg a day, no SE from medication Cholesterol, Total Date Value Ref Range Status 01/18/2023 159 <200 mg/dL Final Comment: <200 mg/dL, Desirable 200-239 mg/dL, Borderline high >239 mg/dL, High HDL Cholesterol Date Value Ref Range Status 01/18/2023 47 >39 mg/dL Final Comment: 40-59 mg/dL, Acceptable >59 mg/dL, High: Negative risk factor for coronary heart disease <40 mg/dL, Low: Positive risk factor for coronary heart disease LDL Cholesterol Date Value Ref Range Status 01/18/2023 91 <100 mg/dL Final Comment: <100 mg/dL, Optimal 100-129 mg/dL, Near optimal/above optimal 130-159 mg/dL, Borderline high 160-189 mg/dL, High >189 mg/dL, Very high Secondary prevention optimal LDL Cholesterol levels are recommended to be < 70 mg/dL Triglyceride Date Value Ref Range Status 01/18/2023 104 <150 mg/dL Final Comment: <150 mg/dL, Normal 150-199 mg/dL, Borderline high 200-499 mg/dL, High >499 mg/dL, Very high HTN, No CP or dyspnea or dizziness/LH or edema. Has recently seen Steward/Stewardess Night Dr. Chou and her lisinopril was increased to 40 mg a day about 1 year ago- this has been working well for her. No longer taking diuretics due to her weight loss. Tolerating well. No SE from medication Glucose (mg/dL) Date Value 01/18/2023 80 02/04/2021 78 Potassium (mmol/L) Date Value 01/18/2023 4.1 02/04/2021 4.5 Sodium (mmol/L) Date Value 01/18/2023 141 02/04/2021 140 Chloride (mmol/L) Date Value 01/18/2023 104 02/04/2021 103 CO2 (mmol/L) Date Value 01/18/2023 25 02/04/2021 25 Creatinine (mg/dL) Date Value 01/18/2023 1.10 02/04/2021 1.28 BUN (mg/dL) Date Value 01/18/2023 17 02/04/2021 16 Anion Gap (mmol/L) Date Value 01/18/2023 12 02/04/2021 12 Calcium (mg/dL) Date Value 02/04/2021 9.9 Calcium, Total (mg/dL) Date Value 01/18/2023 10.0 Protein, Total (g/dL) Date Value 01/18/2023 6.9 02/04/2021 6.7 Albumin (g/dL) Date Value 01/18/2023 4.0 02/04/2021 4.4 Bilirubin, Total (mg/dL) Date Value 01/18/2023 0.4 02/04/2021 0.5 Alkaline Phosphatase (U/L) Date Value 01/18/2023 109 02/04/2021 74 AST (U/L) Date Value 01/18/2023 20 02/04/2021 19 ALT (U/L) Date Value 01/18/2023 11 02/04/2021 12 Arthritis, stable, no concerns, no recent falls or instability Hx of stroke in 2018, no recent symptoms Appetite is stable. Bowel function is normal No edema, no chest pain or dyspnea or dizziness/palpitations Elevated serum creatinine, has been present since she had her stroke, has been increasing her water intake and eating healthy diet Glucose (mg/dL) Date Value 01/18/2023 80 02/04/2021 78 Potassium (mmol/L) Date Value 01/18/2023 4.1 02/04/2021 4.5 Sodium (mmol/L) Date Value 01/18/2023 141 02/04/2021 140 Chloride (mmol/L) Date Value 01/18/2023 104 02/04/2021 103 CO2 (mmol/L) Date Value 01/18/2023 25 02/04/2021 25 Creatinine (mg/dL) Date Value 01/18/2023 1.10 02/04/2021 1.28 BUN (mg/dL) Date Value 01/18/2023 17 02/04/2021 16 Anion Gap (mmol/L) Date Value 01/18/2023 12 02/04/2021 12 Calcium (mg/dL) Date Value 02/04/2021 9.9 Calcium, Total (mg/dL) Date Value 01/18/2023 10.0 Protein, Total (g/dL) Date Value 01/18/2023 6.9 02/04/2021 6.7 Albumin (g/dL) Date Value 01/18/2023 4.0 02/04/2021 4.4 Bilirubin, Total (mg/dL) Date Value 01/18/2023 0.4 02/04/2021 0.5 Alkaline Phosphatase (U/L) Date Value 01/18/2023 109 02/04/2021 74 AST (U/L) Date Value 01/18/2023 20 02/04/2021 19 ALT (U/L) Date Value 01/18/2023 11 02/04/2021 12 Hemoglobin (g/dL) Date Value 01/18/2023 14.2 02/04/2021 13.0 Hematocrit (%) Date Value 01/18/2023 42.7 02/04/2021 40.9 WBC (k/uL) Date Value 01/18/2023 11.23 02/04/2021 9.53 Hyperglycemia, no hx of diabetes Hemoglobin A1C Date Value Ref Range Status 01/18/2023 5.4 4.3 - 5.6 % Final Comment: [place] [employer] guidelines indicate that patients with HgbA1c in the range 5.7-6.4% are at increased risk for development of diabetes, and intervention by lifestyle modification may be beneficial. HgbA1c greater or equal to 6.5% is considered diagnostic of diabetes. 01/11/2022 5.3 4.3 - 5.6 % Final Comment: [place] [employer] guidelines indicate that patients with HgbA1c in the range 5.7-6.4% are at increased risk for development of diabetes, and intervention by lifestyle modification may be beneficial. HgbA1c greater or equal to 6.5% is considered diagnostic of diabetes. 02/04/2021 5.5 4.3 - 5.6 % Final Comment: [place] [employer] guidelines indicate that patients with HgbA1c in the range 5.7-6.4% are at increased risk for development of diabetes, and intervention by lifestyle modification may be beneficial. HgbA1c greater or equal to 6.5% is considered diagnostic of diabetes. Vitamin D and B12 deficiency, taking supplements PAST MEDICAL HISTORY Diagnosis Date Advance care planning 07/11/2021 KAMALA Yancey Reeder., her daughter Arthritis Dyslipidemia Stroke (HCC) 04/2017 PAST SURGICAL HISTORY Procedure Laterality Date ARTHRP ACETBLR/PROX FEM PROSTC AGRFT/ALGRFT 2000 left PACEMAKER 09/17/2017 Dr. Chou PAST SURGICAL HISTORY OF 2007 bone spurs removed in neck Social History: Social History Tobacco Use Smoking status: Former Types: Cigarettes Quit date: 04/23/1999 Years since quittin.8 Smokeless tobacco: Never Substance Use Topics Alcohol use: No Drug use: No FAMILY HISTORY Problem Relation Age of Onset Heart Mother 70 other (aneurism [Other]) Father 74, aortic COPD Sister Heart Brother MS Heart Maternal Grandmother Heart Paternal Grandmother Current Outpatient prescriptions: clopidogrel (PLAVIX) 75 mg tablet TAKE ONE TABLET BY MOUTH EVERY DAY atorvastatin (LIPITOR) 40 mg tablet TAKE ONE TABLET BY MOUTH EVERY DAY Cyanocobalamin 2,500 mcg subl Dissolve 1 tablet under the tongue once daily. ibuprofen (MOTRIN) 800 mg tablet Take 1 tablet by mouth every 8 hours as needed for Pain (with food.). Magnesium 250 mg tab Take 250 mg by mouth. ascorbic acid (VITAMIN C) 500 mg tablet Take 1 tablet by mouth once daily. lisinopril (ZESTRIL) 20 mg tablet Take 2 tablets by mouth once daily. dicyclomine (BENTYL) 10 mg capsule Take 1 capsule by mouth before meals and at bedtime. For irritable bowel symptoms as needed Cholecalciferol, Vitamin D3, (VITAMIN D) 1,000 unit cap Take 1,000 Units by mouth once daily. Allergies: ALLERGIES Allergen Reactions Demerol [Meperidine* GI Upset ROS: See HPI PE: 02/12/23 0802 BP: 130/80 Pulse: 64 Resp: 16 Temp: (!) 35.8 C (96.4 F) TempSrc: Right Tympanic Weight: 60.8 kg (134 lb) Gen: A&OX3, NAD, non-toxic appearing HEENT: PERRLA, EOMs intact b/l, nares without drainage, pharynx without erythema, exudate, lesions, or drainage. Uvula midline. MMM, right EAC with cerumen impacted, left EAC wnl, left TM wnl Neck: No LAD, no thyromegaly, no meningismus. CV: RRR, 2/6 HSM RUSB murmur, normal s1s2 Lungs: CTA b/l, no wheezing Skin: No rashes, lesions, or wounds on exposed skin. + varicose veins, no edema, normal peripheral pulses Abd: soft, NT, ND, normal BS ASSESSMENT/PLAN: 1. Hypertension, essential - ICD9: 401.9, ICD10: I10 (primary diagnosis) - Controlled - Continue current medications - Recommend home blood pressure monitoring, to bring results to next visit - Encouraged sodium restriction, DASH or Mediterranean diet - Recommend regular aerobic exercise - LISINOPRIL 20 MG TABLET 2. Stroke with cerebral ischemia (HCC) - ICD9: 434.91, ICD10: I63.9 Stable, no recent symptoms. - LISINOPRIL 20 MG TABLET 3. Need for influenza vaccination - ICD9: V04.81, ICD10: Z23 - INFLUENZA VACCINE, PRSV FREE, AGE 65+ YR, HIGH DOSE, QUADRIVALENT (FLUZONE HIGH-DOSE) 4. Irritable bowel syndrome with diarrhea - ICD9: 564.1, ICD10: K58.0 rx for prn use only, has only symptoms with triggers such as travling. - DICYCLOMINE 10 MG CAPSULE 5. Impacted cerumen of right ear - ICD9: 380.4, ICD10: H61.21 Treated today with water irrigation in office, tolerated well. - AMBULATORY EAR LAVAGE/IRRIGATION 6. Pulmonary arterial hypertension (HCC) - ICD9: 416.8, ICD10: I27.21 Stable, hx of 7. Chronic kidney disease, stage 3b (HCC) - ICD9: 585.3, ICD10: N18.32 - eGFR: 49 Stable - Counseled on avoiding NSAIDs, adequate hydration - Counseled on low sodium diet 8. Dyslipidemia - ICD9: 272.4, ICD10: E78.5 - Controlled - Continue current medications - Counseled on healthy diet and regular exercise 9. Vitamin D deficiency - ICD9: 268.9, ICD10: E55.9 Stable, continue supplement 10. Vitamin B12 deficiency - ICD9: 266.2, ICD10: E53.8 Stable, continue supplement 11. Arthritis, multiple joint involvement - ICD9: 716.99, ICD10: M12.9 Stable, no recent falls. Luis M Herbert DO To ER if develops chest pain, shortness of breath, or severe worsening of symptoms. Discussed risks, benefits, alternatives, and potential side effects of medications. Patient expressed understanding and agreed with the plan. Luis M Herbert DO [address] [place] [address] documented in this encounter [facility] 07-20-2022 History of Present illness Narrative CC: Jennifer Gleason is a 86 year old female who presents to the office for follow up HPI: Dyslipidemia, taking lipitor as prescribed 40 mg a day, no SE from medication HTN, No CP or dyspnea or dizziness/LH or edema. Has recently seen Steward/Stewardess Night Dr. Chou and her lisinopril was increased to 40 mg a day last year- this has been working well for her. No longer taking diuretics due to her weight loss. Tolerating well. No SE from medication Arthritis, stable, no concerns Hx of stroke in 2018, no recent symptoms Appetite is stable. Bowel function is normal No edema, no chest pain or dyspnea or dizziness/palpitations PAST MEDICAL HISTORY Diagnosis Date Advance care planning 07/11/2021 KAMALA Reeder., her daughter Arthritis Dyslipidemia Stroke (HCC) 04/2017 PAST SURGICAL HISTORY Procedure Laterality Date ARTHRP ACETBLR/PROX FEM PROSTC AGRFT/ALGRFT 2000 left PACEMAKER 09/17/2017 Dr. Chou PAST SURGICAL HISTORY OF 2006 bone spurs removed in neck Current Outpatient Medications Medication Sig clopidogrel (PLAVIX) 75 mg tablet TAKE ONE TABLET BY MOUTH EVERY DAY atorvastatin (LIPITOR) 40 mg tablet TAKE ONE TABLET BY MOUTH EVERY DAY Cyanocobalamin 2,500 mcg subl Dissolve 1 tablet under the tongue once daily. lisinopril (ZESTRIL, PRINIVIL) 20 mg tablet Take 2 tablets by mouth once daily. ibuprofen (MOTRIN) 800 mg tablet Take 1 tablet by mouth every 8 hours as needed for Pain (with food.). ascorbic acid (VITAMIN C) 500 mg tablet Take 1 tablet by mouth once daily. Cholecalciferol, Vitamin D3, (VITAMIN D) 1,000 unit cap Take 1,000 Units by mouth once daily. Magnesium 250 mg tab Take 250 mg by mouth. No current facility-administered medications for this visit. ALLERGIES Allergen Reactions Demerol [Meperidine* GI Upset Social History Tobacco Use Smoking status: Former Types: Cigarettes Quit date: 04/23/1999 Years since quittin.2 Smokeless tobacco: Never Substance Use Topics Alcohol use: No Drug use: No ROS: See HPI PE: BP 122/60 Pulse 64 Temp (Src) 97 (Right Tympanic) Resp 20 Wt 135 lb (61.2kg) Gen: A&OX3, NAD, non-toxic appearing HEENT: PERRLA, EOMs intact b/l, nares without drainage, pharynx without erythema, exudate, lesions, or drainage. Uvula midline. Neck: No LAD, no thyromegaly, no meningismus. CV: RRR, 2/6 HSM RUSB murmur, normal s1s2 Lungs: CTA b/l, no wheezing Skin: No rashes, lesions, or wounds on exposed skin. + varicose veins, no edema, normal peripheral pulses Abd: soft, NT, ND, normal BS ASSESSMENT/PLAN: 1. Stroke with cerebral ischemia (HCC) - ICD9: 434.91, ICD10: I63.9 (primary diagnosis) Recheck labs, overall she has been feeling well, continue exercise and healthy diet modifications. - COMP METABOLIC PANEL - CBC - LIPID PANEL BASIC - TSH BLD 2. Vitamin B12 deficiency - ICD9: 266.2, ICD10: E53.8 - recheck labs, continue supplement - VITAMIN B12 BLOOD 3. Hypertension, essential - ICD9: 401.9, ICD10: I10 - good control - Continue current medication(s) - Encouraged dietary sodium restriction/DASH diet - Recommended regular aerobic exercise. - Recommend home blood pressure monitoring, to bring results in on next visit - Discussed need and benefit for weight loss. - Goal of BP <130/80 4. Vitamin D deficiency - ICD9: 268.9, ICD10: E55.9 Stable, continue supplement - VITAMIN D 25 HYDROXY 5. Dyslipidemia - ICD9: 272.4, ICD10: E78.5 - good control - Continue current medication. - Encouraged following a low fat, low cholesterol diet. - Discussed the benefits of regular aerobic exercise and weight loss. 6. Hyperglycemia - ICD9: 790.29, ICD10: R73.9 Stable, recheck labs as ordered. - HGB A1C 7. Arthritis, multiple joint involvement - ICD9: 716.99, ICD10: M12.9 - stable, no recent falls or instability Luis M Herbert DO Return if no improvement. Follow up with Luis M Herbert DO. To ER if develops chest pain, shortness of breath Discussed risks, benefits, alternatives, and potential side effects of medications. Patient/Guardian expressed understanding and agreed with the plan. See patient instructions. Luis M Herbert DO [address] [place] [address] documented in this encounter [facility] 06-12-2022 Miscellaneous Notes Patient phones requesting refills as follows: Requested Prescriptions Pending Prescriptions Disp Refills clopidogrel (PLAVIX) 75 mg tablet [Pharmacy Med Name: CLOPIDOGREL BISULFATE 75MG TABS] 90 tablet 2 Sig: TAKE ONE TABLET BY MOUTH EVERY DAY atorvastatin (LIPITOR) 40 mg tablet [Pharmacy Med Name: ATORVASTATIN CALCIUM 40MG TABS] 90 tablet 3 Sig: TAKE ONE TABLET BY MOUTH EVERY DAY SARAH-01/11/22 Labs-01/11/22 NOV-07/19/22 Please review and advise. Virgil Mcgowan LPN documented in this encounter [facility] 01-12-2022 Miscellaneous Notes Spoke with pt gave information provided. Pt voices understanding. Please let Jennifer know that we received her lab results. Her kidney function has improved a little bit. Vitamin B12 level remains elevated, but lower than last check. It looks like she is currently taking a 5000mcg dose daily. I recommend cutting that in half to 2500mcg daily. I've sent in this rx for her. No other concerns. The following approved medication requests have been transmitted electronically. Requested Prescriptions Signed Prescriptions Disp Refills Cyanocobalamin 2,500 mcg subl 90 tablet 3 Sig: Dissolve 1 tablet under the tongue once daily. Authorizing Provider: ESTEFANY GIBBS APRN.VIRY documented in this encounter [facility] 01-11-2022 History of Present illness Narrative CC: Jennifer Gleason is a 86 year old female who presents to the office for follow up HPI: Dyslipidemia, taking lipitor as prescribed 40 mg a day, no SE from medication HTN, No CP or dyspnea or dizziness/LH or edema. Has recently seen Steward/Stewardess Night Dr. Chou and her lisinopril was increased to 40 mg a day last year- this has been working well for her. No longer taking diuretics due to her weight loss. Tolerating well. No SE from medication Arthritis, stable, no concerns Hx of stroke in 2018, no recent symptoms Appetite is stable. Bowel function is normal No edema, no chest pain or dyspnea or dizziness/palpitations PAST MEDICAL HISTORY Diagnosis Date Advance care planning 07/11/2021 KAMALA Reeder., her daughter Arthritis Dyslipidemia Stroke (HCC) 04/2017 PAST SURGICAL HISTORY Procedure Laterality Date ARTHRP ACETBLR/PROX FEM PROSTC AGRFT/ALGRFT 2000 left PACEMAKER 09/17/2017 Dr. Chou PAST SURGICAL HISTORY OF 2006 bone spurs removed in neck Current Outpatient Medications Medication Sig clopidogrel (PLAVIX) 75 mg tablet Take 1 tablet by mouth once daily. atorvastatin (LIPITOR) 40 mg tablet Take 1 tablet by mouth once daily. ibuprofen (MOTRIN) 800 mg tablet Take 1 tablet by mouth every 8 hours as needed for Pain (with food.). Magnesium 250 mg tab Take 250 mg by mouth. ascorbic acid (VITAMIN C) 500 mg tablet Take 1 tablet by mouth once daily. cyanocobalamin, vitamin B-12, (VITAMIN B-12) 5,000 mcg subl Dissolve under the tongue. lisinopril (ZESTRIL, PRINIVIL) 20 mg tablet Take 2 tablets by mouth once daily. Cholecalciferol, Vitamin D3, (VITAMIN D) 1,000 unit cap Take 1,000 Units by mouth once daily. alpha tocopheryl acetate (VITAMIN E) 400 unit capsule Take 1 capsule by mouth twice daily. No current facility-administered medications for this visit. ALLERGIES Allergen Reactions Demerol [Meperidine* GI Upset Social History Tobacco Use Smoking status: Former Types: Cigarettes Quit date: 04/23/1999 Years since quittin.7 Smokeless tobacco: Never Substance Use Topics Alcohol use: No Drug use: No ROS: See HPI PE: BP 120/60 Pulse 64 Temp (Src) 97 (Left Tympanic) Resp 16 Wt 140 lb (63.5kg) Gen: A&OX3, NAD, non-toxic appearing HEENT: PERRLA, EOMs intact b/l, nares without drainage, pharynx without erythema, exudate, lesions, or drainage. Uvula midline. Neck: No LAD, no thyromegaly, no meningismus. CV: RRR, 2/6 HSM RUSB murmur, normal s1s2 Lungs: CTA b/l, no wheezing Skin: No rashes, lesions, or wounds on exposed skin. + varicose veins, no edema, normal peripheral pulses Abd: soft, NT, ND, normal BS ASSESSMENT/PLAN: 1. Stroke with cerebral ischemia (HCC) - ICD9: 434.91, ICD10: I63.9 (primary diagnosis) - rx refilled, hx of, no new symptoms, recheck labs today - LISINOPRIL 20 MG TABLET - TSH BLD 2. Hypertension, essential - ICD9: 401.9, ICD10: I10 - good control - Continue current medication(s) - Encouraged dietary sodium restriction/DASH diet - Recommended regular aerobic exercise. - Recommend home blood pressure monitoring, to bring results in on next visit - Goal of BP <130/80 - LISINOPRIL 20 MG TABLET - TSH BLD 3. Need for influenza vaccination - ICD9: V04.81, ICD10: Z23 - INFLUENZA SEASONAL QUADRIVALENT HIGH DOSE AGE 65+ 4. Vitamin D deficiency - ICD9: 268.9, ICD10: E55.9 Recheck labs, continue supplements - TSH BLD - VITAMIN D 25 HYDROXY 5. Vitamin B12 deficiency - ICD9: 266.2, ICD10: E53.8 Recheck labs, continue supplements - TSH BLD - VITAMIN B12 BLOOD 6. Dyslipidemia - ICD9: 272.4, ICD10: E78.5 - good control - Continue current medication. - Encouraged following a low fat, low cholesterol diet. - Discussed the benefits of regular aerobic exercise and weight loss. - CBC + DIFF - LIPID PANEL BASIC - TSH BLD 7. Hyperglycemia - ICD9: 790.29, ICD10: R73.9 Recheck labs - HGB A1C 8. Arthritis, multiple joint involvement - ICD9: 716.99, ICD10: M12.9 Stable, no falls, not needing a cane yet Luis M Herbert DO Return if no improvement. Follow up with Luis M Herbert DO. To ER if develops chest pain, shortness of breath Discussed risks, benefits, alternatives, and potential side effects of medications. Patient/Guardian expressed understanding and agreed with the plan. See patient instructions. Luis M Herbert DO [address] [place] [address] documented in this encounter [facility] 09-09-2021 Miscellaneous Notes Patient is out of med today and is asking for it to be sent as soon as possible Pharmacy verified in [facility] Patient has been identified by name and date of : Yes Patient aware RX will be sent to pharmacy. No need to notify patient. Patient phones for refill(s): Pending Prescriptions Disp Refills CLOPIDOGREL 75 MG TABLET 90 tablet 2 Sig: Take 1 tablet by mouth once daily. ANALY: No Date of last office visit : 07/11/2021 Labs-02/04/22 Date of next office visit : 01/11/2022 Last 2 Encounter Wt Readings: Date: Wt: 07/11/2021 63.5 kg (140 lb) 02/15/2021 63 kg (139 lb) Please advise. Desiree Luevano Pss documented in this encounter [facility] 07-11-2021 History of Present illness Narrative CC: Jennifer Gleason is a 85 year old female who presents to the office for follow up HPI: Dyslipidemia, taking lipitor as prescribed 40 mg a day, no SE from medication HTN, No CP or dyspnea or dizziness/LH or edema. Has recently seen Steward/Stewardess Night Dr. Chou and her lisinopril was increased to 40 mg a day in the Fall- this has been working well for her. No longer taking diuretics due to her weight loss. Tolerating well. No SE from medication Arthritis, stable, no concerns Hx of stroke in 2018, no recent symptoms Appetite is stable. PAST MEDICAL HISTORY Diagnosis Date Arthritis Dyslipidemia Stroke (HCC) 04/2017 PAST SURGICAL HISTORY Procedure Laterality Date ARTHRP ACETBLR/PROX FEM PROSTC AGRFT/ALGRFT 2000 left PACEMAKER 09/17/2017 Dr. Chou PAST SURGICAL HISTORY OF 2006 bone spurs removed in neck Current Outpatient Medications Medication Sig atorvastatin (LIPITOR) 40 mg tablet Take 1 tablet by mouth once daily. clopidogrel (PLAVIX) 75 mg tablet Take 1 tablet by mouth once daily. lisinopril (ZESTRIL, PRINIVIL) 20 mg tablet Take 1 tablet by mouth once daily. (Patient taking differently: Take 40 mg by mouth once daily. ) ibuprofen (MOTRIN) 800 mg tablet Take 1 tablet by mouth every 8 hours as needed for Pain (with food.). Magnesium 250 mg tab Take 250 mg by mouth. ascorbic acid (VITAMIN C) 500 mg tablet Take 1 tablet by mouth once daily. cyanocobalamin, vitamin B-12, (VITAMIN B-12) 5,000 mcg subl Dissolve under the tongue. Cholecalciferol, Vitamin D3, (VITAMIN D) 1,000 unit cap Take 1,000 Units by mouth once daily. alpha tocopheryl acetate (VITAMIN E) 400 unit capsule Take 1 capsule by mouth twice daily. No current facility-administered medications for this visit. ALLERGIES Allergen Reactions Demerol [Meperidine* GI Upset Social History Tobacco Use Smoking status: Former Smoker Types: Cigarettes Quit date: 04/23/1999 Years since quittin.2 Smokeless tobacco: Never Used Substance Use Topics Alcohol use: No Drug use: No ROS: See HPI PE: BP 156/80 Pulse 64 Temp (Src) 96.3 (Left Tympanic) Resp 16 Wt 140 lb (63.5kg) Gen: A&OX3, NAD, non-toxic appearing HEENT: PERRLA, EOMs intact b/l, nares without drainage, pharynx without erythema, exudate, lesions, or drainage. Uvula midline. Neck: No LAD, no thyromegaly, no meningismus. CV: RRR, 2/6 HSM RUSB murmur, normal s1s2 Lungs: CTA b/l, no wheezing Skin: No rashes, lesions, or wounds on exposed skin. + varicose veins, no edema, normal peripheral pulses Abd: soft, NT, ND, normal BS ASSESSMENT/PLAN: 1. Hypertension, essential - ICD9: 401.9, ICD10: I10 (primary diagnosis) - good control - Continue current medication(s) - Encouraged dietary sodium restriction/DASH diet - Recommended regular aerobic exercise. - Recommend home blood pressure monitoring, to bring results in on next visit - Goal of BP <130/80 - COMP METABOLIC PANEL - CBC + DIFF 2. Arthritis, multiple joint involvement - ICD9: 716.99, ICD10: M12.9 - stable, no recent falls 3. Vitamin D deficiency - ICD9: 268.9, ICD10: E55.9 - recheck labs, continue supplement - VITAMIN D 25 HYDROXY 4. Vitamin B12 deficiency - ICD9: 266.2, ICD10: E53.8 - recheck labs, continue supplement - VITAMIN B12 BLOOD 5. Dyslipidemia - ICD9: 272.4, ICD10: E78.5 - to be determined upon return of lab results - Encouraged following a low fat, low cholesterol diet. - Discussed the benefits of regular aerobic exercise and weight loss. - LIPID PANEL BASIC 6. History of stroke with residual effects - ICD9: 438.9, ICD10: I69.30 - stable, hx of, no new changes in symptoms. Luis M Herbert DO Return if no improvement. Follow up with Luis M Herbert DO. To ER if develops chest pain, shortness of breath, Discussed risks, benefits, alternatives, and potential side effects of medications. Patient/Guardian expressed understanding and agreed with the plan. See patient instructions. 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 September 17, 2017 chronic Ischemic cerebrovascular accident (CVA) April, chronic Mitral valve insufficiency a cute Complete heart block chronic Essential (primary) hypertension chronic History of permanent cardiac pacemaker placement September 17, 2017 chronic Hyperlipidemia [facility] Work Phone: 1(668) 132-790406-11-2018 Evaluation note* Diagnosis Onset Date Resolution Status 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 September 17, 2017 chronic Ischemic cerebrovascular accident (CVA) April, chronic Essential (primary) hypertension chronic History of permanent cardiac pacemaker placement September 17, 2017 chronic Hyperlipidemia [facility] Work Phone: 1(800) 840-145602-02-2018 History of Past illness Narrative* Problem Noted Date Resolved Date History of stroke 05/11/2017 01/09/2022 documented as of this encounter (statuses as of 01/11/2022) [facility] History of Past illness Narrative* Problem Noted Date Resolved Date History of stroke 05/11/2017 01/09/2022 documented as of this encounter (statuses as of 01/12/2022) [facility] History of Past illness Narrative* Problem Noted Date Resolved Date History of stroke 05/11/2017 01/09/2022 documented as of this encounter (statuses as of 06/12/2022) [facility] History of Past illness Narrative* Problem Noted Date Resolved Date History of stroke 05/11/2017 01/09/2022 documented as of this encounter (statuses as of 07/21/2022) [facility] History of Past illness Narrative* Problem Noted Date Diagnosed Date Resolved Date History of stroke 05/11/2017 01/09/2022 documented as of this encounter (statuses as of 02/13/2023) [facility] History of Past illness Narrative* Problem Noted Date Diagnosed Date Resolved Date History of stroke 05/11/2017 01/09/2022 documented as of this encounter (statuses as of 03/27/2023) [facility] History of Past illness Narrative* Problem Noted Date Diagnosed Date Resolved Date History of stroke 05/11/2017 01/09/2022 documented as of this encounter (statuses as of 06/28/2023) [facility] Hypertension, essential- Primary Unspecified essential hypertension Arthritis, multiple joint involvement Unspecified arthropathy, multiple sites Vitamin D deficiency Unspecified vitamin D deficiency Vitamin B12 deficiency Other B-complex deficiencies Dyslipidemia Other and unspecified hyperlipidemia History of stroke with residual effects Unspecified late effects of cerebrovascular disease [facility] Stroke with cerebral ischemia (HCC) Unspecified cerebral artery occlusion with cerebral infarction [facility] Stroke with cerebral ischemia (HCC)- Primary Unspecified cerebral artery occlusion with cerebral infarction Hypertension, essential Unspecified essential hypertension Need for influenza vaccination Need for prophylactic vaccination and inoculation against influenza Vitamin D deficiency Unspecified vitamin D deficiency Vitamin B12 deficiency Other B-complex deficiencies Dyslipidemia Other and unspecified hyperlipidemia Hyperglycemia Other abnormal glucose Arthritis, multiple joint involvement Unspecified arthropathy, multiple sites [facility] Diagnosis Vitamin B12 deficiency- Primary Other B-complex deficiencies [facility] Stroke with cerebral ischemia (HCC) Unspecified cerebral artery occlusion with cerebral infarction [facility] Diagnosis Stroke with cerebral ischemia (HCC)- Primary Unspecified cerebral artery occlusion with cerebral infarction Vitamin B12 deficiency Other B-complex deficiencies Hypertension, essential Unspecified essential hypertension Vitamin D deficiency Unspecified vitamin D deficiency Dyslipidemia Other and unspecified hyperlipidemia Hyperglycemia Other abnormal glucose Arthritis, multiple joint involvement Unspecified arthropathy, multiple sites [facility] Diagnosis Hypertension, essential- Primary Unspecified essential hypertension Stroke with cerebral ischemia (HCC) Unspecified cerebral artery occlusion with cerebral infarction Need for influenza vaccination Need for prophylactic vaccination and inoculation against influenza Irritable bowel syndrome with diarrhea Irritable bowel syndrome Impacted cerumen of right ear Impacted cerumen Pulmonary arterial hypertension (HCC) Other chronic pulmonary heart diseases Chronic kidney disease, stage 3b (HCC) Dyslipidemia Other and unspecified hyperlipidemia Vitamin D deficiency Unspecified vitamin D deficiency Vitamin B12 deficiency Other B-complex deficiencies Arthritis, multiple joint involvement Unspecified arthropathy, multiple sites [facility] Stroke with cerebral ischemia (HCC) Unspecified cerebral artery occlusion with cerebral infarction [facility] Stroke with cerebral ischemia (HCC) Unspecified cerebral artery occlusion with cerebral infarction [facility] Stroke with cerebral ischemia (HCC) Unspecified cerebral artery occlusion with cerebral infarction Hypertension, essential Unspecified essential hypertension [facility] Diagnosis Hypertension, essential- Primary Unspecified essential hypertension Chronic kidney disease, stage 3b (HCC) Dyslipidemia Other and unspecified hyperlipidemia Vitamin D deficiency Unspecified vitamin D deficiency Vitamin B12 deficiency Other B-complex deficiencies Hyperglycemia Other abnormal glucose Paralytic syndrome, unspecified (HCC) Complete atrioventricular block (HCC) Atrioventricular block, complete Pulmonary arterial hypertension (HCC) Other chronic pulmonary heart diseases Arthritis, multiple joint involvement Unspecified arthropathy, multiple sites [facility] Stroke with cerebral ischemia (HCC) Unspecified cerebral artery occlusion with cerebral infarction Hypertension, essential Unspecified essential hypertension [facility] Diagnosis Hypertension, essential- Primary Unspecified essential hypertension Need for influenza vaccination Need for prophylactic vaccination and inoculation against influenza Vitamin B12 deficiency Other B-complex deficiencies Arthritis, multiple joint involvement Unspecified arthropathy, multiple sites Chronic kidney disease, stage 3b (HCC) Dyslipidemia Other and unspecified hyperlipidemia Vitamin D deficiency Unspecified vitamin D deficiency Pure hypercholesterolemia Typical atrial flutter (HCC) Atrial flutter Cardiac pacemaker Cardiac pacemaker in situ [facility] Stroke with cerebral ischemia (HCC) Unspecified cerebral artery occlusion with cerebral infarction Hypertension, essential Unspecified essential hypertension documented [facility] this [facility] [facility] Diagnosis Diarrhea, unspecified type- Primary Abdominal bloating Flatulence, eructation, and gas pain Vitamin D deficiency Unspecified vitamin D deficiency Vitamin B12 deficiency Other B-complex deficiencies Hypertension, essential Unspecified essential hypertension Dyslipidemia Other and unspecified hyperlipidemia Pure hypercholesterolemia Hyperglycemia Other abnormal glucose Chronic neck pain Cervicalgia Osteoarthritis of spine with radiculopathy, cervical region Bilateral shoulder pain, unspecified chronicity Chronic pain syndrome documented in this encounter [facility] Chief Complaint and Reason for Visit Chief Complaint 6 M FU/ Humaira @ 8:30 MITRAL VALVE INSUFFICIENCY Reason for Visit Complete heart block History of permanent cardiac pacemaker placement Ischemic cerebrovascular accident (CVA) Mitral valve insufficiency Complete heart block Essential (primary) hypertension History of permanent cardiac pacemaker placement Hyperlipidemia Chief Complaint 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 1 YR F/U / HUMAIRA 8:30 eorders Reason for Visit Complete heart block History of permanent cardiac pacemaker placement Ischemic cerebrovascular accident (CVA) Essential (primary) hypertension History of permanent cardiac pacemaker placement Hyperlipidemia Advance Directives No Advanced Directives Records Found Advance Directive Response Recorded Date/ Time Advance Directives No April 26, 2017 9:09am Living Will No April 07 2:46pm Power of Rubber Off No April 07, 2020 2:46pm Summary Purpose Family History No Family History Records Found Additional Source Comments Source Comments (unrecognize d section and content) In the event this informatio n is protected by the Federal Confidentiality of Alcohol and Drug Abuse Patient Records regulations: The Federal rules restrict any use of the information to criminally investigate or prosecute any alcohol or drug abuse patient.[facility] the event this information is protected by the Federal Confidentiality of Alcohol and Drug Abuse Patient Records regulations: The Federal rules restrict any use of the information to criminally investigate or prosecute any alcohol or drug abuse patient.[facility] the event this information is protected by the Federal Confidentiality of Alcohol and Drug Abuse Patient Records regulations: The Federal rules restrict any use of the information to criminally investigate or prosecute any alcohol or drug abuse patient.[facility] the event this information is protected by the Federal Confidentiality of Alcohol and Drug Abuse Patient Records regulations: The Federal rules restrict any use of the information to criminally investigate or prosecute any alcohol or drug abuse patient.[facility] the event this information is protected by the Federal Confidentiality of Alcohol and Drug Abuse Patient Records regulations: The Federal rules restrict any use of the information to criminally investigate or prosecute any alcohol or drug abuse patient.[facility] the event this information is protected by the Federal Confidentiality of Alcohol and Drug Abuse Patient Records regulations: The Federal rules restrict any use of the information to criminally investigate or prosecute any alcohol or drug abuse patient.[facility] the event this information is protected by the Federal Confidentiality of Alcohol and Drug Abuse Patient Records regulations: The Federal rules restrict any use of the information to criminally investigate or prosecute any alcohol or drug abuse patient.[facility] the event this information is protected by the Federal Confidentiality of Alcohol and Drug Abuse Patient Records regulations: The Federal rules restrict any use of the information to criminally investigate or prosecute any alcohol or drug abuse patient.[facility] the event this information is protected by the Federal Confidentiality of Alcohol and Drug Abuse Patient Records regulations: The Federal rules restrict any use of the information to criminally investigate or prosecute any alcohol or drug abuse patient.[facility] the event this information is protected by the Federal Confidentiality of Alcohol and Drug Abuse Patient Records regulations: The Federal rules restrict any use of the information to criminally investigate or prosecute any alcohol or drug abuse patient.[facility] the event this information is protected by the Federal Confidentiality of Alcohol and Drug Abuse Patient Records regulations: The Federal rules restrict any use of the information to criminally investigate or prosecute any alcohol or drug abuse patient.[facility] the event this information is protected by the Federal Confidentiality of Alcohol and Drug Abuse Patient Records regulations: The Federal rules restrict any use of the information to criminally investigate or prosecute any alcohol or drug abuse patient.[facility] the event this information is protected by the Federal Confidentiality of Alcohol and Drug Abuse Patient Records regulations: The Federal rules restrict any use of the information to criminally investigate or prosecute any alcohol or drug abuse patient.[facility] the event this information is protected by the Federal Confidentiality of Alcohol and Drug Abuse Patient Records regulations: The Federal rules restrict any use of the information to criminally investigate or prosecute any alcohol or drug abuse patient.[facility] the event this information is protected by the Federal Confidentiality of Alcohol and Drug Abuse Patient Records regulations: The Federal rules restrict any use of the information to criminally investigate or prosecute any alcohol or drug abuse patient.[facility] the event this information is protected by the Federal Confidentiality of Alcohol and Drug Abuse Patient Records regulations: The Federal rules restrict any use of the information to criminally investigate or prosecute any alcohol or drug abuse patient.[facility] the event this information is protected by the Federal Confidentiality of Alcohol and Drug Abuse Patient Records regulations: The Federal rules restrict any use of the information to criminally investigate or prosecute any alcohol or drug abuse patient.[facility] the event this information is protected by the Federal Confidentiality of Alcohol and Drug Abuse Patient Records regulations: The Federal rules restrict any use of the information to criminally investigate or prosecute any alcohol or drug abuse patient.[facility] Reason for Visit (unrecogniz ed section and content) Reason Comments Follow Up Reason Onset Date Comments Refill Request 09/09/2021 Reason Onset Date Comments 6 Month Exam Immunizations 01/11/2022 Flu vaccination Reason Comments Results Reason Comments Refill Request Reason Comments 6 Month Exam Reason Onset Date Comments 6 Month Exam Immunizations 02/12/2023 Flu vaccination Reason Onset Date Comments Refill Request 06/25/2023 Refill Request 06/26/2023 Reason Onset Date Comments Refill Request 07/30/2023 Reason Onset Date Comments Refill Request 12/24/2023 Reason Onset Date Comments 6 Month Exam Immunizations 02/13/2024 Flu vaccination Reason Onset Date Comments Refill Request 06/23/2024 Reason Comments Medication Question Reason Comments Patient Question regarding pain med Care Teams (unrecognized sec tion and content) String Winding Machine Operator Relationship Specialty Start Date End Date Luis M Herbert DO [address] [place] [address] PCP - General Family Practice 07/06/14 String Winding Machine Operator Relationship Specialty Start Date End Date Luis M Herbert DO [address] [place] [address] PCP - General Family Practice 07/06/14 String Winding Machine Operator Relationship Specialty Start Date End Date Luis M Herbert, DO [address] [facility] [place] [address] PCP - General Family Medicine 07/06/14 String Winding Machine Operator Relationship Specialty Start Date End Date Luis M Herbert, DO [address] [facility] [place] [address] PCP - General Family Medicine 07/06/14 String Winding Machine Operator Relationship Specialty Start Date End Date Luis M Herbert DO [address] [facility] [place] [address] PCP - General Family Medicine 07/06/14 String Winding Machine Operator Relationship Specialty Start Date End Date Luis M Herbert DO [address] [place] [address] PCP - General Family Medicine 07/06/14 Team Status: Active Member Role Status Dates Dr. Luis M Herbert DO Family Provider Active Dr. Luis M Herbert DO Primary Care Provider Active Team Status: Inactive Member Role Status Dates Dr. Luis M Herbert DO Primary Care Provider, Referr ing Provider Active Zahraa Bae Attending Provider Active Team Status: Inactive Member Role Status Dates Dr. Luis M Herbert DO Primary Care Provider, Referr ing Provider Active Dr. Freedom Chou MD Attending Provider Active Team Status: Inactive Member Role Status Dates Dr. Luis M Herbert DO Primary Care Provider Active Dr. Freedom Chou MD Attending Provider, Referring Pro vider Active String Winding Machine Operator Relationship Specialty Start Date End Date Luis M Herbert DO [address] [facility] [place] [address] PCP - General Family Medicine 07/06/14 String Winding Machine Operator Relationship Specialty Start Date End Date Luis M Herbert DO [address] [place] [address] PCP - General Family Medicine 07/06/14 String Winding Machine Operator Relationship Specialty Start Date End Date Luis M Herbert DO [address] [place] [address] PCP - General Family Medicine 07/06/14 String Winding Machine Operator Relationship Specialty Start Date End Date Luis M Herbert DO [address] [place] [address] PCP - General Family Medicine 07/06/14 String Winding Machine Operator Relationship Specialty Start Date End Date Luis M Herbert DO [address] [place] [address] PCP - General Family Medicine 07/06/14 String Winding Machine Operator Relationship Specialty Start Date End Date Luis M Herbert DO [address] [place] [address] PCP - General Family Medicine 07/06/14 String Winding Machine Operator Relationship Specialty Start Date End Date Luis M Herbert DO [address] [place] [address] PCP - General Family Medicine 07/06/14 String Winding Machine Operator Relationship Specialty Start Date End Date Luis M Herbert DO [address] [place] [address] PCP - General Family Medicine 07/06/14 Kathy Lew APRN.SPANISH PROFESSOR [address] [place] [address] Printed Circuit Board Pcb Draftsman Family [facility] 03/16/24 Estefany Gibbs APRN.SPANISH PROFESSOR [address] [place] [address] [facility] String Winding Machine Operator Relationship Specialty Start Date End Date Luis M Herbert DO [address] [place] [address] PCP - General Family Medicine 07/06/14 [facility] CAKE PRESS OPERATOR HELPER.SPANISH PROFESSOR [address] [place] [address] [employer] [facility] 03/16/24 String Winding Machine Operator Relationship Specialty Start Date End Date Luis M Herbert DO [address] [place] [address] PCP - General Family Medicine 07/06/14 BernieEstefany, CAKE PRESS OPERATOR HELPER.SPANISH PROFESSOR [address] [place] [address] [employer] [facility] 03/16/24 String Winding Machine Operator Relationship Specialty Start Date End Date Luis M Herbert DO [address] [place] [address] PCP - General Family Medicine 07/06/14 BernieEstefany, CAKE PRESS OPERATOR HELPER.SPANISH PROFESSOR [address] [place] [address] [employer] [facility] 03/16/24 String Winding Machine Operator Relationship Specialty Start Date End Date Luis M Herbert DO [address] [place] [address] PCP - General Family Medicine 07/06/14 [facility] CAKE PRESS OPERATOR HELPER.SPANISH PROFESSOR [address] [place] [address] [employer] [facility] 03/16/24 Goals (unrecognized section and content) Goals may be documented in a n alternate sectionGoals may be documented in an alternate section INFORMATION SOURCE (unrecogn ized section and content) DATE CREATED AUTHOR 09/04/2024 [facility] DATE CREATED AUTHOR 'Prudence MARIE 09/14/2024 [facility] FOR RECORDS PERTAINING TO PATIENTS WHO ARE OR HAVE BEEN ENROLLED IN A CHEMICAL DEPENDENCY/SUBSTANCEABUSE PROGRAM, SOME INFORMATION MAY BE OMITTED. This clinical summary was aggregated from multiple sources. Caution should be exercised in using it in the provision of clinical care. This summary normalizes information from multiple sources, and as a consequence, information in this document may materially change the coding, format and clinical context of patient data. In addition, data may be omitted in some cases. CLINICAL DECISIONS SHOULD BE BASED ON THE PRIMARY CLINICAL RECORDS. [employer] provides no warranty or guarantee of the accuracy or completeness of information in this document.
== END | disposition home or self-care (01) ==
PROVIDERS: PCP Student in an Organized Health Care Education/Training Program; Referring Provider Student in an Organized Health Care Education/Training Program; Visit Provider Student in an Organized Health Care Education/Training Program
DX: I27.21 Secondary pulmonary arterial hypertension (principal)
CPT/HCPCS: 93306

== ENCOUNTER 2025-01-18 08:31 | Inpatient (IN) | payer MEDICARE, MEDICAID, SELFPAY ==
[2025-01-18] VITALS (10 sets, daily range): BP systolic 133–166; BP diastolic 70–126; PULSE 66–78; RESP 16–18; TEMP 36.5–36.9; O2SAT 93–100; BMI 24.3; BMI 24.7
--- NOTE | 2025-01-18 08:37 | EKG12_ITS ---
Test Reason : STROKE Blood Pressure : */* mmHG Vent. Rate : 64 BPM Atrial Rate : 64 BPM P-R Int : 204 ms QRS Dur : 154 ms QT Int : 486 ms P-R-T Axes : 79 -78 84 degrees QTcB Int : 501 ms Atrial-sensed ventricular-paced rhythm Abnormal ECG Confirmed by HARIS ODEN, SAMIR ([id number]), editorial director JUVENTINO ARDON ([id number]) on 01/20/2025 7:41:32 AM Referred By: Confirmed By: SAMIR CARBALLO MD
--- NOTE | 2025-01-18 08:37 | CT_ITS ---
PROCEDURE: STROKE CTA HEAD AND NECK W/CON 01/18/2025 REASON FOR EXAM: NEURO DEFICIT, ACUTE, STROKE SUSPECTED TECHNIQUE: Procedure Code: CTCTA.ST.HN Modality: CT Procedure: STROKE CTA HEAD AND NECK W/CON Multiplanar Sagittal and Coronal images were obtained. CONTRAST: Isovue 370 VOLUME: 75 mL One or more dose reduction techniques were used (e.g., Automated exposure control, adjustment of the mA and/or kV according to patient size, use of iterative reconstruction technique). RADIATION DOSE SUMMARY: CTDlvol: 17.01 mGy DLP: 627.3 mGycm COMPARISON: None. FINDINGS: Aortic Arch: Normal size and branching pattern. No significant atherosclerotic plaque. Brachiocephalic and Subclavians: Unremarkable RIGHT Carotid: Right CCA: Unremarkable. Right ICA: Atherosclerotic calcifications of the carotid bulb without hemodynamically significant stenosis. Right ECA: LEFT Carotid: Left CCA: Unremarkable. Left ICA: Atherosclerotic calcifications of the carotid bulb without hemodynamically significant stenosis. Left ECA: Unremarkable. Vertebrals: Codominant. Arise from the subclavians. Both vertebrals form the basilar. RIGHT Vertebral: Unremarkable. LEFT Vertebral: Unremarkable. Anatomy: [place] of New anatomy is normal. Aneurysm or avm: No intracranial aneurysms or large vascular malformations are identified. Anterior cerebral arteries: Unremarkable: Middle cerebral arteries: Unremarkable. Basilar artery: Unremarkable. Posterior cerebral arteries: Unremarkable. Other major branches of the posterior circulation: Unremarkable. Major venous structures: Unremarkable. Other findings: Neck: No lymphadenopathy. Cystic right thyroid lobe nodule measures 1.5 cm. Lungs: Lung apices are clear. Bones: No acute bony abnormalities. CT/STROKE CTA Head AND Neck W/Con IMPRESSION: No hemodynamically significant stenosis in the neck. Reading Location: [facility]
--- NOTE | 2025-01-18 08:38 | CT_ITS ---
PROCEDURE: STROKE BRAIN/HEAD WITHOUT CONT 01/18/2025 REASON FOR EXAM: NEURO DEFICIT, ACUTE, STROKE SUSPECTED TECHNIQUE: Procedure Code: CTBR.ST Modality: CT Procedure: STROKE BRAIN/HEAD WITHOUT CONT Coronal and Sagittal reconstruction series were provided. One or more dose reduction techniques were used (e.g., Automated exposure control, adjustment of the mA and/or kV according to patient size, use of iterative reconstruction technique. RADIATION DOSE SUMMARY: CTDlvol: 44.99 mGy DLP: Atrial 0.98 mGycm COMPARISON: None FINDINGS: Brain: No acute territorial infarction. No acute intracranial hemorrhage. Diffuse white matter hypodensities which are nonspecific but likely due to chronic small-vessel ischemia. No mass-effect or midline shift. Parenchymal volume loss consistent with brain atrophy. No ventriculomegaly. The orbits are unremarkable. The craniocervical junction is unremarkable. CSF Spaces: Advanced generalized cerebral atrophy Sinuses/Mastoids: Clear Bones: No acute bony abnormalities. CT/STROKE Brain/Head without Cont IMPRESSION: No acute intracranial abnormalities. Reading Location: [id number]
[2025-01-18 08:58] LABS: Hematocrit 39.3 % (37-47); Hemoglobin 13.3 g/dL (12.0-15.0); Immature Granulocytes Count 0.020 X10^3/uL (0.0-0.0); Mean Corp Hgb Conc 33.8 g/dL (32-36); Mean Corpuscular Volume 96.6 fL (81-99); Mean Platelet Vol. 9.0 fl (6.2-12.0); NRBC Flagged by Analyzer 0 % (0-5); Platelet Count 267 K/mm3 (150-450); RBC Distribution Width CV 13.5 % (11.6-14.6); RBC Distribution Width SD 47.9 fl (35.1-43.9); Red Blood Count 4.07 M/mm3 (4.2-5.4); White Blood Count 8.0 K/mm3 (4.4-11.0)
[2025-01-18 09:08] LABS: Prothrombin Time (Protime)PT. 14.3 SECONDS (11.7-14.9)
[2025-01-18 09:09] LABS: Partial Thromboplast Time 28.2 Seconds (24.1-36.2)
[2025-01-18 09:15] LABS: Anion Gap 9 (5-15); BUN 19 mg/dL (4-19); BUN/Creat Ratio 18.5 RATIO (10-20); Calcium,Total 9.3 mg/dL (7.6-11.0); Carbon Dioxide 24.8 mmol/L (21.0-32.0); Chloride 106 mmol/L (98-108); Estimated Creatinine Clearance 33.61 ml/min (50-250); Glucose 111 mg/dL (70-99); Potassium 4.1 mmol/L (3.3-5.1); Troponin T High Sensitivity 26 ng/L (<=14)
--- NOTE | 2025-01-18 09:45 | ED.RN ---
Dr Lee states nursing can chart q1hr [facility] for patient
--- NOTE | 2025-01-18 09:47 | PCM.HP.STD ---
HPI - General General Date of Admission: 01/18/25 Date of Service: 01/18/25 Chief Complaint: Left leg weakness and right hand numbness HPI Narrative SHANTANU CONDE, is a 89 F with history of previous stroke with slight numbness on the left side came to ED for numbness and dragging of left leg which was new to her. She also felt right hand numbness. She was not able to balance herself because of left leg weakness. She further said her left arm is weak because of the shoulder surgery in the past and cannot lift more than 40 degree. She denies any change in the speech/language, dysarthria, dysphagia or alteration of mental status. No facial droop. In ED, a stroke alert was called. Vitals within normal limit. CT head and CTA head and neck does not show acute hemodynamically significant stenosis. ED physician had verbal discussion with [facility] stroke neurologist and recommended admission. [facility] Medical History (Updated 01/18/25 @ 10:[address] Quan Jackson MD) Myelomalacia of cervical cord Left carotid artery stenosis Secondary pulmonary arterial hypertension Complete heart block Obesity Essential (primary) hypertension Left arm weakness Arm paresthesia, left Bradycardia, severe sinus Hyperlipidemia Ischemic cerebrovascular accident (CVA) (04/2017) Osteoarthritis Dysarthria Home Medications ?Medication ?Instructions ?Recorded ?Last Taken ?Type multivitamin 1 tab PO QDAY vitamin 10/02/17 Unknown History atorvastatin 40 mg tablet 40 mg PO QHS cholesterol #90 tabs 05/14/18 Unknown Rx clopidogrel 75 mg tablet 75 mg PO DAILY anti platelet 06/27/18 Unknown History lisinopril 40 mg tablet 40 mg PO DAILY blood pressure #90 01/09/22 Unknown Rx tabs apixaban 2.5 mg tablet (Eliquis) 2.5 mg PO BID blood thinner #60 09/25/24 Unknown Rx tabs Allergy/AdvReac Type Severity Reaction Status Date / Time meperidine (From Demerol) AdvReac Upset Verified 01/18/25 08:36 Stomach Family History Unknown No problems noted. Other CVA (cerebral vascular accident) Surgical History History of permanent cardiac pacemaker placement (09/17/17) History of neck surgery History of total left hip replacement Social History Smoking Status: Former smoker how long ago did patient quit smokin years ago alcohol intake: current alcohol intake frequency: holidays/special occasions only substance use type: does not use caffeine: Yes Type: coffee Number of servings: 1 ROS ROS Narrative Constitutional: Reports fatigue and weakness. No fever. HEENT: Reports systems reviewed and no addt'l complaints, except as documented Respiratory/Chest: No acute shortness of breath or respiratory distress or wheezing. CVS: Left subclavicular pacemaker. No acute chest pain pressure tightness Gastrointestinal: Denies coffee ground emesis, hematemesis or vomiting Genitourinary: Denies burning urination or new urinary tract symptoms Musculoskeletal: Chronic left shoulder deformity status post surgery. Chronic weakness of left upper extremity. Denies acute joint pain or limited range of motion. No acute injury Neurologic: As described in HPI. Denies seizure-like symptoms. skin: No ulcer. No rash Endocrinology: Reports systems reviewed and no addt'l complaints, except as documented Hematologic/Lymphatic: Reports systems reviewed and no addt'l complaints, except as documented Rest 14 ROS are negative except as mentioned in HPI Vital Signs Vital Signs Vital Signs: 01/18/25 08:33 01/18/25 08:37 01/18/25 08:45 Temperature 97.7 F L Temperature Source Temporal Pulse Rate 71 71 Respiratory Rate 16 17 Blood Pressure 136/118 H 133/113 H Blood Pressure Mean 124 119 Pulse Ox 98 97 Oxygen Delivery Method Room Air Room Air 01/18/25 09:32 Temperature Temperature Source Pulse Rate 66 Respiratory Rate 17 Blood Pressure 158/70 H Blood Pressure Mean 99 Pulse Ox 100 Oxygen Delivery Method Room Air Weight Weight: 133 lb 6.075 oz Body Mass Index (BMI) 24.3 Physical Exam Narrative General: Alert, Oriented x3, Cooperative. BMI 24.4 kg/m?. HEENT: Atraumatic, PERRLA, EOMI, Normocephalic. Oral: No Gingival or Mucosal Lesions/ Ulcerations Neck: Supple, No JVD, Negative Carotid Bruits Chest wall/Lungs: Air entry diminished in bilateral lung bases. No crepitation/rhonchi Cardiovascular: Regular rate and rhythm, Normal S1,S2, No M/G/R Abdomen: Bowel Sounds Present, Soft, Non Tender, Non-Distended : No dysuria. No renal angle tenderness. No suprapubic tenderness. Extremities: No edema, Capillary Refill Less than 3 Seconds Skin: No rashes, No breakdown Musculoskeletal: Chronic left shoulder surgical scar, power 4/5. NIHSS total 2, left leg drift, 1, mild to moderate loss of sensation 1. No Tenderness to Palpation of Joints or Extremities Neurological: Cranial nerves II-XII grossly intact, DTR 2+/4. No acute focal neurological deficit. Psych/Mental Status: Normal Affect, Appropriate. Results Lab / Micro Data 01/18/25 08:45 01/18/25 08:45 Labs: Laboratory Results - last 24 hr 01/18/25 08:45: WBC 8.0, RBC 4.07 L, Hgb 13.3, Hct 39.3, MCV 96.6, MCH 32.7 H, MCHC 33.8, RDW Std Deviation 47.9 H, RDW Coeff of Payton 13.5, Plt Count 267, MPV 9.0, Immature Gran % (Auto) 0.300, Neut % (Auto) 58.6, Lymph % (Auto) 22.8, Van Zandt % (Auto) 10.0, Eos % (Auto) 7.5 H, Baso % (Auto) 0.8, Absolute Neuts (auto) 4.7, Absolute Lymphs (auto) 1.82, Nucleated RBC % 0, PT 14.3, INR 1.1, APTT 28.2, Sodium 140, Potassium 4.1, Chloride 106, Carbon Dioxide 24.8, Anion Gap 9, BUN 19, Creatinine 1.01, Estim Creat Clear Calc 33.61 L, Est GFR (MDRD) Non-Af 54 L, BUN/Creatinine Ratio 18.5, Glucose 111 H, Calcium 9.3, Troponin T High Sens 26 H Imaging Radiology Impression Head/Neck CTA 01/18/25 08:37 IMPRESSION: No hemodynamically significant stenosis in the neck. Reading Location: [facility] Brain CT 01/18/25 08:38 IMPRESSION: No acute intracranial abnormalities. Reading Location: [facility] Assessment & Plan Assessment/Plan (1) TIA (transient ischemic attack): PLAN: Plan This 89-year-old female came to ED for new left leg weakness along with numbness and admitted for further evaluation of for stroke 1. Possible TIA: Patient is being admitted in PCU. CT brain and CTA head and neck shows no acute intracranial abnormality or LVO. PT, OT, speech therapy/swallow evaluation and management, nursing NIH stroke scale, BP and glucose monitoring and control as per stroke protocol. TSH, A1c fasting lipid profile tomorrow AM. MRI brain ordered. Patient recently had echo therefore limited echo ordered to rule out ASD. 2. Hypertension: Keep blood pressure within a stroke guidelines without tPA. BP 155/105. Hold lisinopril 3. Mild hyperglycemia, glucose 111: Patient does not have a history of diabetes or on medication for DM. A1c ordered for tomorrow AM. Accu-Chek before meals and at bedtime with Humalog sliding scale coverage and hypoglycemia protocol. 4. Chronic atrial flutter, history of complete heart block status post dual-chamber pacemaker in September 2017: Patient follows [facility] last visit August 2024. Has [employer] model of pacemaker. On Eliquis 2.5 mg twice daily and Plavix 75 mg daily continued.Twelve-lead EKG shows atrial sensed ventricular paced rhythm at 64 bpm, QTc 486 ms. Last echo in September 2024 EF 60%, stage I diastolic dysfunction, PASP 38 mmHg, mild concentric LVH. Last admitted in 2018 for symptomatic bradycardia and a had a dual-chamber pacemaker at that time. 5. Dyslipidemia: On atorvastatin 40 mg daily. 6. DVT prophylaxis, not indicated as already on Eliquis 2.5 mg twice daily. Living will/advanced directive/end of life care: Patient does not have living will or advanced directive. She has power of patent attorney, her daughter present in ED. After discussion of benefits/risks procedures involved with full code, DNR CC arrest and DNR CC, the patient opted for DNR CC arrest with no intubation Patient doesn't want artificial life support including intubation, tube feed, ventilator and/chest compression, central venous catheter, vasopressor and DC shock if needed Total time spent in [id number] encounter in discussion of advanced directive 17 minutes. Laboratory Results 01/18/25 08:45: WBC 8.0, RBC 4.07 L, Hgb 13.3, Hct 39.3, MCV 96.6, MCH 32.7 H, MCHC 33.8, RDW Std Deviation 47.9 H, RDW Coeff of Payton 13.5, Plt Count 267, MPV 9.0, Immature Gran % (Auto) 0.300, Neut % (Auto) 58.6, Lymph % (Auto) 22.8, Van Zandt % (Auto) 10.0, Eos % (Auto) 7.5 H, Baso % (Auto) 0.8, Absolute Neuts (auto) 4.7, Absolute Lymphs (auto) 1.82, Nucleated RBC % 0, PT 14.3, INR 1.1, APTT 28.2, Sodium 140, Potassium 4.1, Chloride 106, Carbon Dioxide 24.8, Anion Gap 9, BUN 19, Creatinine 1.01, Estim Creat Clear Calc 33.61 L, Est GFR (MDRD) Non-Af 54 L, BUN/Creatinine Ratio 18.5, Glucose 111 H, Calcium 9.3, Troponin T High Sens 26 H Clinical Impression(s) from Imaging Studies Head/Neck CTA 01/18/25 08:37 IMPRESSION: No hemodynamically significant stenosis in the neck. Reading Location: [facility] Brain CT 01/18/25 08:38 IMPRESSION: No acute intracranial abnormalities. Reading Location: [facility] Charges/Coding Visit Charges Inpatient E&M: 66669 Init Hosp L3 Procedures Hospitalists Procedures: 40694 Advncd Care Plan 30 Min
--- NOTE | 2025-01-18 11:04 | ECHOL_ITS ---
Reason For Study Reason For Study: CVA Procedure This was a limited 2D transthoracic echocardiogram. The study was technically difficult. Exam performed portable in patient room. Left Ventricle Normal LV size. The left ventricular ejection fraction is 60 %. No regional wall motion abnormalities noted. Right Ventricle Normal RV size. ICD or pacer leads identified within the right ventricle. Normal systolic function. Mitral Valve There is moderate mitral annular calcification. Aortic Valve Trisinus/trileaflet aortic valve. Mild focal aortic valve calcification. Great Vessels Normal aortic root. Pericardium/Pleural No pericardial effusion. MMode/2D Measurements & Calculations LAV(MOD-bp): 22.7 ml LA A4 area: 10.7 cm2 LAV(MOD-bp) Indexed: 14.0 ml/m2 LAV(MOD-sp2): 23.3 ml LAV(MOD-sp4): 21.6 ml ECHO/Echo, Limited Study Interpretation Summary Normal LV size. The left ventricular ejection fraction is 60 %. ICD or pacer leads identified within the right ventricle. The study was technically limited. The study was technically difficult. Ordering Physician: Quan Jackson Referring Physician: DIANE HERBERT Performed By: Queenie Hart RCS
[2025-01-18] MEDS: 0.9% Saline Lock 10 ML Syringe IV (11:25)
[2025-01-18] MEDS: 0.9% Normal Saline (1000mL) 1,000 ML 75 ML IV (11:25)
[2025-01-18 11:28] LABS: Magnesium 1.7 mg/dL (1.5-2.2)
[2025-01-18 11:29] LABS: Troponin T High Sens 2 HR 22 ng/L (<=14)
[2025-01-18 13:43] LABS: Troponin T High Sens 4 HR 21 ng/L (<=14)
--- NOTE | 2025-01-18 16:46 | EDS_ITS ---
HPI History of Present Illness Chief Complaint: Stroke Alert Narrative Narrative: Patient is an 89-year-old female presenting to the emergency department for numbness and weakness to her left leg that started yesterday afternoon, increased numbness and weakness in her left arm from baseline and right hand numbness. Patient states that the symptoms started yesterday afternoon. She is unable to give me a exact last known well. She is on Eliquis for a prior stroke. Patient has a past medical history of a CVA, hypertension, heart block with permanent pacemaker placement, mitral valve insufficiency, atrial flutter and hyperlipidemia. Patient denies any recent head trauma or falls. Denies any neck or back pain. Denies any vision changes or slurring of her speech. [facility] Medical History Myelomalacia of cervical cord Left carotid artery stenosis Secondary pulmonary arterial hypertension Complete heart block Obesity Essential (primary) hypertension Left arm weakness Arm paresthesia, left Bradycardia, severe sinus Hyperlipidemia Ischemic cerebrovascular accident (CVA) (04/2017) Osteoarthritis Dysarthria Home Medications ?Medication ?Instructions ?Recorded ?Last Taken ?Type multivitamin 1 tab PO QDAY vitamin Unknown History atorvastatin 40 mg tablet 40 mg PO QHS cholesterol #90 tabs 05/14/18 Unknown Rx clopidogrel 75 mg tablet 75 mg PO DAILY anti platelet 06/27/18 Unknown History lisinopril 40 mg tablet 40 mg PO DAILY blood pressur e #90 01/09/22 Unknown Rx tabs apixaban 2.5 mg tablet (Eliquis) 2.5 mg PO BID blood t hinner #60 09/25/24 Unknown Rx tabs Allergy/AdvReac Type Severity Reaction Status Date / Time meperidine (From Demerol) AdvReac Upset Verified 01/18/25 08:36 Stomach Family History Unknown No problems noted. Other CVA (cerebral vascular accident) Surgical History History of permanent cardiac pacemaker placement (09/17/17) History of neck surgery History of total left hip replacement Social History Smoking Status: Former smoker how long ago did patient quit smokin years ago alcohol intake: current alcohol intake frequency: holidays/special occasions only substance use type: does not use caffeine: Yes Type: coffee Number of servings: 1 ROS ROS ED ROS Narrative see HPI EXAM Physical Exam Narrative Exam Narrative: Vital signs: Reviewed General: Alert and orientedx3. No acute distress HEENT: Head is normocephalic and atraumatic, sinuses nontender, pupils equal round and reactive. Nares are patent. Oropharynx and throat exams normal. Neck: Supple without lymphadenopathy nontender Cardiovascular: Regular rate and rhythm, no murmurs. No rubs or gallops. Normal S1 and S2 Respiratory: Clear to auscultation bilaterally. No wheezes, rales, rhonchi Abdominal: Soft and nontender. Normal bowel sounds. No guarding or rebound. Nonsurgical abdomen Extremities: No tenderness. No bruising. Normal range of motion. Normal sensation. Skin: No rash or redness. The rest of the physical exam is unremarkable Const Vital Signs: 01/18/25 08:33 01/18/25 08:37 01/18/25 08:45 Temperature 97.7 F L Temperature Source Temporal Pulse Rate 71 71 Respiratory Rate 16 17 Blood Pressure 136/118 H 133/113 H Blood Pressure Mean 124 119 Pulse Ox 98 97 Oxygen Delivery Method Room Air Room Air 01/18/25 09:32 Temperature Temperature Source Pulse Rate 66 Respiratory Rate 17 Blood Pressure 158/70 H Blood Pressure Mean 99 Pulse Ox 100 Oxygen Delivery Method Room Air MDM MDM MDM Narrative Medical decision making narrative: Patient is a 89-year-old female presenting to the emergency department for numbness and weakness to her left leg that started yesterday afternoon, increased numbness and weakness in her left arm from baseline and right hand numbness. Stroke team was called in triage after evaluation of the patient. Is very difficult to assess the patient given she has chronic left arm numbness and weakness. She is unable to give me a specific time when her last known well was however states it was yesterday afternoon. She is not a TNK candidate due to her Eliquis use. On my evaluation of the patient, she has a NIH of 1 which does not include her chronic left arm weakness. I did speak with stroke neurologist from [facility], Dr. Kevin Bright over the phone, who recommended admission for MRI and neurology consult. CT the brain shows no acute intracranial abnormalities. CTA of the head and neck is negative. CBC with no leukocytosis and a normal hemoglobin. BMP with no significant abnormalities. Troponin mildly elevated at 26. EKG shows a atrial sensed ventricular paced rhythm. Negative Sgarbossa's criteria. Patient and family at bedside were updated on the negative findings and the need for admission for further stroke workup including MRI. They were agreeable. Patient admitted to Dr. Jackson, hospitalist. Clinical impression Strokelike symptoms History & Record Review Discussion w/independent historian: Patient and Family Lab Data Attestation: I reviewed the patient's lab results. Labs: Laboratory Results - last 24 hr 01/18/25 08:45 WBC 8.0 RBC 4.07 L Hgb 13.3 Hct 39.3 MCV 96.6 MCH 32.7 H MCHC 33.8 RDW Std Deviation 47.9 H RDW Coeff of Payton 13.5 Plt Count 267 MPV 9.0 Immature Gran % (Auto) 0.300 Neut % (Auto) 58.6 Lymph % (Auto) 22.8 Lewis % (Auto) 10.0 Eos % (Auto) 7.5 H Baso % (Auto) 0.8 Absolute Neuts (auto) 4.7 Absolute Lymphs (auto) 1.82 Nucleated RBC % 0 PT 14.3 INR 1.1 APTT 28.2 Sodium 140 Potassium 4.1 Chloride 106 Carbon Dioxide 24.8 Anion Gap 9 BUN 19 Creatinine 1.01 Estim Creat Clear Calc 33.61 L Est GFR (MDRD) Non-Af 54 L BUN/Creatinine Ratio 18.5 Glucose 111 H Calcium 9.3 Troponin T High Sens 26 H Radiography Diagnostic Testing: Clinical Impression(s) from Imaging Studies Head/Neck CTA 01/18/25 08:37 IMPRESSION: No hemodynamically significant stenosis in the neck. Reading Location: [facility] Brain CT 01/18/25 08:38 IMPRESSION: No acute intracranial abnormalities. Reading Location: [facility] Discharge Plan Disposition Disposition: Acute Care Hospital [facility] Discharge Date/Time: 01/18/25 10:16 NIHSS NIHSS 1a. Level of Consciousness: 0 - Alert; keenly responsive 1b. LOC Questions: 0 - Answers BOTH questions correctly 1c. LOC Commands: 0 - Performs BOTH tasks correctly 2. Best Gaze: 0 - Normal 3. Visual: 0 - No visual loss 4. Facial Palsy: 0 - Normal symmetrical movements 5a. Left Arm: UN - Amputation or joint fusion, explain: (No effort against gravity however this is baseline for patient, unchanged. ) 5b. Right Arm: 0 - No drift; arm holds 90 (or 45) degrees for full 10 seconds 6a. Left Le - No drift; leg holds 30-degree position for full 5 seconds 6b. Right Le - No drift; leg holds 30-degree position for full 5 seconds 7. Limb Ataxia: 0 - Absent 8. Sensory: 1 - [id number] sensory loss; 9. Best Language: 0 - No aphasia; normal 10. Dysarthria: 0 - Normal 11. Extinction and Inattention: 0 - No abnormality Total: 1 Stroke Questions Stroke Team Activated: Yes Reviewed Inclusion/Exclusion criteria: Yes IV Thrombolytic Administered: No No contraindications from thrombolytic administration: No Informed the patient and/or family of all associated risks, benefits, & alternatives to IV Thrombolytic Therapy. Patient and/or family voluntarily consent to the administration of IV Thrombolytic Therapy: Yes
[2025-01-18] MEDS: APIXABAN 2.5 MG TABLET (WCH) PO (22:06)
[2025-01-19] VITALS (12 sets, daily range): BP systolic 130–199; BP diastolic 72–108; PULSE 61–94; RESP 16–19; TEMP 36.3–36.7; O2SAT 92–100; BMI 24.7
[2025-01-19 06:21] LABS: Cholesterol 161 mg/dL (<=200); Low Density Lipoprotein Calc. 85 mg/dL; Triglycerides 105 mg/dL; Very Low Density Lipoprotein 21 mg/dL (5-40); cholesterol:hdl ratio screen 2.94
[2025-01-19] MEDS: APIXABAN 2.5 MG TABLET (WCH) PO (09:54)
--- NOTE | 2025-01-19 11:05 | STROKE.CONS ---
Assessment and Plan: Stroke Assessment/Plan SHANTANU CONDE is a 89 F with a afib on not the right dose of eliquis, HTN, HLD, chronic left shoulder injruy with minimal movement and chronic left leg weakness which never was evaluated who presented with transient right hand tingling and left leg heaviness upon wkaing on 01/18/25 which lasted many hours but resolved. CTH/CTA neg. This could be TIAs or strokes from afib not being on the right dose of eliquis. Plan: - Eliquis 5mg BID, no need for plavix from stroke standpoint - Statin - MRI brain - CV risk factor optimization - WIll follow for MRI HPI Consult Data Date of Consult: 01/19/25 HPI Narrative HPI Narrative: SHANTANU CONDE, is a 89 F with afib on lower dose of eliquis, PPM, HTN and, chronic left shoulder weakness, chronic left leg weakness of unclear cause and HLD who presents with right hand tingling and left leg heaviness. She states she woke up with these symptoms on 01/18. They lasted many hours but resolved. CTH/CTA neg. Patient has at baseline chronic left shoulder injury and minimal abduction, chronic left leg weakness for years and doesnt know why and never got it evaluated. She was admitted for concern for stroke. [facility] Medical History Myelomalacia of cervical cord Left carotid artery stenosis Secondary pulmonary arterial hypertension Complete heart block Obesity Essential (primary) hypertension Left arm weakness Arm paresthesia, left Bradycardia, severe sinus Hyperlipidemia Ischemic cerebrovascular accident (CVA) (04/2017) Osteoarthritis Dysarthria Home Medications ?Medication ?Instructions ?Recorded ?Last Taken ?Type multivitamin 1 tab PO QDAY vitamin 10/02/17 Unknown History atorvastatin 40 mg tablet 40 mg PO QHS cholesterol #90 tabs 05/14/18 Unknown Rx clopidogrel 75 mg tablet 75 mg PO DAILY anti platelet 06/27/18 Unknown History lisinopril 40 mg tablet 40 mg PO DAILY blood pressure #90 01/09/22 Unknown Rx tabs apixaban 2.5 mg tablet (Eliquis) 2.5 mg PO BID blood thinner #60 09/25/24 Unknown Rx tabs Allergy/AdvReac Type Severity Reaction Status Date / Time meperidine (From Demerol) AdvReac Upset Verified 01/18/25 08:36 Stomach Family History Unknown No problems noted. Other CVA (cerebral vascular accident) Surgical History History of permanent cardiac pacemaker placement (09/17/17) History of neck surgery History of total left hip replacement Social History Smoking Status: Former smoker how long ago did patient quit smokin years ago alcohol intake: current alcohol intake frequency: holidays/special occasions only substance use type: does not use caffeine: Yes Type: coffee Number of servings: 1 Vital Signs Vital Signs Vital Signs: 01/18/25 11:24 01/18/25 14:30 01/18/25 16:05 Temperature 97.8 F Temperature Source Oral Pulse Rate 67 Pulse Strength Respiratory Rate 17 Respiratory Effort Respiratory Depth Blood Pressure 144/83 H Blood Pressure Mean 103 Blood Pressure Source Monitor Blood Pressure Position Semi-Fowlers Blood Pressure Location Right Arm Pulse Ox 99 95 Oxygen Delivery Method Room Air Room Air Room Air 01/18/25 18:30 01/18/25 19:30 01/18/25 20:10 Temperature 97.7 F L Temperature Source Oral Pulse Rate 78 Pulse Strength Normal (2+) Respiratory Rate 18 Respiratory Effort Normal Non-Labored Respiratory Depth Normal Blood Pressure 162/105 H Blood Pressure Mean 124 Blood Pressure Source Monitor Blood Pressure Position Semi-Fowlers Blood Pressure Location Right Arm Pulse Ox 95 Oxygen Delivery Method Room Air Room Air 01/18/25 22:00 01/19/25 02:00 01/19/25 02:11 Temperature 98.0 F 98.1 F Temperature Source Oral Oral Pulse Rate 69 74 Pulse Strength Respiratory Rate 18 16 Respiratory Effort Normal Non-Labored Respiratory Depth Normal Blood Pressure 166/78 H 169/108 H Blood Pressure Mean 107 128 Blood Pressure Source Monitor Monitor Blood Pressure Position Semi-Fowlers Semi-Fowlers Blood Pressure Location Right Arm Right Arm Pulse Ox 93 93 Oxygen Delivery Method Room Air Room Air Room Air 01/19/25 06:00 01/19/25 06:52 01/19/25 08:13 Temperature 97.7 F L Temperature Source Oral Pulse Rate 61 Pulse Strength Respiratory Rate 16 Respiratory Effort Normal Non-Labored Respiratory Depth Normal Blood Pressure 155/72 H Blood Pressure Mean 99 Blood Pressure Source Monitor Blood Pressure Position Semi-Fowlers Blood Pressure Location Right Arm Pulse Ox 95 95 Oxygen Delivery Method Room Air Room Air Room Air 01/19/25 09:45 Temperature 97.4 F L Temperature Source Temporal Pulse Rate 62 Pulse Strength Respiratory Rate 18 Respiratory Effort Respiratory Depth Blood Pressure 148/102 H Blood Pressure Mean 117 Blood Pressure Source Monitor Blood Pressure Position Sitting Blood Pressure Location Right Arm Pulse Ox 93 Oxygen Delivery Method Room Air Weight Weight: 61.5 kg Body Mass Index (BMI) 24.7 EEG Results Procedure Details EEG Procedure Details: SHANTANU CONDE is a 89 year old F with a past medical history of , who presents for evaluation of Electroencephalogram on DATE at TIME Physical Exam Narrative Physical Exam: - General: NAD, pleasant, cooperative, well nourished, well developed - Head/Eyes: Atraumatic, normocephalic, clear cornea, normal sclera/conjunctive - Neuro: ? Mental Status: AAOX4 & following simple commands. ? Speech: Clear and fluent with good repetition, comprehension, & naming. No aphasia or dysarthria ? CN II: Visual cedillo are full to confrontation. PERRL. ? CN III, IV, : EOMI, no gaze preference, no nystagmus, no ptosis ? CN V: Facial sensation is intact to light touch throughout. ? CN VII: Face is symmetric with normal eye closure and smile. ? CN VII: Hearing is grossly normal to conversational speech. ? Motor: Right side no drift, left shoulder no abduction, good distal strength, left leg can sustain but cannot lift as high as right which is chronic for many years but never evaluated why and no hx of trauma ? Sensation: Normal to light touch bilaterally. ? Coordination: Normal FTN & HTS. No abn movements seen. Lab / Micro Data 01/18/25 08:45 01/18/25 08:45 Labs: Laboratory Results - last 24 hr 01/18/25 10:50: Magnesium 1.7, Troponin T Hi Sens 2 Hr 22 H 01/18/25 13:04: Troponin T Hi Sens 4Hr 21 H 01/18/25 22:04: POC Glucose 99 01/19/25 05:16: Hemoglobin A1c 5.8 H, Triglycerides 105, Cholesterol 161, LDL Cholesterol, Calc 85, VLDL Cholesterol 21, HDL Cholesterol 55, Cholesterol/HDL Ratio 2.94, TSH 2.630 01/19/25 06:02: POC Glucose 84 Imaging Radiology Impression Head/Neck CTA 01/18/25 08:37 IMPRESSION: No hemodynamically significant stenosis in the neck. Reading Location: [facility] Active Medications Active Medications Active Medications: Current Medications Generic Name Dose Route Start Last Admin Trade Name Freq PRN Reason Stop Dose Admin Acetaminophen 650 mg 01/18/25 10:48 Acetaminophen 325 Mg Tablet PO Q4H PRN PRN Pain 1-10 Or Fever>99.6 Apixaban 2.5 mg 01/18/25 22:00 01/19/25 09:54 Apixaban 2.5 Mg Tablet ([facility]) PO 2.5 mg BID ROSANA Administration Atorvastatin Calcium 40 mg 01/18/25 22:00 01/18/25 22:06 Atorvastatin Calcium 40 Mg Tablet PO 40 mg QHS ROSANA Administration Clopidogrel Bisulfate 75 mg 01/18/25 12:00 01/19/25 09:54 Clopidogrel Bisulfate 75 Mg Tablet PO 75 mg DAILY ROSANA Administration Sodium Chloride 250 mls @ 15 mls/hr 01/18/25 10:33 IV .[id number] PRN Saline Flush Sodium Chloride 250 mls @ 15 mls/hr 01/18/25 10:33 IV .[id number] PRN Additional IVPB Infusion Nitroglycerin 0.4 mg 01/18/25 10:48 Nitroglycerin (Inpatient Use) 0.4 Mg Tab.Subl SL Q5M PRN CARDIAC/CHEST PAIN Pantoprazole Sodium 40 mg 01/19/25 10:00 01/19/25 09:54 Pantoprazole Sodium 40 Mg Tablet PO 40 mg DAILY ROSANA Administration Senna/Docusate Sodium 2 tablet 01/18/25 22:00 01/19/25 09:46 Senna/Docusate Sodium 1 Tablet PO Not Given BID ROSANA Sodium Chloride 10 - 40 ml 01/18/25 10:33 01/18/25 11:25 0.9% Saline Lock 10 Ml Syringe IV 10 ml UD PRN Administration SALINE FLUSH NIHSS NIHSS Nursing Documentation NIHSS Nursing Documentation: NIHSS: Ischemic Stroke/TIA Start: 01/18/25 10:48 Text: For PCU Patients: NIH and Neuro Check every 4 Status: Active hours, PRN and with change in RN caregiver. Freq: [id number] Protocol: Activity Type Activity Date Activity User E-sign Co-sign Detail Recorded Client Recorded Date Recorded By Document 01/19/25 09:45 EUGENIA [id number] 01/19/25 09:45 EUGENIA 01/19/25 09:45 NIH Stroke Scale [NIHSS] A score of 0 is normal or asymptomatic . Total possible score is 42. Inpatient: RN or Physician to activate a stroke alert for onset of new stroke symptoms or with NIHSS increase >/= 3 points. Following change in neurological status, NIHSS will be performed per physician order or more frequently PRN. -1a. Level of Consciousness 0 - Alert; keenly responsive -1b. LOC Questions 0 - Answers BOTH questions correctly -1c. LOC Commands 0 - Performs BOTH tasks correctly -2. Best Gaze 0 - Normal -3. Visual 0 - No visual loss -4. Facial Palsy 0 - Normal symmetrical movements -5a. Left Arm UN - Amputation or joint fusion, explain : -'UN' explanation Previous injury , baseline -5b. Right Arm 0 - No drift; arm holds 90 ( or 45) degrees for full 10 seconds -6a. Left Leg 0 - No drift; leg holds 30- degree position for full 5 seconds -6b. Right Leg 0 - No drift; leg holds 30- degree position for full 5 seconds -7. Limb Ataxia 0 - Absent -8. Sensory 0 - Normal; no sensory loss -9. Best Language 0 - No aphasia; normal -10. Dysarthria 0 - Normal -11. Extinction and Inattention 0 - No abnormality -Total 0 Query Text:A score of 0 is normal or asymptomatic. Total possible score is 42 . ED: Notify Physician for NIHSS increase by > / = 3 points. Inpatient: RN or Physician to activate a stroke alert for NIHSS increase of > / = 3 points. Coma Scale [Assess] -Eye Opening Spontaneous -Motor Obeys Commands -Verbal Oriented [Total] -Coma Scale Total 15
[2025-01-19] MEDS: FLU VACCINE HIGH DOSE 25-26(65YR UP) 180 MCG/0.5 ML SYRINGE IM (11:56)
--- NOTE | 2025-01-19 14:34 | CHAPLAIN ---
Type of Pastoral Visit _x__ Initial Visit ___ Follow-up Visit ___ On-call Visit ___ General Patient Visit ___ Spiritual Assessment ___ Family Conference ___ Bereavement ___ Rapid Response ___ Code Blue ___ Other (describe below) Pastoral Care Referral From _x__ Patient _x__ Family ___ Nurse ___ Physician ___ Voice Intercept Technician ___ Operations/Dispatch ___ Other (describe below) Sacrament/Intervention _x__ Active listening ___ Anointing ___ Scientologist ___ Bereavement ___ Communion ___ Marie exploration ___ ___ Life review _x__ Prayer ___ Reconciliation ___ Sacrament of Sick _x__ Supportive presence ___ Wedding ___ Other (describe below) Pastoral Comments patient and daughter is in the room; pt speaks of her reason for coming to hospital but as daughter tells it was mild fortunately, pt is to have a test done yet and hopes to go home then; pt is relaxed and positive about her outcome and care; pt welcomes prayer and presence for support today
--- NOTE | 2025-01-19 14:45 | MRI_ITS ---
PROCEDURE: BRAIN WITHOUT CONTRAST 01/19/2025 REASON FOR EXAM: RIGHT HAND WEAKNESS TECHNIQUE: Procedure Code: MRIBR Modality: MR Procedure: BRAIN WITHOUT CONTRAST Multiplanar and multisequence images were obtained. COMPARISON: January 18, 2025 FINDINGS: Motion artifact degrades some of the image quality. Brain: No evidence of hemorrhage. No evidence of acute ischemia. T2 prolongation in the periventricular white matter. Patchy T2 prolongation in the deep and subcortical white matter of the frontal and parietal lobes. Ventricles: Normal. Major Intracranial Vessels: Flow voids are unremarkable. Correlate with recent CT angiogram as it is more sensitive. Sinuses: Septal deviation to the right. Otherwise clear. Mastoids: Clear. MRI/Brain without Contrast IMPRESSION: No evidence of acute ischemia or hemorrhage. Chronic microvascular ischemic changes, volume loss. Reading Location: [id number]
--- NOTE | 2025-01-19 16:10 | CASEMGMT ---
TEGAN SANTIAGO Assessment Face to Face with patient for initial transition planning/care coordination assessment. TEGAN SANTIAGO introduced self and role at [facility], pt voices understanding. Pt is A&Ox4 and is resting comfortably in bed and is calm. Pt's daughter at the bedside. Care providers, pharmacy, and demographics verified. Admitting dx: Stroke Alert, Left sided numbness LACE Strata: 1 PCP: Luis M Lemons Specialists: YESENIA Preferred Pharmacy: [facility] Insurance: [employer] [facility] Prescription Benefit: Yes LNOK: Naye Reeder (Daughter) Living Arrangements: Pt lives with her daughter in a mobile home with 3 steps to enter ADLs/IADLs: Pt and pt's daughter states that the pt is indep Transportation: Self, daughter DME: [facility], [employer] HHC/SNF: Reports HH history x5 years ago but cannot recall the name of the agency. Denies SNF history Pt?s goal: Home Plan: Home with pt's daughter today. Per the hospitalist, MRI results are negative and pt will DC today. Pt states that she feels safe going home today with the support of her daughter and denies the need for HH or OP Tx. Pt denies the need for any additional resources. Pt and pt's daughter deny further questions or concerns at this time. Pt states that she is excited to DC home. Anna Reeder RN, CM
--- NOTE | 2025-01-19 16:12 | CASEMGMT ---
Social Work SW assisted the patient with completing the POA and LW with the patient. STEPHANE Gill
--- NOTE | 2025-01-19 16:13 | CASEMGMT ---
Social Work Per imaging pt negative for stroke, therefore PHQ9 not completed. STEPHANE Gill
--- NOTE | 2025-01-19 17:30 | DCINST_ITS ---
Discharge Instructions DC O2, CPAP, BIPAP needs Home O2 Discharge instructions: No Dressing / Incision Discharge Activity: Return to Normal Activity Follow Up Care Test Results: Test results from this visit will be discussed in further detail at your follow- up appointment, if applicable. Discharge Plan Admission Admit Date/Time: 01/18/25 09:47 Primary Reason for Your Visit: TIA Attending Provider: Domingo Del Castillo Primary Care Provider: Luis M Lemons Consulting Providers: Mayo Novoa; John Corley; Tere Heath; Phyllis Asencio; Tami Christianson; eFng Park; Carly Quintanilla; Byron Banuelos; Haris Morfin; Kevin Bright; Melony Contreras; Edna Kiran; All Schmidt; Stacey Hussein; Jessica Tyler; Eugene iTpton; Julien Worthy; Hadley Haynes; Fortino Rosen; Joann Bishop; Srikanth Moreno; Quan Jackson Instructions Additional Instructions / Restrictions: Increase your Eliquis to 5 mg twice a day and your Lipitor to 80 mg once a day Discharge Orders/Prescriptions Prescriptions: New Eliquis 5 mg Tablet 5 mg PO BID Qty: 60 0RF atorvastatin [Lipitor] 80 mg tablet 80 mg PO DAILY Qty: 30 0RF Continued multivitamin tablet 1 tab PO QDAY lisinopril 40 mg tablet 40 mg PO DAILY Qty: 90 3RF Discontinued atorvastatin 40 mg tablet 40 mg PO QHS Qty: 90 3RF clopidogrel 75 MG tablet 75 mg PO DAILY Eliquis 2.5 mg tablet 2.5 mg PO BID Qty: 60 11RF Referrals / Follow Up: Luis M Lemons DO [Primary Care Provider, Medical] - See Referral Note Referral Note: In 2 weeks Disposition Disposition (needs filled in before D/C Order can be placed): Home, Self Care
--- NOTE | 2025-01-19 17:43 | PCM.DC.SUM ---
Providers Date of Admission: 01/18/25 Date of Discharge: 01/19/25 Primary Care Physician: Dr. Luis M Herbert, DO Consultations 01/18/25 10:48 Consult: Tele-Neurology Routine Consulting Provider: [facility] Reason for Consult: Acute Ischemic Stroke/TIA EMERGENT Consult: No MD Notified: Yes Date Notified: 01/18/25 Time Notified: 10:27 Method of Notification: Answering Service Nursing Unit Staff Notify [facility] of Tele-Neurology Consult: Yes Reason For Visit: STROKE ALERT, LEFT SIDED NUMBNESS Diagnosis Discharge Diagnosis (1) TIA (transient ischemic attack): Status: Acute Code(s): G45.9 - Transient cerebral ischemic attack, unspecified Plan 1. Transient ischemic attack #2 chronic atrial flutter #3 essential hypertension Medications at Discharge Home Medications multivitamin 1 tab PO QDAY vitamin 10/02/17 lisinopril 40 mg tablet 40 mg PO DAILY blood pressure #90 tabs 01/09/22 apixaban 5 mg tablet (Eliquis) 5 mg PO BID #60 tabs 01/19/25 atorvastatin 80 mg tablet (Lipitor) 80 mg PO DAILY #30 tabs 01/19/25 prednisone 20 mg tablet 20 mg PO BID #30 tabs 01/25/25 Hospital Course Operations None Procedures 2-D Echocardiogram Summary of Care Provided Minutes Spent on Discharge: 31 Hospital Course: This 89-year-old white female was seen in the emergency room at [facility] with complaints of left leg weakness and right hand numbness. Patient stated she was not able to balance herself because of her left leg weakness. A stroke alert was called in the emergency room, imaging studies did not show any bleed or stroke, CT of the head and neck did not show any acute hemodynamically significant stenosis. It was recommended the patient be placed in the hospital, echocardiogram was obtained which was unremarkable, patient underwent a brain MRI which showed no evidence of acute ischemia or hemorrhage, and the patient was seen in consultation by neurology recommended continuing Josi and felt that the patient could have had a TIA. On 01/19/2025, patient was seen and examined: On examination she appeared in good health and spirits, she does not appear to be in any distress. Vital signs as documented. Skin warm and dry and without overt rashes. Neck without JVD, thyroid appears normal, trachea is midline, neck is supple. Lungs clear, normal air movement was noted. Heart exam notable for regular rhythm, normal sounds and absence of murmurs, rubs or gallops. Abdomen unremarkable and without evidence of organomegaly, masses, or abdominal aortic enlargement, bowel sounds are present in all 4 quadrants, no abdominal tenderness was noted. Extremities nonedematous, no cyanosis was noted, no clubbing was noted. Neuro: Cranial nerves II through XII are grossly intact, no focal motor deficits were noted, sensation to light touch and pinprick is intact, motor exam 5/5 throughout. Psych: Patient is alert and oriented x3, she does not appear anxious or depressed, she does not appear agitated. Patient was discharged home in stable condition on 01/19/2025. Weight / BMI Weight Weight: 61.5 kg Body Mass Index (BMI) 24.7 ABG / Lab / Microbiology Data 01/18/25 08:45 01/18/25 08:45 Laboratory: Laboratory Results - last 24 hr 01/18/25 22:04: POC Glucose 99 01/19/25 05:16: Hemoglobin A1c 5.8 H, Triglycerides 105, Cholesterol 161, LDL Cholesterol, Calc 85, VLDL Cholesterol 21, HDL Cholesterol 55, Cholesterol/HDL Ratio 2.94, TSH 2.630 01/19/25 06:02: POC Glucose 84 01/19/25 11:55: POC Glucose 110 H Radiography Diagnostic Testing: Radiology Impression Echocardiogram 01/18/25 11:04 Interpretation Summary Normal LV size. The left ventricular ejection fraction is 60 %. ICD or pacer leads identified within the right ventricle. The study was technically limited. The study was technically difficult. Ordering Physician: Quan Jackson Referring Physician: LUIS M HERBERT Performed By: Queenie Hart RCS Brain MRI 01/19/25 14:45 IMPRESSION: No evidence of acute ischemia or hemorrhage. Chronic microvascular ischemic changes, volume loss. Reading Location: [id number] D/C Instructions DC O2, CPAP, BIPAP Needs Home O2 Discharge instructions: No Meaningful Use Info Meaningful Use Meaningful Use Diagnoses (Choose all that apply): None applicable Discharge Plan Admission Admit Date/Time: 01/18/25 09:47 Primary Reason for Your Visit: TIA Attending Provider: Domingo Del Castillo Primary Care Provider: Luis M Herbert Consulting Providers: Mayo Novoa; John Corley; Tere Heath; Phyllis Asencio; Tami Christianson; Feng Park; Carly Quintanilla; Byron Banuelos; Haris Morfin; Kevin Bright; Melony Contreras; Edna Kiran; All Schmidt; Stacey Hussein; Jessica Tyler; Eugene Tipton; Julien Worthy; Hadley Haynes; Fortino Rosen; Joann Bishop; Srikanth Moreno; Quan Jackson Instructions Additional Instructions / Restrictions: Increase your Eliquis to 5 mg twice a day and your Lipitor to 80 mg once a day Discharge Orders/Prescriptions Prescriptions: New Eliquis 5 mg Tablet 5 mg PO BID Qty: 60 0RF atorvastatin [Lipitor] 80 mg tablet 80 mg PO DAILY Qty: 30 0RF Continued multivitamin tablet 1 tab PO QDAY lisinopril 40 mg tablet 40 mg PO DAILY Qty: 90 3RF Discontinued atorvastatin 40 mg tablet 40 mg PO QHS Qty: 90 3RF clopidogrel 75 MG tablet 75 mg PO DAILY Eliquis 2.5 mg tablet 2.5 mg PO BID Qty: 60 11RF No Action prednisone 20 mg tablet 20 mg PO BID Qty: 30 0RF Rx Instructions: 1 twice a day x 6 days, then 1-1/2 daily x 6 days, then 1 daily thereafter until finished Referrals / Follow Up: Luis M Herbert DO [Primary Care Provider, Medical] - See Referral Note Referral Note: In 2 weeks Disposition Disposition (needs filled in before D/C Order can be placed): Home, Self Care Charges/Coding Visit Charges Inpatient E&M: 19604 Disch Hosp >30min
== END 2025-01-19 17:55 | disposition home or self-care (01) | DRG 69 ==
LOC: ED 09:50 → PCU 10:02
PROVIDERS: Admitting Provider Internal Medicine; Emergency Provider Student in an Organized Health Care Education/Training Program; PCP Student in an Organized Health Care Education/Training Program; Visit Provider Internal Medicine
DX: G45.9 Transient cerebral ischemic attack, unspecified (principal); I48.92 Unspecified atrial flutter; Z66 Do not resuscitate; I10 Essential (primary) hypertension; E78.5 Hyperlipidemia, unspecified; R73.9 Hyperglycemia, unspecified; Z95.0 Presence of cardiac pacemaker; Z79.899 Other long term (current) drug therapy; Z87.891 Personal history of nicotine dependence; Z86.73 Personal history of transient ischemic attack (TIA), and cerebral infarction without residual deficits
CPT/HCPCS: 36415; 70450; 70496; 70498; 70551; 80048; 80061; 82962; 83036; 83735; 84443; 84484; 85025; 85610; 85730; 92610; 93005; 93308; 94668; 94762; 97162; 97166; 97802; 99285; Q9967; A4216

== ENCOUNTER 2025-01-23 05:22 | Observation (INO) | payer MEDICARE, MEDICAID, SELFPAY ==
[2025-01-23] VITALS (11 sets, daily range): BP systolic 138–179; BP diastolic 67–135; PULSE 60–91; RESP 15–18; TEMP 36.3–36.8; O2SAT 92–98; BMI 25.7; BMI 24.3
[2025-01-23 06:01] LABS: Hematocrit 39.4 % (37-47); Hemoglobin 13.4 g/dL (12.0-15.0); Immature Granulocytes Count 0.020 X10^3/uL (0.0-0.0); Mean Corp Hgb Conc 34.0 g/dL (32-36); Mean Corpuscular Volume 96.6 fL (81-99); Mean Platelet Vol. 8.7 fl (6.2-12.0); NRBC Flagged by Analyzer 0 % (0-5); Platelet Count 269 K/mm3 (150-450); RBC Distribution Width CV 13.6 % (11.6-14.6); RBC Distribution Width SD 48.7 fl (35.1-43.9); Red Blood Count 4.08 M/mm3 (4.2-5.4); White Blood Count 10.6 K/mm3 (4.4-11.0)
[2025-01-23 06:24] LABS: Mucous, Urine 0 SEEN /hpf (<or=2+); Red Blood Cells-Urine 0 SEEN /hpf (0-5)
--- NOTE | 2025-01-23 06:33 | EX.ED.DYSGE1 ---
HPI History of Present Illness Chief Complaint: Numb/Ting Narrative Narrative: Patient is an 89-year-old female with past medical history of hypertension hyperlipidemia previous CVA and recent admission for TIA currently on Eliquis. She was admitted to the hospital roughly 5 days ago secondary to paresthesias and weakness. At that time she was evaluated by neurology and had a CT/CTA as well as MRI of the brain. There was no obvious findings for acute stroke. Patient's Eliquis was increased and she was discharged home. According to patient and family she was moving around at baseline up until this morning when she reports increased weakness mainly along the left side with increased neck pain as well as paresthesias. As she lives at home with her daughter but is unable to ambulate she is not able to care for herself and therefore EMS was called and she was brought to the ER for evaluation [facility] Medical History (Updated 01/23/25 @ 08:[address] Tyler Llamas DO) Myelomalacia of cervical cord Left carotid artery stenosis Secondary pulmonary arterial hypertension Complete heart block Obesity Essential (primary) hypertension Left arm weakness Arm paresthesia, left Bradycardia, severe sinus Hyperlipidemia Ischemic cerebrovascular accident (CVA) (04/2017) Osteoarthritis Dysarthria Home Medications ?Medication ?Instructions ?Recorded ?Last Taken ?Type multivitamin 1 tab PO QDAY vitamin 10/02/17 Unknown History lisinopril 40 mg tablet 40 mg PO DAILY blood pressure #90 01/09/22 Unknown Rx tabs apixaban 5 mg tablet (Eliquis) 5 mg PO BID #60 tabs 01/19/25 Unknown Rx atorvastatin 80 mg tablet (Lipitor) 80 mg PO DAILY #30 tabs 01/19/25 Unknown Rx Allergy/AdvReac Type Severity Reaction Status Date / Time meperidine (From Demerol) AdvReac Upset Verified 01/23/25 05:25 Stomach Family History Unknown No problems noted. Other CVA (cerebral vascular accident) Surgical History (Updated 01/23/25 @ 08:[address] Tyler Llamas DO) History of permanent cardiac pacemaker placement (09/17/17) History of neck surgery History of total left hip replacement Social History Smoking Status: Former smoker how long ago did patient quit smokin years ago alcohol intake: current alcohol intake frequency: holidays/special occasions only substance use type: does not use caffeine: Yes Type: coffee Number of servings: 1 ROS ROS ED Constitutional Constitutional ED: Denies chills or fever(s) Eyes Eyes: Denies blurry vision or change in vision ENT ENT ED: Denies sore throat Cardiovascular Cardiovascular: Denies chest pain Respiratory/Chest Respiratory/Chest: Denies cough or dyspnea Gastrointestinal Gastrointestinal: Denies abdominal pain, diarrhea, nausea or vomiting Genitourinary Genitourinary ED: Denies dysuria Musculoskeletal Musculoskeletal: Reports neck pain Integumentary Denies rash Neurologic Neurologic: Reports paresthesias and weakness; Denies headache(s) Hematologic/Lymphatic Hematologic/Lymphatic: Reports easy bleeding and easy bruising EXAM Physical Exam Const Vital Signs: 01/23/25 05:25 01/23/25 07:58 Temperature 97.5 F L Temperature Source Oral Pulse Rate 60 Respiratory Rate 16 Blood Pressure 179/74 H 157/94 H Blood Pressure Mean 109 115 Pulse Ox 96 Oxygen Delivery Method Room Air Positive well nourished and well developed General Appearance ED: well developed; Negative for pallor HEENT HEENT Narrative: Normocephalic atraumatic Eyes PERRL and EOMs intact bilaterally General Eye ED: Negative for scleral icterus Neck Neck Narrative: No bony deformity or step-off of the cervical spine however there is mild midline pain with palpation There is bilateral paracervical tension and spasm noted greatest on the left There is increased pain with palpation of the left paracervical muscle belly as well without overlying findings for infection or trauma Resp normal respiratory effort and clear to auscultation bilaterally Resp Narrative: Breath sounds are diminished throughout but overall clear to auscultation without signs of respiratory distress Cardio regular rate and regular rhythm Rate: other Other Details: Radial and carotid pulses are equal and symmetric GI normal to inspection, nondistended, normoactive bowel sounds, non-tender, non-distended and no masses GI Narrative: No voluntary guarding or rigidity or pulsatile mass Auscultation: normoactive bowel sounds Palpation: soft Extremity normal to inspection Extremity Narrative: No obvious bony deformity or joint effusion No signs of long bone injury All compartments are soft and compressible going against compartment syndrome Neuro oriented x3 and CN's II-XII intact bilaterally Neuro Narrative: GCS of 15 Cranial nerves II through XII are grossly intact without focal neurologic deficits Patient has increased weakness of the left leg compared to right however this is chronic in nature and similar to her recent admission for TIA The left arm does not move at the shoulder joint so therefore there is no abduction or arm extension and this is chronic in nature as well. However the patient has equal merchant banker strength bilaterally and can extend and flex the wrist equally. Based on her reported paresthesias of the left arm and leg patient would receive an NIH stroke scale score of 1 Sensorium / Orientation: alert Psych mental status grossly normal Skin no rashes or lesions noted and no wounds General Skin Exam: Negative for jaundice or pallor MDM MDM MDM Narrative Medical decision making narrative: Patient arrived to ER hypertensive but has a past medical history of this. He was just evaluated for TIA/stroke 5 days ago and therefore the previous ER chart as well as admission documentation with neurology consult and imaging was reviewed. That visit did not display any findings of acute stroke and I have low concern for that at this time especially as she is on Eliquis and therefore do not feel the need to activate a stroke alert. With patient reporting paresthesias and weakness this could be secondary to anemia versus acute kidney injury versus [place] abnormality or infectious process such as UTI. Therefore basic labs were obtained but revealed no clinically significant findings. Urine sample showed +3 bacteria but there are 10-25 skin cells without white cells or nitrites going against any true infection and it is contamination and therefore there is no need for antibiotics. As the patient was reporting neck pain I did review the chart and in 2019 she had an MRI of her neck showing myelomalacia on both sides causing mild hemicord involvement. There is potential that this has worsened over the last 6 years and is now the cause of her recurrent symptoms. Her vitals have improved with pain control in the ER. Her overall workup is negative. However as she states she is now too weak and too painful to care for herself at home it is not safe for her to return home and therefore I contacted the hospitalist to discuss admission. They agreed to accept the patient to their service for continued care with potential PT OT eval social work consult and potential placement in senior living or rehab. The patient states she understands this and is agreeable to the plan of care With patient having neck pain and known cervical myelomalacia she may need also evaluation by spine surgery in order to assess this as a potential cause of her symptoms. History & Record Review Discussion w/independent historian: EMS personnel, Patient and Family Additional record(s) reviewed:: Prior inpatient record, Prior ED visit and Prior labs Lab Data Attestation: I reviewed the patient's lab results. Labs: Laboratory Results - last 24 hr 01/23/25 01/23/25 05:55 06:14 WBC 10.6 RBC 4.08 L Hgb 13.4 Hct 39.4 MCV 96.6 MCH 32.8 H MCHC 34.0 RDW Std Deviation 48.7 H RDW Coeff of Payton 13.6 Plt Count 269 MPV 8.7 Immature Gran % (Auto) 0.200 Neut % (Auto) 66.4 Lymph % (Auto) 17.5 L Maverick % (Auto) 8.6 Eos % (Auto) 6.7 H Baso % (Auto) 0.6 Absolute Neuts (auto) 7.0 Absolute Lymphs (auto) 1.85 Nucleated RBC % 0 Sodium 142 Potassium 3.9 Chloride 107 Carbon Dioxide 23.6 Anion Gap 11 BUN 24 H Creatinine 1.03 Estim Creat Clear Calc 33.74 L Est GFR (MDRD) Non-Af 53 L BUN/Creatinine Ratio 23.5 H Glucose 82 Calcium 9.3 Magnesium 1.9 Urine Color Yellow Urine Clarity Cloudy Urine pH 6.0 Ur Specific [place] 1.030 Urine Protein 30 H Urine Glucose (UA) Normal Urine Ketones Negative Urine Occult Blood 25 H Urine Nitrite Negative Urine Bilirubin Negative Urine Urobilinogen Normal Ur Leukocyte Esterase 500 H Urine RBC 0 SEEN Urine WBC 0-5 SEEN Ur Squamous Epith Cells 10-25 SEEN Ur Transition Epith Cell 0-5 SEEN Urine Bacteria 3+ Urine Mucus 0 SEEN Management Discussion w/another healthcare provider: Hospitalist Discharge Plan Dx/Rx/DC Orders Clinical Impression: Essential (primary) hypertension, History of permanent cardiac pacemaker placement, Hyperlipidemia, TIA (transient ischemic attack), Myelomalacia of cervical cord, Current use of ocean transportation intermediary anticoagulation, Debility, Inability to walk Disposition Disposition: Acute Care Hospital [facility]
[2025-01-23 06:47] LABS: Anion Gap 11 (5-15); BUN 24 mg/dL (4-19); BUN/Creat Ratio 23.5 RATIO (10-20); Calcium,Total 9.3 mg/dL (7.6-11.0); Carbon Dioxide 23.6 mmol/L (21.0-32.0); Chloride 107 mmol/L (98-108); Estimated Creatinine Clearance 33.74 ml/min (50-250); Glucose 82 mg/dL (70-99); Magnesium 1.9 mg/dL (1.5-2.2); Potassium 3.9 mmol/L (3.3-5.1)
[2025-01-23 06:53] LABS: Color, Urine Yellow (Yellow); Glucose, Dipstick Normal (Normal); Ketone-Dipstick Negative (Negative); Leukocyte Esterase-Dipstick 500 /ul (Negative); Nitrite-Dipstick Negative (Negative); Occult Blood-Urine 25 /ul (Negative); Protein-Dipstick 30 mg/dl (Negative); Specific Gravity, Urine 1.030 (1.002-1.030); Urine Bilirubin Dipstick Negative (Negative)
[2025-01-23 07:17] LABS: Squamous Epithelial Cells - UA 10-25 SEEN /hpf (5-10); Transitional Epithelial - Ur 0-5 SEEN /hpf (0-5)
[2025-01-23] MEDS: APIXABAN 5 MG TABLET PO ×2 (10:19→20:10)
--- NOTE | 2025-01-23 13:49 | CHAPLAIN ---
Type of Pastoral Visit _x__ Initial Visit ___ Follow-up Visit ___ On-call Visit ___ General Patient Visit ___ Spiritual Assessment ___ Family Conference ___ Bereavement ___ Rapid Response ___ Code Blue ___ Other (describe below) Pastoral Care Referral From _x__ Patient _x__ Family ___ Nurse ___ Physician ___ Occupational Nurse ___ Building Specialist ___ Other (describe below) Sacrament/Intervention _x__ Active listening ___ Anointing ___ Church ___ Bereavement ___ Communion ___ Marie exploration ___ _x__ Life review _x__ Prayer ___ Reconciliation ___ Sacrament of Sick _x__ Supportive presence ___ Wedding ___ Other (describe below) Pastoral Comments patient was just seen earlier this week; pt was discharged and has returned; pt is pleasant and talkative; lots of life review given; daughter is with her and contributes to conversation; pt welcomes prayer and presence as she awaits time to go for an MRI
--- NOTE | 2025-01-23 14:15 | CONS.ORTHO ---
HPI Consult Data Date of Consult: 01/23/25 HPI Narrative HPI Narrative: SHANTANU CONDE, is a 89 F who presents with weakness in left arm and left lower extremity over the last 4 to 5 days. She was initially brought into the hospital with suspicion of stroke and underwent brain imaging and was rule out of stroke. She went home but came back because of worsening weakness in left arm and left lower extremity. She has been unable to walk over the last 2 days. She is unable to lift up her left arm. She is right-hand dominant. She underwent cervical spine surgery through an anterior approach likely C4-7 anterior cervical fusion with corpectomies, which she says was in 2005. Her last imaging of the neck is from 2019 which supports these levels. Prior to the last few days, she was able to walk without any ambulatory aid with good balance. She denies any new trauma. She has had gradual weakening to this extent over the last few days. PMH: Myelomalacia of cervical cord Left carotid artery stenosis Secondary pulmonary arterial hypertension Complete heart block Obesity Essential (primary) hypertension Left arm weakness Arm paresthesia, left Bradycardia, severe sinus Hyperlipidemia Ischemic cerebrovascular accident (CVA) (04/2017) Osteoarthritis Dysarthria [facility] Medical History (Updated 01/23/25 @ 14:[address] Luis Aguila MD) Chronic pain Rheumatoid arthritis Former smoker Atrial fibrillation Pacemaker Hypertension Myelomalacia of cervical cord Left carotid artery stenosis Secondary pulmonary arterial hypertension Complete heart block Obesity Essential (primary) hypertension Left arm weakness Arm paresthesia, left Bradycardia, severe sinus Hyperlipidemia Ischemic cerebrovascular accident (CVA) (04/2017) Osteoarthritis Dysarthria Home Medications ?Medication ?Instructions ?Recorded ?Last Taken ?Type multivitamin 1 tab PO QDAY vitamin 10/02/17 01/22/25 08:00 History lisinopril 40 mg tablet 40 mg PO DAILY blood pressure #90 01/09/22 01/22/25 08:00 Rx tabs apixaban 5 mg tablet (Eliquis) 5 mg PO BID #60 tabs 01/19/25 01/22/25 08:00 Rx atorvastatin 80 mg tablet (Lipitor) 80 mg PO DAILY #30 tabs 01/19/25 01/22/25 08:00 Rx Allergy/AdvReac Type Severity Reaction Status Date / Time meperidine (From Demerol) AdvReac Upset Verified 01/23/25 05:25 Stomach Family History Unknown No problems noted. Other CVA (cerebral vascular accident) Surgical History (Updated 01/23/25 @ 08:[address] Tyler Llamas DO) History of permanent cardiac pacemaker placement (09/17/17) History of neck surgery History of total left hip replacement Social History Smoking Status: Former smoker how long ago did patient quit smokin years ago alcohol intake: current alcohol intake frequency: holidays/special occasions only substance use type: does not use caffeine: Yes Type: coffee Number of servings: 1 Vital Signs Vital Signs Vital Signs: 01/23/25 05:25 01/23/25 07:58 01/23/25 08:24 Temperature 97.5 F L 98.3 F Temperature Source Oral Pulse Rate 60 77 Respiratory Rate 16 18 Respiratory Effort Respiratory Depth Respiratory Pattern Blood Pressure 179/74 H 157/94 H 170/135 H Blood Pressure Mean 109 115 146 Blood Pressure Source Blood Pressure Position Blood Pressure Location Pulse Ox 96 94 Oxygen Delivery Method Room Air 01/23/25 09:02 01/23/25 09:42 Temperature 97.4 F L Temperature Source Oral Pulse Rate 73 Respiratory Rate 16 Respiratory Effort Normal Respiratory Depth Normal Respiratory Pattern Normal Blood Pressure 165/88 H Blood Pressure Mean 113 Blood Pressure Source Monitor Blood Pressure Position Semi-Fowlers Blood Pressure Location Right Arm Pulse Ox 93 Oxygen Delivery Method Room Air Room Air Weight Weight: 133 lb 2 oz Body Mass Index (BMI) 24.3 Physical Exam Narrative Examination of the neck shows mild paraspinal tenderness. Neurologic evaluation shows a grade 0 left deltoid, grade 0 left biceps, grade 4 - all other muscles in the left upper extremity, grade 4+ on the right upper extremity, grade 4 - in left lower extremity, grade 4+ in the right lower extremity. Tiki's is positive bilaterally. Both lower extremities shows hyperreflexia. Lab / Micro Data 01/23/25 05:55 01/23/25 05:55 Labs: Laboratory Results - last 24 hr 01/23/25 05:55: WBC 10.6, RBC 4.08 L, Hgb 13.4, Hct 39.4, MCV 96.6, MCH 32.8 H, MCHC 34.0, RDW Std Deviation 48.7 H, RDW Coeff of Payton 13.6, Plt Count 269, MPV 8.7, Immature Gran % (Auto) 0.200, Neut % (Auto) 66.4, Lymph % (Auto) 17.5 L, Caroline % (Auto) 8.6, Eos % (Auto) 6.7 H, Baso % (Auto) 0.6, Absolute Neuts (auto) 7.0, Absolute Lymphs (auto) 1.85, Nucleated RBC % 0, Sodium 142, Potassium 3.9, Chloride 107, Carbon Dioxide 23.6, Anion Gap 11, BUN 24 H, Creatinine 1.03, Estim Creat Clear Calc 33.74 L, Est GFR (MDRD) Non-Af 53 L, BUN/Creatinine Ratio 23.5 H, Glucose 82, Calcium 9.3, Magnesium 1.9 01/23/25 06:14: Urine Color Yellow, Urine Clarity Cloudy, Urine pH 6.0, Ur Specific [place] 1.030, Urine Protein 30 H, Urine Glucose (UA) Normal, Urine Ketones Negative, Urine Occult Blood 25 H, Urine Nitrite Negative, Urine Bilirubin Negative, Urine Urobilinogen Normal, Ur Leukocyte Esterase 500 H, Urine RBC 0 SEEN, Urine WBC 0-5 SEEN, Ur Squamous Epith Cells 10-25 SEEN, Ur Transition Epith Cell 0-5 SEEN, Urine Bacteria 3+, Urine Mucus 0 SEEN Assessment & Plan Assessment/Plan (1) Fusion of spine, cervical region: (2) Myelomalacia of cervical cord: (3) Cervical myelopathy: PLAN: Plan I reviewed all available imaging which is mostly of the brain over the earlier this week. There is no cervical spine imaging recently. Cervical MRI from 2019 was reviewed which shows evidence of C4-7 anterior cervical fusion with multiple corpectomies. There is residual myelomalacia at these operated levels. Adjacent segment degeneration at C3-4 noticed with mild stenosis. No new MRI of cervical spine available. CTA of the neck shows suspicious soft tissue calcifications behind C2 dens with possible occipitocervical junctional cord compression. No MRI or cervical available. Discussed imaging findings with patient and family member. Patient has acute worsening of left upper and left lower extremity to the extent of severe weakness and inability to walk over the last few days. Discussed possibility of adjacent segments above and below the prior cervical fusion being a source of cord compression. Also suspect occipitocervical junction area causing cord compression. Patient is waiting for repeat cervical MRI. Lumbar MRI has also been ordered because of the left lower extremity weakness. I will review again after MRIs are complete. It would be reasonable to wait for any steroid treatment at this time until MRI rules out any infectious pathology. Patient was in agreement. Charges/Coding Visit Charges Inpatient E&M: 89467 Init Hosp L3
--- NOTE | 2025-01-23 14:30 | MRI_ITS ---
PROCEDURE: MRI/Spine Cervical W/WO Contrast
--- NOTE | 2025-01-23 15:00 | MRI_ITS ---
PROCEDURE: MRI/Spine Lumbar (Routine)
--- NOTE | 2025-01-23 15:49 | PCM.HP.STD ---
HPI - General General Date of Admission: 01/23/25 Date of Service: 01/23/25 Chief Complaint: Left lower extremity weakness, generalized debility HPI Narrative SHANTANU CONDE, is a 89 F who presents to the emergency room at [facility] with complaints of generalized debility and left lower extremity weakness. Patient also had complaints of neck pain. Patient has a past history of cervical fusion. She was recently released from the hospital after hospitalization to rule out a stroke. No evidence of a stroke was found on her MRI. Workup in the emergency room included a CBC which was normal, chemistry profile was abnormal for BUN of 24. Patient will be placed in observation status for acute on chronic debility, she will receive imaging studies of the neck and lumbar spine, she will be seen by spinal surgery for consultation. PT and OT will see the patient, it is likely she will need placement in a fpc facility for inpatient rehab services. [facility] Medical History (Updated 01/23/25 @ 14:[address] Luis Aguila MD) Chronic pain Rheumatoid arthritis Former smoker Atrial fibrillation Pacemaker Hypertension Myelomalacia of cervical cord Left carotid artery stenosis Secondary pulmonary arterial hypertension Complete heart block Obesity Essential (primary) hypertension Left arm weakness Arm paresthesia, left Bradycardia, severe sinus Hyperlipidemia Ischemic cerebrovascular accident (CVA) (04/2017) Osteoarthritis Dysarthria Home Medications ?Medication ?Instructions ?Recorded ?Last Taken ?Type multivitamin 1 tab PO QDAY vitamin 10/02/17 01/22/25 08:00 History lisinopril 40 mg tablet 40 mg PO DAILY blood pressure #90 01/09/22 01/22/25 08:00 Rx tabs apixaban 5 mg tablet (Eliquis) 5 mg PO BID #60 tabs 01/19/25 01/22/25 08:00 Rx atorvastatin 80 mg tablet (Lipitor) 80 mg PO DAILY #30 tabs 01/19/25 01/22/25 08:00 Rx Allergy/AdvReac Type Severity Reaction Status Date / Time meperidine (From Demerol) AdvReac Upset Verified 01/23/25 05:25 Stomach Family History Unknown No problems noted. Other CVA (cerebral vascular accident) Surgical History (Updated 01/23/25 @ 08:[address] Tyler Andes, DO) History of permanent cardiac pacemaker placement (09/17/17) History of neck surgery History of total left hip replacement Social History Smoking Status: Former smoker how long ago did patient quit smokin years ago alcohol intake: current alcohol intake frequency: holidays/special occasions only substance use type: does not use caffeine: Yes Type: coffee Number of servings: 1 ROS Constitutional Constitutional: Reports weakness; Denies anorexia, change in weight, fever(s) or night sweats Eyes Eyes: Denies blurry vision, change in vision, discharge from eye(s) or eye pain Cardiovascular Cardiovascular: Denies chest pain, claudication, edema or palpitations Respiratory/Chest Respiratory/Chest: Denies cough, hemoptysis, shortness of breath at rest or shortness of breath with exertion Gastrointestinal Gastrointestinal: Denies abdominal pain, constipation, diarrhea, hematemesis, hematochezia, melena, nausea or vomiting Genitourinary Genitourinary: Denies dysuria, hematuria, urinary frequency, urinary hesitancy, urinary incontinence or urinary urgency Musculoskeletal Musculoskeletal: Reports myalgias and neck pain; Denies back pain, joint pain, joint stiffness or joint swelling Neurologic Neurologic: Reports focal weakness; Denies abnormal gait, abnormal speech, dizziness, headache(s), loss of vision, numbness, other visual disturbances, paresthesias, syncope or tingling Psychiatric Psychiatric: Denies anxiety, cognitive impairment, depression, irritability, mood swings or suicidal ideation Endocrine Endocrinology: Denies change in body appearance, cold intolerance, excessive sweating, heat intolerance, polydipsia or polyuria Hematologic/Lymphatic Hematologic/Lymphatic: Denies none, anemia, easy bleeding, easy bruising or lymphadenopathy Allergic/Immunologic Allergic/Immunologic: Denies rhinitis, urticaria, eczemia or asthma Vital Signs Vital Signs Vital Signs: 01/23/25 05:25 01/23/25 07:58 01/23/25 08:24 Temperature 97.5 F L 98.3 F Temperature Source Oral Pulse Rate 60 77 Respiratory Rate 16 18 Respiratory Effort Respiratory Depth Respiratory Pattern Blood Pressure 179/74 H 157/94 H 170/135 H Blood Pressure Mean 109 115 146 Blood Pressure Source Blood Pressure Position Blood Pressure Location Pulse Ox 96 94 Oxygen Delivery Method Room Air Oxygen Flow Rate (L/min) 01/23/25 09:02 01/23/25 09:42 01/23/25 14:30 Temperature 97.4 F L Temperature Source Oral Pulse Rate 73 91 Respiratory Rate 16 16 Respiratory Effort Normal Respiratory Depth Normal Respiratory Pattern Normal Blood Pressure 165/88 H 164/71 H Blood Pressure Mean 113 102 Blood Pressure Source Monitor Monitor Blood Pressure Position Semi-Fowlers Supine Blood Pressure Location Right Arm Left Arm Pulse Ox 93 94 Oxygen Delivery Method Room Air Room Air Room Air Oxygen Flow Rate (L/min) 01/23/25 14:40 01/23/25 14:50 01/23/25 15:00 Temperature Temperature Source Pulse Rate 91 90 90 Respiratory Rate 16 16 16 Respiratory Effort Respiratory Depth Respiratory Pattern Blood Pressure 148/74 H 151/73 H 147/91 H Blood Pressure Mean 98 99 109 Blood Pressure Source Monitor Monitor Monitor Blood Pressure Position Supine Supine Supine Blood Pressure Location Left Arm Left Arm Left Arm Pulse Ox 98 97 97 Oxygen Delivery Method Nasal Cannula Nasal Cannula Nasal Cannula Oxygen Flow Rate (L/min) 2 2 2 01/23/25 15:10 Temperature Temperature Source Pulse Rate 91 Respiratory Rate 16 Respiratory Effort Respiratory Depth Respiratory Pattern Blood Pressure 142/71 H Blood Pressure Mean 94 Blood Pressure Source Monitor Blood Pressure Position Supine Blood Pressure Location Left Arm Pulse Ox 97 Oxygen Delivery Method Nasal Cannula Oxygen Flow Rate (L/min) 2 Weight Weight: 60.384 kg Body Mass Index (BMI) 24.3 Physical Exam Const alert, oriented x3, no apparent distress and healthy appearing Constitutional Narrative: Patient appears younger than her stated age General Appearance: cooperative, well kempt and well developed Orientation / Consciousness: awake, oriented to person, oriented to place and oriented to time HEENT normocephalic, head/scalp atraumatic, hearing grossly normal bilaterally and moist oral mucous membranes Eyes PERRL, EOMs intact bilaterally and conjunctivae normal Neck supple, no JVD, thyroid normal and no carotid bruits General: trachea midline Resp normal respiratory effort, no retractions, no use of accessory muscles and clear to auscultation bilaterally Auscultation: Negative for rales, rhonchi or wheezes Cardio regular rate, regular rhythm, S1 normal heart sound, S2 normal heart sound, no murmurs, no rub and no gallops GI normal to inspection, nondistended, normoactive bowel sounds, soft to palpation, non-tender and non-distended Extremity no clubbing, cyanosis or edema Skin no rashes or lesions noted General Skin Exam: no breakdown Neuro oriented x3, CN's II-XII intact bilaterally, moves all extremities, no focal motor deficits and no sensory deficits noted Sensorium / Orientation: awake and alert Speech: speech normal Psych affect normal Results Lab / Micro Data 01/23/25 05:55 01/23/25 05:55 Labs: Laboratory Results - last 24 hr 01/23/25 05:55: WBC 10.6, RBC 4.08 L, Hgb 13.4, Hct 39.4, MCV 96.6, MCH 32.8 H, MCHC 34.0, RDW Std Deviation 48.7 H, RDW Coeff of Payton 13.6, Plt Count 269, MPV 8.7, Immature Gran % (Auto) 0.200, Neut % (Auto) 66.4, Lymph % (Auto) 17.5 L, [place] % (Auto) 8.6, Eos % (Auto) 6.7 H, Baso % (Auto) 0.6, Absolute Neuts (auto) 7.0, Absolute Lymphs (auto) 1.85, Nucleated RBC % 0, Sodium 142, Potassium 3.9, Chloride 107, Carbon Dioxide 23.6, Anion Gap 11, BUN 24 H, Creatinine 1.03, Estim Creat Clear Calc 33.74 L, Est GFR (MDRD) Non-Af 53 L, BUN/Creatinine Ratio 23.5 H, Glucose 82, Calcium 9.3, Magnesium 1.9 01/23/25 06:14: Urine Color Yellow, Urine Clarity Cloudy, Urine pH 6.0, Ur Specific Chauvin 1.030, Urine Protein 30 H, Urine Glucose (UA) Normal, Urine Ketones Negative, Urine Occult Blood 25 H, Urine Nitrite Negative, Urine Bilirubin Negative, Urine Urobilinogen Normal, Ur Leukocyte Esterase 500 H, Urine RBC 0 SEEN, Urine WBC 0-5 SEEN, Ur Squamous Epith Cells 10-25 SEEN, Ur Transition Epith Cell 0-5 SEEN, Urine Bacteria 3+, Urine Mucus 0 SEEN Assessment & Plan Assessment/Plan (1) Debility: PLAN: Plan 1. 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-patient will be admitted to [place] [id number], MRI of the neck and lumbar spine will be obtained, patient will be seen in consultation by spinal surgery #2 degenerative disc disease of the cervical spine-patient had a cervical fusion performed approximately 15 years ago, again further imaging studies will be obtained and she will be seen by spinal surgery #3 essential hypertension-patient will remain on her present medications #4 hyperlipidemia-patient is on a statin #5 chronic use of anticoagulation due to history of atrial flutter-patient is on Eliquis #6 cerebrovascular disease-patient is on Eliquis Total clinical time spent by myself addressing patient's medical issues, reviewing all of her data, and collaborating with patient's care team: 55 minutes Charges/Coding Visit Charges Inpatient E&M: 75671 Init Hosp L2
[2025-01-24 02:05] VITALS: BP 146/77; PULSE 71; RESP 18; TEMP 36.4; O2SAT 96
[2025-01-24 08:55] VITALS: BP 143/70; PULSE 71; RESP 16; TEMP 36.6; O2SAT 93
[2025-01-24] MEDS: APIXABAN 5 MG TABLET PO ×2 (09:12→21:03)
--- NOTE | 2025-01-24 11:07 | CASEMGMT ---
TEGAN CM in to discuss OZUNA form with patient. RN CM explained OZUNA form, patient voiced understanding. Pt signed form and filed in chart. Pt provided with a copy of signed OZUNA form. Patient had no further questions or concerns at this time.
[2025-01-24] MEDS: 0.9% Saline Lock 10 ML Syringe IV ×3 (11:22→23:49)
--- NOTE | 2025-01-24 11:24 | CASEMGMT ---
TEGAN SANTIAGO reviewed therapy notes, into pt room to discuss DC planning. Discussed SNF with Pt, she states she is unsure what she would like to do at time of DC and would like TEGAN SANTIAGO to come back later to discuss. Pt would like to speak with Ortho Doctor before making a decision. TEGAN SANTIAGO to follow up.
[2025-01-24 11:25] VITALS: BP 141/68; PULSE 85; RESP 16; TEMP 36.6; O2SAT 93
--- NOTE | 2025-01-24 12:33 | PCM.PN.ORT ---
Subjective Subjective Saw patient in 309 this morning. Patient was sitting on a recliner. She was able to work with PT and was able to take a few steps around the bed to the chair. Has some pain in the neck. Denies any lower back pain or radiating pain to his lower extremities. Denies any bladder or bowel symptoms. Please see detailed history from yesterday's note. Objective Data Objective Data Vital Signs: Vital Signs Temp Pulse Resp BP Pulse Ox O2 Del Method O2 Flow Rate 97.8 F 85 16 141/68 H 93 Room Air 2 01/24/25 11:01/24/25 11:01/24/25 11:01/24/25 11:01/24/25 11:01/24/25 11:01/23/25 15:10 Oxygen Flow Rate (L/min) 2 Oxygen Delivery Method Room Air Weight: 133 lb 2 oz Body Mass Index (BMI) 24.3 Intake & Output: Intake and Output for Last 24 Hours 01/22/25 01/23/25 01/24/25 23:59 23:59 23:59 Intake Total 200 / 200 500 / 500 Output Total 700 / 700 Balance -500 / -500 500 / 500 Lab / Micro Data 01/23/25 05:55 01/23/25 05:55 Micro: Microbiology 01/23/25 06:14 Urine Catheter - Catheter Urine Culture - Preliminary Culture exhibits no growth. Radiography Diagnostic Testing: Radiology Impression Cervical Spine MRI 01/23/25 14:30 IMPRESSION: No acute abnormality. Postoperative changes of corpectomy and ACDF from C4-C7. Advanced multilevel spondylotic changes, with moderate spinal canal stenosis at the craniocervical junction and at the C3-4 level, but no cord impingement/edema. Chronic cord myelomalacia at C4-5. Multilevel moderate-advanced bilateral neural foraminal stenoses, as noted. Reading Location: [facility] Lumbar Spine MRI 01/23/25 15:00 IMPRESSION: 1. Multilevel degenerative changes, as described in detail above. 2. Advanced spinal canal stenosis at L4-5 with cauda equina impingement and redundancy. 3. Advanced bilateral neural foraminal stenosis at L4-5, mild-moderate at the remaining levels. Reading Location: [facility] Physical Exam Narrative Examination of the neck shows mild paraspinal tenderness. Neurologic evaluation shows a grade 0 left deltoid, grade 0 left biceps, grade 4 - all other muscles in the left upper extremity, grade 4+ on the right upper extremity, grade 4 - in left lower extremity, grade 4+ in the right lower extremity. Tiki's is positive bilaterally. Both lower extremities shows hyperreflexia. Assessment & Plan Assessment/Plan (1) Cervical myelopathy: (2) Fusion of spine, cervical region: (3) Myelomalacia of cervical cord: PLAN: Plan Reviewed MRI of cervical and lumbar spine done yesterday. Lumbar spine shows severe multilevel disc degeneration with severe stenosis L4-5 and moderate at other levels. Patient at this time does not have any symptoms suggestive of cauda equina syndrome, patient does not have any low back pain or radicular pain, and claudication cannot be tested because of patient's inability to walk from the weakness. At this time for the lumbar spine findings, I will recommend continued nonsurgical treatment and observation. Reviewed cervical MRI done last night. This shows moderate stenosis with adjacent segment degeneration at C3-4, moderate stenosis at the occipitocervical junction from a large pannus behind dens process. I suspect cord edema at both these levels, but this have not been reported. Unclear if there is an nonunited dens fracture which has also not been reported on the CTA cervical spine earlier this week as well as MRI at this time. I discussed the cervical MRI in detail. Patient has severe weakness of left upper extremity proximal muscles, hyperreflexia, left lower extremity weakness and inability worse with difficulty walking. Patient's symptoms have rapidly progressed over a week or 2. This points towards a myelopathic pattern rather than stenosis at the lumbar levels. Since stroke was ruled out earlier this week, the moderate stenosis at both the occipitocervical junction as well as at the C3-4 level seem to be sources of her new progressive weakness. Discussed natural history of cervical myelopathy which is typically that of progression, and is typically treated with surgical decompression. To decompress both the occipitocervical junction as well as C3-4, patient will need an extensive posterior cervical decompression with multilevel fusion which will limit mobility. Patient is 89 with cardiac comorbidities and any surgery will be fairly risky. Regardless, patient would benefit from an outpatient to consult surgical service at a higher center with resources to take care of complications related to her cardiac comorbidities and advanced age. Discussed that this would be at a tertiary center. At this time I would recommend use of soft collar immobilization as well as continued steroids to help reduce the cord edema. Patient may go to rehab with a soft collar and after discussion with family, may obtain consultation at a higher center for possible surgical intervention as an outpatient over the next week or 2. I answered all questions of patient and family member. Discussed the case with hospitalist. Charges/Coding Visit Charges Inpatient E&M: 15504 Subs Hosp L3
[2025-01-24 15:41] VITALS: BP 141/68; PULSE 87; RESP 16; TEMP 36.6; O2SAT 94
--- NOTE | 2025-01-24 19:22 | PN.HOSP_ITS ---
Reason for Visit
--- NOTE | 2025-01-24 19:22 | PCM.PN.HOSP ---
Reason for Visit Chief Complaint: Left lower extremity weakness, generalized debility Subjective Subjective Patient was seen and examined today, she states she feels much better today. Spinal surgery saw the patient in consultation and recommended that she seek an opinion at a tertiary facility concerning for further cervical surgery. He also recommended a soft cervical collar which the patient declines at this time. Patient will continue to see PT and OT, she was placed on IV Decadron at the direction of spinal surgery yesterday. Objective Data Objective Data Vital Signs: Vital Signs Temp Pulse Resp BP Pulse Ox O2 Del Method O2 Flow Rate 98 F 87 16 141/68 H 94 Room Air 2 01/24/25 15:41 01/24/25 15:41 01/24/25 15:41 01/24/25 15:41 01/24/25 15:41 01/24/25 15:56 01/23/25 15:10 Oxygen Flow Rate (L/min) 2 Oxygen Delivery Method Room Air Weight: 60.384 kg Body Mass Index (BMI) 24.3 Intake & Output: Intake and Output for Last 24 Hours 01/22/25 01/23/25 01/24/25 23:59 23:59 23:59 Intake Total 200 / 200 500 / 500 Output Total 700 / 700 Balance -500 / -500 500 / 500 Lab / Micro Data 01/23/25 05:55 01/23/25 05:55 Micro: Microbiology 01/23/25 06:14 Urine Catheter - Catheter Urine Culture - Preliminary Culture exhibits no growth. Physical Exam Const alert, oriented x3, no apparent distress and healthy appearing General Appearance: cooperative, well kempt and well developed Orientation / Consciousness: awake, oriented to person, oriented to place and oriented to time HEENT normocephalic, head/scalp atraumatic and moist oral mucous membranes Eyes PERRL, EOMs intact bilaterally and conjunctivae normal Neck supple, no JVD, thyroid normal and no carotid bruits General: trachea midline Resp normal respiratory effort, no retractions, no use of accessory muscles and clear to auscultation bilaterally Auscultation: Negative for rales, rhonchi or wheezes Cardio regular rate, regular rhythm, S1 normal heart sound, S2 normal heart sound, no murmurs, no rub and no gallops Cardio Narrative: Patient has a paced rhythm GI normal to inspection, nondistended, normoactive bowel sounds, soft to palpation, non-tender and non-distended Extremity no clubbing, cyanosis or edema Skin no rashes or lesions noted General Skin Exam: no breakdown Neuro oriented x3, CN's II-XII intact bilaterally, no focal motor deficits and no sensory deficits noted Sensorium / Orientation: awake and alert Speech: speech normal Psych affect normal Assessment & Plan Assessment/Plan (1) Debility: PLAN: Plan 1. 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 Cervical spine films showed moderate stenosis with degeneration at C3-4 and moderate stenosis at the occipital cervical junction from a large pannus behind the dens process. Spinal surgery suspects there is cord edema at both these levels but this has not been reported on the imaging studies. #3 essential hypertension-patient will remain on her present medications #4 hyperlipidemia-patient is on a statin #5 chronic use of anticoagulation due to history of atrial flutter-patient is on Eliquis #6 cerebrovascular disease-patient is on Eliquis #7 myelomalacia of the cervical cord-again patient will remain on IV Decadron Total clinical time spent by myself addressing patient's medical issues, reviewing all of her data, and collaborating with patient's care team: 35 minutes Charges/Coding Visit Charges Inpatient E&M: 69158 Subs Hosp L2
[2025-01-24 20:50] VITALS: BP 150/73; PULSE 78; RESP 18; TEMP 36.5; O2SAT 94
[2025-01-25] MEDS: 0.9% Saline Lock 10 ML Syringe IV ×2 (05:21→12:05)
[2025-01-25 05:32] VITALS: BP 146/75; PULSE 68; RESP 18; TEMP 36.4; O2SAT 93
[2025-01-25 09:51] VITALS: BP 151/70; PULSE 73; RESP 18; TEMP 36.4; O2SAT 92
[2025-01-25] MEDS: APIXABAN 5 MG TABLET PO (10:09)
--- NOTE | 2025-01-25 11:56 | DCINST_ITS ---
Discharge Instructions
--- NOTE | 2025-01-25 11:56 | PCM.DC ---
Discharge Instructions DC O2, CPAP, BIPAP needs Home O2 Discharge instructions: No Dressing / Incision Discharge Activity: Return to Normal Activity Weight Bearing Status: Full weight bearing Follow Up Care Test Results: Test results from this visit will be discussed in further detail at your follow-up appointment, if applicable. Discharge Plan Admission Admit Date/Time: 01/23/25 08:12 Primary Reason for Your Visit: Cervical myelopathy, generalized debility Attending Provider: Domingo Del Castillo Primary Care Provider: Luis M Lemons Consulting Providers: Luis Aguila Instructions Additional Instructions / Restrictions: You may take Tylenol for pain, do not take any ibuprofen or Aleve Discharge Orders/Prescriptions Prescriptions: New prednisone 20 mg tablet 20 mg PO BID Qty: 30 0RF Rx Instructions: 1 twice a day x 6 days, then 1-1/2 daily x 6 days, then 1 daily thereafter until finished Continued multivitamin tablet 1 tab PO QDAY lisinopril 40 mg tablet 40 mg PO DAILY Qty: 90 3RF Eliquis 5 mg Tablet 5 mg PO BID Qty: 60 0RF atorvastatin [Lipitor] 80 mg tablet 80 mg PO DAILY Qty: 30 0RF Referrals / Follow Up: Luis M Lemons DO [Primary Care Provider, Medical] - Within 2 Weeks Referral Note: You will need referral to a neurosurgeon at either the [facility], or [facility] Disposition Disposition (needs filled in before D/C Order can be placed): Home, Self Care
--- NOTE | 2025-01-25 12:10 | PCM.DC.SUM ---
Providers Date of Admission: 01/23/25 Date of Discharge: 01/25/25 Primary Care Physician: Dr. Luis M Lemons, Consultations 01/23/25 09:02 Consult: Orthopedics Routine Consulting Provider: Luis Aguila Reason for Consult: left leg weakness EMERGENT Consult: No MD Notified: Yes Date Notified: 01/23/25 Time Notified: 08:43 Method of Notification: Verbal Reason For Visit: GENERALIZED WEAKNESS, DEBILITY Diagnosis Discharge Diagnosis (1) Debility: Status: Acute Code(s): R53.81 - Other malaise Plan 1. 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 Cervical spine films showed moderate stenosis with degeneration at C3-4 and moderate stenosis at the occipital cervical junction from a large pannus behind the dens process. Spinal surgery suspects there is cord edema at both these levels but this has not been reported on the imaging studies. #3 essential hypertension-patient will remain on her present medications #4 hyperlipidemia-patient is on a statin #5 chronic use of anticoagulation due to history of atrial flutter-patient is on Eliquis #6 cerebrovascular disease-patient is on Eliquis #7 myelomalacia of the cervical cord-again patient will remain on IV Decadron #8 no cauda equina syndrome Total clinical time spent by myself addressing patient's medical issues, reviewing all of her data, and collaborating with patient's care team: 35 minutes Medications at Discharge Home Medications multivitamin 1 tab PO QDAY vitamin 10/02/17 lisinopril 40 mg tablet 40 mg PO DAILY blood pressure #90 tabs 01/09/22 apixaban 5 mg tablet (Eliquis) 5 mg PO BID #60 tabs 01/19/25 atorvastatin 80 mg tablet (Lipitor) 80 mg PO DAILY #30 tabs 01/19/25 prednisone 20 mg tablet 20 mg PO BID #30 tabs 01/25/25 Hospital Course Operations None Procedures None Summary of Care Provided Minutes Spent on Discharge: 32 Hospital Course: 89-year-old white female was seen in the emergency room at [facility] with complaints of difficulty ambulating and doing ADLs at home, workup in the emergency room did not reveal any specific reason for this, patient had a history of previous cervical neck fusion approximately 15 years prior. Patient was placed in observation status on MedSurg 3, she underwent an MRI of her neck and lumbar spine, she was noted to have severe degenerative disc disease in her lumbar spine, MRI of the neck showed myelomalacia of the cervical spine, degenerative disc disease with moderate stenosis at C3-4 and moderate stenosis at the occipital cervical junction from a large pannus behind his the dens process. Was recommended the patient be placed on IV corticosteroids which she was, there was great improvement in her mobility within 48 hours. On 01/25/2025, patient was seen and examined: On examination she appeared in good health and spirits, she does not appear to be in any distress. Vital signs as documented. Skin warm and dry and without overt rashes. Neck without JVD, thyroid appears normal, trachea is midline, neck is supple. Lungs clear, normal air movement was noted. Heart exam notable for regular rhythm, normal sounds and absence of murmurs, rubs or gallops. Abdomen unremarkable and without evidence of organomegaly, masses, or abdominal aortic enlargement, bowel sounds are present in all 4 quadrants, no abdominal tenderness was noted. Extremities nonedematous, no cyanosis was noted, no clubbing was noted. Neuro: Cranial nerves II through XII are grossly intact, no focal motor deficits were noted, sensation to light touch and pinprick is intact, motor exam 5/5 throughout. Psych: Patient is alert and oriented x3, she does not appear anxious or depressed, she does not appear agitated. It was recommended that the patient follow-up at a tertiary facility for consultation regarding further neck surgery, patient was instructed to follow-up with her PCP to have this arranged. Patient was discharged home in stable condition on 01/25/2025 Weight / BMI Weight Weight: 60.384 kg Body Mass Index (BMI) 24.3 ABG / Lab / Microbiology Data 01/23/25 05:55 01/23/25 05:55 Microbiology: Microbiology 01/23/25 06:14 Urine Catheter - Catheter Urine Culture - Final Presumptive Lactobacillus sp. D/C Instructions Weight Bearing Status: Full weight bearing DC O2, CPAP, BIPAP Needs Home O2 Discharge instructions: No Meaningful Use Info Meaningful Use Meaningful Use Diagnoses (Choose all that apply): None applicable Discharge Plan Admission Admit Date/Time: 01/23/25 08:12 Primary Reason for Your Visit: Cervical myelopathy, generalized debility Attending Provider: Domingo Del Castillo Primary Care Provider: Luis M Lemons Consulting Providers: Luis Aguila Instructions Additional Instructions / Restrictions: You may take Tylenol for pain, do not take any ibuprofen or Aleve Discharge Orders/Prescriptions Prescriptions: New prednisone 20 mg tablet 20 mg PO BID Qty: 30 0RF Rx Instructions: 1 twice a day x 6 days, then 1-1/2 daily x 6 days, then 1 daily thereafter until finished Continued multivitamin tablet 1 tab PO QDAY lisinopril 40 mg tablet 40 mg PO DAILY Qty: 90 3RF Eliquis 5 mg Tablet 5 mg PO BID Qty: 60 0RF atorvastatin [Lipitor] 80 mg tablet 80 mg PO DAILY Qty: 30 0RF Referrals / Follow Up: Luis M Lemons DO [Primary Care Provider, Medical] - Within 2 Weeks Referral Note: You will need referral to a neurosurgeon at either the [facility], or [facility] Disposition Disposition (needs filled in before D/C Order can be placed): Home, Self Care Charges/Coding Visit Charges Inpatient E&M: 88744 Disch Hosp >30min
== END 2025-01-25 13:16 | disposition home or self-care (01) ==
LOC: ED 08:12 → MS3 08:27
PROVIDERS: Admitting Provider Internal Medicine; Emergency Provider Emergency Medicine; PCP Student in an Organized Health Care Education/Training Program; Visit Provider Internal Medicine
DX: R53.81 Other malaise (principal); M06.9 Rheumatoid arthritis, unspecified; G95.89 Other specified diseases of spinal cord; I27.21 Secondary pulmonary arterial hypertension; I48.92 Unspecified atrial flutter; I44.2 Atrioventricular block, complete; M48.02 Spinal stenosis, cervical region; M50.00 Cervical disc disorder with myelopathy, unspecified cervical region; I10 Essential (primary) hypertension; E78.5 Hyperlipidemia, unspecified; M51.369 Other intervertebral disc degeneration, lumbar region without mention of lumbar back pain or lower extremity pain; M48.061 Spinal stenosis, lumbar region without neurogenic claudication; R26.89 Other abnormalities of gait and mobility; G89.29 Other chronic pain; R47.1 Dysarthria and anarthria; E66.9 Obesity, unspecified; Z68.24 Body mass index [BMI] 24.0-24.9, adult; Z98.1 Arthrodesis status; Z87.891 Personal history of nicotine dependence; Z79.01 Long term (current) use of anticoagulants; Z79.899 Other long term (current) drug therapy; Z86.73 Personal history of transient ischemic attack (TIA), and cerebral infarction without residual deficits
CPT/HCPCS: 72148; 72156; 80048; 81001; 83735; 85025; 87086; 87088; 96374; 96375; 96376; 97162; 97166; 99221; 99285; A9575; A4216; G0378; J2405

== ENCOUNTER 2025-02-09 05:45 | Emergency (ER) | payer MEDICARE, MEDICAID, SELFPAY ==
[2025-02-09] VITALS (8 sets, daily range): BP systolic 121–170; BP diastolic 55–83; PULSE 63–90; RESP 16–17; TEMP 36.3; O2SAT 70–97; BMI 24.6
[2025-02-09 06:27] LABS: Hematocrit 39.9 % (37-47); Hemoglobin 13.3 g/dL (12.0-15.0); Immature Granulocytes Count 0.050 X10^3/uL (0.0-0.0); Mean Corp Hgb Conc 33.3 g/dL (32-36); Mean Corpuscular Volume 97.6 fL (81-99); Mean Platelet Vol. 8.5 fl (6.2-12.0); NRBC Flagged by Analyzer 0 % (0-5); Platelet Count 241 K/mm3 (150-450); RBC Distribution Width CV 13.1 % (11.6-14.6); RBC Distribution Width SD 46.7 fl (35.1-43.9); Red Blood Count 4.09 M/mm3 (4.2-5.4); White Blood Count 13.5 K/mm3 (4.4-11.0)
[2025-02-09] MEDS: 0.9% Normal Saline (1000mL) 1,000 ML 200 ML IV (06:31)
[2025-02-09 06:45] LABS: Anion Gap 8 (5-15); BUN 30 mg/dL (4-19); BUN/Creat Ratio 27.1 RATIO (10-20); Calcium,Total 9.5 mg/dL (7.6-11.0); Carbon Dioxide 30.3 mmol/L (21.0-32.0); Chloride 100 mmol/L (98-108); Estimated Creatinine Clearance 31.31 ml/min (50-250); Glucose 89 mg/dL (70-99); Magnesium 2.2 mg/dL (1.5-2.2); Potassium 4.2 mmol/L (3.3-5.1)
--- NOTE | 2025-02-09 06:57 | EX.ED.DYSGE1 ---
HPI History of Present Illness Chief Complaint: Numb/Ting Informant: patient Narrative Narrative: Patient is a 89-year-old female with past medical history of hypertension and hyperlipidemia. She was seen in the hospital on January 18 for numbness and tingling and there was concern for TIA so therefore she was admitted and underwent an MRI which confirmed no acute stroke. She was discharged back home and then returned on January 23 for increased pain in the neck and left arm. At that time CT showed changes concerning for cervical myelomalacia. Because of the persistent pain and reported paresthesias she was admitted once again so that she could be evaluated by spine surgery and have MRIs to assess the severity of the myelomalacia. It was found that there was significant cord edema which was most likely the cause of her increased pain and symptoms during that visit. However according to spine surgery the myomalacia will continue to worsen and her symptoms will continue to progress. There is potential that if she underwent a significant spinal surgery that symptoms could be halted however based on her advanced age and medical conditions surgery would be risky. She was doing much better on pain medication and steroids and therefore was discharged home. She was not discharged home on steroids but has been taking oxycodone 3-4 times a day. Despite taking the high potency pain medication the patient reports her symptoms are just continuing to worsen to the point where she is not able to care for herself at home. She states at this point she does not want to undergo surgery and as she cannot care for herself she is requesting placement in hospice. Secondary to this she presents for evaluation. [facility] Medical History Cervical myelopathy Fusion of spine, cervical region Debility Myelomalacia of cervical cord TIA (transient ischemic attack) Chronic pain Rheumatoid arthritis Former smoker Atrial fibrillation Pacemaker Hypertension Myelomalacia of cervical cord Left carotid artery stenosis Secondary pulmonary arterial hypertension Complete heart block Obesity Essential (primary) hypertension Left arm weakness Arm paresthesia, left Bradycardia, severe sinus Hyperlipidemia Ischemic cerebrovascular accident (CVA) (04/2017) Osteoarthritis Dysarthria Home Medications ?Medication ?Instructions ?Recorded ?Last Taken ?Type multivitamin 1 tab PO QDAY vitamin 10/02/17 01/22/25 08:00 History lisinopril 40 mg tablet 40 mg PO DAILY blood pressure #90 01/09/22 01/22/25 08:00 Rx tabs apixaban 5 mg tablet (Eliquis) 5 mg PO BID #60 tabs 01/19/25 01/22/25 08:00 Rx atorvastatin 80 mg tablet (Lipitor) 80 mg PO DAILY #30 tabs 01/19/25 01/22/25 08:00 Rx carvedilol 3.125 mg tablet 3.125 mg PO BID 02/09/25 Unknown History cephalexin 250 mg capsule 250 mg PO Q12H 02/09/25 Unknown History Allergy/AdvReac Type Severity Reaction Status Date / Time meperidine (From Demerol) AdvReac Upset Verified 02/09/25 05:46 Stomach Family History Unknown No problems noted. Other CVA (cerebral vascular accident) Surgical History History of permanent cardiac pacemaker placement (09/17/17) History of neck surgery History of total left hip replacement Social History Smoking Status: Former smoker how long ago did patient quit smokin years ago alcohol intake: current alcohol intake frequency: holidays/special occasions only substance use type: does not use caffeine: Yes Type: coffee Number of servings: 1 ROS ROS ED Constitutional Constitutional ED: Denies chills or fever(s) Eyes Eyes: Denies blurry vision or change in vision ENT ENT ED: Denies sore throat Cardiovascular Cardiovascular: Denies chest pain, palpitations or racing heartbeat Respiratory/Chest Respiratory/Chest: Denies cough or dyspnea Gastrointestinal Gastrointestinal: Denies abdominal pain, diarrhea, nausea or vomiting Genitourinary Genitourinary ED: Denies dysuria Musculoskeletal Musculoskeletal: Reports back pain, myalgias and neck pain Integumentary Denies rash Neurologic Neurologic: Reports paresthesias and weakness; Denies headache(s) Hematologic/Lymphatic Hematologic/Lymphatic: Reports easy bleeding and easy bruising EXAM Physical Exam Const Vital Signs: 02/09/25 05:46 02/09/25 06:50 02/09/25 06:58 Temperature 97.4 F L Temperature Source Oral Pulse Rate 63 Respiratory Rate 16 Blood Pressure 170/67 H Blood Pressure Mean 101 Pulse Ox 97 70 96 Oxygen Delivery Method Room Air Room Air Nasal Cannula Oxygen Flow Rate (L/min) 2 Positive well nourished and well developed General Appearance ED: well developed HEENT Reports dry mucous membranes HEENT Narrative: Normocephalic atraumatic Mouth ED: Yes dry mucous membranes Mouth: dry mucous membranes Eyes PERRL and EOMs intact bilaterally General Eye ED: Negative for scleral icterus Neck Neck Narrative: No bony deformity or step-off of the cervical spine There is diffuse pain on palpation of the neck as well as paracervical tension and spasm No meningeal signs noted Resp normal respiratory effort and clear to auscultation bilaterally Resp Narrative: Breath sounds are diminished but overall clear to auscultation Cardio regular rate and regular rhythm Rate: other Other Details: Heart is regular rate and rhythm Radial and carotid pulses are equal and symmetric GI non-tender, non-distended and no masses GI Narrative: Abdomen is soft nontender nondistended with hypoactive bowel sounds No voluntary guarding or rigidity or pulsatile mass No peritoneal signs Auscultation: hypoactive bowel sounds Palpation: soft Back/Spine Back/Spine Narrative: No bony deformity or step-off of the thoracic or lumbar spine Extremity normal to inspection Extremity Narrative: No signs of long bone injury such as bony deformity or joint effusion Neuro oriented x3 and CN's II-XII intact bilaterally Neuro Narrative: Patient has weakness of both upper and lower extremities however this is secondary to pain No focal neurologic deficit is noted Sensorium / Orientation: alert Psych mental status grossly normal Skin no rashes or lesions noted and no wounds General Skin Exam: Negative for jaundice MDM MDM MDM Narrative Medical decision making narrative: Patient arrived to the ER hypertensive but has a past medical history of this. In the last few weeks she is already been worked up for acute stroke with MRI of the brain which was negative as well as MRIs of the cervical and lumbar spine and evaluated by orthopedic spine surgery. Unfortunately she has cervical myomalacia which is progressive and this is causing cord edema which is most likely the cause of her recurrent and persistent symptoms. As she is tried and failed outpatient therapy at home and she is not able to perform activities of daily living I do not feel she is safe to return home. The patient states that she is not willing to undergo a significant spine surgery at her age and with her medical conditions. She is requesting treatment/placement in hospice and/or palliative care secondary to her chronic pain from the cervical myelomalacia and the inability to care for self. Therefore at this time patient will be given IV Dilaudid and IV Decadron as chart review reveals that she received significant pain relief with steroid administration at the last hospital admission. Basic labs will be obtained to ensure there is no acute changes causing her worsening pain. drug abuse social worker be consulted as well as hospice to assess the patient for inpatient treatment. This plan of care was discussed with the patient and family and they are both agreeable to it. The patient's labs showed leukocytosis of 13.5 but this could be related to stress response or recent steroid administration. She does not have findings of infection on physical exam. Urinalysis shows no sign of infection either. The remainder the labs showed no signs of acute kidney injury or clinically significant electrolyte abnormality. As the patient has undergone MRI of the brain as well as MRI of the cervical and lumbar spine in the last few weeks I do not feel there is need for repeat imaging as there is no history or physical exam findings of trauma during her discharge. History & Record Review Discussion w/independent historian: Patient and Family Additional record(s) reviewed:: Prior inpatient record and Prior ED visit Lab Data Attestation: I reviewed the patient's lab results. Labs: Laboratory Results - last 24 hr 02/09/25 02/09/25 06:21 06:54 WBC 13.5 H RBC 4.09 L Hgb 13.3 Hct 39.9 MCV 97.6 MCH 32.5 H MCHC 33.3 RDW Std Deviation 46.7 H RDW Coeff of [place] 13.1 Plt Count 241 MPV 8.5 Immature Gran % (Auto) 0.400 Neut % (Auto) 71.9 H Lymph % (Auto) 14.4 L [place] % (Auto) 8.5 Eos % (Auto) 4.4 Baso % (Auto) 0.4 Absolute Neuts (auto) 9.7 H Absolute Lymphs (auto) 1.94 Nucleated RBC % 0 Sodium 138 Potassium 4.2 Chloride 100 Carbon Dioxide 30.3 Anion Gap 8 BUN 30 H Creatinine 1.09 Estim Creat Clear Calc 31.31 L Est GFR (MDRD) Non-Af 49 L BUN/Creatinine Ratio 27.1 H Glucose 89 Calcium 9.5 Magnesium 2.2 Urine Color Yellow Urine Clarity Clear Urine pH 6.0 Ur Specific [place] 1.020 Urine Protein 15 H Urine Glucose (UA) Normal Urine Ketones Negative Urine Occult Blood Negative Urine Nitrite Negative Urine Bilirubin Negative Urine Urobilinogen Normal Ur Leukocyte Esterase Negative Urine RBC 0 SEEN Urine WBC 0-5 SEEN Ur Squamous Epith Cells 10-25 SEEN Urine Bacteria 0 SEEN Urine Mucus 0 SEEN Management Discussion w/another healthcare provider: drug abuse social worker/Case management Discharge Plan Triage Chief Complaint: Numb/Ting ED Provider: Tyler Llamas Dx/Rx/DC Orders Clinical Impression: Myelomalacia of cervical cord, Essential (primary) hypertension, Hyperlipidemia, Intractable pain, Adult failure to thrive Prescriptions: No Action multivitamin tablet 1 tab PO QDAY lisinopril 40 mg tablet 40 mg PO DAILY Qty: 90 3RF Eliquis 5 mg Tablet 5 mg PO BID Qty: 60 0RF atorvastatin [Lipitor] 80 mg tablet 80 mg PO DAILY Qty: 30 0RF cephalexin 250 mg capsule 250 mg PO Q12H carvedilol 3.125 mg tablet 3.125 mg PO BID Primary Care Provider: Luis M Lemons Referrals: Luis M Lemons, [Primary Care Provider, Medical] Print Language: Nicaraguan
[2025-02-09 07:02] LABS: Mucous, Urine 0 SEEN /hpf (<or=2+); Red Blood Cells-Urine 0 SEEN /hpf (0-5)
[2025-02-09 07:03] LABS: Color, Urine Yellow (Yellow); Glucose, Dipstick Normal (Normal); Ketone-Dipstick Negative (Negative); Leukocyte Esterase-Dipstick Negative /ul (Negative); Nitrite-Dipstick Negative (Negative); Occult Blood-Urine Negative /ul (Negative); Protein-Dipstick 15 mg/dl (Negative); Specific Gravity, Urine 1.020 (1.002-1.030); Urine Bilirubin Dipstick Negative (Negative)
--- NOTE | 2025-02-09 07:04 | PCA ---
FAXED INFO OVER TO HOSPICE AT [id number]
[2025-02-09 07:09] LABS: Squamous Epithelial Cells - UA 10-25 SEEN /hpf (5-10)
--- NOTE | 2025-02-09 20:07 | CM.ED ---
Social Work SW met with patient and patients family due to patient electing to sign on with Hospice. Patient stated she did not have any questions at this time. Family stated they were thankful that patient would be comfortable going forward. No further needs at this time. Sabina Mason, CATEGORY SPECIALIST, [employer] OPERATOR HELPER
== END 2025-02-09 16:21 | disposition hospice, inpatient (51) ==
LOC: ED 06:26
PROVIDERS: Emergency Provider Emergency Medicine; PCP Student in an Organized Health Care Education/Training Program; Visit Provider Emergency Medicine
DX: G95.89 Other specified diseases of spinal cord (principal); I10 Essential (primary) hypertension; R20.0 Anesthesia of skin; E78.5 Hyperlipidemia, unspecified; R62.7 Adult failure to thrive; G89.29 Other chronic pain; Z79.01 Long term (current) use of anticoagulants; Z79.899 Other long term (current) drug therapy; Z87.891 Personal history of nicotine dependence; Z86.73 Personal history of transient ischemic attack (TIA), and cerebral infarction without residual deficits
CPT/HCPCS: 80048; 81001; 83735; 85025; 96361; 96374; 96375; 96376; 99284; A4216; J2405